=== PATIENT | male | born 1955 | race Caucasian/White ===

== ENCOUNTER 2021-08-28 15:16 | Outpatient (CLI) | payer MEDICAID, SELFPAY | END 2021-08-28 15:17 | disposition home or self-care (01) | LOC: WOUND 15:17 | PROVIDERS: Visit Provider Nurse Practitioner Family | DX: E11.622 Type 2 diabetes mellitus with other skin ulcer (principal); I87.311 Chronic venous hypertension (idiopathic) with ulcer of right lower extremity; L97.912 Non-pressure chronic ulcer of unspecified part of right lower leg with fat layer exposed; I89.0 Lymphedema, not elsewhere classified; Z79.84 Long term (current) use of oral hypoglycemic drugs | CPT/HCPCS: 11042 ==

== ENCOUNTER 2021-09-04 15:08 | Outpatient (CLI) | payer MEDICAID, SELFPAY | END 2021-09-04 15:09 | disposition home or self-care (01) | LOC: WOUND 15:08 | PROVIDERS: Visit Provider Nurse Practitioner Family | DX: E11.622 Type 2 diabetes mellitus with other skin ulcer (principal); I87.311 Chronic venous hypertension (idiopathic) with ulcer of right lower extremity; L97.912 Non-pressure chronic ulcer of unspecified part of right lower leg with fat layer exposed; I89.0 Lymphedema, not elsewhere classified; Z79.84 Long term (current) use of oral hypoglycemic drugs | CPT/HCPCS: 11042 ==

== ENCOUNTER 2021-09-11 15:14 | Outpatient (CLI) | payer MEDICAID, SELFPAY | END 2021-09-11 15:15 | disposition home or self-care (01) | LOC: WOUND 15:14 | PROVIDERS: Visit Provider Nurse Practitioner Family | DX: E11.622 Type 2 diabetes mellitus with other skin ulcer (principal); L97.815 Non-pressure chronic ulcer of other part of right lower leg with muscle involvement without evidence of necrosis; I89.0 Lymphedema, not elsewhere classified | CPT/HCPCS: 11042 ==

== ENCOUNTER 2021-09-22 08:00 | Outpatient (CLI) | payer MEDICAID, SELFPAY | END 2021-09-22 08:01 | disposition home or self-care (01) | PROVIDERS: Visit Provider Physician Assistant Surgical | DX: E11.622 Type 2 diabetes mellitus with other skin ulcer (principal); L97.812 Non-pressure chronic ulcer of other part of right lower leg with fat layer exposed; I87.312 Chronic venous hypertension (idiopathic) with ulcer of left lower extremity; L97.822 Non-pressure chronic ulcer of other part of left lower leg with fat layer exposed; Z79.84 Long term (current) use of oral hypoglycemic drugs | CPT/HCPCS: 11042 ==

== ENCOUNTER 2021-10-02 15:24 | Outpatient (CLI) | payer MEDICAID, SELFPAY ==
--- OUTSIDE RECORDS SUMMARY | 2021-10-02 15:32 | XMS_ITS | Continuity of Care Document ---
:1955 Author Organization [facility] Care Team Providers Name Role Phone [facility] Unavailable Unavailable Problems Combined list of problems from Department of Defense and [facility] Affairs facilities. It does not include entries that were removed or entered in error. Problem Status Onset Problem Type Date of Comments Source Date Resolution AF-Atrial [facility] ([facility] HC S [id number]) Anxiety [facility] Asthma (SCT Active [place] [id number]) HCS Benign essential Active Condition [facility] hypertension HCS (SNOMED CT 7152496) Cardiomyopathy Active Condition [facility] HCS Depressive Disorder Active Condition [facility] NOS HCS Diabetes mellitus Active Condition [facility] (SNOMED CT HCS 72336961) Diabetic neuropathy Active Condition [facility] (SNOMED CT HCS 763216246) Dyslipidemia Active Condition [facility] H/O: Stroke (SCT [place] [id number][place] HCS Heart failure [facility] Hernia of anterior Active Condition Sep 14, [facility] abdominal wall 2013 [facility] Entered By: ALDO LI Comment: Dx 04/03, Gen Surgical Eval 07/01 Hydrocele (SNOMED Active [place] 81440577) HCS Low back pain [facility] [place] [facility] (SNOMED CT HCS 134186843) Mental disorder Active Condition [facility] Mixed anxiety and Active Condition [facility] depressive disorder HCS (SNOMED CT 408470021) Morbid obesity [facility]SNOMED [facility] HCS 604962788) Other Specified Active Condition [facility] Counseling [facility] (ICD-9-CM V65.49) Pes Planus, [facility] Acquired HCS 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[facility] depressive HCS episodes, moderate (SNOMED CT 692064126) Sleep Apnea [facility] Diagnosis: active Diagnosis [facility] ICD-10-CM I63.9 HCS Cerebral infarction, unspecifiedwith Provider Comments: Cerebral infarction, unspecified Diagnosis: active Diagnosis [place] ICD-10-CM I63.9 HCS Cerebral infarction, unspecifiedwith Provider Comments: Cerebral Infarction, unspecified Diagnosis: active Diagnosis [place] ICD-10-CM Z71.3 HCS Dietary counseling and surveillancewith Provider Comments: Dietary counseling and surveillance Diagnosis: active Diagnosis [place] ICD-10-CM R26.9 HCS Unspecified abnormalities of gait and mobilitywith Provider Comments: Unspecified Abnormalities of Gait and Mobility Diagnosis: active Diagnosis [place] ICD-10-CM I10 HCS Essential (primary) hypertensionwith Provider Comments: Benign essential hypertension (SCT 3347558) Medications Combined list of outpatient medications from Department of Defense and Veterans Affairs facilities. Medications provided include 1) outpatient medications from the last 15 months, and 2) patient-reported medications. Medication Details Route Status Patient Prescription Prescription Last Ordering Order Source Instructions Expires Number Dispense Provider Date Date ACETAMINOPH TAKE TWO ORALLY ACTIVE BROWN,ABBY 12/09 / [place] 325MG TABLETS 2019 [facility] TAB BY M[facility]TH [facility] EVERY 6 HOURS NEEDED ALBUTEROL INHALE INHALA ACTIVE BROWN,ABBY 06/16/ [place] INHL,ORAL BY TION AN [facility] ON PRN AMLODIPINE TAKE ORALLY ACTIVE BROWN,ABBY 12/09/ [place] BESYLATE ONE-HALF AN 2019 [facility] 10MG TAB TABLET [facility] BY MOUTH EVERY DAY ASPIRIN TAKE ONE ORALLY ACTIVE BROWN,ABBY 12/09/ [place] 81MG TAB,EC TABLET 2019 [facility] BY [facility]TH [facility] EVERY DAY ATORVASTATI TAKE ONE ORALLY ACTIVE BROWN,ABBY 12/09 / [place] CA 80MG TABLET 2019 [facility] AT BEDTIME BACITRACIN APPLY TO TOPICA ACTIVE BROWN,ABBY 06/16/ [place] 500UNT/GM AFFECTED LLY AN 2020 [facility] OINT,TOP AREA [facility] TOPICALL Y PRN DOCUSATE NA TAKE ONE ORALLY ACTIVE BROWN,ABBY 06/16 / [place] 50MG/SENNOS TABLET AN 2020 [facility] IDES 8.6MG BY MOUTH [facility] S TAB TWICE A DAY NEEDED FLUTICASONE SPRAY 2 NASAL ACTIVE BROWN,ABBY 12/09/ [place] PROPIONATE SPRAYS AN 2019 [facility] 50MCG/SPRAY IN EACH [facility] SOLN,NASAL, NOSTRIL 16GM EVERY DAY FUROSEMIDE TAKE ONE ORALLY ACTIVE BROWN,ABBY 12/09/ [place] 20MG TAB TABLET AN 2019 [facility] BY [facility]TH [facility] EVERY DAY GABAPENTIN TAKE 1 ORALLY ACTIVE BROWN,ABBY 06/27/ [place] 100MG CAP CAPSULE AN 2021 [facility]TH [facility] TWICE A DAY METFORMIN TAKE ONE ORALLY ACTIVE BROWN,ABBY 06/16/ [place] HCL 1000MG TABLET AN 2020 [facility] TWO TIMES A DAY METOPROLOL TAKE ORALLY ACTIVE BROWN,ABBY 12/09/ [place] SUCCINATE ONE-HALF AN 2019 [facility] 200MG TABLET [facility] TAB,SA BY MOUTH EVERY DAY NYSTATIN USE TOPICA ACTIVE BROWN,ABBY 12/09/ [place] POWDER TOPICALL LLY AN 2019 [facility] Y TWICE [facility] A DAY SENNOSIDES TAKE ONE ORALLY ACTIVE BROWN,ABBY 12/09/ [place] 8.6MG TAB TABLET AN 2019 [facility] BY [facility]OUTH [facility] EVERY DAY VALSARTAN TAKE 1.5 ORALLY ACTIVE BROWN,ABBY 06/16/ [place] 80MG TAB TABLETS AN 2020 [facility] BY [facility]TH [facility] TWICE A DAY WARFARIN NA TAKE 10 ORALLY ACTIVE BROWN,ABBY 06/16/ [place] 1MG TAB TABLETS AN 2020 [facility] BY [facility]TH [facility] EVERY DAY Allergies, Adverse Reactions, Alerts Combined list of allergies from Department of Defense and Veterans Affairs facilities. It does not include entries that were removed or entered in error. Substance Category Reaction Severity Reaction Status Date Comments S ource type Reported LISINOPRIL Propensity Propensity active [place] to adverse to adverse 8 [place] [facility] reactions reactions to drug to drug (finding) (finding) LISINOPRIL Propensity Cough Propensity active [facility] to adverse to adverse 2 [facility] reactions reactions to drug to drug (finding) (finding) Immunizations Combined list of available immunizations from the Department of Defense and Veterans Affairs facilities. Immunization Series Date Administered Site Reaction Lot CVX Drug St atus Comments Source Given By Number Code Check Pilot INFLUENZA, complet [place] UNSPECIFIED 2020 ed [facility] COVID-19 2 complet [place] LGREE (MODERNA), 2020 ed NS MRNA, LNP-S, P HARMAC PF, 100 IES MCG/0.5 ML DOSE COVID-19 1 complet [place] LG[place] (MODERNA), 2020 ed NS MRNA, LNP-S, P HARMAC PF, 100 IES MCG/0.5 ML DOSE ZOSTER 2 complet [place] RECOMBINANT 2018 ed [facility] INFLUENZA, complet [place] SEASONAL, 2018 ed [facility] INJECTABLE, HC S PRESERVATIVE FREE ZOSTER 1 complet [place] RECOMBINANT 2018 ed [place] [facility] HCS INFLUENZA, complet [facility] SE[facility]ON[facility], [address] INJECTABLE, ME TRO PRESERVATIVE V A FREE CLINIC INFLUENZA, complet [facility] SEASONAL, [address] INJECTABLE, ME TRO PRESERVATIVE V A FREE CLINIC INFLUENZA, complet [place] [facility] [address] INJECTABLE, ME TRO PRESERVATIVE V A FREE CLINIC INFLUENZA, complet [facility] UNSPECIFIED [address] FORMULATION [facility]IN[facility] INFLUENZA, complet [facility] UNSPECIFIED [address] FORMULATION [facility] TDAP complet [id number] [facility] [place] 2012 ed 05/06/15 ST [employer] [facility] PR CLINIC INFLUENZA, complet [facility] UNSPECIFIED [address] FORMULATION [place] [facility] PR CLINIC INFLUENZA, complet [place] UNSPECIFIED 2009 ed [facility] PNEUMOCOCCAL, complet [employer] [place] UNSPECIFIED 2007 ed lot# [facility] [id number] HC S exp. [id number] INFLUENZA complet [place] (HISTORICAL) 2007 ed O [place] [facility] HCS INFLUENZA complet [place] (HISTORICAL) 2007 ed O [place] [facility] HCS TD(ADULT) complet [place] UNSPECIFIED 2007 ed [facility] Results Combined list of recent chemistry, hematology and other laboratory results from Department of Defense and Veterans Affairs, ranging from 15 months to all on record, depending upon the facility. Order Results Value Reference Date Interpretation Specimen Commen ts Source Name Range OCCULT HEMOGLOBIN. Negative 06/28 Specimen Ty pe: FECES [place] BLOOD GASTROINTES /2020 No comment e ntered. IS [facility] X1 TINAL.LOWER Ordering Pr ovider: MONI BROWN SCREEN [PRESENCE] Report Relea sed Date/Time: Jun 16, 2020 09:30 AM IN STOOL BY Reporting L ab: [facility] IMMUNOASSAY [address] [facility] [address] --1ST Performing Lab: [facility] SPECIMEN [address] [facility] [address] DRUG BARBITURATE Negative 05/04 Specimen Ty pe: URINE [place] SCREEN S Comment: PRESUM PTIVE POSITIVE BY SCREEN, RESULTS NOT CONFIRMED IS PR [employer] PANEL,U [PRESENCE] Ordering Pro vider: MONI BROWN IN URINE BY Report Rele ased Date/Time: Feb 27, 2018 10:18 AM SCREEN Reporting Lab: [facility] METHOD [address] [facility] [address] Performing Lab: [facility] [address] [facility] [address] DRUG AMPHETAMINE Negative 05/04 Specimen Ty pe: URINE [place] SCREEN S Comment: PRESUM PTIVE POSITIVE BY SCREEN, RESULTS NOT CONFIRMED IS PR [employer] PANEL,U [PRESENCE] Ordering Pro vider: MONI BROWN IN URINE Report Release d Date/Time: Feb 27, 2018 10:18 AM Reporting Lab: [facility] [address] [facility] [address] Performing Lab: [facility] [address] [facility] [address] DRUG COCAINE Negative 05/04 Specimen Type: URINE [place] SCREEN [PRESENCE] /2020 Comment: PRE SUMPTIVE POSITIVE BY SCREEN, RESULTS NOT CONFIRMED IS PR [employer] PANEL,U IN URINE Ordering Provi isidra: MONI BROWN Report Released Date/Time: Feb 27, 2018 10:18 AM Reporting Lab: [facility] [place] [address] Performing Lab: [facility] [address] [facility] [address] DRUG BENZODIAZEP Negative 05/04 Specimen Ty pe: URINE [place] SCREEN JOHANN /2020 Comment: PRESUM PTIVE POSITIVE BY SCREEN, RESULTS NOT CONFIRMED IS PR HCS PANEL,U [PRESENCE] Ordering Pro vider: MONI BROWN IN URINE BY Report Rele ased Date/Time: Feb 27, 2018 10:18 AM SCREEN Reporting Lab: [facility] METHOD [place] [address] Performing Lab: [facility] [address] [place] [address] DRUG CANNABINOID Negative 05/04 Specimen Ty pe: URINE [place] SCREEN Comment: PRESUM PTIVE POSITIVE BY SCREEN, RESULTS NOT CONFIRMED IS PR HCS PANEL,U [PRESENCE] Ordering Pro vider: MONI BROWN IN URINE BY Report Rele ased Date/Time: Feb 27, 2018 10:18 AM SCREEN Reporting Lab: [facility] METHOD [address] [facility] [address] Performing Lab: [facility] [address] [facility] [address] DRUG METHADONE Negative 05/04 Specimen Type : URINE [place] SCREEN [PRESENCE] /2020 Comment: PRE SUMPTIVE POSITIVE BY SCREEN, RESULTS NOT CONFIRMED IS PR HCS PANEL,U IN URINE Ordering Provi isidra: MONI BROWN Report Released Date/Time: Feb 27, 2018 10:18 AM Reporting Lab: [facility] [address] [facility] [address] Performing Lab: [facility] [address] [facility] [address] DRUG OPIATES POSITIVE 05/04 H Specimen Type: URINE [place] SCREEN [PRESENCE] /2020 Comment: PRE SUMPTIVE POSITIVE BY SCREEN, RESULTS NOT CONFIRMED IS PR HCS PANEL,U IN URINE BY Ordering Pr ovider: MONI BROWN SCREEN Report Released Date/Time: Feb 27, 2018 10:18 AM METHOD Reporting Lab: [facility] [address] [facility] [address] Performing Lab: [facility] [address] [facility] [address] DRUG PHENCYCLIDI Negative 05/04 Specimen Ty pe: URINE [place] SCREEN Comment: PRESUM PTIVE POSITIVE BY SCREEN, RESULTS NOT CONFIRMED IS PR HCS PANEL,U [PRESENCE] Ordering Pro vider: MONI BROWN IN URINE Report Release d Date/Time: Feb 27, 2018 10:18 AM Reporting Lab: [facility] [address] [place] [address] Performing Lab: [facility] [address] [facility] [address] DRUG ETHANOL Negative 05/04 Specimen Type: URINE [place] SCREEN [MASS/VOLUM /2020 Comment: MA ESUMPTIVE POSITIVE BY SCREEN, RESULTS NOT CONFIRMED IS PR HCS PANEL,U E] IN URINE Ordering Pr ovider: MONI BROWN Report Released Date/Time: Feb 27, 2018 10:18 AM Reporting Lab: [facility] [address] [facility] [address] Performing Lab: [facility] [address] [facility] [address] DRUG CREATININE >300.0 20 05/04 Specimen Type : URINE [place] SCREEN [MASS/VOLUM /2020 Comment: MA ESUMPTIVE POSITIVE BY SCREEN, RESULTS NOT CONFIRMED IS PR HCS PANEL,U E] IN URINE Ordering Pr ovider: MONI BROWN Report Released Date/Time: Feb 27, 2018 10:18 AM Reporting Lab: [facility] [address] [facility] [address] Performing Lab: [facility] [address] [facility] [address] DRUG OXYCODONE Negative 05/04 Specimen Type : URINE [place] SCREEN [PRESENCE] /2020 Comment: PRE SUMPTIVE POSITIVE BY SCREEN, RESULTS NOT CONFIRMED IS PR HCS PANEL,U IN URINE BY Ordering Pr ovider: MONI BROWN SCREEN Report Released Date/Time: Feb 27, 2018 10:18 AM METHOD Reporting Lab: [facility] [address] [facility] [address] Performing Lab: [facility] [address] [facility] [address] DRUG BUPRENORPHI Negative 05/04 Specimen Ty pe: URINE [place] SCREEN NE+NORBUPRE /2020 Comment: MA ESUMPTIVE POSITIVE BY SCREEN, RESULTS NOT CONFIRMED IS PR HCS PANEL,U [place] Ordering Provi isidra: MONI BROWN [PRESENCE] Report Relea sed Date/Time: Feb 27, 2018 10:18 AM IN URINE Reporting Lab: [facility] [place] [address] Performing Lab: [facility] [address] [facility] [address] DRUG TRAMADOL Negative 03/17 Specimen Type: URINE [place] SCREEN CUTOFF /2020 Comment: PRESUM PTIVE POSITIVE BY SCREEN, RESULTS NOT CONFIRMED IS [facility] PANEL,U [MASS/VOLUM Ordering Pr ovider: MONI BROWN] IN URINE Report Rele ased Date/Time: Feb 27, 2018 10:18 AM FOR SCREEN Reporting La b: [facility] METHOD [address] [facility] [address] Performing Lab: [facility] [address] [facility] [address] Vital Signs Combined list of inpatient and outpatient Vital Signs from Department of Defense and Veterans Affairs, ranging from 12 months to all on record, depending upon the facility. Vital Sign Value Date Comments Source SYSTOLIC BLOOD PRESSURE 153 06/14/2021 08:03:02 [facility] DIASTOLIC BLOOD PRESSURE 99 06/14/2021 08:03:02 [facility] PULSE OXIMETRY 99% 06/14/2021 08:03:02 [place] [facility] WEIGHT 334 06/14/2021 08:03:02 [place] [facility] BMI 48kg/m2 06/14/2021 08:03:02 [place] [facility] PAIN 0 06/14/2021 08:03:02 [place] [facility] TEMPERATURE 97.7 06/14/2021 08:03:02 [place] [facility] [facility] PULSE 68 06/14/2021 08:03:02 [place] [facility] RESPIRATION 18 06/14/2021 08:03:02 [place] [facility] Encounters Combined list of: 1) Encounters from Department of Veterans Affairs facilities going back up to the last 18 months, not all [place] inpatient encounters are included; 2) Encounters from the Department of Defense facilities going back up to 280 months. Location Location Encounter Encounter Reason Attending ADM DC Stat us Disposition Source Details Type Number For Provider Date Date Visit Outpatient [id number] 04/04 [facility] Encounter [id number] NS 990 [facility] Outpatient [id number] 05/04 [place] [facility] [id number] [facility] [id number] 06/16 [place] [facility] [id number] [facility] 23331-7. DOMINIK BROWN 06/16 [place] En[place] [id number] [facility] [id number] 06/16 [place] En[place] [id number] /2020 [facility] 93281-2.61 BRENDAN HEBERT 06/16 [place] Encounter [id number] EKATERINA J [facility] [id number] 06/16 [place] En[place] [id number] /2020 [facility] Outpatient [id number] DOMINIK BROWN 06/16 [place] En[place] [id number] N [facility] Outpatient [id number] 06/30 [place] Encounter [id number] /2020 [facility] Outpatient [id number] 10/06 [place] En[place] [id number] /2020 [facility] Outpatient [id number] SHIRA PAUL 10/13 [place] [id number] [facility] [id number] 11/18 [place] En[place] [id number] /2020 [facility] [id number] 04/11 [place] En[place] [id number] /2021 [facility] [id number] 05/03 [place] En[place] [id number] /2021 [facility] Outpatient [id number] 05/18 [place] Encounter [id number] /2021 [facility] OFFICE O/P 10769-4.61 Diagnos DOMINIK BROWN 06/14 [place] EST [place] [id number] is: N [facility] 40-54 [place] ICD-10- [facility] CM I10 Essenti al (primar y) hyperte nsion<b r/>with Provide r Comment s: Benign essenti al hyperte nsion (SCT 7493374 ) Outpatient [id number] 06/15 [place] Encounter [id number] /2021 [facility] [id number] 06/17 [place] En[place] [id number] /2021 [facility] [id number] Diagnos JEREMIAH SALEH 06/20 [place] Encounter [id number] is: [place] [facility] ICD-[facility]- [facility] CM R26.9 Unspeci fied abnorma lities of gait and mobilit y
w ith Provide r Comment s: Unspeci fied Abnorma lities of Gait and Mobilit y MEDICAL 84069-2.61 Diagnos VINCENT,TO 07/12 [place] NUTRITION [id number] is: NI [facility] IN[facility] ICD-10- HCS CM Z71.3 Dietary personal financial counselor ing and surveil winnie<b r/>with Provide r Comment s: Dietary personal financial counselor ing and surveil winnie THERAPEUTI 58062-8.61 Diagnos DELBERT GERARDO 07/12 [place] [id number] is: NNER W [facility] ACTIVITIES ICD-10- [facility] CM I63.9 Cerebra l infarct ion, unspeci fied
with Provide r Comment s: Cerebra l Infarct ion, unspeci fied NEUROMUSCU 70753-8.61 Diagnos BAM SUAREZ 08/11 [place] LAR [id number] is: /2021 [facility] REEDUCATIO ICD-10- [facility] N CM I63.9 Cerebra l infarct ion, unspeci fied
with Provide r Comment s: Cerebra l infarct ion, unspeci fied Outpatient [id number] 09/07 [place] Encounter [id number] /2021 [facility] Outpatient [id number] 09/19 [place] Encounter [id number] /2021 [facility] Outpatient [id number] 09/27 [place] Encounter [id number] /2021 [facility] Social History Combined list of available smoking, tobacco, and other social history from Department of Defense andVeterans Affairs facilities. Social History Type Response Date Comment Source Tobacco smoking VA-[facility] USER SOME 06/14/2021 [facility] NHIS DAYS History of tobacco VA-TOBACCO DOESNT USE 06/14/2021 [facility] use WI 30 MIN WAKEUP History of tobacco VA-TOBACCO NEVER USED 01/28/2018 [facility] use History of tobacco FORMER TOBACCO USER 10/25/2016 [facility] History of tobacco LIFETIME NON-TOBACCO 10/12/2015 [facility] History of tobacco LIFETIME NON-TOBACCO 09/22/2014 [facility] use [facility] History of tobacco FORMER TOBACCO USER 07/07/2013 [facility] History of tobacco LIFETIME NON-TOBACCO 07/05/2011 [facility] use USER History of tobacco LIFETIME NON-TOBACCO 07/03/2011 [facility] use USER History of tobacco LIFETIME NON-TOBACCO 11/20/2007 [facility] use USER Advance Directives List of completed, amended, or rescinded Advance Directives on record at Department of Veterans Affairs facilities. An actual copy of the Directive is not included. Date Advance Directive Provider Source 07/03/2011 CLINICAL WARNING RACHAEL KING [facility]
--- OUTSIDE RECORDS SUMMARY | 2021-10-02 15:32 | XMS_ITS | Encounter Summary ---
:1955 Author Organization [facility] Address [address] [place] [address] Support Name Relationship Address Phone JULIET MOODY Unavailable [address] [place] [facility] [place] [address] SHENA PETERSEN Unavailable [address] [place] [address] SHENA PETERSEN Unavailable [address] [place] [address] Insurance Providers: All historical and current Section Date Range: From patient's date of to the date document was created.This section includes the names of all active insurance providers for the patient. Insurance Type of Plan Start of End of Group Member Insurance Policy P mireya's Provider Coverage Name Policy Policy Number ID Provider's Erazo's Relationship Coverage Coverage Telephone Name to Policy Number Erazo MEDICARE MEDICARE PART June 18, PART A [id number] Smiley MOODY (WNR) (M A [id number] [phone] [facility] Selected Encounter This section includes the information on record at [facility] for the Encounter. Date/Time Encounter Type Encounter Reason Provider Source Description Oct 13, 2020 09:34 Outpatient TELEPHONE PRIMARY SHIRA PAUL AM Encounter CARE PATRIZIA Miko Encounter Template Text not used by NE Social History: Smoking Status (Most current) and Tobacco Use (All prior to encounter date) This section includes the most current, and the historical, smoking and tobacco-related health factors from the [place] facility where the Encounter took place.Current Smoking Status This section includes the most current smoking, or tobacco-related health factor, from the [place] facility where the Encounter took place. Date/Time Current Smoking Status [facility] Facility Jan 28, 2018 12:26 PM VA-TOBACCO NEVER USED HARRIETT ERNANDEZ [facility] Tobacco Use History This section includes a history of the smoking, or tobacco- related health factors, that were collected on or before the date of the Encounter. The data comes from the [place] facility where the Encounter took place. Date/Time Smoking Status/Tobacco Use Comment Jorge briscoe July 05, 2011 09:38 AM LIFETIME NON-TOBACCO USER [facility] July 03, 2011 06:04 PM LIFETIME NON-TOBACCO USER [facility] Nov 20, 2007 08:19 AM LIFETIME NON-TOBACCO USER [facility] Advance Directives: All historical and current Section Date Range: From patient's date of to the date document was created. This section includes ALL of a patient's completed or amended NE Advance and Rescinded Directives. The entries below indicate that a directive exists for the patient, but an actual copy is not included with this document. The data comes from all [place] facilities. Date Advance Directives Provider Source July 03, 2011 CLINICAL WARNING RACHAEL KING [facility] Encounter Notes: All associated encounter notes This section contains the clinical notes associated to the Encounter. Date/Time Encounter Note(s) Provider Source Oct 13, 2020 09:35 AM PACT NOTE: JONNIE PAUL IS [facility] LOCAL TITLE: COVID-19 PREVENTIVE HEALTH INVENTO RY PATRIZIA STANDARD TITLE: PACT NOTE DATE OF NOTE: OCT 13, 2020@09:35 ENTRY DATE: OCT 13, 2020@09:35:59 AUTHOR: JONNIE PAUL EXP COSIGNER: URGENCY: STATUS: COMPLETED COVID-19 Preventive Health Inventory Patient confirms location is safe and private fo r visit. The method of contact is telephone. Patient Contact Details: Best contact number for backup/emergency commun ication with patient: [phone] Patient Location/Surroundings During Visit: Patient location during visit: Home [address] [address] Others present for visit with patient's consent : Name: son answered phone which is the primary n umber listed. Next scheduled appointments: No data available The patient has had a prior vaccination for COVI D-19. Patient reported blood pressure: pt lives in [place] facility Colorectal Cancer Screening The is not currently due for colorectal cancer screening. Suicide Screening The patient declined suicide screening. Comment: spoke with son, unable to complete SS with , can be completed at another time Diabetes Management Hemoglobin A1C Patient completed outside hemoglobin A1C, advis ed to send records by fax or [facility] or bring to next PC appt. Diabetes Kidney Screening Patient completed outside microalbumin, advised to send records by fax or [facility] or bring to next PC appt. Diabetes Foot Check The patient reports no abnormalities of the fee t. Plan: Resume complete foot exam at next PCP visit. Di abetic foot education provided. Diabetes Eye Screening Diabetes eye screening has been completed outsi de of the [place]. Requested that the [place] fax records to the Primary Care Pro vider. /es/ JONNIE PAUL RN Signed: 10/13/2020 10:03
--- OUTSIDE RECORDS SUMMARY | 2021-10-02 15:33 | XMS_ITS | Encounter Summary ---
:1955 Author Organization Department of [facility] rs Address [address] [place] [address] Support Name Relationship Address Phone JULIET MOODY Unavailable [address] [place] [address] SHENA PETERSEN Unavailable [address] [place] [address] NICOLASHENA Reis Unavailable [address] [place] [address] Insurance Providers: All historical and current Section [...] MEDICARE MEDICARE PART June 18, PART A [id number] Smiley MOODY (WNR) (M) A 2009 16A [phone] [facility] Selected Encounter This section includes the information on record at [place] for the Encounter. Date/Time Encounter Type Encounter Reason Provider Source Description Jun 14, 2021 OFFICE O/P EST PRIMARY ICD-10-CM I10 MONI BROWN 08:15 AM HI 40-54 MIN CARE/MEDICINE Essential [facility] (primary) hypertension with Provider Comments: Benign essential hypertension (SCT [id number]) E Encounter Template Text not used by [place] Assessments - Encounter Diagnoses This section includes the primary and secondary diagnoses documented for the Encounter. Date/Time Primary/Secondary Diagnosis Name Provider Source Diagnosis Jun 16, 2021 PRIMARY Essential MONI BROWN [facility] 04:08 PM (primary) [facility] hypertension Jun 16, 2021 SECONDARY Anxiety disorder, BROWN,MONI Villalobos [place] 04:08 PM unspecified [facility] Jun 16, 2021 SECONDARY Cardiomyopathy, MONI BROWN [place] 04:[place] PM unspecified [facility] Jun 16, 2021 SECONDARY Heart failure, MONI BROWN [place] 04:08 PM unspecified [facility] Jun 16, 2021 SECONDARY Mental disorder, MONI BROWN [place] 04:[place] PM not otherwise [facility] specified Jun 16, 2021 SECONDARY Morbid (severe) MONI BROWN [place] 04:08 PM obesity due to [facility] excess calories Jun 16, 2021 SECONDARY Prsnl hx of TIA MONI BROWN [facility] 04:08 PM (TIA), and cereb [facility] infrc w/o resid deficits Jun 16, 2021 SECONDARY Type 2 diabetes MONI BROWN [facility] 04:08 PM mellitus with [facility] diabetic neuropathy, unsp Jun 16, 2021 SECONDARY Type 2 diabetes MONI BROWN [facility] 04:08 PM mellitus with [facility] unspecified complications Jun 16, 2021 SECONDARY Unspecified MONI BROWN [facility] 04:08 PM asthma, [facility] uncomplicated Jun 16, 2021 SECONDARY Unspecified atrial MONI BROWN [place] 04:08 PM fibrillation [facility] Plan of Treatment: Future Appointments (+ 6 months) and Future Tests (+/- 45 days) The Plan of Treatment section includes future care activities for the patient from [facility] [place] [facility]. This section includes future appointments and future orders which are active, pending orscheduled.Future Appointments This section includes appointments that were scheduled to occur 6 months from the date of the Encounter, up to a maximum of 20 appointments. The data comes from all [place] treatment facilities. Appointment Date/Time Appointment Type Appointment Facili ty Name July 04, 2021 05:00 PM AMBULATORY - REHAB MEDICINE [facility] July 12, 2021 09:15 AM AMBULATORY - NONE [facility] July 12, 2021 02:00 PM AMBULATORY - REHAB MEDICINE [facility] Aug 11, 2021 09:00 AM AMBULATORY - REHAB MEDICINE [facility] Vital Signs: All taken on the encounter date This section contains inpatient and outpatient Vital Signs collected on the date of the Encounter. Date/Time Temperature Pulse Blood Respiratory SP02 Pain Height Weight Korey dy Source Pressure Rate Mass Index Jun 14, 134/90 [facility] 2021 08:09 mm[Hg] [facility] Jun 14, 97.7 F 68 153/99 18 /min 99 % 0 334 lb 48 [facility] 2021 08:03 /min mm[Hg] [facility] Social History: Smoking Status (Most current) and Tobacco Use (All prior to encounter date) This section includes the most current, and the historical, smoking and tobacco-related health factors from the [place] facility where the Encounter took place.Current Smoking Status This section includes the most current smoking, or tobacco-related health factor, from the [place] facility where the Encounter took place. Date/Time Current Smoking Status Comment Facility Jun 14, 2021 08:15 AM VA-TOBACCO USER SOME DAYS [facility] Tobacco Use History This section includes a history of the smoking, or tobacco- related health factors, that were collected on or before the date of the Encounter. The data comes from the [place] facility where the Encounter took place. 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 [facility] Jun 14, 2021 08:15 AM VA-TOBACCO USE MED NO [facility] Jun 14, 2021 08:15 AM VA-TOBACCO USER SOME DAYS [facility] Jan 28, 2018 12:26 PM [facility]ACCO [facility] July 05, 2011 09:38 AM LIFETIME NON-TOBACCO USER [facility] July 03, 2011 06:04 PM LIFETIME NON-TOBACCO USER [facility] Nov 20, 2007 08:19 AM LIFETIME NON-TOBACCO USER [facility] Advance Directives: All historical and current Section Date Range: From patient's date of to the date document was created. This section includes ALL of a patient's completed or amended [place] Advance and Rescinded Directives. The entries below indicate that a directive exists for the patient, but an actual copy is not included with this document. The data comes from all [facility]. Date Advance Directives Provider Source July 03, 2011 CLINICAL WARNING RACHAEL KING [facility] Encounter Notes: All associated encounter notes This section contains the clinical notes associated to the Encounter. Date/Time Encounter Note(s) Provider Source Jun 14, 2021 08:48 AM INTERNAL MEDICINE NOTE: MONI BROWN [facility] [facility] LOCAL TITLE: MEDICINE CLINIC NOTE [facility] STANDARD TITLE: INTERNAL MEDICINE NOTE DATE OF NOTE: JUN 14, 2021@08:48 ENTRY DATE: JUN 14, 2021@08:48:53 AUTHOR: MONI BROWN EXP COSIGNER: URGENCY: STATUS: COMPLETED MEDICINE CLINIC NOTE Has ADDENDA Nurse's notes reviewed from today. JOSÉ ANTONIO MOODY is a 65 year old MALE who p resents to clinic for his annual exam HPI: Comanaged, P[facility] Able to be seen in home which is more enedelia t. Tanvir BRANCH every few weeks per patient report. Last seen 1 week ago. Will receive all oral medicatio ns through non-VA providers. Pt has residual R hemiparesis s/p massive CVA in 2019. He lives at [facility]. Would like to have more independent mobility to partic ipate in activities offered. Requesting electric mobility through [facility]. He also is currently using a scarf for support of RUE weakness, requesting new sling. Son presents with . States transportation to [facility] appts is problematic. Inquiring about any transportation benefits that may be accessible. Requesting eye appt, discussed with Son/[place] self referral process. Requesting new diabetic shoes. Also states accupuncture in past has been helpful for chronic TTH/TMJ. He would like [facility] consult placed again for this. Social Hx: Marital Status - . Living at [facility]. Nursing is coming in to set up medications and watch him take meds every day. Also do blood sug ar check. Able to bathe himself. He uses a manually wheelchair for mobil ity. Active problems - Computerized Problem List is t he source for the followin. Benign essential hypertension (SNOMED CT 120 1005) 2. Dyslipidemia 3. Diabetes mellitus (SNOMED CT 70620921) 4. Morbid obesity (SNOMED CT 620480674) 5. Depressive Disorder NOS 6. Diabetic neuropathy (SNOMED CT 983485548) 7. Sleep Apnea 8. Other Specified Counseling 9. Pes Planus, Acquired 10. Low back pain (SNOMED CT 094198449) 11. Recurrent major depressive episodes, moderat e (SNOMED CT 756969134) 12. Mixed anxiety and depressive disorder (SNOME D CT 441314789) 13. Hydrocele (SNOMED CT 89151808) 14. Hernia of anterior abdominal wall - Dx 04/03, Gen Surgical Eval 07/01 15. Anxiety 16. Mental disorder 17. Asthma ([facility] [id number]) 18. Cardiomyopathy 19. AF-Atrial Fibrillation ([facility] 00080833) 20. Heart failure 21. H/O: Stroke ([facility] [id number]) Allergies: LISINOPRIL (Nov 28, 2007) Medications: Active Outpatient Medications (incl uding Supplies): Active Outpatient Medications Status 1) AMMONIUM LACTATE 12% LOTION APPLY A THIN LAYE R TO ACTIVE FEET EVERY DAY NEEDED TO SOFTEN SKIN Active Non-VA Medications Status 1) Non-VA ACETAMINOPHEN 325MG TAB 650MG MOUTH EV JOHN 6 ACTIVE HOURS NEEDED 2) Non-VA ALBUTEROL INHL,ORAL INHALATION NEED ED ACTIVE 3) Non-VA AMLODIPINE BESYLATE 10MG TAB 5MG MOUTH EVERY ACTIVE DAY 4) Non-VA ASPIRIN 81MG EC TAB 81MG MOUTH EVERY D AY ACTIVE 5) Non-VA ATORVASTATIN CALCIUM 80MG TAB 80MG MARVIN TH AT ACTIVE BEDTIME 6) Non-VA BACITRACIN 500 UNT/GM TOP OINT TO AFFE CTED ACTIVE AREA TOPICALLY NEEDED 7) Non-VA DOCUSATE NA 50MG/SENNOSIDES 8.6MG TAB 1 TABLET ACTIVE MOUTH TWICE A DAY NEEDED 8) Non-VA FLUTICASONE PROP 50MCG 120D NASAL INHL 2 ACTIVE SPRAYS EACH NOSTRIL EVERY DAY 9) Non-VA FUROSEMIDE 20MG TAB 20MG MOUTH EVERY D AY ACTIVE 10) Non-VA METFORMIN HCL 1000MG TAB 1000MG MOUTH TWO ACTIVE TIMES A DAY 11) Non-VA METOPROLOL SUCCINATE 200MG SA TAB 100 MG MOUTH ACTIVE EVERY DAY 12) Non-VA NYSTATIN POWDER TOPICALLY TWICE A DAY ACTIVE 13) Non-VA SENNOSIDES 8.6MG TAB 8.6MG MOUTH EVER Y DAY ACTIVE 14) Non-VA VALSARTAN 80MG TAB 120MG MOUTH TWICE A DAY ACTIVE 15) Non-VA WARFARIN (COUMADIN) NA 1MG TAB 10MG M OUTH ACTIVE EVERY DAY 16 Total Medications MEDICATION RECONCILIATION Outpatient At this visit I have reviewed the medication li st, and discussed relevant medications with the patient/s urrogate. Son/[place] did not bring in non-VA list, will have this faxed. EXAM: VS: Temp: 97.7 F [36.5 C] (06/14/2021 08:03) BP: 134/90 (06/14/2021 08:09) Pulse:68 (06/14/2021 08:03) Resp: 18 (06/14/2021 08:03) Pain: 0 (06/14/2021 08:03) Weight: WEIGHTS IN LAST 6 MONTHS: 334 (JUN 14, 2021@08:03:02) Body Mass Index: 48.0 GENERAL: Well nourished, well developed MALE . N ot in acute distress. HEENT: Normocephalic/atraumatic. Eyes non-icteri c.Mucous membranes moist. CV: Heart regular rate and rhythm. Normal s1, s2 . No murmur. LUNGS: Non-labored breathing. Clear to auscultat ion bilaterally. NEURO: 0/5 strength in RUE. 1-2/5 strength in RL E. Son pushing him in manual wheelchair for today's visit. Assessment and Plan: # CVA Acute ischemic L MCA stroke in 01/2019. Residual RUE/LUE weakness and expressive aphasia. He needs new sling for persi stent weakness in RUE. Also requesting electric mobility - ASA 81mg qday - Atorvastatin 80mg qday - Prosthetics consult for RUE sling - Electric mobility consult # HFrEF/Cardiomyopathy Last EF of 36% on 10/09/19. Followed by non-VA Ca rdiology at [facility], records available for review in [facility]. - Furosemide 20mg qday - Metoprolol succ 100mg qday - Valsartan 120mg BID # Afib Followed by non-VA Cards at [facility]. - Metoprolol succ 100mg qday - Warfarin 10mg qday per non-VA AC clinic for CV A ppx # HTN - Valsartan 120mg BID - Metoprolol succ 100mg qday - Amlodipine 5mg qday # Hyperlipidemia - Atorvastatin 80mg qday # DM-II Previously on insulin, has been well controlled with metformin alone now. - Metformin 1000mg BID - Instructed to call call center to schedule [place] eye screen - Prosthetics consult for diabetic shoes - Ammonium lactate lotion ordered for foot cares # TMJ/Tension type headaches/Chronic pain Pt very interested in accupuncture which has bee n helpful in past - CC accupuncture # Sleep apnea - CPAP qhs # Hearing loss - Per audiology # Request for eye exam - Discussed self referral process with /S on # Health Care Maintenance - Pt's son will have updated med list faxed to ensure above med list is correct - RTC in 1 year, no labs, comanaged. (x) Patient/Caregiver indicates readiness to russ rn, verbalizes understanding, agreement and satisfaction with the treatment p ezio. Patient/Caregiver doesn't have any further questions today. More than 50% of this 60 min [place] appt was spent counseling/coordinating care for the medical problems outlined above I spent 30 minutes reviewing records, ex amining the patient and documenting my note. /zeb/ NICK VASQUEZ Physician Health Commissioner Signed: 06/16/2021 16:08 07/19/2021 ADDENDUM STATUS: COMPLETED Requested lancets and test strips [facility]. Pt no longer qualifies as is on metformin monotherapy. Please inform patient/ family /NICK Diaz Physician Health Commissioner Signed: 07/19/2021 16:07 Receipt Acknowledged By: 07/20/2021 08:47 /zeb/ CHASIDY GODINEZ RN RN, BSN 07/20/2021 ADDENDUM STATUS: COMPLETED Post Anesthesia Nurse called back # in chart, went to s on Tung. Post Anesthesia Nurse explained that because vet is on metformin and not insulin, he no longe r needs to check blood sugars routinely, and therefore also does not qualify f or these supplies. Son understanding. /zeb/ CHASIDY GODINEZ RN RN, BSN Signed: 07/20/2021 08:51 Jun 14, 2021 08:03 AM INTERNAL MEDICINE OUTPATIENT NOTE: EDSON GUTIERREZ [facility] LOCAL TITLE: MEDICINE CLINIC NURSING NOTE STANDARD TITLE: INTERNAL MEDICINE OUTPATIENT NOT E DATE OF NOTE: JUN 14, 2021@08:03 ENTRY DATE: JUN 14, 2021@08:03:50 AUTHOR: EDSON GUTIERREZ EXP COSIGNER: URGENCY: STATUS: COMPLETED MEDICINE CLINIC NURSING NOTE Has ADDENDA * TYPE OF VISIT: Appointment Check In Type of appointment: In-person appointment REASON FOR VISIT: Annual ALLERGIES: LISINOPRIL (Nov 28, 2007) VITAL SIGNS: Blood Pressure: 153/99 (06/14/2021 08:03) Pulse: 68 (06/14/2021 08:03) Respiration: 18 (06/14/2021 08:03) Temperature: 97.7 F [36.5 C] (06/14/2021 08:03) Weight: 334 lb [151.50 kg] (06/14/2021 08:03) Height: 70 in [177.8 cm] (02/27/2018 10:02) BMI: 48.0 O2 Sat: 99% (06/14/2021 08:03) Pain: 0 (06/14/2021 08:03) PAIN SCREEN: Patient is not having significant pain that the y wish to discuss with their provider today. MEDICATION Over the Counter/Herbal Medications: The patient denies taking any outside medicatio ns or herbals. Suicide Screen: C-SSRS Screening Edwards Suicide Severity Rating Scale (C-SSRS) screener 1. Over the past month, have you wished you wer e or wished you could go to sleep and not wake up? No 2. Over the past month, have you had any actual thoughts of killing yourself? No 3. Over the past month, have you been thinking about how you might do this? Response not required due to responses to other questions. 4. Over the past month, have you had these thou ghts and had some intention of acting on them? Response not required due to responses to other questions. 5. Over the past month, have you started to wor k out or worked out the details of how to kill yourself? Response not required due to responses to other questions. 6. If yes, at any time in the past month did yo u intend to carry out this plan? Response not required due to responses to other questions. 7. In your lifetime, have you ever done anythin g, started to do anything, or prepared to do anything to end you r life (for example, collected pills, obtained a gun, gave away valu jose, went to the roof but didn't jump)? No 8. If YES, was this within the past 3 months? Response not required due to responses to other questions. Depression Screening: Perform PHQ-2 A PHQ-2 screen was performed. The score was 0 w hich is a negative screen for depression. Over the past two weeks, how often have you bee n bothered by the following problems? 1. Little interest or pleasure in doing things Not at all 2. Feeling down, depressed, or hopeless Not at all Alcohol Use Screen (AUDIT-C): Alcohol Screen: SCREEN FOR ALCOHOL (AUDIT-C) An alcohol screening test (AUDIT-C) was negativ e (score=0). 1. How often did you have a drink containing al cohol in the past year? Never 2. How many drinks containing alcohol did you h ave on a typical day when you were drinking in the past year? Response not required due to responses to other questions. 3. How often did you have six or more drinks on one occasion in the past year? Response not required due to responses to other questions. Nursing Annual Screening: Fall History Screen During the past 12 months, have you had any fal ls? Patient reports one fall with injury requiring treatment in the past 12 months. MEDICATIONS: Patient is on one of the following medication c lasses: Antihypertensives, Antidepressants, Antipsychot ics, Diuretics, or Controlled substance medication used for pain. FALL RISK ADVICE: Fall Risk Advice provided. Handout entitled Fa ll Prevention At Home reviewed and given to patient and/or significan t other. Script Talk Screen Are you able to read your prescription bottles with your glasses, magnifiers or other aids? Yes or patient not taking any prescriptions. Skin Screen Patient reports any current pressure ulcers, a history of pressure ulcers, or a wound from a medical office coordinator or Patient is bed-confined or a wheelchair-user or Patient requires assistance to transfer/change position No, Skin Screen is Negative Home Abuse/Violence Screen Is your home free of abuse and violence? Yes Outpatient Nutrition Screen Body Mass Index (BMI)= 48.0 [place]: Collection DT Specimen Test Name Result Units R ef Range 09/23/2018 09:15 BLOOD HEMOGLOBIN A1C 10.4 H % 4.0 - 6.0 [place] Hgb A1C: No data available [place] Hgb A1C: No data available Point of Care Hgb A1C: POC HGB A1C____ No Is patient's BMI less than 18.5? No Does patient have swallowing, coughing, or chew ing problems affecting oral intake? No Has patient experienced unplanned weight loss o r gain greater than 10 pounds over the last 2 months? No Is patient's Hgb A1C (Glycosylated Hemoglobin) greater than 9.5? Yes Is patient receiving Total Parenteral Nutrition (TPN) or Tube Feedings? No Patient Health Education Screen BARRIERS/SPECIAL NEEDS: Cognitive limitations PREFERRED STYLE OF LEARNING: Watching something Client Assistive Service (BILLIE) Screen Does the patient require assistance with outpat ient visit? No Tobacco Use Screening: The patient uses tobacco but not every day. The patient does not use tobacco within 30 misty izaiah of waking up. The patient has been smoking or using tobacco f or more than fifteen years and less than thirty years. Patient was advised to quit smoking and/or usin g tobacco. Discussion with patient included: - Quitting smoking or tobacco use is one of the most important things you can do to protect and improve your h [facility] and [place] has the resources to support you. - Set a quit date when you are ready to quit. - Get support from your family and friends. - Review any past quit attempts- What helped? W hat didn't? - On the day you plan to quit, get rid of all c igarettes and tobacco products from your home, car or work. - Using a combination of behavioral counseling or other support strategies and FDA-approved cessation medicatio ns is the most effective way to ensure success in quitting. Patient was offered Behavioral Counseling and o ther support strategies to assist with quitting. Discussion with patient i ncluded: - Behavioral counseling or other support strate gies greatly increases your chances of successfully quitting smoking or tobacco use by helping you develop a quit plan and providing support and other strategies to make behavioral changes to help you quit. - [place] has a number of behavioral counseling opti ons to help you with quitting, including: * Provide information about the facility smokin g or tobacco use treatment options or clinics * [place]'s national quitline, 5-357-KQDV-VET, with counseling available Saturday-Saturday The patient was not interested in receiving add itional information about how to use the treatment options zen thomas Patient was offered FDA-approved cessation medi cations. Discussion with patient included: - Medications for Nicotine replacement therapy such as the patch, gum or lozenge, and other medications jarquin ch as varenicline or bupropion, can play an important role in the initial weeks and months after you quit smoking or tobacco us e. - Medications help with cravings and withdrawal symptoms and they greatly increase your chances of successfully q uitting. The patient was not interested in a prescriptio n for tobacco cessation medications. Influenza Immunization: The patient has received the seasonal influenza vaccine for the current season at another location. Date: November 18, 2020 Location: Assisted living facility Homelessness/Food Insecurity Screen: In the past 2 months, have you been living in s table housing that you own, rent, or stay in as part of a household? Y es - Living in stable housing. Are you worried or concerned that in the next 2 months you may NOT have stable housing that you own, rent, or stay in a s part of a household? No - Not worried about housing near future The reports the following: Within the past 12 months, you worried whether your food would run out before you got money to buy more. Never true Within the past 12 months, the food you bought just didn't last and you didn't have money to get more. Never true /zeb/ EDSON GUTIERREZ LPN, LPN Signed: 06/14/2021 08:07 06/14/2021 ADDENDUM STATUS: COMPLETED BP recheck: 134/90. Asymptomatic. PCP notified /inga GUTIERREZ LPN, LPN Signed: 06/14/2021 08:09 Jun 14, 2021 07:54 AM ADVANCE DIRECTIVE: OTONIEL PEREZ [facility] LOCAL TITLE: AD NOTIFICATION AND SCREENING STANDARD TITLE: ADVANCE DIRECTIVE DATE OF NOTE: JUN 14, 2021@07:54 ENTRY DATE: JUN 14, 2021@07:54:53 AUTHOR: OTONIEL PEREZ EXP COSIGNER: URGENCY: STATUS: COMPLETED ADVANCE DIRECTIVE NOTIFICATION: Patient was given written notification of the f ollowing rights: 1. Accept or refuse any medical treatment. 2. Complete a durable power of employment attorney for [facility] care. 3. Complete a living will. ADVANCE DIRECTIVE SCREENING: Does patient have an Advance Directive? The patient does not have an Advance Directive. The patient does not wish to create an Advance Directive for health care. /zeb/ OTONIEL PEERZ ADVANCED SHEET TAILER Signed: 06/14/2021 07:55
--- OUTSIDE RECORDS SUMMARY | 2021-10-02 15:33 | XMS_ITS | Encounter Summary ---
:[address] [facility] Address [address] [place] [address] Support Name Relationship Address Phone JULIET MOODY Unavailable [address] [place] [facility] [place]AIAH SMITH [address] SHENA PETERSEN Unavailable [address] [place] [address] SHENA PETERSEN Unavailable [address] [place] [address] Insurance Providers: All historical and current Section Date Range: From patient's date of to the date document was created.This section includes the names of all active insurance providers for the patient. Insurance Type of Plan Start of End of Group Member Insurance Policy P capotrinity's Provider Coverage Name Policy Policy Number ID Provider's Erazo's Relationship Coverage Coverage Telephone Name to Policy Number Erazo MEDICARE MEDICARE PART June 18, PART A [id number] 800 Smiley MOODY (WNR) (M A 2009 16A [phone] [facility] Selected Encounter This section includes the information on record at [place] for the Encounter. Date/Time Encounter Type Encounter Description Reason Provider Source Oct 06, 2020 09:06 Outpatient Encounter TELEPHONE PRIMARY CARE IHE Encounter Template Text not used by [place] Social History: Smoking Status (Most current) and Tobacco Use (All prior to encounter date) This section includes the most current, and the historical, smoking and tobacco-related health factors from the [place] facility where the Encounter took place.Current Smoking Status This section includes the most current smoking, or tobacco-related health factor, from the [place] facility where the Encounter took place. Date/Time Current Smoking Status [facility] Facility Jan 28, 2018 12:26 PM VA-TOBACCO NEVER USED HARRIETT ERNANDEZ [facility] Tobacco Use History This section includes a history of the smoking, or tobacco- related health factors, that were collected on or before the date of the Encounter. The data comes from the [place] facility where the Encounter took place. Date/Time Smoking Status/Tobacco Use Comment Jorge ity July 05, 2011 09:38 AM LIFETIME NON-TOBACCO USER [facility] July 03, 2011 06:04 PM LIFETIME NON-TOBACCO USER [facility] Nov 20, 2007 08:19 AM LIFETIME NON-TOBACCO USER [facility] Advance Directives: All historical and current Section Date Range: From patient's date of to the date document was created. This section includes ALL of a patient's completed or amended [place] Advance and Rescinded Directives. The entries below indicate that a directive exists for the patient, but an actual copy is not included with this document. The data comes from all [place] facilities. Date Advance Directives Provider Source July 03, 2011 CLINICAL WARNING RACHAEL KING [facility] Encounter Notes: All associated encounter notes This section contains the clinical notes associated to the Encounter. Date/Time Encounter Note(s) Provider Source Oct 06, 2020 09:06 AM REPORT OF CONTACT: JONNIE PAUL [facility] LOCAL TITLE: PATIENT CONTACT NOTE STANDARD TITLE: REPORT OF CONTACT DATE OF NOTE: OCT 06, 2020@09:06 ENTRY DATE: OCT 06, 2020@09:06:41 AUTHOR: JONNIE PAUL EXP COSIGNER: URGENCY: STATUS: COMPLETED Patient contact Name of [place]: JOSÉ ANTONIO MOODY Name/Relationship of Contact if other than Veter an: Date & Time of Contact: Sep@09:06 Type of Contact: Telephone Reason for Contact: RN with the [facility] Screening s Team. First attempt at reaching , no answer. Left HIPAA compliant message and will retry at a nother time /zeb/ JONNIE PAUL RN Signed: 10/06/2020 09:06
--- OUTSIDE RECORDS SUMMARY | 2021-10-02 15:33 | XMS_ITS | Encounter Summary ---
:1955 Author Organization Department [facility] Address [address] [place] [address] Support Name Relationship Address Phone JULIET MOODY Unavailable [address] [place] [facility] [place] [address] SHENA PETERSEN Unavailable [address] [place] [address] SHENA PETERSEN Unavailable [address] [place] [address] Insurance Providers: All historical and current Section Date Range: From patient's date of to the date document was created.This section includes the names of all active insurance providers for the patient. Insurance Type of Plan Start of End of Group Member Insurance Policy P capotrinity's Provider Coverage Name Policy Policy Number ID Provider's Earzo's Relationship Coverage Coverage Telephone Name to Policy Number Erazo MEDICARE MEDICARE PART June 18, PART A [id number] Smiley MOODY (WNR) (M A 2009 16A [phone] [facility] Selected Encounter This section includes the information on record at [place] for the Encounter. Date/Time Encounter Type Encounter Description Reason Provider Source Apr 11, 2021 09:03 Outpatient Encounter COMMUNITY CARE AM CONSULT IHE Encounter Template Text not used by [place] Plan of Treatment: Future Appointments (+ 6 months) and Future Tests (+/- 45 days) The Plan of Treatment section includes future care activities for the patient from all [place] treatmentfacilities. This section includes future appointments and future orders which are active, pending orscheduled.Future Appointments This section includes appointments that were scheduled to occur 6 months from the date of the Encounter, up to a maximum of 20 appointments. The data comes from all [place] treatment facilities. Appointment Date/Time Appointment Type Appointment Facili ty Name Jun 14, 2021 08:15 AM AMBULATORY - MEDICINE [facility] July 04, 2021 05:00 PM AMBULATORY - REHAB MEDICINE [facility] July 12, 2021 09:15 AM AMBULATORY - NONE [facility] July 12, 2021 02:00 PM AMBULATORY - REHAB MEDICINE [facility] Aug 11, 2021 09:00 AM AMBULATORY - REHAB MEDICINE [facility] Social History: Smoking Status (Most current) and Tobacco Use (All prior to encounter date) This section includes the most current, and the historical, smoking and tobacco-related health factors from the [place] facility where the Encounter took place.Current Smoking Status This section includes the most current smoking, or tobacco-related health factor, from the [place] facility where the Encounter took place. Date/Time Current Smoking Status Comment Facility Jan 28, 2018 12:26 PM VA-TOBACCO NEVER USED [facility] Tobacco Use History This section includes a history of the smoking, or tobacco- related health factors, that were collected on or before the date of the Encounter. The data comes from the [place] facility where the Encounter took place. Date/Time Smoking Status/Tobacco Use Comment [facility] July 05, 2011 09:38 AM LIFETIME NON-TOBACCO USER [facility] July 03, 2011 06:04 PM LIFETIME NON-TOBACCO USER [facility] Nov 20, 2007 08:19 AM LIFETIME NON-TOBACCO USER [facility] Advance Directives: All historical and current Section Date Range: From patient's date of to the date document was created. This section includes ALL of a patient's completed or amended [place] Advance and Rescinded Directives. The entries below indicate that a directive exists for the patient, but an actual copy is not included with this document. The data comes from all [facility]. Date Advance Directives Provider Source July 03, 2011 CLINICAL WARNING RACHAEL KING [facility] Encounter Notes: All associated encounter notes This section contains the clinical notes associated to the Encounter. Date/Time Encounter Note(s) Provider Source Apr 11, 2021 09:03 AM PHARMACY NOTE: TIFFANIE PEREZ IS [facility] LOCAL TITLE: PHARMACY NON VA CARE MEDICATIONS STANDARD TITLE: PHARMACY NOTE DATE OF NOTE: APR 11, 2021@09:03 ENTRY DATE: APR 11, 2021@09:03:35 AUTHOR: TIFFANIE PEREZ EXP COSIGNER: URGENCY: STATUS: COMPLETED [facility] R ECEIVED electronic prescription(s) (eRX(s))from NON- VA Provider: ABAD GOFF Date eRX received: Mar Outside (NON-VA) provider no t authorized to write for prescription(s) through VA pharmacy. Prescription request REDIRECTED via FAX to one o f the following for review: [X][facility] (Dual) Care [ ]Other: [ ] [facility] ([facility]) [ ] [facility] [ ] [facility] [ ] [facility] eRx Reference #: [id number] eRx Prescription Information: eRx Drug: Accu-chek fast click lancing device an d lancets eRx Qty: 1 eRx Refills: 3 eRx Days Supply: eRx Written Date: APR 08, 2021 eRx Issue Date: Prohibit Renewals: No eRx Sig: Use 1 device with each blood sugar check as katerina cated eRx Reference #: [id number] eRx Drug: Accu-chek guide me test strips eRx Qty: 1 eRx Refills: 3 eRx Days Supply: eRx Written Date: APR 08, 2021 eRx Issue Date: Prohibit Renewals: No eRx Sig: Use 1 test strip for blood sugar checks as indic terri /zeb/ TIFFANIE PEREZ PharmD Signed: 04/11/2021 09:04
--- OUTSIDE RECORDS SUMMARY | 2021-10-02 15:34 | XMS_ITS | Encounter Summary ---
:1955 Author Organization Department [facility] Address [address] [place] [address] Support Name Relationship Address Phone JULIET MOODY Unavailable [address] [place] [facility] [place] [address] SHENA PETERSEN Unavailable [address] [place] [address] SHENA PETERSEN Unavailable [address] [place] [address] Insurance Providers: All historical and current Section [...] MEDICARE MEDICARE PART June 18, PART A [id number] 800 Smiley MOODY (WNR) (M A 2009 16A [phone] [facility] Selected Encounter This section includes the information on record at [place] for the Encounter. Date/Time Encounter Type Encounter Description Reason Provider Source May 18, 2021 03:11 Outpatient Encounter COMMUNITY CARE PM CONSULT IHE Encounter Template Text not used by [place] Plan of Treatment: Future Appointments (+ 6 months) and Future Tests (+/- 45 days) The Plan of Treatment section includes future care activities for the patient from all [place] treatmentfacilities. This section includes future appointments and future orders which are active, pending orscheduled.Future Appointments This section includes appointments that were scheduled to occur 6 months from the date of the Encounter, up to a maximum of 20 appointments. The data comes from all [place] treatment facilities. Appointment Date/Time Appointment Type Appointment Facili ty Name Jun 14, 2021 08:15 AM AMBULATORY - MEDICINE [facility] July 04, 2021 05:00 PM AMBULATORY - REHAB MEDICINE [facility] July 12, 2021 09:15 AM AMBULATORY - NONE [facility] July 12, 2021 02:00 PM AMBULATORY - REHAB MEDICINE [facility] Aug 11, 2021 09:00 AM AMBULATORY - REHAB MEDICINE [facility] Social History: Smoking Status (Most current) and Tobacco Use (All prior to encounter date) This section includes the most current, and the historical, smoking and tobacco-related health factors from the [place] facility where the Encounter took place.Current Smoking Status This section includes the most current smoking, or tobacco-related health factor, from the [place] facility where the Encounter took place. Date/Time Current Smoking Status Comment Facility Jan 28, 2018 12:26 PM VA-TOBACCO [facility] Tobacco Use History This section includes a history of the smoking, or tobacco- related health factors, that were collected on or before the date of the Encounter. The data comes from the [place] facility where the Encounter took place. Date/Time Smoking Status/Tobacco Use Comment [facility] July 05, 2011 09:38 AM LIFETIME NON-TOBACCO USER [facility] July 03, 2011 06:04 PM LIFETIME NON-TOBACCO USER [facility] Nov 20, 2007 08:19 AM LIFETIME NON-TOBACCO USER [facility] Advance Directives: All historical and current Section Date Range: From patient's date of to the date document was created. This section includes ALL of a patient's completed or amended [place] Advance and Rescinded Directives. The entries below indicate that a directive exists for the patient, but an actual copy is not included with this document. The data comes from all [facility]. Date Advance Directives Provider Source July 03, 2011 CLINICAL WARNING RACHAEL KING [facility] Encounter Notes: All associated encounter notes This section contains the clinical notes associated to the Encounter. Date/Time Encounter Note(s) Provider Source May 18, 2021 03:11 PM PHARMACY NOTE: TIFFANIE PEREZ IS [facility] LOCAL TITLE: PHARMACY NON VA CARE MEDICATIONS STANDARD TITLE: PHARMACY NOTE DATE OF NOTE: MAY 18, 2021@15:11 ENTRY DATE: MAY 18, 2021@15:11:08 AUTHOR: TIFFANIE PEREZ EXP COSIGNER: URGENCY: STATUS: COMPLETED [facility] R ECEIVED electronic prescription(s) (eRX(s))from NON- VA Provider: ABAD GOFF Date eRX received: Apr Outside (NON-VA) provider no t authorized to write for prescription(s) through VA pharmacy. Prescription request REDIRECTED via FAX to one o f the following for review: [X][facility] (Dual) Care [ ]Other: [ ] [facility] ([facility]) [ ] [facility] [ ] [facility] [ ] [facility] e[facility] Reference #: [id number] eRx Prescription Information: eRx Drug: gabapentin 100 mg capsule eRx Qty: 120 eRx Refills: 2 eRx Days Supply: 30 eRx Written Date: MAY 18, 2021 eRx Issue Date: Prohibit Renewals: No eRx Sig: Take 1 capsule by mouth twice a day And 2 tabs Q HS /zeb/ TIFFANIE PEREZ PharmD Signed: 05/18/2021 15:11
--- OUTSIDE RECORDS SUMMARY | 2021-10-02 15:34 | XMS_ITS | Encounter Summary ---
:1955 Author Organization Department [facility] Address [address] [place] [address] Support Name Relationship Address Phone JULIET MOODY Unavailable [address] [place] [facility] [place] [address] SHENA PETERSEN Unavailable [address] [place] [address] SHENA PETERSEN Unavailable [address] [place] [address] Insurance Providers: All historical and current Section [...] MEDICARE MEDICARE PART June 18, PART A [id number] 800 Smiley MOODY (WNR) (M) A 2009 16A [phone] [facility] Selected Encounter This section includes the information on record at [place] for the Encounter. Date/Time Encounter Type Encounter Description Reason Provider Source Nov 18, 2020 12:00 Outpatient Encounter EVENT (HISTORICAL) AM IHE Encounter Template Text not used by [place] Immunizations: All administered on the encounter date This section contains immunizations associated to the Encounter. Immunization Series Date Issued Reaction Comments INFLUENZA, UNSPECIFIED FORMULATION Nov 18, 2020 Social History: Smoking Status (Most current) and [...] 12:26 PM VA-TOBACCO NEVER USED HARRIETT ERNANDEZ [facility] Tobacco Use History This section includes a history of the smoking, or tobacco- related health factors, that were collected on or before the date of the Encounter. The data comes from the [place] facility where the Encounter took place. Date/Time Smoking Status/Tobacco Use Comment Facil ity July 05, 2011 09:38 AM LIFETIME NON-TOBACCO USER [facility] July 03, 2011 06:04 PM LIFETIME NON-TOBACCO USER [facility] Nov 20, 2007 08:19 AM LIFETIME NON-TOBACCO USER [facility] Advance Directives: All historical and current Section Date Range: From patient's date of to the date document was created. This section includes ALL of a patient's completed or amended [place] Advance and Rescinded Directives. The entries below indicate that a directive exists for the patient, but an actual copy is not included with this document. The data comes from all [facility]. Date Advance Directives Provider Source July 03, 2011 CLINICAL WARNING RACHAEL KING [facility]
--- OUTSIDE RECORDS SUMMARY | 2021-10-02 15:34 | XMS_ITS | Encounter Summary ---
:1955 Author Organization Department [facility] Address [address] [place] [address] Support Name Relationship Address Phone JULIET MOODY Unavailable [address] [place] [facility] [place] [address] SHENA PETERSEN Unavailable [address] [place] [address] SHENA PETERSEN Unavailable [address] [place] [address] Insurance Providers: All historical and current Section [...] MEDICARE MEDICARE PART June 18, PART A [id number] 800 Smiley MOODY (WNR) (M) A 2009 16A [phone] [facility] Selected Encounter This section includes the information on record at [place] for the Encounter. Date/Time Encounter Type Encounter Description Reason Provider Source May 03, 2021 11:45 Outpatient Encounter PRIMARY CARE/MEDICINE AM IHE Encounter Template Text not used by [place] Plan of Treatment: Future Appointments (+ 6 months) and Future Tests (+/- 45 days) The Plan of Treatment section includes future care activities for the patient from all [place] treatmentfacilities. This section includes future appointments and future orders which are active, pending orscheduled.Future Appointments This section includes appointments that were scheduled to occur 6 months from the date of the Encounter, up to a maximum of 20 appointments. The data comes from all [place] treatment facilities. Appointment Date/Time Appointment Type Appointment Facili ty Name Jun 14, 2021 08:15 AM AMBULATORY - MEDICINE [facility] July 04, 2021 05:00 PM AMBULATORY - REHAB MEDICINE [facility] July 12, 2021 09:15 AM AMBULATORY - NONE [facility] July 12, 2021 02:00 PM AMBULATORY - REHAB MEDICINE [facility] Aug 11, 2021 09:00 AM AMBULATORY - REHAB MEDICINE [facility] Social History: Smoking Status (Most current) and Tobacco Use (All prior to encounter date) This section includes the most current, and the historical, smoking and tobacco-related health factors from the [place] facility where the Encounter took place.Current Smoking Status This section includes the most current smoking, or tobacco-related health factor, from the [place] facility where the Encounter took place. Date/Time Current Smoking Status Comment Facility Jan 28, 2018 12:26 PM VA-TOBACCO NEVER USED [facility] Tobacco Use History This section includes a history of the smoking, or tobacco- related health factors, that were collected on or before the date of the Encounter. The data comes from the [place] facility where the Encounter took place. Date/Time Smoking Status/Tobacco Use Comment [facility] July 05, 2011 09:38 AM LIFETIME NON-TOBACCO USER [facility] July 03, 2011 06:04 PM LIFETIME NON-TOBACCO USER [facility] Nov 20, 2007 08:19 AM LIFETIME NON-TOBACCO USER [facility] Advance Directives: All historical and current Section Date Range: From patient's date of to the date document was created. This section includes ALL of a patient's completed or amended [place] Advance and Rescinded Directives. The entries below indicate that a directive exists for the patient, but an actual copy is not included with this document. The data comes from all [facility]. Date Advance Directives Provider Source July 03, 2011 CLINICAL WARNING RACHAEL KING [facility] Encounter Notes: All associated encounter notes This section contains the clinical notes associated to the Encounter. Date/Time Encounter Note(s) Provider Source May 03, 2021 11:45 AM REPORT OF CONTACT: EARL CHOU [facility] LOCAL TITLE: APPOINTMENT SCHEDULING NOTE STANDARD TITLE: REPORT OF CONTACT DATE OF NOTE: MAY 03, 2021@11:45 ENTRY DATE: MAY 03, 2021@11:45:23 AUTHOR: EARL CHOU EXP COSIGNER: URGENCY: STATUS: COMPLETED Attempt to schedule return to clinic 1st Contact: Called at: [phone] Margie contreras Left message Phone number left for to call back: [phone] 2nd Contact: Sent letter by regular [place] mail to address on [address] [place] [address] If Vidalia calls back, schedule appointment for : 60 M[facility] RTC 05/2021 ANNUAL COMANAGED Is the RTC marked as no later than? No /zeb/ EARL CHOU [facility] Signed: 05/03/2021 11:46
--- OUTSIDE RECORDS SUMMARY | 2021-10-02 15:35 | XMS_ITS | Encounter Summary ---
:1955 Author Organization Department [facility] Address [address] [place] [address] Support Name Relationship Address Phone JULIET MOODY Unavailable [address] [place] [facility] [place] [address] SHENA PETERSEN Unavailable [address] [place] [address] SHENA PETERSEN Unavailable [address] [place] [address] Insurance Providers: All historical and current Section [...] MEDICARE MEDICARE PART June 18, PART A [id number] 800 Smiley MOODY (WNR) (M A 2009 16A [phone] [facility] Selected Encounter This section includes the information on record at [place] for the Encounter. Date/Time Encounter Type Encounter Description Reason Provider Source Jun 15, 2021 01:31 Outpatient Encounter TELEPHONE PRIMARY CARE IHE Encounter Template Text not used by [place] Plan of Treatment: Future Appointments (+ 6 months) and Future Tests (+/- 45 days) The Plan of Treatment section includes future care activities for the patient from all [place] treatmentfacilities. This section includes future appointments and future orders which are active, pending orscheduled.Future Appointments This section includes appointments that were scheduled to occur 6 months from the date of the Encounter, up to a maximum of 20 appointments. The data comes from all [place] treatment facilities. Appointment Date/Time Appointment Type Appointment Facili ty Name July 04, 2021 05:00 PM AMBULATORY - REHAB MEDICINE [facility] July 12, 2021 09:15 AM AMBULATORY - NONE [facility] July 12, 2021 02:00 PM AMBULATORY - REHAB MEDICINE [facility] Aug 11, 2021 09:00 AM AMBULATORY - REHAB MEDICINE [facility] Social History: Smoking Status (Most current) and Tobacco Use (All prior to encounter date) This section includes the most current, and the historical, smoking and tobacco-related health factors from the [place] facility where the Encounter took place.Current Smoking Status This section includes the most current smoking, or tobacco-related health factor, from the [place] facility where the Encounter took place. Date/Time Current Smoking Status Comment Facility Jun 14, 2021 08:15 AM VA-TOBACCO USER SOME DAYS [facility] Tobacco Use History This section includes a history of the smoking, or tobacco- related health factors, that were collected on or before the date of the Encounter. The data comes from the [place] facility where the Encounter took place. 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 [facility] Jun 14, 2021 08:15 AM VA-TOBACCO USE MED NO [place] [facility] Jun 14, 2021 08:15 AM VA-TOBACCO USER SOME DAYS [facility] Jan 28, 2018 12:26 PM VA-TOBACCO NEVER USED [place] [facility] July 05, 2011 09:38 AM LIFETIME NON-TOBACCO USER [facility] July 03, 2011 06:04 PM LIFETIME NON-TOBACCO USER [facility] Nov 20, 2007 08:19 AM LIFETIME NON-TOBACCO USER [facility] Advance Directives: All historical and current Section Date Range: From patient's date of to the date document was created. This section includes ALL of a patient's completed or amended [place] Advance and Rescinded Directives. The entries below indicate that a directive exists for the patient, but an actual copy is not included with this document. The data comes from all [facility]. Date Advance Directives Provider Source July 03, 2011 CLINICAL WARNING RACHAEL KING [facility] Encounter Notes: All associated encounter notes This section contains the clinical notes associated to the Encounter. Date/Time Encounter Note(s) Provider Source Jun 15, 2021 01:31 PM SOCIAL WORK CONSULT: FAIZA TIJERINA [place] [facility] LOCAL TITLE: SOCIAL WORK CONSULT C STANDARD TITLE: SOCIAL WORK CONSULT DATE OF NOTE: JUN 15, 2021@13:31 ENTRY DATE: JUN 15, 2021@13:31:42 AUTHOR: FAIZA TIJERINA EXP COSIGNER: URGENCY: STATUS: COMPLETED PCSW received the following consult: Transportation Please describe:Pt with history of CVA, needs he lp with transportation to and from [place] appts Called ([phone] ). [place]'s son answered. Discussed transportation resources. Per 's son, uses w/c. Discussed VTS. [place]'s son requests this information be mailed to them. Elizabeth led information regarding V[facility] and [facility] offices (for additional transportation resources if needed) to 's mailing address. /zeb/ VITA COOPER, METEOROLOGIST IN CHARGE PERIANESTHESIA MANAGER Signed: 06/15/2021 14:13
--- OUTSIDE RECORDS SUMMARY | 2021-10-02 15:35 | XMS_ITS | Encounter Summary ---
:1955 Author Organization Department [facility] Address [address] [place] [address] Support Name Relationship Address Phone JULIET MOODY Unavailable [address] [place] [facility] [place] [address] SHENA PETERSEN Unavailable [address] [place] [address] SHENA PETERSEN Unavailable [address] [place] [address] Insurance Providers: All historical and current Section [...] MEDICARE MEDICARE PART June 18, PART A [id number] 800 Smiley MOODY (WNR) (M A 2009 16A [phone] [facility] Selected Encounter This section includes the information on record at [place] for the Encounter. Date/Time Encounter Type Encounter Description Reason Provider Source Jun 17, 2021 01:21 Outpatient Encounter COMMUNITY CARE PM CONSULT IHE Encounter Template Text not used by [place] Plan of Treatment: Future Appointments (+ 6 months) and Future Tests (+/- 45 days) The Plan of Treatment section includes future care activities for the patient from all [place] treatmentfacilities. This section includes future appointments and future orders which are active, pending orscheduled.Future Appointments This section includes appointments that were scheduled to occur 6 months from the date of the Encounter, up to a maximum of 20 appointments. The data comes from all [place] treatment facilities. Appointment Date/Time Appointment Type Appointment Facili ty Name July 04, 2021 05:00 PM AMBULATORY - REHAB MEDICINE [facility] July 12, 2021 09:15 AM AMBULATORY - NONE [facility] July 12, 2021 02:00 PM AMBULATORY - REHAB MEDICINE [facility] Aug 11, 2021 09:00 AM AMBULATORY - REHAB MEDICINE [facility] Social History: Smoking Status (Most current) and Tobacco Use (All prior to encounter date) This section includes the most current, and the historical, smoking and tobacco-related health factors from the [place] facility where the Encounter took place.Current Smoking Status This section includes the most current smoking, or tobacco-related health factor, from the [place] facility where the Encounter took place. Date/Time Current Smoking Status Comment Facility Jun 14, 2021 08:15 AM VA-TOBACCO USER SOME DAYS [facility] Tobacco Use History This section includes a history of the smoking, or tobacco- related health factors, that were collected on or before the date of the Encounter. The data comes from the [place] facility where the Encounter took place. 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 [facility] Jun 14, 2021 08:15 AM VA-TOBACCO USE MED NO [place] [facility] Jun 14, 2021 08:15 AM VA-TOBACCO USER SOME DAYS [facility] Jan 28, 2018 12:26 PM VA-TOBACCO NEVER USED [place] [facility] July 05, 2011 09:38 AM LIFETIME NON-TOBACCO USER [facility] July 03, 2011 06:04 PM LIFETIME NON-TOBACCO USER [facility] Nov 20, 2007 08:19 AM LIFETIME NON-TOBACCO USER [facility] Advance Directives: All historical and current Section Date Range: From patient's date of to the date document was created. This section includes ALL of a patient's completed or amended [place] Advance and Rescinded Directives. The entries below indicate that a directive exists for the patient, but an actual copy is not included with this document. The data comes from all [facility]. Date Advance Directives Provider Source July 03, 2011 CLINICAL WARNING RACHAEL KING [facility] Encounter Notes: All associated encounter notes This section contains the clinical notes associated to the Encounter. Date/Time Encounter Note(s) Provider Source Jun 17, 2021 01:21 PM PHARMACY NOTE: EARL TODD [facility] LOCAL TITLE: PHARMACY NON VA CARE MEDICATIONS STANDARD TITLE: PHARMACY NOTE DATE OF NOTE: JUN 17, 2021@13:21 ENTRY DATE: JUN 17, 2021@13:21:18 AUTHOR: EARL TODD EXP COSIGNER: URGENCY: STATUS: COMPLETED [facility] RECEIVED electronic p rescription(s) (eRX(s)) from NON-VA Provider: ABAD GOFF Date eRX received: May Outside (NON-VA) provider not authorized to writ e for prescription(s) through [place] pharmacy. Prescription request REDIRECTED via FAX to one o f the following for review: [X][facility] (Dual) Care [ ]Other: [ ] [facility] (to) [ ] [facility] [ ] [facility] [ ] [facility] eRx Reference #: [id number] eRx Prescription Information: eRx Drug: gabapentin 100 mg capsule eRx Qty: 120 eRx Refills: 2 eRx Days Supply: 30 eRx Written Date: JUN 16, 2021 eRx Issue Date: Prohibit Renewals: No eRx Sig: Take 1 capsule by mouth twice a day And 2 tabs Q HS /es/ EARL TODD pharmacist Signed: 06/17/2021 13:22
--- OUTSIDE RECORDS SUMMARY | 2021-10-02 15:35 | XMS_ITS | Encounter Summary ---
:1955 Author Organization Department [facility] Address [address] [place] [address] Support Name Relationship Address Phone JULIET MOODY Unavailable [address] [facility] [place] [address] NICOLA SHENA Unavailable [address] [place] [address] NICOLASHENA Unavailable [address] [place] [address] Insurance Providers: All historical and current Section [...] MEDICARE MEDICARE PART June 18, PART A [id number] 800 Smiley MOODY (WNR) (M) A 2009 16A [phone] [facility] Selected Encounter This section includes the information on record at [place] for the Encounter. Date/Time Encounter Type Encounter Reason Provider Source Description June 20, 2021 Outpatient PM&RS PHYSICIAN ICD-10-CM R26.9 VICKY SALEH 07:39 AM Encounter Unspecified M abnormalities of gait and mobility with Provider Comments: Unspecified Abnormalities of Gait and Mobility IHE Encounter Template Text not used by [place] Assessments - Encounter Diagnoses This section includes the primary and secondary diagnoses documented for the Encounter. Date/Time Primary/Secondary Diagnosis Name Provider Source Diagnosis June 20, 2021 PRIMARY Unspecified VICKY SALEH [facility] 01:57 PM abnormalities of M HCS gait and mobility Plan of Treatment: Future Appointments (+ 6 months) and Future Tests (+/- 45 days) The Plan of Treatment section includes future care activities for the patient from all [place] treatmentfacilities. This section includes future appointments and future orders which are active, pending orscheduled.Future Appointments This section includes appointments that were scheduled to occur 6 months from the date of the Encounter, up to a maximum of 20 appointments. The data comes from all [place] treatment facilities. Appointment Date/Time Appointment Type Appointment Facili ty Name July 04, 2021 05:00 PM AMBULATORY - REHAB MEDICINE [facility] July 12, 2021 09:15 AM AMBULATORY - NONE [facility] July 12, 2021 02:00 PM AMBULATORY - REHAB MEDICINE [facility] Aug 11, 2021 09:00 AM AMBULATORY - REHAB MEDICINE [facility] Social History: Smoking Status (Most current) and Tobacco Use (All prior to encounter date) This section includes the most current, and the historical, smoking and tobacco-related health factors from the [place] facility where the Encounter took place.Current Smoking Status This section includes the most current smoking, or tobacco-related health factor, from the [place] facility where the Encounter took place. Date/Time Current Smoking Status Comment Facility Jun 14, 2021 08:15 AM VA-TOBACCO USER SOME DAYS [facility] Tobacco Use History This section includes a history of the smoking, or tobacco- related health factors, that were collected on or before the date of the Encounter. The data comes from the [place] facility where the Encounter took place. 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 This section includes ALL of a patient's completed or amended [place] Advance and Rescinded Directives. The entries below indicate that a directive exists for the patient, but an actual copy is not included with this document. The data comes from all [place] facilities. Date Advance Directives Provider Source July 03, 2011 CLINICAL WARNING RACHAEL KING [facility] Encounter Notes: All associated encounter notes This section contains the clinical notes associated to the Encounter. Date/Time Encounter Note(s) Provider Source June 20, 2021 07:39 AM ORTHOTICS PROSTHETICS CONSULT: WILEY SALEH [facility] LOCAL TITLE: ELECTRIC MOBILITY CONSULT STANDARD TITLE: ORTHOTICS PROSTHETICS CONSULT DATE OF NOTE: JUNE 20, 2021@07:39 ENTRY DATE: JUNE 20, 2021@07:39:20 AUTHOR: VICKY SALEH EXP COSIGNER: URGENCY: STATUS: COMPLETED Power Mobility E-Consult Patient is a 65 year old male who has requested power mobility. He has history of CVA with residual right hemiparesis, CHF, morbid obesity, and DM with polyneuropathy affecting BLE. Echo from 2019 silvestre wed EF of 35-40% and global cardiomyopathy. PFTs from 2019 showed ob struction with FEV1 of 2.82. Currently using a MWC. Given his condition and diagnosis he meets crite hugh for power mobility and request is approved juancho navarro for safety/driving skills, access to primary entrance of home and t ransportation device for vehicle. Total time spent completing e-consult: 11-20 minutes /zeb/ VICKY SALEH MD STAFF PHYSICIAN Signed: 06/20/2021 13:57
--- OUTSIDE RECORDS SUMMARY | 2021-10-02 15:36 | XMS_ITS | Encounter Summary ---
:1955 Author Organization [facility] Address [address] [place] [address] Support Name Relationship Address Phone JLUIET MOODY Unavailable [address] [place] [facility] [place] [address] SHENA PETERSEN Unavailable [address] [place] [address] SHENA PETERSEN Unavailable [address] [place] [address] Insurance Providers: All historical and current Section [...] MEDICARE MEDICARE PART June 18, PART A [id number] 800 Smiley MOODY (WNR) (M A 2009 16A [phone] [facility] Selected Encounter This section includes the information on record at [place] for the Encounter. Date/Time Encounter Type Encounter Description Reason Provider Source Sep 07, 2021 08:57 Outpatient Encounter COMMUNITY CARE PM CONSULT IHE Encounter Template Text not used by [place] Social History: Smoking Status (Most current) and Tobacco Use (All prior to encounter date) This section includes the most current, and the historical, smoking and tobacco-related health factors from the [place] facility where the Encounter took place.Current Smoking Status This section includes the most current smoking, or tobacco-related health factor, from the [place] facility where the Encounter took place. Date/Time Current Smoking Status Comment Facility Jun 14, 2021 08:15 AM VA-TOBACCO USER SOME DAYS [facility] Tobacco Use History This section includes a history of the smoking, or tobacco- related health factors, that were collected on or before the date of the Encounter. The data comes from the [place] facility where the Encounter took place. Date/Time Smoking Status/Tobacco Use Comment Facil ity Jun 14, 2021 08:15 AM VA-TOBACCO USE > [address] [facility] YEARS Jun 14, 2021 08:15 AM [facility] Jun 14, 2021 08:15 AM VA-TOBACCO USE PELTS SKINNER NO [facility] Jun 14, 2021 08:15 AM VA-TOBACCO USE [place] NO [place] [facility] Jun 14, 2021 08:15 AM VA-TOBACCO USER SOME DAYS [facility] Jan 28, 2018 12:26 PM VA-TOBACCO NEVER USED [place] [facility] July 05, 2011 09:38 AM LIFETIME NON-TOBACCO USER [facility] July 03, 2011 06:04 PM LIFETIME NON-TOBACCO USER [facility] Nov 20, 2007 08:19 AM LIFETIME NON-TOBACCO USER [facility] Advance Directives: All historical and current Section Date Range: From patient's date of to the date document was created. This section includes ALL of a patient's completed or amended [place] Advance and Rescinded Directives. The entries below indicate that a directive exists for the patient, but an actual copy is not included with this document. The data comes from all [place] facilities. Date Advance Directives Provider Source July 03, [address] K[address] [facility] Encounter Notes: All associated encounter notes This section contains the clinical notes associated to the Encounter. Date/Time Encounter Note(s) Provider Source Sep 07, 2021 08:57 PM PHARMACY NOTE: SHERRIE PERRY [facility] LOCAL TITLE: PHARMACY NON VA CARE MEDICATIONS STANDARD TITLE: PHARMACY NOTE DATE OF NOTE: SEP 07, 2021@20:57 ENTRY DATE: SEP 07, 2021@20:57:46 AUTHOR: SHERRIE PERRY EXP COSIGNER: URGENCY: STATUS: COMPLETED [facility] RECEIVED electronic p rescription(s) (eRX(s)) from NON-VA Provider: ABAD GOFF Date eRX received: Aug Outside (NON-VA) provider no t authorized to write for prescription(s) through [place] pharmacy. Prescription request REDIRECTED via FAX to one o f the following for review: [X][facility] (Dual) Care [ ]Other: [ ] [facility] ([facility]) [ ] [facility] [ ] [facility] [ ] [facility] e[facility] Reference #: [id number] eRx Prescription Information: eRx Drug: gabapentin 100 mg capsule eRx Qty: 180 eRx Refills: 2 eRx Days Supply: 30 eRx Written Date: SEP 07, 2021 eRx Issue Date: Prohibit Renewals: No eRx Sig: Take 2 capsule by mouth three times a day /zeb/ SHERRIE PERRY pharmacist Signed: 09/07/2021 20:59
--- OUTSIDE RECORDS SUMMARY | 2021-10-02 15:36 | XMS_ITS | Encounter Summary ---
:1955 Author Organization [facility] Address [address] [place] [address] Support Name Relationship Address Phone JULIET MOODY Unavailable [address] [place] [facility] [place] [address] SHENA PETERSEN Unavailable [address] [place] [address] SHENA PETERSEN Unavailable [address] [place] [address] Insurance Providers: All historical and current Section [...] MEDICARE MEDICARE PART June 18, PART A [id number] 800 Smiley MOODY (WNR) (M A 2009 16A [phone] [facility] Selected Encounter This section includes the information on record at [place] for the Encounter. Date/Time Encounter Type Encounter Reason Provider Source Description July 12, 2021 THERAPEUTIC OCCUPATIONAL ICD-10-CM I63.9 TOR GERARDO 02:00 PM ACTIVITIES THERAPY Cerebral R W infarction, unspecified with Provider Comments: Cerebral Infarction, unspecified IHE Encounter Template Text not used by [place] Assessments - Encounter Diagnoses This section includes the primary and secondary diagnoses documented for the Encounter. Date/Time Primary/Secondary Diagnosis Name Provider Source Diagnosis July 12, 2021 PRIMARY Cerebral SIDNEY GERARDO [place] [facility] A 02:55 PM infarction, W HCS unspecified Plan of Treatment: Future Appointments (+ 6 months) and Future Tests (+/- 45 days) The Plan of Treatment section includes future care activities for the patient from all [place] treatmentfacilities. This section includes future appointments and future orders which are active, pending orscheduled.Future Appointments This section includes appointments that were scheduled to occur 6 months from the date of the Encounter, up to a maximum of 20 appointments. The data comes from all [place] treatment facilities. Appointment Date/Time Appointment Type Appointment Facili ty Name Aug 11, 2021 09:00 AM AMBULATORY - REHAB MEDICINE [facility] Social History: Smoking Status (Most current) and Tobacco Use (All prior to encounter date) This section includes the most current, and the historical, smoking and tobacco-related health factors from the [place] facility where the Encounter took place.Current Smoking Status This section includes the most current smoking, or tobacco-related health factor, from the [place] facility where the Encounter took place. Date/Time Current Smoking Status Comment Facility Jun 14, 2021 08:15 AM VA-TOBACCO USER SOME DAYS [facility] Tobacco Use History This section includes a history of the smoking, or tobacco- related health factors, that were collected on or before the date of the Encounter. The data comes from the [place] facility where the Encounter took place. Date/Time Smoking Status/Tobacco Use Comment [facility] it Jun 14, 2021 08:15 AM VA-TOBACCO USE > 15 LESS THAN 30 [facility] YEARS Jun 14, 2021 08:15 AM VA-TOBACCO USE ADVICE [facility] Jun 14, 2021 08:15 AM VA-TOBACCO USE GAS TORCH BRAZIER NO [facility] Jun 14, 2021 08:15 AM VA-TOBACCO USE MED NO [facility] Jun 14, 2021 08:15 AM VA-TOBACCO USER SOME DAYS [facility] Jan 28, 2018 12:26 PM VA-TOBACCO NEVER USED [facility] July 05, 2011 09:38 AM LIFETIME NON-TOBACCO USER [facility] July 03, 2011 06:04 PM LIFETIME NON-TOBACCO USER [facility] Nov 20, 2007 08:19 AM LIFETIME NON-TOBACCO USER [facility] Advance Directives: All historical and current Section Date Range: From patient's date of to the date document was created. This section includes ALL of a patient's completed or amended [place] Advance and Rescinded Directives. The entries below indicate that a directive exists for the patient, but an actual copy is not included with this document. The data comes from all [facility]. Date Advance Directives Provider Source July 03, 2011 CLINICAL WARNING HAW,RACHAEL [facility] Encounter Notes: All associated encounter notes This section contains the clinical notes associated to the Encounter. Date/Time Encounter Note(s) Provider Source July 12, 2021 02:10 PM OCCUPATIONAL THERAPY CONSULT: SONNY GERARDO [facility] LOCAL TITLE: OCCUPATIONAL THERAPY CONSULT STANDARD TITLE: OCCUPATIONAL THERAPY CONSULT DATE OF NOTE: JULY 12, 2021@14:10 ENTRY DATE: JULY 12, 2021@14:11 AUTHOR: SIDNEY GERARDO EXP COSIGNER: URGENCY: STATUS: COMPLETED OCCUPATIONAL THERAPY CONSULT Referring provider: MONI BROWN Diagnosis: Cerebral Infarction, unspecified(ICD- 10-CM I63.9) Consult request: eval and treat Encounter: 20m low complexity eval; 12m therapeu tic activity SUBJECTIVE: It's sore all the time but my sling helps it a lot. Vet reports that he would like wheelchair adjustments, therapist informed vet and son that he has been approved for power mobility and that vet will be contacted to schedule evaluation. Jessa reports that he has received so tn therapy at [facility] directly after his CVA. OBJECTIVE: Living Environment -Lives in SNF, handicapped accessible -Son (Karri) assists vet as needed -Currently using manual wheelchair in unit ADLs -Vet currently (I) with eating, portions of dres sing, and grooming/hygiene, requires varying levels of assistance for other ADLs -Heavy wheelchair user, primary mode of mobility , non-ambulatory without assistance IADLs -Vet currently receiving assistance for all IADL s UE Assessment -Vet is currently flaccid wi th mild hand flexor spasticity in RUE, RLE, vet able to complete mild elevation with R shoulder but n o other functional movement -Possible subluxation of R shoulder -Vet has WFL strength and AROM of LUE, propels w heelchair with foot and LUE Education -Educated on benefits of stroke rehab with OT Nedra Suarez, alerted to note -Educated on process to follow up for Bam to a ssess hemiplegic shoulder and trial treatment modalities -Educated on wear schedule of resting hand ortho sis and arm sling, including removing both orthoses throughout day to prevent contracture or joint capsule freezing -Educated on power mobility evaluation process a nd power mobility approval -Educated on importance of protecting shoulder a nd preventing ROM that may sublux shoulder d/t instability s/t rotator cuff weakness/paralysis -Educated on possibility of establishing with PT to work on ambulation and BLE rehabilitation Equipment Ordered -Rolyan Envelope Arm Sling with Pad Medium - Per [facility] - Item #[id number] -Comfy Rest Hand Orthosis Adult - Performance He alth - Item #[id number] ASSESSMENT: -Jessa is a 65 yo male seeking OT services for UE strengthening/rehabilitation post CVA from 2019. Jessa currently lives in SNF t hat is fully accessible and requires varying levels of a ssistance for bathing, dressing, toileting, and all IADLs. Vet demonstrates RUE/RLE flaccidi ty/paralysis, hemiplegic shoulder, and expressive aphasia decreasin g safety and (I) and increasing pain/risk of falls. Vet would benefit from equip ment listed above, as well as follow up with stroke rehab therapist SHERLYN Suarez, alerted to note. Vet and son verbalize understanding of information discussed during session and are agreeable to plan of care, no further questions or concerns at thi s time. PLAN: -Follow up with OT Bam Suarez to address hemiple gic shoulder/stroke rehab GOALS: 1.Vet will complete evaluation for equipment to maximize quality of life, safety, and (I). MET, ongoing 2.Vet will establish care with stroke rehab ther apist SHERLYN Suarez. Patient Education of Treatment Plan: Patient, Family Member indicates readiness to l earn, verbalizes understanding, agreement and satisfa ction with the treatment plan. Denies further questions. OCCUPATIONAL THERAPY EVALUATION COMPLEXITY Identifying and reporting the complexity level o f an evaluation focuses on the first three of these factors--profile and hi story, assessment and determination of deficts, and clinical decision making. These three factors must be scored and defensible documentation wr itten to support the choice of a level. (Information taken from: https://www .aota.org) PROFILE AND HISTORY (including chart view) Brief history of medical and/or therapy records relating to the presenting problem (low complexity) ASSESSMENT & PERFORMANCE DEFICITS (select all th at apply): Physical: weakness, AROM, balance, mobility Cognition: STM, divided attention, expressive a phasia 5 or more performance deficits (High complexity) LEVEL OF CLINICAL DECISION MAKING Commorbidities affect occupational performance: Yes (moderate or high complexity) Modifications of tasks or assistance to enable completion of evaluation: Not necessary (Low complexity) Problem-focused assessment(s), consideration of a limited number of treatment options, presents with no comorbidities and prasanna fication of tasks or assistance is not necessary.(Low complexity) LOW COMPLEXITY Brief history of medical/or therapy records relating to the presenting problem. An assessement(s) that identifies 1-3 performanc e deficits that result in activity limitation and/or participating restric tions. Includes analysis of the occupational profile, a nalysis of date from problem- focused assessment(s), and consideration of a li mited number of treatment options. Patient presents with no c omorbidities that affect occupational performance. Modification of tasks or assistance with assessm ent(s) is not necessary to enable completion of evaluation component. /zeb/ LALO CADENA, SHERLYNR/L OCCUPATIONAL THERAPIST Signed: 07/12/2021 14:55 Receipt Acknowledged By: * AWAITING SIGNATURE * BAM SUAREZ
--- OUTSIDE RECORDS SUMMARY | 2021-10-02 15:36 | XMS_ITS | Encounter Summary ---
:1955 Author Organization Department [facility] Address [address] [place] [address] Support Name Relationship Address Phone JULIET MOODY Unavailable [address] [place] [facility] [place] [address] SHENA PETERSEN Unavailable [address] [place] [address] SHENA PETERSEN Unavailable [address] [place] [address] Insurance Providers: All historical and current Section [...] MEDICARE MEDICARE PART June 18, PART A [id number] 800 Smiley MOODY (WNR) (M A 2009 16A [phone] [facility] Selected Encounter This section includes the information on record at [place] for the Encounter. Date/Time Encounter Type Encounter Reason Provider Source Description July 12, 2021 MEDICAL TELEPHONE/ANCILLA ICD-10-CM Z71.3 KRISTI VINCENT I 09:15 AM NUTRITION INDIV RY Dietary counseling L IN and surveillance with Provider Comments: Dietary counseling and surveillance IHE Encounter Template Text not used by [place] Assessments - Encounter Diagnoses This section includes the primary and secondary diagnoses documented for the Encounter. Date/Time Primary/Secondary Diagnosis Name Provider Source Diagnosis July 12, 2021 PRIMARY Dietary counseling SHOAIB VINCENT [facility] 09:15 AM and surveillance L [facility] July 12, 2021 SECONDARY Body mass index SHOAIB VINCENT [place] 09:15 AM [BMI] 45.0-49.9, L [facility] adult July 12, 2021 SECONDARY Morbid (severe) SHOAIB VINCENT [facility] 09:15 AM obesity due to L [facility] excess calories July 12, 2021 SECONDARY Type 2 diabetes SHOAIB VINCENT [facility] 09:15 AM mellitus with L [facility] unspecified complications Plan of Treatment: Future Appointments (+ 6 months) and Future Tests (+/- 45 days) The Plan of Treatment section includes future care activities for the patient from all [place] [facility]. This section includes future appointments and future orders which are active, pending orscheduled.Future Appointments This section includes appointments that were scheduled to occur 6 months from the date of the Encounter, up to a maximum of 20 appointments. The data comes from all [place] treatment facilities. Appointment Date/Time Appointment Type Appointment Facili ty Name Aug 11, 2021 09:00 AM AMBULATORY - REHAB MEDICINE [facility] Social History: Smoking Status (Most current) and Tobacco Use (All prior to encounter date) This section includes the most current, and the historical, smoking and tobacco-related health factors from the [place] facility where the Encounter took place.Current Smoking Status This section includes the most current smoking, or tobacco-related health factor, from the [place] facility where the Encounter took place. Date/Time Current Smoking Status Comment Facility Jun 14, 2021 08:15 AM VA-TOBACCO USER SOME DAYS [facility] Tobacco Use History This section includes a history of the smoking, or tobacco- related health factors, that were collected on or before the date of the Encounter. The data comes from the [place] facility where the Encounter took place. 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 [facility] Jun 14, 2021 08:15 AM VA-TOBACCO USE MED NO [place] [facility] Jun 14, 2021 08:15 AM VA-TOBACCO USER SOME DAYS [facility] Jan 28, 2018 12:26 PM VA-TOBACCO NEVER USED [place] [facility] July 05, 2011 09:38 AM LIFETIME NON-TOBACCO USER [facility] July 03, 2011 06:04 PM LIFETIME NON-TOBACCO USER [facility] Nov 20, 2007 08:19 AM LIFETIME NON-TOBACCO USER [facility] Advance Directives: All historical and current Section Date Range: From patient's date of to the date document was created. This section includes ALL of a patient's completed or amended [place] Advance and Rescinded Directives. The entries below indicate that a directive exists for the patient, but an actual copy is not included with this document. The data comes from all [place] facilities. Date Advance Directives Provider Source July 03, 2011 CLINICAL WARNING RACHAEL KING [facility] Encounter Notes: All associated encounter notes This section contains the clinical notes associated to the Encounter. Date/Time Encounter Note(s) Provider Source July 12, 2021 09:15 AM NUTRITION EDUCATION NOTE: SHOAIB VINCENT [facility] LOCAL TITLE: EDUCATION NUTRITION STANDARD TITLE: NUTRITION EDUCATION NOTE DATE OF NOTE: JULY 12, 2021@09:15 ENTRY DATE: JULY 12, 2021@13:50:35 AUTHOR: SHOAIB VINCENT EXP COSIGNER: URGENCY: STATUS: COMPLETED SUBJECT: Initial EDUCATION NUTRITION Has ADDENDA NUTRITION EDUCATION OUTPATIENT Initial, Time spent: 45 minutes Reason for visit: Weight loss and DM ASSESSMENT: Height: 70 in [177.8 cm] (02/27/2018 10:02) Weight: Measurement DT WEIGHT LB(KG)[BMI] 06/14/2021 08:03 334(151.50)[48*] 09/23/2018 09:44 351.4(159.39)[51*] 05/01/2018 10:24 366(166.01)[53*] BMI: 48.0 Weight change: Down 17 lbs. in 2 years (since ) [place] Body Weight: 166 lbs. Pertinent Past Medical History: HTN, DM, ANIBAL, H /o stroke, Obesity, Nutrition Related Medications: Atorvastatin, Fu rosemide, Metformin, Warfarin EDUCATION SCREENING PARTICIPANTS: Patient-Red, [id number]. Son likes to be at appointments to help with communication. Appoin tments are best after 3PM any day but Mon BARRIERS/SPECIAL NEEDS: no barriers identified, speech limitations-from stroke, speaks slowly READINESS TO LEARN: no barriers Patient subjective statements: In an assisted l iving facility. I do have my own apartment. [facility] Some snacks in my room. I want to lose weight. I have a wound on my leg--s cabs and I go to the wound clinic weekly. They want me to cut down on salt because my legs are swelling and it impacts the healing. I do get weighed 3 times per week. Diet Recall Meal 1: Eggs, pagan or sausage, tomato juice, c offee, milk; sometimes waffles Meal 2: Ham sandwich; lasagna, milk or water Meal 3: Soups-chicken noodle, cream of broccoli , sandwich-ham or turkey, fruit; water, or sugar free lemonade Snacks: popcorn, cheese and crackers Fluid intake: water, black coffee, 1% milk, Red donny juice, sugar-free lemonade Meal preparation: assisted living facility, son brings in snacks Dining out: not much Alcohol: not discussed Food Allergies: None Activity level: vet is in a manual wheelchair s/ p CVA and r-sided weakness/paralysis; scoots around in chair using his left leg Malnutrition Assessment (Per AND/ASPEN Consensu s Statement, 2012) Suspect mild to moderate inflammation Energy intake: Adequate energy intake--based on patient diet r ecall Weight Loss: No significant weight loss noted-at present; do wn 17 lbs. in 2 years Body Fat Loss Not able to assess body fat loss Muscle Mass Loss Noted Not able to assess muscle mass Fluid Accumulation Not able to assess for fluid accumulation--betzy ent does note that legs swell and advised to decrease salt intake and on furosemide. Falsework Builder Strength Falsework Builder strength not assessed Malnutrition Assessment Based on the above findings, the does n ot meet the clinical characteristics to support a diagnosis of malnu trition. Not able to complete a physical assessment d/t appointment b y phone call. Patient identifies problems with the following: Digestive: Chewing: denies issues Swallowing: denies issues Feeding assistance: denies need--able to feed s elf Pertinent lab results: No new on file Carbohydrates per meal: 30-45 grams 15 grams per snack 100-150 grams per day Estimated nutrient needs based on adjusted body weight 208 lbs./ 94.5 kg 1723-7474 calories/day 20-22 kcal/kg 94-113 grams protein/day 1.0-1.2 g/kg 2820 ml fluids/day 30ml/kg NUTRITION DIAGNOSIS: Overweight/Obesity r/t food intake, limited mobility AEB patient diet recall, long-term overweight, s/p C VA with r-sided paralysis, wheelchair bound, weight 334 lbs. BMI 48, DM. Evaluation of Diagnosis Problem active INTERVENTION: Provided nutrition education/counseling: A. Healthy plate for planning meals 1. 1/2 for non-starchy veggies--at lunch and jarquin pper 2. 14 for protein: meat, cheese, eggs, nuts--p rotein at each meal and snack for healing wounds on legs 3. 14 for carbs: starch, starchy veggies and f ruit--choose one at meals, keep portions less than 1 cup; decrease bananas --was eating 3-4 per day 4. Water or other low calorie beverages: tea/co ffee/unsweetened beverages 5. Keeping portions moderate at meals 6. Limiting snacks during day, small snack at n ight with protein ok B. Sodium and foods in diet higher in sodium 1. Cured meats: pagan, sausage, ham--avoid at t his time 2. Salad dressings--use in small amount 3. Tomato juice--use low sodium C. Meal plan ideas reviewed with patient and son 1. Breakfast: 1-2 eggs, 1 toast, 1 fruit, Low s alt Tomato juice, coffee 2. Lunch: 1/2 plate veggies: salad and cooked v eggie; meat-3-4 oz; choose small portion of starch or f ruit--choose only one banana per day; other fruits: apple, orange, berries/melon, grapes-small handf ul 3. Evening meal: sandwich: 1-2 bread or none, m ore turkey, chicken, tuna or egg salad with veggies, josee d, raw or cooked veggies--small amount of dip; fruit D. Snacks 1. Have a source of protein: peanut butter--casi p to about 1 tablespoon; hardboiled egg, cheese stick or 1 slice of chees e 2. Can choose a starch or fruit: 4 crackers, 1 slice bread 3. Can choose a vegetable--encourage this more often than starch: raw veggies: celery, cucumbers, tomatoes, carrots an d others E. Activity-encouraged to move as much as able i n chair and as indicated by wound clinic Education provided using: Handouts: Healthy plate Discussion PARTICIPANT(S) RESPONSE (OUTCOME): Needs further reinforcement: decreasing carbs; smaller portions for weight loss MONITORING/EVALUATION: Patient's nutrition/acti vity related goals: Goal 1 - To choose a protein source at each tyrone l; avoid high sodium meats Goal 2 - TO decrease bananas to 1 or less per d ay--choose other fruits in place Goal 3 - To choose smaller portions of starchy foods: less than 1 cup: noodles, rice, potato Clinical outcome goal: 1. Slow weight loss 20 lbs. over 6 months 2. Decreased swelling in legs 3. Healed wounds on legs FOLLOW UP: Follow up appointment will be scheduled: September 19, 2021 at 3PM phone call Participant(s) was provided business card and e ncouraged to call the outpatient clinic if questions arise or if educ ation/intervention is desired in the future. Malnutrition Assessment (Per AND/ASPTONY Dorantesu s Statement, 2012) Dietitian does not suspect malnutrition at this time, therefore, physical assessment not conducted FOLLOW UP: /es/ SHOAIB VINCENT RD CD REGISTERED DIETITIAN Signed: 07/13/2021 10:49 07/13/2021 ADDENDUM STATUS: COMPLETED Dear Red Moody: I am writing to follow-up on the dietitian telep bin appointment you had recently. It was a pleasure to speak with you. I look forward to working with you to meet your goals. If you have any question s, please contact me at the clinic at [phone] or through secure [employer] ng (choose your primary care provider and put nutrition as the topic-it will be forwarded to me). During our phone appointment, we discussed the f oldevening: A. Healthy plate for planning meals 1. 1/2 for non-starchy veggies--at lunch and jarquin pper 2. 1/4 for protein: meat, cheese, eggs, nuts--p rotein at each meal and snack for healing wounds on legs 3. 1/4 for carbs: starch, starchy veggies and f ruit--choose one at meals, keep portions less than 1 cup; decrease bananas --was eating 3-4 per day 4. Water or other low calorie beverages: tea/co ffee/unsweetened beverages 5. Keeping portions moderate at meals 6. Limiting snacks during day, small snack at n ight with protein ok B. Sodium and foods in diet higher in sodium 1. Cured meats: pagan, sausage, ham--avoid at t his time 2. Salad dressings--use in small amount 3. Tomato juice--use low sodium C. Meal plan ideas reviewed with patient and son 1. Breakfast: 1-2 eggs, 1 toast, 1 fruit, Low s alt Tomato juice, coffee 2. Lunch: 1/2 plate veggies: salad and cooked v eggie; meat-3-4 oz; choose small portion of starch or f ruit--choose only one banana per day; other fruits: apple, orange, berries/melon, grapes-small handf ul 3. Evening meal: sandwich: 1-2 bread or none, m ore turkey, chicken, tuna or egg salad with veggies, josee d, raw or cooked veggies--small amount of dip; fruit D. Snacks 1. Have a source of protein: peanut butter--casi p to about 1 tablespoon; hardboiled egg, cheese stick or 1 slice of chees e 2. Can choose a starch or fruit: 4 crackers, 1 slice bread 3. Can choose a vegetable--encourage this more often than starch: raw veggies: celery, cucumbers, tomatoes, carrots an d others E. Activity-encouraged to move as much as able i n chair and as indicated by wound clinic GOALS: Goal 1 - To choose a protein source at each tyrone l; avoid high sodium meats Goal 2 - TO decrease bananas to 1 or less per d ay--choose other fruits in place Goal 3 - To choose smaller portions of starchy foods: less than 1 cup: noodles, rice, potato Follow up appointment will be scheduled: September 19, 2021 at 3PM phone call To cancel or schedule an appointment, please marshall duarte [phone]. Appointment options include: in person at the clinic, [facility] (meaghan rondon) appointments or phone calls. In good health, Angela Andino, RD, CD [facility] Dietitian or Secure Message Enclosed: Healthy Plate /es/ SHOAIB VINCENT RD CD REGISTERED DIETITIAN Signed: 07/13/2021 13:59
--- OUTSIDE RECORDS SUMMARY | 2021-10-02 15:36 | XMS_ITS | Encounter Summary ---
:1955 Author Organization [facility] Address [address] [place] [address] Support Name Relationship Address Phone JULIET MOODY Unavailable [address] [place] [facility] [place] [address] SHENA PETERSEN Unavailable [address] [place] [address] SHENA PETERSEN Unavailable [address] [place] [address] Insurance Providers: All historical and current Section [...] MEDICARE MEDICARE PART June 18, PART A [id number] Smiley MOODY (WNR) (M A 2009 16A [phone] [facility] Selected Encounter This section includes the information on record at ID for the Encounter. Date/Time Encounter Type Encounter Reason Provider Source Description Aug 11, 2021 NEUROMUSCULAR OCCUPATIONAL ICD-10-CM I63.9 DANIELABAM 09:00 AM REEDUCATION THERAPY Cerebral infarction, unspecified with Provider Comments: Cerebral infarction, unspecified IHE Encounter Template Text not used by ID Assessments - Encounter Diagnoses This section includes the primary and secondary diagnoses documented for the Encounter. Date/Time Primary/Secondary Diagnosis Name Provider Source Diagnosis Aug 11, 2021 PRIMARY Cerebral DANIELABAM [facility] 02:40 PM infarction, HCS unspecified Social History: Smoking Status (Most current) and Tobacco Use (All prior to encounter date) This section includes the most current, and the historical, smoking and tobacco-related health factors from the ID facility where the Encounter took place.Current Smoking Status This section includes the most current smoking, or tobacco-related health factor, from the ID facility where the Encounter took place. Date/Time Current Smoking Status Comment Facility Jun 14, 2021 08:15 AM VA-TOBACCO USER SOME DAYS [facility] Tobacco Use History This section includes a history of the smoking, or tobacco- related health factors, that were collected on or before the date of the Encounter. The data comes from the [facility] where the Encounter took place. 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 [facility] Jun 14, 2021 08:15 AM VA-TOBACCO USE MED [place] [facility] Jun 14, 2021 08:15 AM VA-TOBACCO USER SOME DAYS [facility] Jan 28, 2018 12:26 PM VA-TOBACCO NEVER USED [place] [facility] July 05, 2011 09:38 AM LIFETIME NON-TOBACCO USER [facility] July 03, 2011 06:04 PM LIFETIME NON-TOBACCO USER [facility] Nov 20, 2007 08:19 AM LIFETIME NON-TOBACCO USER [facility] Advance Directives: All historical and current Section Date Range: From patient's date of to the date document was created. This section includes ALL of a patient's completed or amended ID Advance and Rescinded Directives. The entries below indicate that a directive exists for the patient, but an actual copy is not included with this document. The data comes from all [facility]. Date Advance Directives Provider Source July 03, 2011 CLINICAL WARNING FERNANDORACHAEL [facility] Encounter Notes: All associated encounter notes This section contains the clinical notes associated to the Encounter. Date/Time Encounter Note(s) Provider Source Aug 11, 2021 10:55 AM OCCUPATIONAL THERAPY NOTE: BAM SUAREZ [facility] LOCAL TITLE: OT-PROGRESS NOTE STANDARD TITLE: OCCUPATIONAL THERAPY NOTE DATE OF NOTE: AUG 11, 2021@10:55 ENTRY DATE: AUG 11, 2021@10:55:23 AUTHOR: BAM SUAREZ EXP COSIGNER: URGENCY: STATUS: COMPLETED OCCUPATIONAL THERAPY CONSULT Referring provider: MONI BROWN Diagnosis: Cerebral Infarction, unspecified(ICD- 10-CM I63.9) Consult request: eval and treat Encounter: 45 min neuro ASSESSMENT: -Jessa is a 65 yo male seeking OT services for UE strengthening/rehabilitation post CVA from 2019. Marit currently lives in SNF t hat is fully accessible and requires varying levels of a ssistance for bathing, dressing, toileting, and all IADLs. Pt has right hemipare sis, flexor tone, shoulder pain 4/10, chronic edema of the U/E and no functional use of his right upper and lower extremity. Pt was measured for custom edema wear for his upper ext remity and DME equipment to improve independence with cooking tasks. Pt appears appropriate for further OT intervention to improve the shoulder jeet n, chronic hand edema, update HEP, and positioning needs. PLAN: -Pt will be seen 4-5 sessions addressing right s houlder pain, edema, positioning, ADL/IADL, HEP. GOALS: 1.Vet will complete evaluation for equipment to maximize quality of life, safety, and (I). MET, ongoing 2.Vet will establish care with stroke rehab ther apist OT Bam DelgadilloMEt 3. Pt will be fitted with re sting hand splint and don/doff with moderate assist 4. Pt will be instructed on AAROM home exercise proram 5. Pt will be fitted with a shoulder sling x1 and son/pt instructed on shoulder HEP. Patient Education of Treatment Plan: Patient, Family Member indicates readiness to l earn, verbalizes understanding, agreement and satisfa ction with the treatment plan. Denies further questions. SUBJECTIVE: S) I have shoulder pain all the time in sittin or standing 05/28. OBJECTIVE: Living Environment -Lives in SNF, handicapped accessible -Son (Karri) assists vet as needed -Currently using manual wheelchair in unit ADLs -Vet currently (I) with eating, portions of dres sing, and grooming/hygiene, requires varying levels of assistance for other ADLs -Heavy wheelchair user, primary mode of mobility , non-ambulatory without assistance IADLs -Vet currently receiving assistance for all IADL s but states he likes to open cans and prepare simple meal s as he has an apartment. Pt states difficulty with opening cans, cutting food, opening jars, etc. Therapist educated the pt on DME equipment UE Assessment PAIN: Shoulder pain 05/28 at rest and standing. T carpet mechanic points infraspinatus. Kineiotape patterm for subluxed shoulder applied . Measure for Omno Sling Pt instructed on table top and infraspinatus str etch within PROM Pt instructed on AAROM exercise on table top position and AAROM using a ball i supine position,. Edema: Right hand edema. Due to patient size he will need custom day and night edema glove with a zipper. Pt was measured today by [facility] DME- Pt was order one handed can glass mechanic, rocker knife, folding josé erazo, one touch can glass mechanic, dycem to open jars, failure analysis engineer, and sli ng. /RANJIT Roach/BLANK Parrish,MIKAYLA OCCUPATIONAL THERAPIST Signed: 08/11/2021 14:40
--- OUTSIDE RECORDS SUMMARY | 2021-10-02 15:37 | XMS_ITS | Encounter Summary ---
:1955 Author Organization [facility] Address [address] [place] [address] Support Name Relationship Address Phone JULIET MOODY Unavailable [address] [place] [facility] [place] [address] SHENA PETERSEN Unavailable [address] [place] [address] SHENA PETERSEN Unavailable [address] [place] [address] Insurance Providers: All historical and current Section [...] MEDICARE MEDICARE PART June 18, PART A [id number] 800 Smiley MOODY (WNR) (M A 2009 16A [phone] [facility] Selected Encounter This section includes the information on record at ME for the Encounter. Date/Time Encounter Type Encounter Description Reason Provider Source Sep 19, 2021 03:00 Outpatient Encounter TELEPHONE/ANCILLARY PM IHE Encounter Template Text not used by ME Social History: Smoking Status (Most current) and Tobacco Use (All prior to encounter date) This section includes the most current, and the historical, smoking and tobacco-related health factors from the ME facility where the Encounter took place.Current Smoking Status This section includes the most current smoking, or tobacco-related health factor, from the ME facility where the Encounter took place. Date/Time Current Smoking Status Comment Facility Jun 14, 2021 08:15 AM VA-TOBACCO DOESNT USE WI 30 MIN [facility] Tobacco Use History This section includes a history of the smoking, or tobacco- related health factors, that were collected on or before the date of the Encounter. The data comes from the [place] facility where the Encounter took place. 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 This section includes ALL of a patient's completed or amended [place] Advance and Rescinded Directives. The entries below indicate that a directive exists for the patient, but an actual copy is not included with this document. The data comes from all [place] facilities. Date Advance Directives Provider Source July 03, 2011 CLINICAL WARNING RACHAEL [facility] Encounter Notes: All associated encounter notes This section contains the clinical notes associated to the Encounter. Date/Time Encounter Note(s) Provider Source Sep 19, 2021 03:16 PM NO SHOW NOTE: AGA CRUZ [facility] LOCAL TITLE: NO SHOW/CANCELLATION CLINIC NOTE STANDARD TITLE: NO SHOW NOTE DATE OF NOTE: SEP 19, 2021@15:16 ENTRY DATE: SEP 19, 2021@15:16:41 AUTHOR: AGA CRUZ EXP COSIGNER: URGENCY: STATUS: COMPLETED not seen for scheduled appointment due t o: cancelled Called for 3pm nutri tion phone appointment. Reji Ruby answered on second attempt and requested to reschedule appointment d/t scheduling conflict. Appointment Rescheduled: No Appliances Sample Maker provided Tung with scheduling number ) to reschedule nutrition appt, Tung prefers to reschedule multi ple upcoming appointments for the same day. Advise if any further follow-up. Notify this sig nee as additional signer for notification. /zeb/ AGA CRUZ MBA, RDN REGISTERED DIETITIAN, 4E PACT Signed: 09/19/2021 15:19
--- OUTSIDE RECORDS SUMMARY | 2021-10-02 15:37 | XMS_ITS | Encounter Summary ---
:1955 Author Organization [facility] Address [address] [place] [address] Support Name Relationship Address Phone JULIET MOODY Unavailable [address] [place] [facility] [place] [address] SHENA PETERSEN Unavailable [address] [place] [address] SHENA PETERSEN Unavailable [address] [place] [address] Insurance Providers: All historical and current Section [...] MEDICARE MEDICARE PART June 18, PART A [id number] 800 Smiley MOODY (WNR) (M A 2009 16A [phone] [facility] Selected Encounter This section includes the information on record at [place] for the Encounter. Date/Time Encounter Type Encounter Description Reason Provider Source Sep 27, 2021 12:49 Outpatient Encounter TELEPHONE PRIMARY CARE IHE Encounter Template Text not used by MI Social History: Smoking Status (Most current) and Tobacco Use (All prior to encounter date) This section includes the most current, and the historical, smoking and tobacco-related health factors from the [place] facility where the Encounter took place.Current Smoking Status This section includes the most current smoking, or tobacco-related health factor, from the [place] facility where the Encounter took place. Date/Time Current Smoking Status [facility] Facility Jun 14, 2021 08:15 AM VA-TOBACCO USER SOME DAYS [facility] Tobacco Use History This section includes a history of the smoking, or tobacco- related health factors, that were collected on or before the date of the Encounter. The data comes from the [place] facility where the Encounter took place. Date/Time Smoking Status/Tobacco Use Comment Facil ity Jun 14, 2021 08:15 AM VA-TOBACCO USE > 15 LESS THAN 30 [facility] YEARS Jun 14, 2021 08:15 AM VA-TOBACCO USE ADVICE [place] [facility] Jun 14, 2021 08:15 AM VA-TOBACCO USE STRAP SEWER NO [facility] Jun 14, 2021 08:15 AM VA-TOBACCO USE MED NO [place] [facility] Jun 14, 2021 08:15 AM VA-TOBACCO USER SOME DAYS [facility] Jan 28, 2018 12:26 PM VA-TOBACCO NEVER USED [place] [facility] July 05, 2011 09:38 AM LIFETIME NON-TOBACCO USER [facility] July 03, 2011 06:04 PM LIFETIME NON-TOBACCO USER [facility] Nov 20, 2007 08:19 AM LIFETIME NON-TOBACCO USER [facility] Advance Directives: All historical and current Section Date Range: From patient's date of to the date document was created. This section includes ALL of a patient's completed or amended [place] Advance and Rescinded Directives. The entries below indicate that a directive exists for the patient, but an actual copy is not included with this document. The data comes from all [place] facilities. Date Advance Directives Provider Source July 03, 2011 CLINICAL WARNING RACHAEL KING [facility] Encounter Notes: All associated encounter notes This section contains the clinical notes associated to the Encounter. Date/Time Encounter Note(s) Provider Source Sep 27, 2021 12:49 PM PRIMARY CARE NONVA NOTE: [facility] LOCAL TITLE: CO-MANAGED CARE NOTE STANDARD TITLE: PRIMARY CARE NONVA NOTE DATE OF NOTE: SEP 27, 2021@12:49 ENTRY DATE: SEP 27, 2021@12:49:52 AUTHOR: BRYCE MCGUIRE EXP COSIGNER: URGENCY: STATUS: COMPLETED CO-MANAGED CARE NOTE Has ADDENDA Received a request for: 1. Gabapentin 100mg, take 2 capsules, 3 times da amie. Records scanned and available for review. Rx written by: Maureen Jaffe APRN, CNP [facility] phone #[phone] Local provider fax #[phone] Please alert me if med isn't approved or additio nal information is requested. If med is denied let me know what alternatives w ould be approved so I can communicate that information back to the local abi cardona. /zeb/ BRYCE MCGUIRE LPN Co-Cook Apprentice Signed: 09/27/2021 12:52 Receipt Acknowledged By: 09/28/2021 16:16 /zeb/ NICK VASQUEZ Physician Quality Internship 09/28/2021 ADDENDUM STATUS: COMPLETED Please call son/patient and inquire if they are truly asking to have this through [facility] pharmacy? He receives all meds throug h non-VA provider and may be safer to continue to do so in order to prevent c onfusion /zeb/ NICK VASQUEZ Physician Quality Internship Signed: 09/28/2021 16:19 Receipt Acknowledged By: 09/28/2021 16:35 /zeb/ CHASIDY GODINEZ RN RN, BSN 09/28/2021 ADDENDUM STATUS: COMPLETED Photograph Mounter called and spoke to son. He said there have been issues at [facility] getting the gabapentin ordered and [facility]. S o yes, requesting from us. /zeb/ CHASIDY GODINEZ RN RN, BSN Signed: 09/28/2021 16:38 Receipt Acknowledged By: * AWAITING SIGNATURE * MONI BROWN
== END 2021-10-02 15:25 | disposition home or self-care (01) ==
LOC: WOUND 15:24
PROVIDERS: Visit Provider Nurse Practitioner Family
DX: E11.622 Type 2 diabetes mellitus with other skin ulcer (principal); L97.815 Non-pressure chronic ulcer of other part of right lower leg with muscle involvement without evidence of necrosis; I87.313 Chronic venous hypertension (idiopathic) with ulcer of bilateral lower extremity; L97.822 Non-pressure chronic ulcer of other part of left lower leg with fat layer exposed; L97.812 Non-pressure chronic ulcer of other part of right lower leg with fat layer exposed; Z79.84 Long term (current) use of oral hypoglycemic drugs
CPT/HCPCS: 11043

== ENCOUNTER 2021-10-16 15:18 | Outpatient (CLI) | payer MEDICAID, SELFPAY ==
--- OUTSIDE RECORDS SUMMARY | 2021-10-16 15:20 | XMS_ITS | Continuity of Care Document ---
:[address] [facility] Care Team Providers Name Role Phone [facility] Unavailable Unavailable Problems Combined list of problems from Department of Defense and [facility] Affairs facilities. It does not include entries that were removed or entered in error. Problem Status Onset Problem Type Date of Comments Source Date Resolution AF-Atrial [facility] Fibrillation (SCT HC S [id number]) Anxiety [facility] [place] [facility] Asthma (SCT [place] [id number][place] HCS Benign essential Active Condition [facility] hypertension HCS (SNOMED CT 9880025) Cardiomyopathy Active Condition [facility] HCS Depressive Disorder Active Condition [facility] NOS HCS Diabetes mellitus Active Condition [facility] (SNOMED CT HCS 94146112) Diabetic neuropathy Active Condition [facility] (SNOMED CT HCS 950952092) Dyslipidemia Active Condition [facility] HCS H/O: Stroke (SCT Active [place] [id number]) HCS Heart failure [facility] [place] [facility] Hernia of anterior Active Condition Sep 14 [facility] abdominal wall 2013 [facility] Entered By: ALDO LI Comment: Dx 04/03, Gen Surgical Eval 07/01 Hydrocele (SNOMED [place] 83879823) HCS Low back pain [facility] [place] (SNOMED CT HCS 491470438) Mental disorder [facility] Mixed anxiety and Active Condition [facility] depressive disorder HCS (SNOMED CT 653847367) Morbid obesity [facility] (SNOMED CT HCS 850378710) Other Specified Active 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[facility] depressive HCS episodes, moderate (SNOMED CT 019715131) Sleep Apnea [facility] Diagnosis: active Diagnosis [facility] ICD-10-CM I63.9 HCS Cerebral infarction, unspecifiedwith Provider Comments: Cerebral infarction, unspecified Diagnosis: active Diagnosis [place] ICD-10-CM I63.9 HCS Cerebral infarction, unspecifiedwith Provider Comments: Cerebral Infarction, unspecified Diagnosis: active Diagnosis [place] ICD-10-CM Z71.3 HCS Dietary counseling and surveillancewith Provider Comments: Dietary counseling and surveillance Diagnosis: active Diagnosis [place] ICD-10-CM R26.9 HCS Unspecified abnormalities of gait and mobilitywith Provider Comments: Unspecified Abnormalities of Gait and Mobility Diagnosis: active Diagnosis [place] ICD-10-CM I10 HCS Essential (primary) hypertensionwith Provider Comments: Benign essential hypertension (SCT 9515412) Medications Combined list of outpatient medications from [...] NEEDED ALBUTEROL INHALE INHALA ACTIVE BROWN,ABBY 06/16/ [place] IN[place],ORAL BY TION AN 2020 [facility] INHALATI [place] [facility] ON PRN AMLODIPINE TAKE ORALLY ACTIVE BROWN,ABBY 12/09/ [place] BESYLATE ONE-HALF AN 2019 [place] 10MG TAB TABLET [facility] BY MOUTH EVERY DAY ASPIRIN TAKE ONE ORALLY ACTIVE BROWN,ABBY 12/09/ [place] 81MG TAB,EC TABLET 2019 [place] BY MOUTH [facility] EVERY DAY ATORVASTATI TAKE ONE ORALLY ACTIVE BROWN,ABBY 12/09 / [place] 80MG TABLET 2019 [place] TAB BY MOUTH [facility] AT BEDTIME BACITRACIN APPLY TO TOPICA ACTIVE BROWN,ABBY 06/16/ [place] 500UNT/GM AFFECTED LLY AN 2020 [place] OINT,TOP AREA [facility] TOPICALL Y PRN DOCUSATE NA TAKE ONE ORALLY ACTIVE BROWN,ABBY 06/16 / [place] 50MG/SENNOS TABLET AN 2020 [place] IDES 8.6MG BY MOUTH [facility] S TAB TWICE A DAY NEEDED FLUTICASONE SPRAY 2 NASAL ACTIVE BROWN,ABBY 12/09/ [place] PROPIONATE SPRAYS AN 2019 [place] 50MCG/SPRAY IN EACH [place] S SOLN,NASAL, NOSTRIL 16GM EVERY DAY FUROSEMIDE TAKE ONE ORALLY ACTIVE BROWN,ABBY 12/09/ [place] 20MG TAB TABLET AN 2019 [place] BY MOUTH [place] [facility] EVERY DAY GABAPENTIN TAKE TWO ORALLY ACTIVE 09/30/2022 [id number] ISAIAH YLE,ABBY 10/03/ [place] 100MG CAP CAPSULES 2 AN 2021 [place] BY MOUTH [place] [facility] THREE TIMES A DAY GABAPENTIN TAKE 1 ORALLY ACTIVE BROWN,ABBY 06/27/ [place] 100MG CAP CAPSULE AN 2021 [place] BY MOUTH [place] [facility] TWICE A DAY METFORMIN TAKE ONE ORALLY ACTIVE BROWN,ABBY 06/16/ [place] HCL 1000MG TABLET AN 2020 [place] TAB BY MOUTH [place] [facility] TWO TIMES A DAY METOPROLOL TAKE ORALLY ACTIVE BROWN,ABBY 12/09/ [place] SUCCINATE ONE-HALF AN 2019 [place] [facility] 200MG TABLET [facility] TAB,SA BY MOUTH EVERY DAY NYSTATIN USE TOPICA ACTIVE KEVIN,ABBY 12/09/ [place] POWDER TOPICALL LLY AN 2019 [place] [facility] Y TWICE [facility] A DAY SENNOSIDES TAKE ONE ORALLY ACTIVE BROWN,ABBY 12/09/ [place] 8.6MG TAB TABLET AN 2019 [place] BY MOUTH [place] [facility] EVERY DAY VALSARTAN TAKE 1.5 ORALLY ACTIVE BROWN,ABBY 06/16/ [place] 80MG TAB TABLETS AN 2020 [place] [facility] BY MOUTH [place] [facility] TWICE A DAY WARFARIN NA TAKE 10 ORALLY ACTIVE BROWN,ABBY 06/16/ [place] 1MG TAB TABLETS AN 2020 [place] [facility] BY MOUTH [place] [facility] EVERY DAY Allergies, Adverse Reactions, Alerts Combined list of allergies from Department of Defense and Veterans Affairs facilities. It does not include entries that were removed or entered in error. Substance Category Reaction Severity Reaction Status Date Comments S ource type Reported LISINOPRIL Propensity Propensity active [place] to adverse to adverse 8 IS [facility] reactions reactions to drug to drug (finding) (finding) LISINOPRIL Propensity Cough Propensity active [facility] to adverse to adverse 2 [facility] reactions reactions to drug to drug (finding) (finding) Immunizations Combined list of available immunizations from the Department of Defense and Veterans Affairs facilities. Immunization Series Date Administered Site Reaction Lot CVX Drug St atus Comments Source Given By Number Code Glass Technologist INFLUENZA, complet [place] UNSPECIFIED 2020 ed [place] [facility] COVID-19 2 complet [place] LGREE (MODERNA), 2020 ed NS MRNA, LNP-S, P HARMAC PF, 100 IES MCG/0.5 ML DOSE COVID-19 1 complet [place] LGREE (MODERNA), 2020 ed NS MRNA, LNP-S, P HARMAC PF, 100 IES MCG/0.5 ML DOSE ZOSTER 2 complet [place] RECOMBINANT 2018 ed OL IS [facility] INFLUENZA, complet [place] SEASONAL, 2018 ed [place] INJECTABLE, HC S PRESERVATIVE FREE ZOSTER 1 complet [place] RECOMBINANT 2018 ed OL IS [facility] INFLUENZA, complet [place] SEASONAL, [address] INJECTABLE, ME TRO PRESERVATIVE V A FREE CLINIC INFLUENZA, complet [place] SEASON[facility], [address] INJECTABLE, ME TRO PRESERVATIVE V A FREE [facility]INIC INFLUENZA, complet [place] [facility], [address] INJECTABLE, ME TRO PRESERVATIVE V A FREE CLINIC INFLUENZA, complet [place] UNSPECIFIED [address] [facility] [facility] INFLUENZA, complet [place] UNSPECIFIED [address] [facility] [place] [facility] TDAP complet [id number] [place] 2012 ed 05/06/15 [facility] [employer] [facility] INFLUENZA, complet [place] UNSPECIFIED [address] [facility] [place] [facility] INFLUENZA, complet [place] UNSPECIFIED 2009 ed [facility] PNEUMOCOCCAL, complet [employer] [place] UNSPECIFIED 2007 ed lot# [place] FORMULATION [id number] HC S exp. [id number] INFLUENZA complet [place] (HISTORICAL) 2007 ed [place] [facility] INFLUENZA complet [place] (HISTORICAL) 2007 ed [place] [facility] TD(ADULT) 11/18/ 139 complet [place] UNSPECIFIED 2007 ed OL IS [facility] HC S Results Combined list of recent chemistry, hematology and other laboratory results from Department of Defense and Veterans Affairs, ranging from 15 months to all on record, depending upon the facility. Order Results Value Reference Date Interpretation Specimen Commen ts Source Name Range OCCULT HEMOGLOBIN. Negative 06/28 Specimen Ty pe: FECES [place] BLOOD GASTROINTES /2020 No comment e ntered. IS [facility] FIT X1 TINAL.LOWER Ordering Pr ovider: MONI BROWN SCREEN [PRESENCE] Report Relea sed Date/Time: Jun 16, 2020 09:30 AM IN STOOL BY Reporting L ab: [facility] IMMUNOASSAY [address] [facility] [address] --1ST Performing Lab: [facility] SPECIMEN [address] [place]ON [facility] [address] DRUG BARBITURATE Negative 05/04 Specimen Ty pe: URINE [place] SCREEN S Comment: PRESUM PTIVE POSITIVE BY SCREEN, RESULTS NOT CONFIRMED IS [place] PANEL,U [PRESENCE] Ordering Pro vider: MONI BROWN IN URINE BY Report Rele ased Date/Time: Feb 27, 2018 10:18 AM SCREEN Reporting Lab: [facility] METHOD [address] [place] [facility] [address] Performing Lab: [facility] [address] [place] [facility] [address] DRUG AMPHETAMINE Negative 05/04 Specimen Ty pe: URINE [place] SCREEN S Comment: PRESUM PTIVE POSITIVE BY SCREEN, RESULTS NOT CONFIRMED IS [facility] PANEL,U [PRESENCE] Ordering Pro vider: MONI BROWN IN URINE Report Release d Date/Time: Feb 27, 2018 10:18 AM Reporting Lab: [facility] [address] [place] [facility] [address] Performing Lab: [facility] [address] [place] [facility] [address] DRUG COCAINE Negative 05/04 Specimen Type: URINE [place] SCREEN [PRESENCE] /2020 Comment: PRE SUMPTIVE POSITIVE BY SCREEN, RESULTS NOT CONFIRMED IS [facility] PANEL,U IN URINE Ordering Provi isidra: MONI BROWN Report Released Date/Time: Feb 27, 2018 10:18 AM Reporting Lab: [facility] [address] [place] [facility] [address] Performing Lab: [facility] HCS [address] [place] [facility] [address] DRUG BENZODIAZEP Negative 05/04 Specimen Ty pe: URINE [place] SCREEN JOHANN /2020 Comment: PRESUM PTIVE POSITIVE BY SCREEN, RESULTS NOT CONFIRMED [place] HCS PANEL,U [PRESENCE] Ordering Pro vider: MONI BROWN IN URINE BY Report Rele ased Date/Time: Feb 27, 2018 10:18 AM SCREEN Reporting Lab: [facility] METHOD [address] [place] [facility] [address] Performing Lab: [facility] [address] [place] [facility] [address] DRUG CANNABINOID Negative 05/04 Specimen Ty pe: URINE [place] SCREEN S Comment: PRESUM PTIVE POSITIVE BY SCREEN, RESULTS NOT CONFIRMED [place] HCS PANEL,U [PRESENCE] Ordering Pro vider: MONI BROWN IN URINE BY Report Rele ased Date/Time: Feb 27, 2018 10:18 AM SCREEN Reporting Lab: [facility] METHOD [address] [place] [facility] [address] Performing Lab: [facility] [address] [place] [facility] [address] DRUG METHADONE Negative 05/04 Specimen Type : URINE [place] SCREEN [PRESENCE] /2020 Comment: PRE SUMPTIVE POSITIVE BY SCREEN, RESULTS NOT CONFIRMED [place] HCS PANEL,U IN URINE Ordering Provi isidra: MONI BROWN Report Released Date/Time: Feb 27, 2018 10:18 AM Reporting Lab: [facility] [address] [place] [facility] [address] Performing Lab: [facility] [address] [place] [facility] [address] DRUG OPIATES POSITIVE 05/04 H Specimen Type: URINE [place] SCREEN [PRESENCE] /2020 Comment: PRE SUMPTIVE POSITIVE BY SCREEN, RESULTS NOT CONFIRMED [place] HCS PANEL,U IN URINE BY Ordering Pr ovider: MONI BROWN SCREEN Report Released Date/Time: Feb 27, 2018 10:18 AM METHOD Reporting Lab: [facility] [address] [place] [facility] [address] Performing Lab: [facility] [address] [place] [facility] [address] DRUG PHENCYCLIDI Negative 05/04 Specimen Ty pe: URINE [place] SCREEN NE Comment: PRESUM PTIVE POSITIVE BY SCREEN, RESULTS NOT CONFIRMED [place] HCS PANEL,U [PRESENCE] Ordering Pro vider: MONI BROWN IN URINE Report Release d Date/Time: Feb 27, 2018 10:18 AM Reporting Lab: [facility] [place] [address] Performing Lab: [facility] [place] [address] DRUG ETHANOL Negative 05/04 Specimen Type: URINE [place] SCREEN [MASS/VOLUM /2020 Comment: DC ESUMPTIVE POSITIVE BY SCREEN, RESULTS NOT CONFIRMED [place] HCS PANEL,U E] IN URINE Ordering Pr ovider: MONI BROWN Report Released Date/Time: Feb 27, 2018 10:18 AM Reporting Lab: [facility] [place] [address] Performing Lab: [facility] [place] [address] DRUG CREATININE >300.0 20 05/04 Specimen Type : URINE [place] SCREEN [MASS/VOLUM /2020 Comment: DC ESUMPTIVE POSITIVE BY SCREEN, RESULTS NOT CONFIRMED [place] HCS PANEL,U E] IN URINE Ordering Pr ovider: MONI BROWN Report Released Date/Time: Feb 27, 2018 10:18 AM Reporting Lab: [facility] [place] [address] Performing Lab: [facility] [place] [address] DRUG OXYCODONE Negative 05/04 Specimen Type : URINE [place] SCREEN [PRESENCE] /2020 Comment: PRE SUMPTIVE POSITIVE BY SCREEN, RESULTS NOT CONFIRMED [place] [facility] PANEL,U IN URINE BY Ordering Pr ovider: MONI BROWN SCREEN Report Released Date/Time: Feb 27, 2018 10:18 AM METHOD Reporting Lab: [facility] [address] [place] [facility] [address] Performing Lab: [facility] [address] [place] [facility] [address] DRUG BUPRENORPHI Negative 05/04 Specimen Ty pe: URINE [place] SCREEN NE+NORBUPRE /2020 Comment: DC ESUMPTIVE POSITIVE BY SCREEN, RESULTS NOT CONFIRMED [place] [facility] PANEL,U [place] Ordering Provi isidra: MONI BROWN [PRESENCE] Report Relea sed Date/Time: Feb 27, 2018 10:18 AM IN URINE Reporting Lab: [facility] [place] [address] Performing Lab: [facility] [place] [address] DRUG TRAMADOL Negative 05/04 Specimen Type: URINE [place] SCREEN CUTOFF Comment: PRESUM PTIVE POSITIVE BY SCREEN, RESULTS NOT CONFIRMED IS [facility] PANEL,U [MASS/VOLUM Ordering Pr ovider: MONI BROWN] IN URINE Report Rele ased Date/Time: Feb 27, 2018 10:18 AM FOR SCREEN Reporting La b: [facility] METHOD [place] [address] Performing Lab: [facility] [place] [address] Vital Signs Combined list of inpatient and outpatient Vital Signs from Department of Defense and Veterans Affairs, ranging from 12 months to all on record, depending upon the facility. Vital Sign Value Date Comments Source SYSTOLIC BLOOD PRESSURE 153 06/14/2021 08:03:02 [facility] DIASTOLIC BLOOD PRESSURE 99 06/14/2021 08:03:02 [facility] PULSE OXIMETRY 99% 06/14/2021 08:03:02 [place] [facility] WEIGHT 334 06/14/2021 08:03:02 [place] [facility] BMI 48kg/m2 06/14/2021 08:03:02 [place] [facility] PAIN 0 06/14/2021 08:03:02 [place] [facility] TEMPERATURE 97.7 06/14/2021 08:03:02 [place] [facility] PULSE 68 06/14/2021 08:03:02 [place] [facility] RESPIRATION 18 06/14/2021 08:03:02 [place] [facility] Encounters Combined list of: 1) Encounters from Department of Veterans Affairs facilities going back up to the last 18 months, not all [place] inpatient encounters are included; 2) Encounters from the Department of Defense facilities going back up to 280 months. Location Location Encounter Encounter Reason Attending ADM DC Stat us Disposition Source Details Type Number For Provider Date Date Visit Outpatient [id number] 05/04 [place] Encounter [id number] [facility] Outpatient 67678-006/16 [place] Encounter [id number] [facility] Outpatient 08435-961 DOMINIK BROWN 06/16 [place] [id number] [facility] [id number] 06/16 [place] [id number] [facility] [id number] BRENDAN HEBERT 06/16 [place] Encounter [id number] EKATERINA J /2020 [facility] [id number] 06/16 [place] En[place] [id number] /2020 [facility] Out[facility] 99443-9.61 DOMINIK BROWN 06/16 [place] En[facility] [id number] [facility] Outpatient [id number] 06/30 [place] En[place] [id number] /2020 [facility] [id number] 10/06 [place] Encounter [id number] /2020 [facility] Outpatient [id number] SHIRA PAUL 10/13 [place] Encounter [id number] MBLY /2020 [facility] [id number] 11/18 [place] En[place] [id number] /2020 [facility] [id number] 04/11 [place] Encounter [id number] /2021 [facility] Outpatient [id number] 05/03 [place] Encounter [id number] /2021 [facility] Outpatient [id number] 05/18 [place] Encounter [id number] /2021 [facility] OFFICE O/P 06201-6.61 Diagnos DOMINIK BROWN 06/14 [place] EST HI [id number] is: N [facility] 40-54 [place] ICD-10- [facility] CM I10 Essenti al (primar y) hyperte nsion<b r/>with Provide r Comment s: Benign essenti al hyperte nsion (SCT 0984481 ) Outpatient [id number] 06/15 [place] Encounter [id number] /2021 [facility] Out[facility] [id number] 06/17 [place] Encounter [id number] [facility] Outpatient 81459-3.61 Diagnos JEREMIAH SALEH 06/20 [place] Encounter [id number] is: [place] [facility] ICD-10- HCS CM R26.9 Unspeci fied abnorma lities of gait and mobilit y
w ith Provide r Comment s: Unspeci fied Abnorma lities of Gait and Mobilit y MEDICAL 78485-3.61 Diagnos VINCENT,TO 07/12 [place] NUTRITION [id number] is: NI L [facility] INDIV IN ICD-10- HCS CM Z71.3 Dietary crisis counselor ing and surveil winnie<b r/>with Provide r Comment s: Dietary crisis counselor ing and surveil winnie THERAPEUTI 37126-1.61 Diagnos DELBERT GERARDO 07/12 [place] C [id number] is: NNER W [facility] ACTIVITIES ICD-10- [facility] CM I63.9 Cerebra l infarct ion, unspeci fied
with Provide r Comment s: Cerebra l Infarct ion, unspeci fied NEUROMUSCU 47652-5.61 Diagnos BAM SUAREZ 08/11 [place] LAR [id number] is: /2021 [facility] REEDUCATIO ICD-10- [facility] N CM I63.9 Cerebra l infarct ion, unspeci fied
with Provide r Comment s: Cerebra l infarct ion, unspeci fied Outpatient [id number] 09/07 [place] Encounter [id number] /2021 [facility] Outpatient 14025-3.61 09/19 [place] Encounter [id number] /2021 [facility] Outpatient 47917-7.61 09/27 [place] Encounter [id number] /2021 [facility] Social History Combined list of available smoking, tobacco, and other social history from Department of Defense andVeterans Affairs facilities. Social History Type Response Date Comment Source Tobacco smoking VA-TO[facility]ACCO USER SOME 06/14/2021 [facility] status NHIS DAYS History of tobacco VA-TOBACCO DOESNT USE 06/14/2021 [facility] use WI 30 MIN WAKEUP History of tobacco VA-TOBACCO NEVER USED 01/28/2018 [facility] use History of tobacco FORMER TOBACCO USER 10/25/2016 [facility] History of tobacco LIFETIME NON-TOBACCO 10/12/2015 N [facility] use [facility] History of tobacco LIFETIME NON-TOBACCO 09/22/2014 N [facility] use [facility] History of tobacco FORMER TOBACCO USER 07/07/2013 [facility] History of tobacco LIFETIME NON-TOBACCO 07/05/2011 [facility] use USER History of tobacco LIFETIME NON-TOBACCO 07/03/2011 [facility] use USER History of tobacco LIFETIME NON-TOBACCO 11/20/2007 [facility] use USER Advance Directives List of completed, amended, or rescinded Advance Directives on record at Department of Veterans Affairs facilities. An actual copy of the Directive is not included. Date Advance Directive Provider Source 07/03/2011 CLINICAL WARNING RACHAEL KING [facility]
== END 2021-10-16 15:19 | disposition home or self-care (01) ==
LOC: WOUND 15:19
PROVIDERS: Visit Provider Nurse Practitioner Family
DX: E11.622 Type 2 diabetes mellitus with other skin ulcer (principal); L97.912 Non-pressure chronic ulcer of unspecified part of right lower leg with fat layer exposed; I87.312 Chronic venous hypertension (idiopathic) with ulcer of left lower extremity; L97.822 Non-pressure chronic ulcer of other part of left lower leg with fat layer exposed; Z79.84 Long term (current) use of oral hypoglycemic drugs
CPT/HCPCS: 11042

== ENCOUNTER 2021-10-30 15:24 | Outpatient (CLI) | payer MEDICAID, SELFPAY | END 2021-10-30 15:25 | disposition home or self-care (01) | LOC: WOUND 15:24 | PROVIDERS: Visit Provider Nurse Practitioner Family | DX: E11.622 Type 2 diabetes mellitus with other skin ulcer (principal); L97.815 Non-pressure chronic ulcer of other part of right lower leg with muscle involvement without evidence of necrosis; I87.312 Chronic venous hypertension (idiopathic) with ulcer of left lower extremity; L97.822 Non-pressure chronic ulcer of other part of left lower leg with fat layer exposed; Z79.84 Long term (current) use of oral hypoglycemic drugs | CPT/HCPCS: 11042 ==

== ENCOUNTER 2021-11-06 15:14 | Outpatient (CLI) | payer MEDICAID, SELFPAY ==
--- OUTSIDE RECORDS SUMMARY | 2021-11-06 15:28 | XMS_ITS | Encounter Summary ---
:1955 Author Organization [facility] Address [address] [place] [address] Support Name Relationship Address Phone JULIET MOODY Unavailable [address] [place] [facility] [place] [address] SHENA PETERSEN Unavailable [address] [place] [address] SHENA PETERSEN Unavailable [address] [place] [address] Insurance Providers: All historical and current Section [...] MEDICARE MEDICARE PART June 18, PART A [id number] Sm[address] MOODY (WNR) (M A 2009 [id number] [phone] [facility] Selected Encounter This section includes the information on record at [facility] for the Encounter. Date/Time Encounter Type Encounter Description Reason Provider Source Sep 22, 2021 01:00 Outpatient Encounter OCCUPATIONAL THERAPY IHE Encounter Template Text not used by [facility] Plan of Treatment: Future Appointments (+ 6 months) and Future Tests (+/- 45 days) The Plan of Treatment section includes future care activities for the patient from all [facility] treatmentfacilities. This section includes future appointments and future orders which are active, pending orscheduled.Future Appointments This section includes appointments that were scheduled to occur 6 months from the date of the Encounter, up to a maximum of 20 appointments. The data comes from all [facility] treatment facilities. Appointment Date/Time Appointment Type Appointment Facili ty Name Nov 02, 2021 05:30 PM [facility] Nov 07, 2021 08:30 AM [facility]ORY - MEDICINE [facility] Nov 07, 2021 03:00 PM AMBULATORY - [facility] MEDICINE [facility] Active, Pending, and Scheduled Orders This section includes a listing of several types of active, pending, and scheduled orders, including clinic medications orders, diagnostic test orders, procedure orders and consult orders; where the start date of the order is 45 days before the date of the Encounter or 45 days after the date of the Encounter. The data comes from all [facility] treatment facilities. Test Date/Time Test Type Test Details Facility Name Aug 11, 2021 10:52 AM Consult Order OT OCCUPATIONAL THERAPY OU TPT [facility] POWER MOBILITY EVALUATION Cons Ultrasound Technician's Choice Social History: Smoking Status (Most current) and [...] USER SOME DAYS [facility] Tobacco Use History This section includes a history of the smoking, or tobacco- related health factors, that were collected on or before the date of the Encounter. The data comes from the [facility] facility where the Encounter took place. 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 Date/Time Encounter Note(s) Provider Source Oct 19, 2021 01:39 PM REPORT OF CONTACT: TAYLOR MARIA PRERNA [facility] LOCAL TITLE: APPOINTMENT SCHEDULING NOTE STANDARD TITLE: REPORT OF CONTACT DATE OF NOTE: OCT 19, 2021@13:39 ENTRY DATE: OCT 19, 2021@13:39:33 AUTHOR: TAYLOR MARIA EXP COSIGNER: URGENCY: STATUS: COMPLETED Attempt to schedule return to clinic 1st Contact: Called at: [phone] Se p Left message Phone number left for to call back: [phone] 2nd Contact: Sent letter by regular [place] mail to address on [address] JOSÉ ANTONIO MOODY [address] [place] [address] Additional information/contact attempts: Appointment added to [facility] for schedellis ng reminder If calls back, schedule appointment for : Return to [facility] on or around ( Oct ) for a total of 1 appointment(s) 60 min Is the RTC marked as no later than? Concha /zeb/ TAYLOR MARIA USED [facility] Signed: 10/19/2021 13:40
== END 2021-11-06 15:15 | disposition home or self-care (01) ==
LOC: WOUND 15:14
PROVIDERS: Visit Provider Nurse Practitioner Family
DX: E11.622 Type 2 diabetes mellitus with other skin ulcer (principal); L97.912 Non-pressure chronic ulcer of unspecified part of right lower leg with fat layer exposed; I87.312 Chronic venous hypertension (idiopathic) with ulcer of left lower extremity; L97.825 Non-pressure chronic ulcer of other part of left lower leg with muscle involvement without evidence of necrosis; I89.0 Lymphedema, not elsewhere classified; Z79.84 Long term (current) use of oral hypoglycemic drugs
CPT/HCPCS: 11042

== ENCOUNTER 2021-11-13 15:24 | Outpatient (CLI) | payer MEDICAID, SELFPAY ==
--- OUTSIDE RECORDS SUMMARY | 2021-11-13 15:27 | XMS_ITS | Continuity of Care Document ---
:1955 Author Organization [facility] Care Team Providers Name Role Phone [facility] Unavailable Unavailable Problems Combined list of problems from Department of Defense and [facility] Affairs facilities. It does not include entries that were removed or entered in error. Problem Status Onset Problem Type Date of Comments Source Date Resolution AF-Atrial [facility] F[facility] ([facility] HC S 68101822) [facility]xiety [facility] Asthma (SCT [place] [id number][place] HCS Benign essential Active Condition [facility] hypertension HCS (SNOMED CT 0465001) Cardiomyopathy Active Condition [facility] Depressive Disorder Active Condition [facility] NOS HCS Diabetes mellitus Active Condition [facility] (SNOMED CT HCS 64493679) Diabetic neuropathy Active Condition [facility] (SNOMED CT HCS 528023113) Dyslipidemia Active Condition [facility] H/O: Stroke (SCT Active Condition [place] 612700894) HCS Heart failure [facility] [place] [facility] Hernia of anterior Active Condition Sep 14 [facility] abdominal wall 2013 [facility] Entered By: ALDO LI Comment: Dx 04/03, Gen Surgical Eval 07/01 Hydrocele (SNOMED [place] 74023091) HCS Low back pain Active [facility] [place] (SNOMED CT HCS 255211449) Mental disorder [facility] Mixed anxiety and Active Condition [facility] depressive disorder HCS (SNOMED CT 968120064) Morbid obesity [facility]SNOMED [facility] 046006943) Other Specified Active Condition [facility] Counseling HCS (ICD-9-CM V65.49) Pes Planus, 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 Diagnosis: Active Diagnosis [facility] ICD-10-CM I63.9 HCS Cerebral infarction, unspecifiedwith Provider Comments: Cerebral infarction, unspecified Diagnosis: Active Diagnosis [place] ICD-10-CM I63.9 HCS Cerebral infarction, unspecifiedwith Provider Comments: Cerebral Infarction, unspecified Diagnosis: Active Diagnosis [place] ICD-10-CM Z71.3 HCS Dietary counseling and surveillancewith Provider Comments: Dietary counseling and surveillance Diagnosis: Active Diagnosis [place] ICD-10-CM R26.9 HCS Unspecified abnormalities of gait and mobilitywith Provider Comments: Unspecified Abnormalities of Gait and Mobility Diagnosis: Active Diagnosis [place] ICD-10-CM I10 HCS Essential (primary) hypertensionwith Provider Comments: Benign essential hypertension (SCT 8326553) Medications Combined list of outpatient medications from [...] NEEDED ALBUTEROL INHALE INHALA ACTIVE BROWN,[place]BY 06/16/ [place] INHL,ORAL BY TION AN 2020 [facility] INHALATI [place] [facility] ON PRN AMLODIPINE TAKE ORALLY ACTIVE BROWN,[place] 12/09/ [place] BESYLATE ONE-HALF AN 2019 [place] 10MG TAB TABLET [facility] BY MOUTH EVERY DAY ASPIRIN TAKE ONE ORALLY ACTIVE BROWN,[place]BY 12/09/ [place] 81MG TAB,EC TABLET 2019 [place] [facility] BY MOUTH [facility] EVERY DAY ATORVASTATI TAKE ONE ORALLY ACTIVE BROWN,ABBY 12/09 / [place] 80MG TABLET 2019 [place] [facility] TAB BY MOUTH [facility] AT BEDTIME BACITRACIN APPLY TO TOPICA ACTIVE BROWN,ABBY 06/16/ [place] 500UNT/GM AFFECTED LLY AN 2020 [place] OINT,TOP AREA [facility] TOPICALL Y PRN DOCUSATE NA TAKE ONE ORALLY ACTIVE BROWN,ABBY 06/16 / [place] 50MG/SENNOS TABLET AN 2020 [place] IDES 8.6MG BY MOUTH [facility] S TAB TWICE A DAY NEEDED FLUTICASONE SPRAY 2 NASAL ACTIVE BROWN,ABBY 12/09/ [place] PROPIONATE SPRAYS AN 2019 [place] 50MCG/SPRAY IN EACH [place] S SOLN,NASAL, NOSTRIL 16GM EVERY DAY FUROSEMIDE TAKE ONE ORALLY ACTIVE BROWN,ABBY 12/09/ [place] 20MG TAB TABLET AN 2019 [place] BY MOUTH [facility] EVERY DAY GABAPENTIN TAKE TWO ORALLY ACTIVE 09/30/2022 [id number] ISAIAH YLE,ABBY 10/03/ [place] 100MG CAP CAPSULES 2 AN 2021 [place] BY MOUTH [place] [facility] THREE TIMES A DAY GABAPENTIN TAKE 1 ORALLY ACTIVE BROWN,ABBY 06/27/ [place] 100MG CAP CAPSULE AN 2021 [place] BY MOUTH [facility] TWICE A DAY METFORMIN TAKE ONE ORALLY ACTIVE BROWN,ABBY 06/16/ [place] HCL 1000MG TABLET AN 2020 [place] [facility] TAB BY MOUTH [facility] TWO TIMES A DAY METOPROLOL TAKE ORALLY ACTIVE BROWN,ABBY 12/09/ [place] SUCCINATE ONE-HALF AN 2019 [place] [facility] 200MG TABLET [facility] TAB,SA BY MOUTH EVERY DAY NYSTATIN USE TOPICA ACTIVE KEVIN,ABBY 12/09/ [place] POWDER TOPICALL LLY AN 2019 [place] [facility] Y TWICE [facility] A DAY SENNOSIDES TAKE ONE ORALLY ACTIVE BROWN,ABBY 12/09/ [place] 8.6MG TAB TABLET AN 2019 [place] [facility] BY MOUTH [facility] EVERY DAY VALSARTAN TAKE 1.5 ORALLY ACTIVE BROWN,ABBY 06/16/ [place] 80MG TAB TABLETS AN 2020 [place] BY MOUTH [facility] TWICE A DAY WARFARIN NA TAKE 10 ORALLY ACTIVE BROWN,ABBY 06/16/ [place] 1MG TAB TABLETS AN 2020 [place] [facility] BY MOUTH [facility] EVERY DAY Allergies, Adverse Reactions, Alerts Combined list of allergies from Department of Defense and Veterans Affairs facilities. It does not include entries that were removed or entered in error. Substance Category Reaction Severity Reaction Status Date Comments S ource type Reported LISINOPRIL Propensity Propensity active [place] to adverse to adverse 8 IS [facility] reactions reactions to drug to drug (finding) (finding) LISINOPRIL Propensity Cough Propensity active [facility] to adverse to adverse 2 [facility] reactions reactions to drug to drug (finding) (finding) Immunizations Combined list of available immunizations from the Department of Defense and Veterans Affairs facilities. 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, complet [place] UNSPECIFIED 2020 ed [place] [facility] COVID-19 2 complet [place] LGREE (MODERNA), 2020 ed NS MRNA, LNP-S, P HARMAC PF, 100 IES MCG/0.5 ML DOSE COVID-19 1 complet [place] LGREE (MODERNA), 2020 ed NS MRNA, LNP-S, P HARMAC PF, 100 IES MCG/0.5 ML DOSE ZOSTER 2 complet [place] RECOMBINANT 2018 ed OL IS [facility] INFLUENZA, complet [place] SEASONAL, 2018 ed [place] [facility] INJECTABLE, HC S PRESERVATIVE FREE ZOSTER 1 complet [place] RECOMBINANT 2018 ed OL [place] [facility] INFLUENZA, complet [place] SEASONAL, [address] INJECTABLE, ME TRO PRESERVATIVE V A FREE CLINIC INFLUENZA, complet [place] SEASONAL, [address] INJECTABLE, ME TRO PRESERVATIVE V A FREE CLINIC INFLUENZA, complet [place] SEASON[facility], [address] INJECTABLE, ME TRO PRESERVATIVE V A FREE CLINIC INFLUENZA, complet [place] UNSPECIFIED [address] FORMULATION [facility] INFLUENZA, complet [place] UNSPECIFIED [address] [facility] TDAP complet 3T549 [place] 2012 ed 05/06/15 [facility] [employer] [facility] INFLUENZA, complet [place] UNSPECIFIED [address] FORMULATION [facility] INFLUENZA, complet [place] UNSPECIFIED 2009 ed [facility] PNEUMOCOCCAL, complet [employer] [place] UNSPECIFIED 2007 ed lot# OL [place] FORMULATION [id number] HC S exp. [id number] INFLUENZA complet [place] (HISTORICAL) 2007 ed [place] [facility] INFLUENZA complet [place] (HISTORICAL) 2007 ed [place] [facility] TD(ADULT) 11/18/ 139 complet [place] UNSPECIFIED 2007 ed OL IS [facility] HC S Results Combined list of recent chemistry, hematology and other laboratory results from Department of Defense and Veterans Affairs, ranging from 15 months to all on record, depending upon the facility. Order Results Value Reference Date Interpretation Specimen Commen ts Source Name Range OCCULT HEMOGLOBIN. Negative 06/28 Specimen Ty pe: FECES [place] BLOOD GASTROINTES /2020 No comment e ntered. IS [facility] FIT X1 TINAL.LOWER Ordering Pr ovider: MONI BROWN SCREEN [PRESENCE] Report Relea sed Date/Time: Jun 16, 2020 09:30 AM IN STOOL BY Reporting L ab: [facility] IMMUNOASSAY [address] [facility] [address] --1ST Performing Lab: [facility] SPECIMEN [address] [place] [facility] [address] DRUG BARBITURATE Negative 05/04 Specimen Ty pe: URINE [place] SCREEN S Comment: PRESUM PTIVE POSITIVE BY SCREEN, RESULTS NOT CONFIRMED IS [place] Quettra PANEL,U [PRESENCE] Ordering Pro vider: MONI BROWN IN URINE BY Report Rele ased Date/Time: Feb 27, 2018 10:18 AM SCREEN Reporting Lab: [facility] METHOD [address] [place] [facility] [address] Performing Lab: [facility] [address] [place] [facility] [address] DRUG AMPHETAMINE Negative 05/04 Specimen Ty pe: URINE [place] SCREEN S Comment: PRESUM PTIVE POSITIVE BY SCREEN, RESULTS NOT CONFIRMED IS [facility] PANEL,U [PRESENCE] Ordering Pro vider: MONI BROWN IN URINE Report Release d Date/Time: Feb 27, 2018 10:18 AM Reporting Lab: [facility] [address] [place] [facility] [address] Performing Lab: [facility] [address] [place] [facility] [address] DRUG COCAINE Negative 05/04 Specimen Type: URINE [place] SCREEN [PRESENCE] /2020 Comment: PRE SUMPTIVE POSITIVE BY SCREEN, RESULTS NOT CONFIRMED IS [facility] PANEL,U IN URINE Ordering Provi isidra: MONI BROWN Report Released Date/Time: Feb 27, 2018 10:18 AM Reporting Lab: [facility] [address] [place] [facility] [address] Performing Lab: [facility] HCS [address] [place] [facility] [address] DRUG BENZODIAZEP Negative 05/04 Specimen Ty pe: URINE [place] SCREEN JOHANN /2020 Comment: PRESUM PTIVE POSITIVE BY SCREEN, RESULTS NOT CONFIRMED IS [place] HCS PANEL,U [PRESENCE] Ordering Pro vider: MONI BROWN IN URINE BY Report Rele ased Date/Time: Feb 27, 2018 10:18 AM SCREEN Reporting Lab: [facility] METHOD [address] [place] [facility] [address] Performing Lab: [facility] [address] [place] [facility] [address] DRUG CANNABINOID Negative 05/04 Specimen Ty pe: URINE [place] SCREEN S Comment: PRESUM PTIVE POSITIVE BY SCREEN, RESULTS NOT CONFIRMED IS [place] HCS PANEL,U [PRESENCE] Ordering Pro vider: MONI BROWN IN URINE BY Report Rele ased Date/Time: Feb 27, 2018 10:18 AM SCREEN Reporting Lab: [facility] METHOD [address] [place] [facility] [address] Performing Lab: [facility] [address] [place] [facility] [address] DRUG METHADONE Negative 05/04 Specimen Type : URINE [place] SCREEN [PRESENCE] /2020 Comment: PRE SUMPTIVE POSITIVE BY SCREEN, RESULTS NOT CONFIRMED IS [place] [facility] PANEL,U IN URINE Ordering Provi isidra: MONI BROWN Report Released Date/Time: Feb 27, 2018 10:18 AM Reporting Lab: [facility] [address] [place] [facility] [address] Performing Lab: [facility] [address] [place] [facility] [address] DRUG OPIATES POSITIVE 05/04 H Specimen Type: URINE [place] SCREEN [PRESENCE] /2020 Comment: PRE SUMPTIVE POSITIVE BY SCREEN, RESULTS NOT CONFIRMED IS [facility] PANEL,U IN URINE BY Ordering Pr ovider: MONI BROWN SCREEN Report Released Date/Time: Feb 27, 2018 10:18 AM METHOD Reporting Lab: [facility] HCS [address] [place] [facility] [address] Performing Lab: [facility] [address] [place] [facility] [address] DRUG PHENCYCLIDI Negative 05/04 Specimen Ty pe: URINE [place] SCREEN NE Comment: PRESUM PTIVE POSITIVE BY SCREEN, RESULTS NOT CONFIRMED IS [place] HCS PANEL,U [PRESENCE] Ordering Pro vider: MONI BROWN IN URINE Report Release d Date/Time: Feb 27, 2018 10:18 AM Reporting Lab: [facility] [place] [address] Performing Lab: [facility] [place] [address] DRUG ETHANOL Negative 05/04 Specimen Type: URINE [place] SCREEN [MASS/VOLUM /2020 Comment: [place] ESUMPTIVE POSITIVE BY SCREEN, RESULTS NOT CONFIRMED IS [place] H[facility] PANEL,U E] IN URINE Ordering Pr ovider: MONI BROWN Report Released Date/Time: Feb 27, 2018 10:18 AM Reporting Lab: [facility] [place] [address] Performing Lab: [facility] [place] [address] DRUG CREATININE >300.0 20 05/04 Specimen Type : URINE [place] SCREEN [MASS/VOLUM /2020 Comment: [place] ESUMPTIVE POSITIVE BY SCREEN, RESULTS NOT CONFIRMED [place] H[facility] PANEL,U E] IN URINE Ordering Pr ovider: MONI BROWN Report Released Date/Time: Feb 27, 2018 10:18 AM Reporting Lab: [facility] [place] [address] Performing Lab: [facility] [place] [address] DRUG OXYCODONE Negative 05/04 Specimen Type : URINE [place] SCREEN [PRESENCE] /2020 Comment: PRE SUMPTIVE POSITIVE BY SCREEN, RESULTS NOT CONFIRMED [facility] PANEL,U IN URINE BY Ordering Pr ovider: MONI BROWN SCREEN Report Released Date/Time: Feb 27, 2018 10:18 AM METHOD Reporting Lab: [facility] [address] [place] [facility] [address] Performing Lab: [facility] [address] [place] [facility] [address] DRUG BUPRENORPHI Negative 05/04 Specimen Ty pe: URINE [place] SCREEN NE+NORBUPRE /2020 Comment: [place] ESUMPTIVE POSITIVE BY SCREEN, RESULTS NOT CONFIRMED [facility] PANEL,U [place] Ordering Provi isidra: MONI BROWN [PRESENCE] Report Relea sed Date/Time: Feb 27, 2018 10:18 AM IN URINE Reporting Lab: [facility] [place] [address] Performing Lab: [facility] [place] [address] DRUG TRAMADOL Negative 05/04 Specimen Type: URINE [place] SCREEN Comment: PRESUM PTIVE POSITIVE BY SCREEN, RESULTS NOT CONFIRMED IS [facility] PANEL,U [MASS/VOLUM Ordering Pr ovider: MONI BROWN] IN URINE Report Rele ased Date/Time: Feb 27, 2018 10:18 AM FOR SCREEN Reporting La b: [facility] METHOD [place] [address] Performing Lab: [facility] [place] [address] Vital Signs Combined list of inpatient and outpatient Vital Signs from Department of Defense and Veterans Affairs, ranging from 12 months to all on record, depending upon the facility. Vital Sign Value Date Comments Source SYSTOLIC BLOOD PRESSURE 153 06/14/2021 08:03:02 [facility] DIASTOLIC BLOOD PRESSURE 99 06/14/2021 08:03:02 [facility] PULSE OXIMETRY 99% 06/14/2021 08:03:02 [place] [facility] WEIGHT 334 06/14/2021 08:03:02 [place] [facility] BMI 48kg/m2 06/14/2021 08:03:02 [place] [facility] PAIN 0 06/14/2021 08:03:02 [place] [facility] TEMPERATURE 97.7 06/14/2021 08:03:02 [place] [facility] PULSE 68 06/14/2021 08:03:02 [place] [facility] RESPIRATION 18 06/14/2021 08:03:02 [place] [facility] Encounters Combined list of: 1) Encounters from Department of Veterans Affairs facilities going back up to the last 18 months. 2) Encounters from the Department of Defense facilities going back up to 280 months. Location Location Encounter Encounter Reason Attending ADM DC Stat us Disposition Source Details Type Number For Provider Date Date Visit Outpatient [id number] 06/16 [place] Encounter [id number] [facility] Outpatient 94495-1 DOMINIK BROWN 06/16 [place] Encounter [id number] [facility] [id number] 06/16 [place] Encounter [id number] /2020 [place] [facility] Outpatient 04606-4.61 TONECRISTINABRENDAN 06/16 [place] Encounter [id number] EKATERINA J [facility] [facility] Outpatient [id number] 06/16 [place] Encounter [id number] /2020 [place] [facility] Outpatient 24602-7. DOMINIK BROWN 06/16 [place] [facility] [id number] [facility] [id number] 06/30 [place] Encounter [id number] /2020 [place] [facility] Outpatient [id number] 06/30 [place] Encounter [id number] /2020 [place] [facility] Outpatient 81215-5.61 10/06 [place] En[id number] /[facility] 73483-0.61 SHIRA PAUL 10/13 [place] Encounter [id number] [facility] 42695-2.61 11/18 [place] En[place] [id number] /2020 [facility] 57241-1.61 04/11 [place] En[place] [id number] /2021 [facility] Out[facility] 75080-2.61 05/03 [place] En[place] [id number] /2021 [facility] Outpatient [id number] 05/18 [place] Encounter [id number] /2021 [facility] OFFICE O/P 03884-1.61 Diagnos DOMINIK BROWN 06/14 [place] EST [place] [id number] is: N [place] [facility] 40-54 [place] ICD-10- [facility] CM I10 Essenti al (primar y) hyperte nsion<b r/>with Provide r Comment s: Benign essenti al hyperte nsion (SCT 7753564 ) Outpatient [id number] 06/15 [place] Encounter [id number] /2021 [place] [facility] Outpatient 83285-0.61 06/17 [place] Encounter [id number] /2021 [facility] Outpatient 82388-4.61 Diagnos JEREMIAH SALEH 06/20 [place] Encounter [id number] is: [place] [facility] ICD-10- HCS CM R26.9 Unspeci fied abnorma lities of gait and mobilit y
w ith Provide r Comment s: Unspeci fied Abnorma lities of Gait and Mobilit y Outpatient [id number] 07/04 [place] Encounter [id number] /2021 [facility] MEDICAL 25656-8.61 Diagnos VINCENT,TO 07/12 [place] NUTRITION [id number] is: NI L [facility] INDIV IN ICD-10- HCS CM Z71.3 Dietary elder counselor ing and surveil winnie<b r/>with Provide r Comment s: Dietary elder counselor ing and surveil winnie THERAPEUTI [id number] Diagnos DELBERT GERARDO 07/12 [place] [id number] is: NNER W [facility] ACTIVITIES ICD-10- HCS CM I63.9 Cerebra l infarct ion, unspeci fied
with Provide r Comment s: Cerebra l Infarct ion, unspeci fied NEUROMUSCU 38139-2.61 Diagnos BAM SUAREZ 08/11 [place] [id number] is: /2021 [facility] REEDUCATIO ICD-10- [facility] N CM I63.9 Cerebra l infarct ion, unspeci fied
with Provide r Comment s: Cerebra l infarct ion, unspeci fied Outpatient [id number] 09/07 [place] Encounter [id number] /2021 [facility] Outpatient 00648-2.61 09/19 [place] Encounter [id number] /2021 [facility] Outpatient 84830-3.61 09/22 [place] Encounter [id number] /2021 [facility] Outpatient 36630-5.61 09/27 [place] Encounter [id number] /2021 [facility] Outpatient 94435-8.61 11/02 [place] Encounter [id number] [facility] NEUROMUSCU 81772-0.61 Diagnos BAM SUAREZ 11/07 [place] [id number] is: [facility] REEDUCATIO ICD-10- HCS N CM I63.9 Cerebra l infarct ion, unspeci fied
with Provide r Comment s: Cerebra l infarct ion, unspeci fied Social History Combined list of available smoking, tobacco, and other social history from Department of Defense andVeterans Affairs facilities. Social History Type Response Date Comment Source Tobacco smoking [facility]2021 [facility] use [place] 30 MIN WAKEUP History of tobacco [place]-TOBACCO NEVER USED 01/28/2018 [facility] use History of tobacco FORMER [facility]BAC[facility] History of tobacco LIFETIME NON-TOBACCO 10/12/2015 N [facility] History of tobacco LIFETIME NON-TOBACCO 09/22/2014 N [facility] use USER CLINIC History of tobacco FORMER TOBACCO [facility]ER 07/07/2013 [facility] History of tobacco LIFETIME NON-TOBACCO 07/05/2011 [facility] use USER History of tobacco LIFETIME NON-TOBACCO 07/03/2011 [facility] use USER History of tobacco LIFETIME NON-TOBACCO 11/20/2007 [facility] use USER Plan of Care List of future care activities from [facility] facilities. Additional future care activities may be listed in the Assessment and Plan section. Date/Time Care Activity Care Activity Detail Facility 11/24/2021 AMBULATORY - REHAB MEDICINE AMBULATORY - REHAB [facility] MEDICINE Advance Directives List of completed, amended, or rescinded Advance Directives on record at [facility] facilities. An actual copy of the Directive is not included. Date Advance Directive Provider Source 07/03/2011 CLINICAL [address] [facility] [facility]
--- OUTSIDE RECORDS SUMMARY | 2021-11-13 15:27 | XMS_ITS | Encounter Summary ---
:1955 Author Organization Department of [facility] rs Address [address] [place] [address] Support Name Relationship Address Phone JULIET MOODY Unavailable [address] [place] [address] SHENA PETERSEN Unavailable [address] [place] [address] NICOLASHENA Reis Unavailable [address] [place] [address] Insurance Providers: All historical and current Section [...] MEDICARE MEDICARE PART June 18, PART A [id number] Celia MOODY (WNR) (M) A 2009 16A [phone] [facility] Selected Encounter This section includes the information on record at CT for the Encounter. Date/Time Encounter Type Encounter Reason Provider Source Description Jun 14, 2021 OFFICE O/P EST PRIMARY ICD-10-CM I10 MONI BROWN 08:15 AM HI 40-54 MIN CARE/MEDICINE Essential [facility] (primary) hypertension with Provider Comments: Benign essential hypertension (SCT 8600588) E Encounter Template Text not used by CT Assessments - Encounter Diagnoses This section includes the primary and secondary diagnoses documented for the Encounter. Date/Time Primary/Secondary Diagnosis Name Provider Source Diagnosis Jun 16, 2021 PRIMARY Essential MONI BROWN [facility] 04:08 PM (primary) [facility] hypertension Jun 16, 2021 SECONDARY Anxiety disorder, BROWN,MONI Villalobos CT 04:08 PM unspecified [facility] Jun 16, 2021 SECONDARY Cardiomyopathy, MONI BROWN [place] 04:08 PM unspecified [facility] Jun 16, 2021 SECONDARY Heart failure, MONI BROWN V A 04:08 PM unspecified [facility] Jun 16, 2021 SECONDARY Mental disorder, MONI BROWN [place] 04:08 PM not otherwise [facility] specified Jun 16, 2021 SECONDARY Morbid (severe) MONI BROWN CT 04:08 PM obesity due to [facility] excess calories Jun 16, 2021 SECONDARY Prsnl hx of TIA MONI BROWN [facility] 04:08 PM (TIA), and cereb [facility] infrc w/o resid deficits Jun 16, 2021 SECONDARY Type 2 diabetes MONI BROWN [facility] 04:08 PM mellitus with [facility] diabetic neuropathy, unsp Jun 16, 2021 SECONDARY Type 2 diabetes MONI BROWN [facility] 04:08 PM mellitus with [facility] unspecified complications Jun 16, 2021 SECONDARY Unspecified MONI BROWN CT 04:08 PM asthma, [facility] uncomplicated Jun 16, 2021 SECONDARY Unspecified atrial MONI BROWN CT 04:08 PM fibrillation [facility] Plan of Treatment: Future Appointments (+ 6 months) and Future Tests (+/- 45 days) The Plan of Treatment section includes future care activities for the patient from all [facility] treatment[facility]. This section includes future appointments and future orders which are active, pending orscheduled.Future Appointments This section includes appointments that were scheduled to occur 6 months from the date of the Encounter, up to a maximum of 20 appointments. The data comes from all CT treatment facilities. Appointment Date/Time Appointment Type Appointment Facili ty Name July 04, 2021 05:00 PM AMBULATORY - [facility]HAB [facility]ICINE [facility] July 12, 2021 09:15 AM AMBULATORY - [facility] July 12, 2021 02:00 PM AMBULATORY - REHAB MEDICINE [facility] Aug 11, 2021 09:00 AM AMBULATORY - REHAB MEDICINE [facility] Nov 02, 2021 05:30 PM AMBULATORY - REHAB MEDICINE [facility] Nov 07, 2021 03:00 PM AMBULATORY - REHAB MEDICINE [facility] Nov 24, 2021 08:00 AM AMBULATORY - REHAB MEDICINE [facility] Nov 24, 2021 09:00 AM AMBULATORY - MEDICINE [facility] Vital Signs: All taken on the encounter date This section contains inpatient and outpatient Vital Signs collected on the date of the Encounter. Date/Time Temperature Pulse Blood Respiratory SP02 Pain Height Weight Korey dy Source Pressure Rate Mass Index Jun 14, 134/90 [facility] 2021 08:09 mm[Hg] [facility] Jun 14, 97.7 F 68 153/99 18 /min 99 % 0 334 lb 48 [facility] 2021 08:03 /min mm[Hg] [facility] Social History: Smoking Status (Most current) and Tobacco Use (All prior to encounter date) This section includes the most current, and the historical, smoking and tobacco-related health factors from the CT facility where the Encounter took place.Current Smoking Status This section includes the most current smoking, or tobacco-related health factor, from the CT facility where the Encounter took place. Date/Time Current Smoking Status Comment Facility Jun 14, 2021 08:15 AM VA-TOBACCO USER SOME DAYS [facility] Tobacco Use History This section includes a history of the smoking, or tobacco- related health factors, that were collected on or before the date of the Encounter. The data comes from the CT facility where the Encounter took place. Date/Time Smoking Status/Tobacco Use Comment [facility] Jun 14, 2021 08:15 AM VA-TOBACCO USE > 15 LESS TH[address] 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 Jun 14, 2021 08:15 AM VA-TOBACCO USE MED [place] [facility] Jun 14, 2021 08:15 AM VA-TOBACCO USER SOME DAYS [facility] Jan 28, 2018 12:26 PM VA-TOBACCO NEVER USED [place] [facility] July 05, 2011 09:38 AM LIFETIME NON-TOBACCO USER [facility] July 03, 2011 06:04 PM LIFETIME NON-TOBACCO USER [facility] Nov 20, 2007 08:19 AM LIFETIME NON-TOBACCO USER [facility] Advance Directives: All historical and current Section Date Range: From patient's date of to the date document was created. This section includes ALL of a patient's completed or amended VA Advance and Rescinded Directives. The entries below indicate that a directive exists for the patient, but an actual copy is not included with this document. The data comes from all CT facilities. Date Advance Directives Provider Source July 03, 2011 CLINICAL WARNING RACHAEL KING [facility] Encounter Notes: All associated encounter notes This section contains the clinical notes associated to the Encounter. Date/Time Encounter Note(s) Provider Source Jun 14, 2021 08:48 AM INTERNAL MEDICINE NOTE: MONI BROWN [place] [facility] LOCAL TITLE: MEDICINE CLINIC NOTE [facility] [...] exam HPI: Comanaged, PCP is Dr. Scott aguirre nohelia with [facility]. Able to be seen in home which is more enedelia Ramey MD every few weeks per patient report. Last seen 1 week ago. Will receive all oral medicatio ns through non-VA providers. Pt has residual R hemiparesis s/p massive CVA in 2019. He lives at [facility]. Would like to have more independent mobility to partic ipate in activities offered. Requesting electric mobility through [facility]. He also is currently using a scarf for support of RUE weakness, requesting new sling. Son presents with [place]. States transportation to [facility] appts is problematic. Inquiring about any transportation benefits that may be accessible. Requesting eye appt, discussed with Son/[place] self referral process. Requesting new diabetic shoes. Also states accupuncture in past has been helpful for chronic TTH/TMJ. He would like [facility] consult placed again for this. Social Hx: Marital Status - . Living at [facility]. Nursing is coming in to set up medications and watch him take meds every day. Also do blood sug ar check. Able to bathe himself. He uses a manually wheelchair for mobil ity. Active problems - Computerized Problem List is t he source for the followin. Benign essential hypertension (SNOMED CT 120 1005) 2. Dyslipidemia 3. Diabetes mellitus (SNOMED CT 69278040) 4. Morbid obesity (SNOMED CT 355500797) 5. Depressive Disorder NOS 6. Diabetic neuropathy (SNOMED CT 197390019) 7. Sleep Apnea 8. Other Specified Counseling 9. Pes Planus, Acquired 10. Low back pain (SNOMED CT 103682600) 11. Recurrent major depressive episodes, moderat e (SNOMED CT 243957108) 12. Mixed anxiety and depressive disorder (SNOME D CT 635502211) 13. Hydrocele (SNOMED CT 35165063) 14. Hernia of anterior abdominal wall - Dx 04/03, Gen Surgical Eval 07/01 15. Anxiety 16. Mental disorder 17. Asthma ([facility] 484123325) 18. Cardiomyopathy 19. AF-Atrial Fibrillation ([facility] 67528166) 20. Heart failure 21. H/O: Stroke ([facility] [id number]) Allergies: LISINOPRIL (Nov 28, 2007) Medications: Active [...] discussed relevant medications with the patient/s urrogate. Son/[place] did not bring in non-VA list, will [...] by non-VA Ca rdiology at [facility], records available for review in [facility]. - Furosemide 20mg qday - Metoprolol succ 100mg qday - Valsartan 120mg BID # Afib Followed by non-VA Cards at [facility]. - Metoprolol succ 100mg qday - Warfarin [...] to call call center to schedule carmita betic eye screen - Prosthetics consult for diabetic [...] More than 50% of this 60 min [place] appt was spent counseling/coordinating care for the medical problems outlined above I spent 30 minutes reviewing records, ex amining the patient and documenting my note. /zeb/ NICK VASQUEZ Physician Photographer Finish Signed: 06/16/2021 16:08 07/19/2021 ADDENDUM STATUS: COMPLETED Requested lancets and test strips throug [facility] the [facility]. Pt no longer qualifies as is on metformin monotherapy. Please inform patient/ family /zeb/ NICK VASQUEZ Physician Photographer Finish Signed: 07/19/2021 16:07 Receipt Acknowledged By: 07/20/2021 08:47 /zeb/ CHASIDY GODINEZ RN RN, BSN 07/20/2021 ADDENDUM STATUS: COMPLETED Funeral Director called back # in chart, went to s on Tung. Funeral Director explained that because vet is on metformin and not insulin, he no longe r needs to check blood sugars routinely, and therefore also does not qualify f or these supplies. Son understanding. /zeb/ CHASIDY GODINEZ RN RN, BSN Signed: 07/20/2021 08:51 Jun 14, 2021 08:03 AM INTERNAL MEDICINE OUTPATIENT NOTE: EDSON GUTIERREZ [facility] LOCAL TITLE: MEDICINE CLINIC NURSING NOTE STANDARD [...] ns or herbals. Suicide Screen: C-SSRS Screening [place] Suicide Severity Rating Scale (C-SSRS) screener 1. [...] Home reviewed and given to patient and/or joycean celia other. Script Talk Screen Are you able to read your prescription bottles with your glasses, magnifiers or other aids? Yes or patient not taking any prescriptions. Skin Screen Patient reports any current pressure ulcers, a history of pressure ulcers, or a wound from a medical typist or Patient is bed-confined or a wheelchair-user or Patient requires assistance to transfer/change position No, Skin Screen is Negative Home Abuse/Violence Screen Is your home free of abuse and violence? Yes Outpatient Nutrition Screen Body Mass Index (BMI)= 48.0 [place]: Collection DT Specimen Test Name Result Units R ef Range 09/23/2018 09:15 BLOOD HEMOGLOBIN A1C 10.4 H % 4.0 - 6.0 [place] Hgb A1C: No data available [place] Hgb A1C: No data available Point of [...] do to protect and improve your h [facility] and CT has the resources to support you. - [...] ncluded: - Behavioral counseling or other support patricio lal greatly increases your chances of successfully quitting smoking or tobacco use by helping you develop a quit plan and providing support and other strategies to make behavioral changes to help you quit. - CT has a number of behavioral counseling opti ons to help you with quitting, including: * Provide information about the facility smokin g or tobacco use treatment options or clinics * CT's national quitline, 6-791-HEXR-VET, with counseling available Saturday-Saturday The patient was not interested in receiving add itional information about how to use the treatment options zen steinberg. Patient was offered FDA-approved cessation medi cations. [...] have money to get more. Never true /es/ EDSON GUTIERREZ LPN, LPN Signed: 06/14/2021 08:07 06/14/2021 ADDENDUM STATUS: COMPLETED BP recheck: 134/90. Asymptomatic. PCP notified /zeb/ EDSON GUTIERREZ LPN, LPN Signed: 06/14/2021 08:09 Jun 14, 2021 07:54 AM ADVANCE DIRECTIVE: OTONIEL PEREZ [facility] LOCAL TITLE: AD NOTIFICATION AND SCREENING STANDARD TITLE: ADVANCE DIRECTIVE DATE OF NOTE: JUN 14, 2021@07:54 ENTRY DATE: JUN 14, 2021@07:54:53 AUTHOR: OTONIEL PEREZ EXP COSIGNER: URGENCY: STATUS: COMPLETED ADVANCE DIRECTIVE NOTIFICATION: Patient was given written notification of the f [facility] rights: 1. Accept or refuse any medical treatment. 2. Complete a durable power of personal injury attorney for [facility] care. 3. Complete a living will. ADVANCE DIRECTIVE SCREENING: Does patient have an Advance Directive? The patient does not have an Advance Directive. The patient does not wish to create an Advance Directive for health care. /zeb/ OTONIEL PEREZ ADVANCED GENERATING PLANT SUPERINTENDENT Signed: 06/14/2021 07:55
--- OUTSIDE RECORDS SUMMARY | 2021-11-13 15:28 | XMS_ITS | Encounter Summary ---
:1955 Author Organization [facility] Address [address] [place] [address] Support Name Relationship Address Phone JULIET MOODY Unavailable [address] [facility] [place] [place] [address] SHENA PETERSEN Unavailable [address] [place] [address] SHENA PETERSEN Unavailable [address] [place] [address] Insurance Providers: All historical and current Section [...] MEDICARE MEDICARE PART June 18, PART A [id number] Smiley MOODY (WNR) (M A 2009 16A [phone] [facility] Selected Encounter This section includes the information on record at [place] for the Encounter. Date/Time Encounter Type Encounter Reason Provider Source Description July 12, 2021 THERAPEUTIC OCCUPATIONAL ICD-10-CM I63.9 TOR GERARDO 02:00 PM ACTIVITIES THERAPY Cerebral R W infarction, unspecified with Provider Comments: Cerebral Infarction, unspecified IHE Encounter Template Text not used by [place] Assessments - Encounter Diagnoses This section includes the primary and secondary diagnoses documented for the Encounter. Date/Time Primary/Secondary Diagnosis Name Provider Source Diagnosis July 12, 2021 PRIMARY Cerebral SIDNEY GERARDO [place] V A 02:55 PM infarction, W HCS [...] 20 appointments. The data comes from all [facility]. Appointment Date/Time Appointment Type Appointment Facili ty Name Aug 11, 2021 09:00 AM AMBULATORY - REHAB MEDICINE [facility] Nov 02, 2021 05:30 PM AMBULATORY - REHAB [facility] Nov 07, 2021 03:00 PM AMBULATORY - REHAB [facility] Nov 24, 2021 08:00 [facility] Nov 24, 2021 09:00 AM AMBULATORY - MEDICINE [facility] CS Active, Pending, and Scheduled Orders This section includes a listing of several types of active, pending, and scheduled orders, including clinic medications orders, diagnostic test orders, procedure orders and consult orders; where the start date of the order is 45 days before the date of the Encounter or 45 days after the date of the Encounter. The data comes from all [facility]. Test Date/Time Test Type Test Details Facility Name Aug 11, 2021 10:52 AM Consult Order OT OCCUPATIONAL THERAPY OU TPT [facility] POWER MOBILITY EVALUATION Cons Director Of Software Development's Choice Social History: Smoking Status (Most current) [...] 2021 08:15 AM VA-TOBACCO USER SOME DAYS [facility] Tobacco Use History This section includes a history of the smoking, or tobacco- related health factors, that were collected on or before the date of the Encounter. The data comes from the [place] facility where the Encounter took place. 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 [facility] Jun 14, 2021 08:15 AM VA-TOBACCO USE MED NO HARRIETT ERNANDEZ [facility] Jun 14, 2021 08:15 AM VA-TOBACCO USER SOME DAYS [facility] Jan 28, 2018 12:26 PM VA-TOBACCO NEVER USED [place] [facility] July 05, 2011 09:38 AM LIFETIME NON-TOBACCO USER [facility] July 03, 2011 06:04 PM LIFETIME NON-TOBACCO USER [facility] Nov 20, 2007 08:19 AM LIFETIME NON-TOBACCO USER [facility] Advance Directives: All historical and current Section [...] July 03, 2011 CLINICAL WARNING RACHAEL KING [facility] Encounter Notes: All associated encounter notes This section contains the clinical notes associated to the Encounter. Date/Time Encounter Note(s) Provider Source July 12, 2021 02:10 PM OCCUPATIONAL THERAPY CONSULT: SONNY GERARDO [facility] LOCAL TITLE: OCCUPATIONAL THERAPY CONSULT STANDARD TITLE: [...] vet will be contacted to schedule evaluation. Vet reports that he has received so me therapy at [facility] after his CVA. OBJECTIVE: Living Environment [...] assistance for all IADL s UE Assessment -Jessa is currently flaccid wi th mild hand flexor spasticity in RUE, RLE, vet able to complete mild elevation with R shoulder but n o other functional movement -Possible subluxation of R shoulder -Jessa has WFL strength and AROM of LUE, [...] Medium - Per formance Health - Item #[id number] -Comfy Rest Hand Orthosis Adult - Performance He alth - Item #[id number] ASSESSMENT: -Jessa is a 65 yo male seeking OT services for UE strengthening/rehabilitation post CVA from 2019. Jessa currently lives in SNF t hat is fully accessible and requires varying levels of a ssistance for bathing, dressing, toileting, and all IADLs. Vet demonstrates RUE/RLE flaccidi ty/paralysis, hemiplegic shoulder, and expressive aphasia decreasin g safety and (I) and increasing pain/risk of falls. Marit would benefit from equip ment listed above, as well as follow up with stroke rehab therapist SHERLYN Suarez, alerted to note. Vet and son verbalize understanding of information discussed during session and are agreeable to plan of care, no further questions or concerns at thi s time. PLAN: -Follow up with SHERLYN Suarez to address hemiple gic shoulder/stroke rehab [...] completion of evaluation component. /zeb/ LALO CADENA, RANJIT/Francois OCCUPATIONAL THERAPIST Signed: 07/12/2021 14:55 Receipt Acknowledged By: * AWAITING SIGNATURE * BAM SUAREZ
--- OUTSIDE RECORDS SUMMARY | 2021-11-13 15:28 | XMS_ITS | Encounter Summary ---
:1955 Author Organization Department [facility] Address [address] [place] [address] Support Name Relationship Address Phone JULIET MOODY Unavailable [address] [place] [facility] [place] [address] SHENA PETERSEN Unavailable [address] [place] [address] SHENA PETERSEN Unavailable [address] [place] [address] Insurance Providers: All historical and current Section [...] MEDICARE MEDICARE PART June 18, PART A [id number] Smiley MOODY (WNR) (M A 2009 16A [phone] [facility] Selected Encounter This section includes the information on record at [place] for the Encounter. Date/Time Encounter Type Encounter Reason Provider Source Description July 12, 2021 MEDICAL TELEPHONE/ANCILLA ICD-10-CM Z71.3 KRISTI VINCENT I 09:15 AM NUTRITION INDIV [place] Dietary counseling L IN and surveillance with Provider Comments: Dietary counseling and surveillance IHE Encounter Template Text not used by [place] Assessments - Encounter Diagnoses This section includes the primary and secondary diagnoses documented for the Encounter. Date/Time Primary/Secondary Diagnosis Name Provider Source Diagnosis July 12, 2021 PRIMARY Dietary counseling SHOAIB VINCENT IS [facility] 09:15 AM and surveillance L [facility] July 12, 2021 SECONDARY Body mass index SHOAIB VINCENT [place] 09:15 AM [BMI] 45.0-49.9, L [facility] adult July 12, 2021 SECONDARY Morbid (severe) SHOAIB VINCENT [facility] 09:15 AM obesity due to L [facility] excess calories July 12, 2021 SECONDARY Type 2 diabetes SHOAIB VINCENT [facility] 09:15 AM mellitus with L [facility] unspecified complications Plan of Treatment: Future Appointments (+ 6 months) and Future Tests (+/- 45 days) The Plan of Treatment section includes future care activities for the patient from all [place] [facility] This section includes future appointments and future orders which are active, pending orscheduled.Future Appointments This section includes appointments that were scheduled to occur 6 months from the date of the Encounter, up to a maximum of 20 appointments. The data comes from all [facility]. Appointment Date/Time Appointment Type Appointment Facili ty Name Aug 11, 2021 09:00 AM AMBULATORY - REHAB [facility]IC[facility] Nov 02, 2021 05:30 PM AMBULATORY RE[facility]AB [facility] Nov 07, 2021 03[facility] Nov 24, 2021 08[facility] Nov 24, 2021 09:00 AM AMBULATORY - MEDICINE [facility] CS Active, Pending, and Scheduled Orders This section includes a listing of several types of active, pending, and scheduled orders, including clinic medications orders, diagnostic test orders, procedure orders and consult orders; where the start date of the order is 45 days before the date of the Encounter or 45 days after the date of the Encounter. The data comes from all [facility]. Test Date/Time Test Type Test Details Facility Name Aug 11, 2021 10:52 AM Consult Order OT OCCUPATIONAL THERAPY OU TPT [facility] POWER MOBILITY EVALUATION Cons Plastic Maker's Choice Social History: Smoking Status (Most current) and Tobacco Use (All prior to encounter date) This section includes the most current, and the historical, smoking and tobacco-related health factors from the [place] facility where the Encounter took place.Current Smoking Status This section includes the most current smoking, or tobacco-related health factor, from the [place] facility where the Encounter took place. Date/Time Current Smoking Status Comment Facility Jun 14, 2021 08:15 AM VA-TOBACCO DOESNT USE WI 30 MIN [facility] WAKEUP Tobacco Use History This section includes a history of the smoking, or tobacco- related health factors, that were collected on or before the date of the Encounter. The data comes from the [place] facility where the Encounter took place. 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 [facility] Jun 14, 2021 08:15 AM VA-TOBACCO USE MED NO [place] [facility] Jun 14, 2021 08:15 AM VA-TOBACCO USER SOME DAYS [facility] Jan 28, 2018 12:26 PM VA-TOBACCO NEVER USED [place] [facility] July 05, 2011 09:38 AM LIFETIME NON-TOBACCO USER [facility] July 03, 2011 06:04 PM LIFETIME NON-TOBACCO USER [facility] Nov 20, 2007 08:19 AM LIFETIME NON-TOBACCO USER [facility] Advance Directives: All historical and current Section Date Range: From patient's date of to the date document was created. This section includes ALL of a patient's completed or amended [place] Advance and Rescinded Directives. The entries below indicate that a directive exists for the patient, but an actual copy is not included with this document. The data comes from all [place] facilities. Date Advance Directives Provider Source July 03, 2011 CLINICAL WARNING RACHAEL KING [facility] Encounter Notes: All associated encounter notes This section contains the clinical notes associated to the Encounter. Date/Time Encounter Note(s) Provider Source July 12, 2021 09:15 AM NUTRITION EDUCATION NOTE: SHOAIB VINCENT [facility] LOCAL TITLE: EDUCATION NUTRITION STANDARD TITLE: NUTRITION [...] 17 lbs. in 2 years (since ) [place] Body Weight: 166 lbs. Pertinent Past Medical History: HTN, DM, ANIBAL, H /o stroke, Obesity, Nutrition Related Medications: Atorvastatin, Fu rosemide, Metformin, Warfarin EDUCATION SCREENING PARTICIPANTS: Patient-Red, Jgfiwz-yym-Dnyn. Son likes to be at appointments to help with communication. Appoin tments are best after 3PM any day but Mondays BARRIERS/SPECIAL NEEDS: no barriers identified, speech limitations-from stroke, speaks slowly READINESS TO LEARN: no barriers Patient subjective statements: In an assisted l iving facility. I do have my own apartment. I get my meals here at the [facility]. Some snacks in my room. I want [...] to decrease salt intake and on furosemide. 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 Malnutrition Assessment (Per AND/ASPEN Consensu s Statement, 2012) Dietitian does not suspect malnutrition at this time, therefore, physical assessment not conducted FOLLOW UP: /zeb/ SHOAIB VINCENT RD CD REGISTERED DIETITIAN Signed: 07/13/2021 10:49 07/13/2021 ADDENDUM STATUS: COMPLETED Dear Red Moody: I am writing to follow-up on the dietitian telep bin appointment you had recently. It was a pleasure to speak with you. I look forward to working with you to meet your goals. If you have any question s, please contact me at the clinic at [phone] or through secure [employer] ng (choose your primary care provider and put nutrition as the topic-it will be forwarded to me). During our phone appointment, we discussed the f ollowing: A. Healthy plate for planning meals 1. [...] or schedule an appointment, please marshall duarte [phone]. Appointment options include: in person at the clinic, C (meaghan rondon) appointments or phone calls. In good health, Angela Andino, NISHA, CD [facility] Dietitian or Secure Message Enclosed: Healthy Plate /es/ SHOAIB VINCENT RD CD REGISTERED DIETITIAN Signed: 07/13/2021 13:59
--- OUTSIDE RECORDS SUMMARY | 2021-11-13 15:28 | XMS_ITS | Encounter Summary ---
:1955 Author Organization [facility] Address [address] [place] [address] Support Name Relationship Address Phone JULIET MOODY Unavailable [address] [place] [facility] [place] [address] SHENA PETERSEN Unavailable [address] [place] [address] SHENA PETERSEN Unavailable [address] [place] [address] Insurance Providers: All historical and current Section [...] MEDICARE MEDICARE PART June 18, PART A [id number] Smiley MOODY (WNR) (M A 2009 16A [phone] [facility] Selected Encounter This section includes the information on record at [place] for the Encounter. Date/Time Encounter Type Encounter Reason Provider Source Description Aug 11, 2021 NEUROMUSCULAR OCCUPATIONAL ICD-10-CM I63.9 DANIELABAM 09:00 AM REEDUCATION THERAPY Cerebral infarction, unspecified with Provider Comments: Cerebral infarction, unspecified IHE Encounter Template Text not used by [place] Assessments - Encounter Diagnoses This section includes the primary and secondary diagnoses documented for the Encounter. Date/Time Primary/Secondary Diagnosis Name Provider Source Diagnosis Aug 11, 2021 PRIMARY Cerebral BAM SUAREZ [facility] 02:40 PM infarction, HCS unspecified Plan of Treatment: Future Appointments (+ 6 months) and Future Tests (+/- 45 days) The Plan of Treatment section includes future care activities for the patient from all [place] treatmentfacilities. This section includes future appointments and future orders which are active, pending orscheduled.Future Appointments This section includes appointments that were scheduled to occur 6 months from the date of the Encounter, up to a maximum of 20 appointments. The data comes from all [facility]. Appointment Date/Time Appointment Type Appointment Facili ty Name Nov 02, 2021 05:30 PM AMBULATORY - REHAB MEDICINE [facility] Nov 07, 2021 03:00 PM AMBULATORY - REHAB [facility] Nov 24, 2021 08:00 AM AMBULATORY - REHAB MEDICINE [facility] Nov 24, 2021 09:00 AM AMBULATORY - MEDICINE [facility] CS Active, Pending, and Scheduled Orders This section includes a listing of several types of active, pending, and scheduled orders, including clinic medications orders, diagnostic test orders, procedure orders and consult orders; where the start date of the order is 45 days before the date of the Encounter or 45 days after the date of the Encounter. The data comes from all [facility]. Test Date/Time Test Type Test Details Facility Name Aug 11, 2021 10:52 AM Consult Order OT OCCUPATIONAL THERAPY OU TPT [facility] POWER MOBILITY EVALUATION Cons Rug Receiving Clerk's Choice Social History: Smoking Status (Most current) and Tobacco Use (All prior to encounter date) This section includes the most current, and the historical, smoking and tobacco-related health factors from the [place] facility where the Encounter took place.Current Smoking Status This section includes the most current smoking, or tobacco-related health factor, from the [place] facility where the Encounter took place. Date/Time Current Smoking Status Comment Facility Jun 14, 2021 08:15 AM VA-TOBACCO DOESNT USE WI 30 MIN [facility] WAKEUP Tobacco Use History This section includes a history of the smoking, or tobacco- related health factors, that were collected on or before the date of the Encounter. The data comes from the [place] facility where the Encounter took place. 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 This section includes ALL of a patient's completed or amended [place] Advance and Rescinded Directives. The entries below indicate that a directive exists for the patient, but an actual copy is not included with this document. The data comes from all [place] facilities. Date Advance Directives Provider Source July 03, 2011 CLINICAL WARNING FERNANDORACHAEL [facility] Encounter Notes: All associated encounter notes This section contains the clinical notes associated to the Encounter. Date/Time Encounter Note(s) Provider Source Aug 11, 2021 10:55 AM OCCUPATIONAL THERAPY NOTE: BAM SUAREZ [facility] LOCAL TITLE: OT-PROGRESS NOTE STANDARD TITLE: OCCUPATIONAL [...] with stroke rehab ther apist OT Bam Suarez.MEt 3. Pt will be fitted with re [...] DME equipment UE Assessment PAIN: Shoulder pain 4/10 at rest and standing. T transition program manager points infraspinatus. Kineiotape patterm for subluxed shoulder [...] a zipper. Pt was measured today by [facility]- Pt was order one handed can bobtailer, rocker knife, folding josé erazo, one touch can bobtailer, dycem to open jars, bottle capping machine operator, and sli ng. /zeb/ RANJIT LOCKE/Francois,BLANK,MIKAYLA OCCUPATIONAL THERAPIST Signed: 08/11/2021 14:40
--- OUTSIDE RECORDS SUMMARY | 2021-11-13 15:29 | XMS_ITS | Encounter Summary ---
:1955 Author Organization Department [facility] Address [address] [place] [address] Support Name Relationship Address Phone JULIET MOODY Unavailable [address] [place] [facility] [place] [address] SHENA PETERSEN Unavailable [address] [place] [address] SHENA PETERSEN Unavailable [address] [place] [address] Insurance Providers: All historical and current Section [...] MEDICARE MEDICARE PART June 18, PART A [id number] Smiley MOODY (WNR) (M) A 2009 16A [phone] [facility] Selected Encounter This section includes the information on record at [place] for the Encounter. Date/Time Encounter Type Encounter Description Reason Provider Source Nov 02, 2021 05:30 Outpatient Encounter ADMIN PAT ACTIVTIES PM (MASNONCT) IHE Encounter Template Text not used by [place] Plan of Treatment: Future Appointments (+ 6 months) and Future Tests (+/- 45 days) The Plan of Treatment section includes future care activities for the patient from all [place] treatmentfacilities. This section includes future appointments and future orders which are active, pending orscheduled.Future Appointments This section includes appointments that were scheduled to occur 6 months from the date of the Encounter, up to a maximum of 20 appointments. The data comes from all [place] treatment facilities. Appointment Date/Time Appointment Type Appointment Facili ty Name Nov 07, 2021 03:00 PM AMBULATORY - REHAB [facility] Nov 24, 2021 08:00 AM AMBULATORY - REHAB [facility] Nov 24, 2021 09:00 AM AMBULATORY - MEDICINE [facility] CS Active, Pending, and Scheduled Orders This section includes a listing of several types of active, pending, and scheduled orders, including clinic medications orders, diagnostic test orders, procedure orders and consult orders; where the start date of the order is 45 days before the date of the Encounter or 45 days after the date of the Encounter. The data comes from all [place] treatment facilities. Test Date/Time Test Type Test Details Facility Name Nov 08, 2021 09:33 AM Consult Order [facility] Commercial Sales Representative's Choice Nov 08, 2021 12:29 PM Consult Order STROKE REHAB OUTPT Cons [place] [facility] Commercial Sales Representative's Choice Social History: Smoking Status (Most current) and Tobacco Use (All prior to encounter date) This section includes the most current, and the historical, smoking and tobacco-related health factors from the [place] facility where the Encounter took place.Current Smoking Status This section includes the most current smoking, or tobacco-related health factor, from the [place] facility where the Encounter took place. Date/Time Current Smoking Status Comment Facility Jun 14, 2021 08:15 AM VA-TOBACCO USER SOME DAYS [facility] Tobacco Use History This section includes a history of the smoking, or tobacco- related health factors, that were collected on or before the date of the Encounter. The data comes from the [place] facility where the Encounter took place. Date/Time Smoking Status/Tobacco Use Comment Jorge briscoe Jun 14, 2021 08:15 AM VA-TOBACCO USE > [address] 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 Jun 14, 2021 08:15 AM VA-TOBACCO USE MED [facility] Jun 14, 2021 08:15 AM VA-TOBACCO USER SOME DAYS [facility] Jan 28, 2018 12:26 PM VA-TOBACCO NEVER USED [facility] July 05, 2011 09:38 AM LIFETIME NON-TOBACCO USER [facility] July 03, 2011 06:04 PM LIFETIME NON-TOBACCO USER [facility] Nov 20, 2007 08:19 AM LIFETIME NON-TOBACCO USER [facility] Advance Directives: All historical and current Section Date Range: From patient's date of to the date document was created. This section includes ALL of a patient's completed or amended [place] Advance and Rescinded Directives. The entries below indicate that a directive exists for the patient, but an actual copy is not included with this document. The data comes from all [place] facilities. Date Advance Directives Provider Source July 03, [address] [facility]
--- OUTSIDE RECORDS SUMMARY | 2021-11-13 15:29 | XMS_ITS | Encounter Summary ---
:1955 Author Organization [facility] Address [address] [place] [address] Support Name Relationship Address Phone JULIET MOODY Unavailable [address] [place] [facility] [place] [address] SHENA PETERSEN Unavailable [address] [place] [address] SHENA PETERSEN Unavailable [address] [place] [address] Insurance Providers: All historical and current Section [...] MEDICARE MEDICARE PART June 18, PART A [id number] Smiley MOODY (WNR) (M A 2009 16A [phone] [facility] Selected Encounter This section includes the information on record at [place] for the Encounter. Date/Time Encounter Type Encounter Reason Provider Source Description Nov 07, 2021 NEUROMUSCULAR OCCUPATIONAL ICD-10-CM I63.9 [facility] 03:00 PM REEDUCATION THERAPY Cerebral infarction, unspecified with Provider Comments: Cerebral infarction, unspecified IHE Encounter Template Text not used by [place] Assessments - Encounter Diagnoses This section includes the primary and secondary diagnoses documented for the Encounter. Date/Time Primary/Secondary Diagnosis Name Provider Source Diagnosis Nov 07, 2021 PRIMARY Cerebral BAM SUAREZ [facility] 04:38 PM infarction, HCS unspecified Plan of Treatment: Future Appointments (+ 6 months) and Future Tests (+/- 45 days) The Plan of Treatment section includes future care activities for the patient from all [place] treatmentfacilities. This section includes future appointments and future orders which are active, pending orscheduled.Future Appointments This section includes appointments that were scheduled to occur 6 months from the date of the Encounter, up to a maximum of 20 appointments. The data comes from all [facility]. Appointment Date/Time Appointment Type Appointment Facili ty Name Nov 24, 2021 08:00 AM AMBULATORY - REHAB MEDICINE KYLE Villalobos [facility] Nov 24, 2021 09:00 AM AMBULATORY - MEDICINE [facility] Active, Pending, and Scheduled Orders This section includes a listing of several types of active, pending, and scheduled orders, including clinic medications orders, diagnostic test orders, procedure orders and consult orders; where the start date of the order is 45 days before the date of the Encounter or 45 days after the date of the Encounter. The data comes from all [facility]. Test Date/Time Test Type Test Details Facility Name Nov 08, 2021 09:33 AM Consult Order PROSTHETICS REQUEST Cons [place] [facility] Labor Economics Teacher's Choice Nov 08, 2021 12:29 PM Consult Order STROKE REHAB OUTPT [place] [facility] Labor Economics Teacher's Choice Social History: Smoking Status (Most current) and Tobacco Use (All prior to encounter date) This section includes the most current, and the historical, smoking and tobacco-related health factors from the [place] facility where the Encounter took place.Current Smoking Status This section includes the most current smoking, or tobacco-related health factor, from the [place] facility where the Encounter took place. Date/Time Current Smoking Status Comment Facility Jun 14, 2021 08:15 AM VA-TOBACCO USER SOME DAYS [facility] Tobacco Use History This section includes a history of the smoking, or tobacco- related health factors, that were collected on or before the date of the Encounter. The data comes from the [place] facility where the Encounter took place. 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 This section includes ALL of a patient's completed or amended [place] Advance and Rescinded Directives. The entries below indicate that a directive exists for the patient, but an actual copy is not included with this document. The data comes from all [place] facilities. Date Advance Directives Provider Source July 03, 2011 CLINICAL WARNING RACHAEL KING [facility] Encounter Notes: All associated encounter notes This section contains the clinical notes associated to the Encounter. Date/Time Encounter Note(s) Provider Source Nov 07, 2021 04:37 PM OCCUPATIONAL THERAPY DISCHARGE NOTE: BAM SUAREZ [facility] LOCAL TITLE: OT-DISCHARGE NOTE STANDARD TITLE: OCCUPATIONAL THERAPY DISCHARGE N OTE DATE OF NOTE: NOV 07, 2021@16:37 ENTRY DATE: NOV 07, 2021@16:37:45 AUTHOR: BAM SUAREZ EXP COSIGNER: URGENCY: STATUS: COMPLETED OT-DISCHARGE NOTE Has ADDENDA Occupational Therapy: D/C note 11-08-2021 Occupational Therapy: D/C note OCCUPATIONAL THERAPY CONSULT Referring provider: MONI BROWN Diagnosis: Cerebral Infarction, unspecified(ICD- 10-CM I63.9) Consult request: eval and treat Encounter: 60 min neuro ASSESSMENT: Pawan is a 65 yo male seeking OT services for UE strengthening/rehabilitation post CVA from 2019. Vet currently lives in SNF t hat is fully accessible and requires varying levels of a ssistance for bathing, dressing, toileting, and all IADLs. Pt was measured for c ustom edema wear for his upper extremity which will be mail out. Per his evaluat ion today his shoulder pain in reduced , instructed on AAROM/PROM exercise program and instructed on DME equipment to improve independence with eating and dressing task. Pt appears independent with his HEP and has a resting hand splint to assist with tone reduction but could bennefit from further tone management. PLAN: - Pt D/C and issued HEP. 5 STG met 1.Vet will complete evaluation for equipment to maximize quality of life, safety, and (I). MET 2.Vet will establish care with stroke rehab ther apist OT Bam Suarez.MEt 3. Pt will be fitted with re sting hand splint and don/doff with moderate assist Met 4. Pt will be instructed on AAROM home exercise proram MET 5. Pt will be fitted with a shoulder sling x1 and son/pt instructed on shoulder HEP. MET Patient Education of Treatment Plan: Patient, Family Member indicates readiness to l earn, verbalizes understanding, agreement and satisfa ction with the treatment plan. Denies further questions. SUBJECTIVE: S) I dont have shoulder pain and I dont want t he sling as I don't have pain in my shoulder when I stand. OBJECTIVE: Living Environment -Lives in SNF, handicapped accessible -Son (Karri) assists vet as needed -Currently using manual wheelchair in unit ADLs -Vet currently (I) with eating, portions of dres sing, and grooming/hygiene, requires varying levels of assistance for other ADLs -Heavy wheelchair user, primary mode of mobility , non-ambulatory without assistance. - States he will be [facility] and would like a arm rest as he does not have a arm rest on his curre nt non- [facility] issued manual w/c Transfers pivot and reports not walking or using a rollator IADLs -Vet currently receiving assistance for all IADL s but states he likes to open cans and prepare simple meal s as he has an apartment. Pt states difficulty with opening cans, cutting food, opening jars, etc. Therapist educated the pt on DME equipment UE Assessment PAIN: Shoulder pain 0/10 today ( last OT session 4/10 at rest) Shoulder pain with standing today 0/10. Therapist fitt ed the pt with the sling but the sling per patient report did not improve support. Pt d id not want the sling. Splints:- Pt has a resting hand splint that pt marilyn gary is fitting him. HEP: Pt instructed on table top and infraspinatus str etch within PROM Pt instructed on AAROM exercise on table top position and AAROM using a ball i supine position. Pt instructed and issued handouts for AAROM and weight bearing activities Edema: Right hand edema. Due to patient size pt was fitted with a custom day and night edema glove with a zipper. Pt was measured and [facility] [place] the product. DME- Pt was instructed and demo the following: Pt was order one handed can ship officer, rocker knife, folding josé erazo, one touch can ship officer, dycem to open jars, art manager. Issued today: Please mail out and order thru [facility]: Bath Mitt [id number] Long bath brush 6330# Bottom Jose R [id number] Frederick Downey easi art manager compact [id number]# and Clip for feather art manager [id number] Leg lift Inspection Mirror Holding Mitt large 5125# /es/ RANJIT LOCKE/Francois,BLANK,MIKAYLA OCCUPATIONAL THERAPIST Signed: 11/08/2021 09:28 11/08/2021 ADDENDUM STATUS: COMPLETED Pt may be appropriate for botox and evaluation b y ECR REC provider. Alerting PCP that he may be appropria te for ECR- out pt stroke consult for evaluation of tone/botox attention Dr. Alcazar out pt stroke REC provider /zeb/ RANJIT LOCKE/Francois,BLANK,MIKAYLA OCCUPATIONAL THERAPIST Signed: 11/08/2021 09:31 Receipt Acknowledged By: * AWAITING SIGNATURE * MONI BROWN
--- OUTSIDE RECORDS SUMMARY | 2021-11-13 15:29 | XMS_ITS | Encounter Summary ---
:1955 Author Organization [facility] Address [address] [place] [address] Support Name Relationship Address Phone JULIET MOODY Unavailable [address] [place] [facility] [place] [address] SHENA PETERSEN Unavailable [address] [place] [address] SHENA PETERSEN Unavailable [address] [place] [address] Insurance Providers: All historical and current Section [...] MEDICARE MEDICARE PART June 18, PART A [id number] 800 Smiley MOODY (WNR) (M) A 2009 16A [phone] [facility] Selected Encounter This section includes the information on record at [place] for the Encounter. Date/Time Encounter Type Encounter Description Reason Provider Source July 04, 2021 05:00 Outpatient Encounter ADMIN PAT ACTIVTIES PM (MASNONCT) IHE Encounter Template Text not used by [place] Plan of Treatment: Future Appointments (+ 6 months) and Future Tests (+/- 45 days) The Plan of Treatment section includes future care activities for the patient from all [place] treatmentfacilities. This section includes future appointments and future orders which are active, pending orscheduled.Future Appointments This section includes appointments that were scheduled to occur 6 months from the date of the Encounter, up to a maximum of 20 appointments. The data comes from all [place] treatment facilities. Appointment Date/Time Appointment Type Appointment Facili ty Name July 12, 2021 09:15 AM AMBULATORY - NONE [facility] July 12, 2021 02:00 PM AMBULATORY - REHAB MEDICINE [facility] Aug 11, 2021 09:00 AM AMBULATORY - REHAB MEDICINE [facility] Nov 02, 2021 05:30 PM AMBULATORY - REHAB MEDICINE [facility] Nov 07, 2021 03:00 PM AMBULATORY - REHAB MEDICINE [facility] Nov 24, 2021 08:00 AM AMBULATORY - REHAB MEDICINE [facility] Nov 24, 2021 09:00 AM AMBULATORY - MEDICINE [facility] CS Active, Pending, and Scheduled [...] the Encounter. The data comes from all [place] treatment facilities. Test Date/Time Test Type Test Details Facility Name Aug 11, 2021 10:52 AM Consult Order OT OCCUPATIONAL THERAPY OU TPT [facility] POWER MOBILITY EVALUATION Cons Production Mechanic's Choice Social History: Smoking Status (Most current) and Tobacco Use (All prior to encounter date) This section includes the most current, and the historical, smoking and tobacco-related health factors from the [place] facility where the Encounter took place.Current Smoking Status This section includes the most current smoking, or tobacco-related health factor, from the [place] facility where the Encounter took place. Date/Time Current Smoking Status Comment Facility Jun 14, 2021 08:15 AM VA-TOBACCO USER SOME DAYS [facility] Tobacco Use History This section includes a history of the smoking, or tobacco- related health factors, that were collected on or before the date of the Encounter. The data comes from the [place] facility where the Encounter took place. Date/Time Smoking Status/Tobacco Use Comment Facil ity Jun 14, 2021 08:15 AM VA-TOBACCO USE > 15 LESS THAN 30 [facility] YEARS Jun 14, 2021 08:15 AM [facility]ACCO USE [facility] Jun 14, 2021 08:15 AM VA-TOBACCO USE CO DIRECTOR NO [facility] Jun 14, 2021 08:15 AM VA-TOBACCO USE MED NO HARRIETT ERNANDEZ [facility] Jun 14, 2021 08:15 AM VA-TOBACCO USER SOME DAYS [facility] Jan 28, 2018 12:26 PM VA-TOBACCO NEVER USED HARRIETT ERNANDEZ [facility] July 05, 2011 09:38 AM LIFETIME NON-TOBACCO USER [facility] July 03, 2011 06:04 PM LIFETIME NON-TOBACCO USER [facility] Nov 20, 2007 08:19 AM LIFETIME NON-TOBACCO USER [facility] Advance Directives: All historical and current Section Date Range: From patient's date of to the date document was created. This section includes ALL of a patient's completed or amended [place] Advance and Rescinded Directives. The entries below indicate that a directive exists for the patient, but an actual copy is not included with this document. The data comes from all [place] facilities. Date Advance Directives Provider Source July 03, 2011 CLINICAL WARNING RACHAEL KNIG [facility]
== END 2021-11-13 15:25 | disposition home or self-care (01) ==
LOC: WOUND 15:24
PROVIDERS: Visit Provider Nurse Practitioner Family
DX: E11.622 Type 2 diabetes mellitus with other skin ulcer (principal); L97.912 Non-pressure chronic ulcer of unspecified part of right lower leg with fat layer exposed; L97.825 Non-pressure chronic ulcer of other part of left lower leg with muscle involvement without evidence of necrosis; I87.312 Chronic venous hypertension (idiopathic) with ulcer of left lower extremity; S31.109A Unspecified open wound of abdominal wall, unspecified quadrant without penetration into peritoneal cavity, initial encounter; Z79.84 Long term (current) use of oral hypoglycemic drugs
CPT/HCPCS: 11042; 11045

== ENCOUNTER 2021-11-20 15:20 | Outpatient (CLI) | payer MEDICAID, SELFPAY ==
--- OUTSIDE RECORDS SUMMARY | 2021-11-20 15:22 | XMS_ITS | Continuity of Care Document ---
:1955 Author Organization [facility] Care Team Providers Name Role Phone [facility] Unavailable Unavailable Problems Combined list of problems from Department of Defense and [facility] Affairs facilities. It does not include entries that were removed or entered in error. Problem Status Onset Problem Type Date of Comments Source Date Resolution AF-Atrial [facility] Fibrillation (SCT HC S [id number]) Anxiety [facility] Asthma (SCT [place] [id number][place] HCS Benign essential Active Condition [facility] hypertension HCS (SNOMED CT 0227073) Cardiomyopathy Active Condition [facility] HCS Depressive Disorder Active Condition [facility] NOS HCS Diabetes mellitus Active Condition [facility] (SNOMED CT HCS 07576563) Diabetic neuropathy Active Condition [facility] (SNOMED CT HCS 860972024) Dyslipidemia Active Condition [facility] H[facility] H/O: Stroke (SCT [place] [id number][place] HCS Heart failure [facility] Hernia of anterior Active Condition Sep 14 [facility] abdominal wall 2013 [facility] Entered By: ALDO LI Comment: Dx 04/03, Gen Surgical Eval 07/01 Hydrocele (SNOMED Active [place] 07666846) HCS Low back pain [facility] (SNOMED CT HCS 587577693) Mental disorder [facility] Mixed anxiety and Active Condition [facility] depressive disorder HCS (SNOMED CT 166346621) Morbid obesity [facility]SNOMED [facility]CS 383981063) Other Specified Active [facility] Counsel[facility] H[facility] (ICD-9-CM V65.49) Pes Planus, [facility] Acquired HCS 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[facility] depressive HCS episodes, moderate (SNOMED CT 675366411) Sleep Apnea [facility] Diagnosis: Active Diagnosis [facility] ICD-10-CM I63.9 HCS Cerebral infarction, unspecifiedwith Provider Comments: Cerebral infarction, unspecified Diagnosis: Active Diagnosis [facility] ICD-10-CM I63.9 HCS Cerebral infarction, unspecifiedwith Provider Comments: Cerebral Infarction, unspecified Diagnosis: Active Diagnosis [facility] [place] ICD-10-CM Z71.3 HCS Dietary counseling and surveillancewith Provider Comments: Dietary counseling and surveillance Diagnosis: Active Diagnosis [facility] [place] ICD-10-CM R26.9 HCS Unspecified abnormalities of gait and mobilitywith Provider Comments: Unspecified Abnormalities of Gait and Mobility Diagnosis: Active Diagnosis [place] ICD-10-CM I10 HCS Essential (primary) hypertensionwith Provider Comments: Benign essential hypertension (SCT 6047835) Medications Combined list of outpatient medications from [...] NEEDED ALBUTEROL INHALE INHALA ACTIVE BROWN,ABBY 06/16/ [place] INHL,ORAL BY TION AN 2020 [facility] INHALATI [place] ON PRN AMLODIPINE TAKE ORALLY ACTIVE BROWN,ABBY 12/09/ [place] BESYLATE ONE-HALF AN 2019 [place] 10MG TAB TABLET [facility] BY MOUTH EVERY DAY ASPIRIN TAKE ONE ORALLY ACTIVE BROWN,ABBY 12/09/ [place] 81MG TAB,EC TABLET 2019 [place] BY MOUTH [facility] EVERY DAY ATORVASTATI TAKE ONE ORALLY ACTIVE BROWN,ABBY 12/09 / [place] 80MG TABLET 2019 [place] TAB BY MOUTH [facility] AT BEDTIME BACITRACIN APPLY TO TOPICA ACTIVE BROWN,ABBY 06/16/ [place] 500UNT/GM AFFECTED LLY AN 2020 [place] OINT,TOP AREA [facility] TOPICALL Y PRN DOCUSATE NA TAKE ONE ORALLY ACTIVE BROWN,ABBY 06/16 / [place] 50MG/SENNOS TABLET AN 2020 [place] IDES 8.6MG BY MOUTH [place] HC S TAB TWICE A DAY NEEDED FLUTICASONE SPRAY 2 NASAL ACTIVE BROWN,ABBY 12/09/ [place] PROPIONATE SPRAYS AN 2019 [place] 50MCG/SPRAY IN EACH [place] S SOLN,NASAL, NOSTRIL 16GM EVERY DAY FUROSEMIDE TAKE ONE ORALLY ACTIVE BROWN,ABBY 12/09/ [place] 20MG TAB TABLET AN 2019 [place] BY MOUTH [place] [facility] EVERY DAY GABAPENTIN TAKE TWO ORALLY ACTIVE 09/30/2022 [id number] ISAIAH YLE,ABBY 10/03/ [place] 100MG CAP CAPSULES 2 AN 2021 [place] BY MOUTH [place] [facility] THREE TIMES A DAY GABAPENTIN TAKE 1 ORALLY ACTIVE BROWN,ABBY 06/27/ [place] 100MG CAP CAPSULE AN 2021 [place] BY MOUTH [place] [facility] TWICE A DAY METFORMIN TAKE ONE ORALLY ACTIVE BROWN,ABBY 06/16/ [place] HCL 1000MG TABLET AN 2020 [place] TAB BY MOUTH [place] [facility] TWO TIMES A DAY METOPROLOL TAKE ORALLY ACTIVE BROWN,ABBY 12/09/ [place] SUCCINATE ONE-HALF AN 2019 [place] [facility] 200MG TABLET [facility] TAB,SA BY MOUTH EVERY DAY NYSTATIN USE TOPICA ACTIVE KEVIN,ABBY 12/09/ [place] POWDER TOPICALL LLY AN 2019 [place] [facility] Y TWICE [place] A DAY SENNOSIDES TAKE ONE ORALLY ACTIVE BROWN,ABBY 12/09/ [place] 8.6MG TAB TABLET AN 2019 [place] BY MOUTH [place] [facility] EVERY DAY VALSARTAN TAKE 1.5 ORALLY ACTIVE BROWN,ABBY 06/16/ [place] 80MG TAB TABLETS AN 2020 [place] BY MOUTH [place] [facility] TWICE A DAY WARFARIN NA TAKE 10 ORALLY ACTIVE BROWN,ABBY 06/16/ [place] 1MG TAB TABLETS AN 2020 [place] BY MOUTH [place] [facility] EVERY DAY Allergies, Adverse Reactions, Alerts Combined list of allergies from Department of Defense and Veterans Affairs facilities. It does not include entries that were removed or entered in error. Substance Category Reaction Severity Reaction Status Date Comments S ource type Reported LISINOPRIL Propensity Propensity active [place] to adverse to adverse 8 IS [facility] reactions reactions to drug to drug (finding) (finding) LISINOPRIL Propensity Cough Propensity active [facility] to adverse to adverse 2 [facility] reactions reactions to drug to drug (finding) (finding) Immunizations Combined list of available immunizations from the Department of Defense and Veterans Affairs facilities. Immunization Series Date Administered Site Reaction Lot CVX Drug St atus Comments Source Given By Number Code Faculty Criminal Justice INFLUENZA, complet [place] UNSPECIFIED 2020 ed [facility] COVID-19 2 complet [place] LGREE (MODERNA), 2020 ed NS MRNA, LNP-S, P HARMAC PF, 100 IES MCG/0.5 ML DOSE COVID-19 1 complet [place] LGREE (MODERNA), 2020 ed NS MRNA, LNP-S, P HARMAC PF, 100 IES MCG/0.5 ML DOSE ZOSTER 2 complet [place] RECOMBINANT 2018 ed OL IS [facility] INFLUENZA, complet [place] SEASONAL, 2018 ed [place] [facility] INJECTABLE, HC S PRESERVATIVE FREE ZOSTER 1 complet [place] RECOMBINANT 2018 ed OL IS [facility] INFLUENZA, complet [place] SE[facility]ON[facility], [address] INJECTABLE, ME TRO PRESERVATIVE V A FREE CLINIC INFLUENZA, complet [place] SE[facility]ON[facility], [address] INJECTABLE, ME TRO PRESERVATIVE V A FREE CLINIC INFLUENZA, complet [place] SE[facility]ON[facility], [address] INJECTABLE, ME TRO PRESERVATIVE V A FREE CLINIC INFLUENZA, complet [place] UNSPECIFIED [address] FORMULATION [facility] CLINIC INFLUENZA, complet [place] UNSPECIFIED [address] FORMULATION [facility] CLIN[facility] TDAP complet 3T549 [place] 2012 ed 05/06/15 [address] [employer]R O [employer] [facility] INFLUENZA, complet [place] UNSPECIFIED [address] FORMULATION ME TRO CO CLINIC INFLUENZA, complet [place] UNSPECIFIED 2009 ed [facility] PNEUMOCOCCAL, complet [employer] [place] UNSPECIFIED 2007 ed lot# OL IS CO FORMULATION [id number] HC S exp. [id number] INFLUENZA complet [place] (HISTORICAL) 2007 ed O [facility] HCS INFLUENZA complet [place] (HISTORICAL) 2007 ed O [facility] TD(ADULT) 11/18/ 139 complet [place] UNSPECIFIED 2007 ed OL IS [facility] HC S Results Combined list of recent chemistry, hematology and other laboratory results from Department of Defense and Veterans Affairs, ranging from 15 months to all on record, depending upon the facility. Order Results Value Reference Date Interpretation Specimen Commen ts Source Name Range OCCULT HEMOGLOBIN. Negative 06/28 Specimen Ty pe: FECES [place] BLOOD GASTROINTES /2020 No comment e ntered. IS [facility] FIT X1 TINAL.LOWER Ordering Pr ovider: MONI BROWN SCREEN [PRESENCE] Report Relea sed Date/Time: Jun 16, 2020 09:30 AM IN STOOL BY Reporting L ab: [facility] IMM[address]OAS[address]Y [address] [facility] [address] --1ST Performing Lab: [facility] SPECIMEN [address] [facility] [address] DRUG BARBITURATE Negative 05/04 Specimen Ty pe: URINE [place] SCREEN S Comment: PRESUM PTIVE POSITIVE BY SCREEN, RESULTS NOT CONFIRMED IS CO [employer] PANEL,U [PRESENCE] Ordering Pro vider: MONI BROWN IN URINE BY Report Rele ased Date/Time: Feb 27, 2018 10:18 AM SCREEN Reporting Lab: [facility] METHOD [address] [place] [facility] [address] Performing Lab: [facility] [address] [place] [facility] [address] DRUG AMPHETAMINE Negative 05/04 Specimen Ty pe: URINE [place] SCREEN S Comment: PRESUM PTIVE POSITIVE BY SCREEN, RESULTS NOT CONFIRMED IS [facility] PANEL,U [PRESENCE] Ordering Pro vider: MONI BROWN IN URINE Report Release d Date/Time: Feb 27, 2018 10:18 AM Reporting Lab: [facility] [address] [place] [facility] [address] Performing Lab: [facility] [address] [place] [facility] [address] DRUG COCAINE Negative 05/04 Specimen Type: URINE [place] SCREEN [PRESENCE] /2020 Comment: PRE SUMPTIVE POSITIVE BY SCREEN, RESULTS NOT CONFIRMED IS [facility] PANEL,U IN URINE Ordering Provi isidra: MONI BROWN Report Released Date/Time: Feb 27, 2018 10:18 AM Reporting Lab: [facility] [address] [place] [facility] [address] Performing Lab: [facility] HCS [address] [place] [facility] [address] DRUG BENZODIAZEP Negative 05/04 Specimen Ty pe: URINE [place] SCREEN JOHANN /2020 Comment: PRESUM PTIVE POSITIVE BY SCREEN, RESULTS NOT CONFIRMED IS CO HCS PANEL,U [PRESENCE] Ordering Pro vider: MONI BROWN IN URINE BY Report Rele ased Date/Time: Feb 27, 2018 10:18 AM SCREEN Reporting Lab: [facility] METHOD [address] [place] [facility] [address] Performing Lab: [facility] [address] [place] [address] DRUG CANNABINOID Negative 05/04 Specimen Ty pe: URINE [place] SCREEN S Comment: PRESUM PTIVE POSITIVE BY SCREEN, RESULTS NOT CONFIRMED IS CO HCS PANEL,U [PRESENCE] Ordering Pro vider: MONI BROWN IN URINE BY Report Rele ased Date/Time: Feb 27, 2018 10:18 AM SCREEN Reporting Lab: [facility] METHOD [address] [place] [facility] [address] Performing Lab: [facility] [address] [place] [facility] [address] DRUG METHADONE Negative 05/04 Specimen Type : URINE [place] SCREEN [PRESENCE] /2020 Comment: PRE SUMPTIVE POSITIVE BY SCREEN, RESULTS NOT CONFIRMED IS CO HCS PANEL,U IN URINE Ordering Provi isidra: MONI BROWN Report Released Date/Time: Feb 27, 2018 10:18 AM Reporting Lab: [facility] [address] [place] [facility] [address] Performing Lab: [facility] [address] [place] [address] DRUG OPIATES POSITIVE 05/04 H Specimen Type: URINE [place] SCREEN [PRESENCE] /2020 Comment: PRE SUMPTIVE POSITIVE BY SCREEN, RESULTS NOT CONFIRMED IS CO HCS PANEL,U IN URINE BY Ordering Pr ovider: MONI BROWN SCREEN Report Released Date/Time: Feb 27, 2018 10:18 AM METHOD Reporting Lab: [facility] HCS [address] [place] [address] Performing Lab: [facility] [address] [place] [facility] [address] DRUG PHENCYCLIDI Negative 05/04 Specimen Ty pe: URINE [place] SCREEN NE Comment: PRESUM PTIVE POSITIVE BY SCREEN, RESULTS NOT CONFIRMED IS CO HCS PANEL,U [PRESENCE] Ordering Pro vider: MONI BROWN IN URINE Report Release d Date/Time: Feb 27, 2018 10:18 AM Reporting Lab: [facility] [place] [address] Performing Lab: [facility] [place] [address] DRUG ETHANOL Negative 05/04 Specimen Type: URINE [place] SCREEN [MASS/VOLUM /2020 Comment: DC ESUMPTIVE POSITIVE BY SCREEN, RESULTS NOT CONFIRMED IS CO HCS PANEL,U E] IN URINE Ordering Pr ovider: MONI BROWN Report Released Date/Time: Feb 27, 2018 10:18 AM Reporting Lab: [facility] [place] [address] Performing Lab: [facility] [place] [address] DRUG CREATININE >300.0 20 05/04 Specimen Type : URINE [place] SCREEN [MASS/VOLUM /2020 Comment: DC ESUMPTIVE POSITIVE BY SCREEN, RESULTS NOT CONFIRMED IS CO HCS PANEL,U E] IN URINE Ordering Pr ovider: MONI BROWN Report Released Date/Time: Feb 27, 2018 10:18 AM Reporting Lab: [facility] [place] [address] Performing Lab: [facility] [place] [address] DRUG OXYCODONE Negative 05/04 Specimen Type : URINE [place] SCREEN [PRESENCE] /2020 Comment: PRE SUMPTIVE POSITIVE BY SCREEN, RESULTS NOT CONFIRMED IS [facility] PANEL,U IN URINE BY Ordering Pr ovider: MONI BROWN SCREEN Report Released Date/Time: Feb 27, 2018 10:18 AM METHOD Reporting Lab: [facility] [address] [facility] [address] Performing Lab: [facility] [address] [facility] [address] DRUG BUPRENORPHI Negative 05/04 Specimen Ty pe: URINE [place] SCREEN NE+NORBUPRE /2020 Comment: DC ESUMPTIVE POSITIVE BY SCREEN, RESULTS NOT CONFIRMED IS [facility] PANEL,U [place] Ordering Provi isidra: MONI BROWN [PRESENCE] Report Relea sed Date/Time: Feb 27, 2018 10:18 AM IN URINE Reporting Lab: [facility] [place] [address] Performing Lab: [facility] [place] [address] DRUG TRAMADOL Negative 05/04 Specimen Type: URINE [place] SCREEN Comment: PRESUM PTIVE POSITIVE BY SCREEN, RESULTS NOT CONFIRMED IS [facility] PANEL,U [MASS/VOLUM Ordering Pr ovider: MONI BROWN] IN URINE Report Rele ased Date/Time: Feb 27, 2018 10:18 AM FOR SCREEN Reporting La b: [facility] METHOD [place] [address] Performing Lab: [facility] [place] [address] Vital Signs Combined list of inpatient and outpatient Vital Signs from Department of Defense and Veterans Affairs, ranging from 12 months to all on record, depending upon the facility. Vital Sign Value Date Comments Source SYSTOLIC BLOOD PRESSURE 153 06/14/2021 08:03:02 [facility] DIASTOLIC BLOOD PRESSURE 99 06/14/2021 08:03:02 [facility] PULSE OXIMETRY 99% 06/14/2021 08:03:02 [place] [facility] WEIGHT 334 06/14/2021 08:03:02 [place] [facility] BMI 48kg/m2 06/14/2021 08:03:02 [place] [facility] PAIN 0 06/14/2021 08:03:02 [place] [facility] TEMPERATURE 97.7 06/14/2021 08:03:02 [place] [facility] PULSE 68 06/14/2021 08:03:02 [place] [facility] RESPIRATION 18 06/14/2021 08:03:02 [place] [facility] Encounters Combined list of: 1) Encounters from Department of Veterans Affairs facilities going back up to the last 18 months. 2) Encounters from the Department of Defense facilities going back up to 280 months. Location Location Encounter Encounter Reason Attending ADM DC Stat us Disposition Source Details Type Number For Provider Date Date Visit Outpatient [id number] 06/16 [place] Encounter [id number] [facility] Outpatient 10108-7 DOMINIK BROWN 06/16 [place] Encounter [id number] [facility] [id number] 06/16 [place] En[place] [id number] /2020 [place] [facility] Outpatient 40517-8.61 TONECRISTINABRENDAN 06/16 [place] Encounter [id number] EKATERINA J [facility] Outpatient [id number] 06/16 [place] Encounter [id number] /2020 [place] [facility] Outpatient 64809-8. DOMINIK BROWN 06/16 [place] Encounter [id number] [facility] 19640-9.61 06/30 [place] Encounter [id number] /2020 [place] [facility] Outpatient [id number] 06/30 [place] Encounter [id number] /2020 [place] [facility] Outpatient 38244-9.61 10/06 [place] Encounter [id number] /[facility] 63714-9.61 SHIRA PAUL 10/13 [place] Encounter [id number] [facility] [id number] 11/18 [place] En[place] [id number] /[facility] 27560-4.61 04/11 [place] Encounter [id number] /20[facility] 56891-2.61 05/03 [place] En[place] [id number] /[facility] 06536-2.61 05/18 [place] Encounter [id number] /[facility]P 24619-9.61 Diagnos DOMINIK BROWN 06/14 [place] EST HI [id number] is: N [facility] 40-54 MIN ICD-10- [facility] CM I10 Essenti al (primar y) hyperte nsion<b r/>with Provide r Comment s: Benign essenti al hyperte nsion (SCT 2589363 ) Outpatient [id number] 06/15 [place] Encounter [id number] /2021 [facility] Outpatient 89839-1.61 06/17 [place] Encounter [id number] /2021 [facility] Outpatient 72267-5.61 Diagnos JEREMIAH SALEH 06/20 [place] Encounter [id number] is: [place] M [facility] ICD-10- HCS CM R26.9 Unspeci fied abnorma lities of gait and mobilit y
w ith Provide r Comment s: Unspeci fied Abnorma lities of Gait and Mobilit y Outpatient [id number] 07/04 [place] Encounter [id number] /2021 [facility] MEDICAL 11131-7.61 Diagnos VINCENT,TO 07/12 [place] NUTRITION [id number] is: NI L [facility] INDIV IN ICD-10- HCS CM Z71.3 Dietary addiction treatment counselor ing and surveil winnie<b r/>with Provide r Comment s: Dietary addiction treatment counselor ing and surveil winnie THERAPEUTI 95241-261 Diagnos DELBERT GERARDO 07/12 [place] [id number] is: NNER W [facility] ACTIVITIES ICD-10- HCS CM I63.9 Cerebra l infarct ion, unspeci fied
with Provide r Comment s: Cerebra l Infarct ion, unspeci fied NEUROMUSCU 41141-7.61 Diagnos BMA SUAREZ 08/11 [place] [id number] is: /2021 [facility] REEDUCATIO ICD-10- [facility] N CM I63.9 Cerebra l infarct ion, unspeci fied
with Provide r Comment s: Cerebra l infarct ion, unspeci fied Outpatient [id number] 09/07 [place] Encounter [id number] /2021 [facility] Outpatient 52855-4.61 09/19 [place] Encounter [id number] /2021 [facility] Outpatient 29254-3.61 09/22 [place] Encounter [id number] /2021 [facility] Outpatient 20201-0.61 09/27 [place] Encounter [id number] /2021 [facility] Outpatient 01665-4.61 11/02 [place] Encounter [id number] [facility] NEUROMUSCU 44612-1.61 Diagnos BAM SUAREZ 11/07 [place] [id number] is: /2021 [facility] REEDUCATIO ICD-10- HCS N CM I63.9 Cerebra l infarct ion, unspeci fied
with Provide r Comment s: Cerebra l infarct ion, unspeci fied Outpatient 20373-8.61 11/16 [place] Encounter [id number] [facility] Social History Combined list of available smoking, tobacco, and other social [facility]. Social History Type Response Date Comment Source Tobacco smoking CO-TOBACCO USER SOME 06/14/2021 [facility] status NHIS DAYS History of tobacco CO-TOBACCO DOESNT USE 06/14/2021 [facility] use WI 30 MIN WAKEUP History of tobacco CO-TOBACCO NEVER USED 01/28/2018 [facility] use History of tobacco FORMER TOBACCO [facility] History of tobacco LIFETIME NON-TOBACCO 10/12/2015 N [facility] use USER CLINIC History of tobacco LIFETIME NON-TOBACCO 09/22/2014 N [facility] use USER CLINIC History of tobacco FORMER TOBACCO USER 07/07/2013 [facility] History of tobacco LIFETIME NON-TOBACCO 07/05/2011 [facility] use USER History of tobacco LIFETIME NON-TOBACCO 07/03/2011 [facility] use USER History of tobacco LIFETIME NON-TOBACCO 11/20/2007 [facility] use USER Plan of Care List of future care activities from [facility] facilities. Additional future care activities may be listed in the Assessment and Plan section. Date/Time Care Activity Care Activity Detail Facility 11/24/2021 AMBULATORY - REHAB MEDICINE AMBULATORY - REHAB [facility] MEDICINE Advance Directives List of completed, amended, or rescinded Advance Directives on record at [facility] facilities. An actual copy of the Directive is not included. Date Advance Directive Provider Source 07/03/2011 CLINICAL WARNING RACHAEL KING [facility]
--- OUTSIDE RECORDS SUMMARY | 2021-11-20 15:24 | XMS_ITS | Encounter Summary ---
:[address] [facility] Address [address] [place] [address] Support Name Relationship Address Phone JULIET MOODY Unavailable [address] [place] [facility] [place] [address] SHENA PETERSEN Unavailable [address] [place] [address] SHENA PETERSEN Unavailable [address] [place] [address] Insurance Providers: All historical and current Section [...] MEDICARE MEDICARE PART June 18, PART A [id number] Smiley MOODY (WNR) (M A 2009 [id number] [phone] [facility] Selected Encounter This section includes the information on record at [place] for the Encounter. Date/Time Encounter Type Encounter Description Reason Provider Source Nov 16, 2021 11:19 Outpatient Encounter COMMUNITY CARE AM CONSULT [facility] Encounter Template Text not used by [place] Plan of Treatment: Future Appointments (+ 6 months) and Future Tests (+/- 45 days) The Plan of Treatment section includes future care activities for the patient from all [place] treatmentfacilities. This section includes future appointments and future orders which are active, pending orscheduled.Future Appointments This section includes appointments that were scheduled to occur 6 months from the date of the Encounter, up to a maximum of 20 appointments. The data comes from all [place] treatment facilities. Appointment Date/Time Appointment Type Appointment Facili ty Name Nov 24, 2021 08:00 AM AMBULATORY - REHAB MEDICINE [facility] Nov 24, 2021 09:00 AM AMBULATORY - MEDICINE [facility] CS Active, Pending, and Scheduled Orders This section includes a listing of several types of active, pending, and scheduled orders, including clinic medications orders, diagnostic test orders, procedure orders and consult orders; where the start date of the order is 45 days before the date of the Encounter or 45 days after the date of the Encounter. The data comes from all [place] treatment facilities. Test Date/Time Test Type Test Details Facility Name Nov 08, 2021 12:29 PM Consult Order [facility] Cons [place] [facility] Naphthalene Operator Helper's Choice Social History: Smoking Status (Most current) and Tobacco Use (All prior to encounter date) This section includes the most current, and the historical, smoking and tobacco-related health factors from the [place] facility where the Encounter took place.Current Smoking Status This section includes the most current smoking, or tobacco-related health factor, from the [place] facility where the Encounter took place. Date/Time Current Smoking Status Comment Facility Jun 14, 2021 08:15 AM VA-TOBACCO USER SOME DAYS [facility] Tobacco Use History This section includes a history of the smoking, or tobacco- related health factors, that were collected on or before the date of the Encounter. The data comes from the [place] facility where the Encounter took place. Date/Time Smoking Status/Tobacco Use Comment Jorge [email or web address] Jun 14, 2021 08:15 AM VA-TOBACCO USE > 15 LESS THAN 30 [facility] YEARS Jun 14, 2021 08:15 AM [facility] Jun 14, 2021 08:15 AM VA-TOBACCO USE SUPERINTENDENT MAINTENANCE NO [facility] Jun 14, 2021 08:15 AM VA-TOBACCO USE MED NO [place] [facility] Jun 14, 2021 08:15 AM VA-TOBACCO USER SOME DAYS [facility] Jan 28, 2018 12:26 PM [facility] July 05, 2011 09:38 AM LIFETIME NON-TOBACCO USER [facility] July 03, 2011 06:04 PM LIFETIME NON-TOBACCO USER [facility] Nov 20, 2007 08:19 AM LIFETIME NON-TOBACCO USER [facility] Advance Directives: All historical and current Section Date Range: From patient's date of to the date document was created. This section includes ALL of a patient's completed or amended [place] Advance and Rescinded Directives. The entries below indicate that a directive exists for the patient, but an actual copy is not included with this document. The data comes from all [place] facilities. Date Advance Directives Provider Source July 03, 2011 CLINICAL WARNING RACHAEL KING [facility] Encounter Notes: All associated encounter notes This section contains the clinical notes associated to the Encounter. Date/Time Encounter Note(s) Provider Source Nov 16, 2021 11:19 AM NONVA NOTE: TUTU SANHCEZ [facility] LOCAL TITLE: COMMUNITY CARE-CARE COORDINATION P CASEY NOTE STANDARD TITLE: NONVA NOTE DATE OF NOTE: NOV 16, 2021@11:19 ENTRY DATE: NOV 16, 2021@11:19:31 AUTHOR: TUTU SANCHEZ EXP COSIGNER: URGENCY: STATUS: COMPLETED COMMUNITY CARE-CARE COORDINATION PLAN NOTE Has ADDENDA Received DME from [facility] requesting ordering of venous compression device. Please refer to DME form upl oaded to [facility] dated 11/01/2021 for details. No community care referral associat ed with this request. /zeb/ TUTU SANCHEZ RN Registered Nurse, Care in Community Signed: 11/16/2021 11:24 Receipt Acknowledged By: 11/16/2021 11:27 /zeb/ MOY LEW MD FIREARMS INSPECTOR, [facility] for MONI BROWN 11/16/2021 12:37 /zeb/ CHASIDY GODINEZ RN RN, BSN 11/16/2021 ADDENDUM STATUS: COMPLETED [facility]ist[facility] Imaging Scanned Document - Addendum. /zeb/ SARA WESTON RN concrete engineer Window Dresser Signed: 11/16/2021 11:26 11/16/2021 ADDENDUM STATUS: COMPLETED If PACT RN can provide me with the DME forms for review today then I will address it other PCP can address this issue. /zeb/ MOY LEW MD FIREARMS INSPECTOR, [facility] Signed: 11/16/2021 11:30 Receipt Acknowledged By: 11/17/2021 10:57 /zeb/ CHASIDY GODINEZ RN RN, BSN 11/17/2021 ADDENDUM STATUS: COMPLETED Lounge Car Attendant unable to find form. Can you please print and fax to [phone]? /es/ CHASIDY GODINEZ RN RN, BSN Signed: 11/17/2021 10:57 11/17/2021 ADDENDUM STATUS: COMPLETED Irrelevant, technical writer and editor able to find and print. /es/ CHASIDY GODINEZ RN RN, BSN Signed: 11/17/2021 10:59
== END 2021-11-20 15:21 | disposition home or self-care (01) ==
LOC: WOUND 15:20
PROVIDERS: Visit Provider Nurse Practitioner Family
DX: E11.622 Type 2 diabetes mellitus with other skin ulcer (principal); L97.912 Non-pressure chronic ulcer of unspecified part of right lower leg with fat layer exposed; I87.312 Chronic venous hypertension (idiopathic) with ulcer of left lower extremity; L97.825 Non-pressure chronic ulcer of other part of left lower leg with muscle involvement without evidence of necrosis; S31.109A Unspecified open wound of abdominal wall, unspecified quadrant without penetration into peritoneal cavity, initial encounter; Z79.84 Long term (current) use of oral hypoglycemic drugs
CPT/HCPCS: 11042; 11045

== ENCOUNTER 2021-11-27 15:11 | Outpatient (CLI) | payer MEDICAID, SELFPAY ==
--- OUTSIDE RECORDS SUMMARY | 2021-11-27 15:13 | XMS_ITS | Continuity of Care Document ---
:1955 Author Organization [facility] Care Team Providers Name Role Phone [facility] Unavailable Unavailable Problems Combined list of problems from Department of Defense and [facility] Affairs facilities. It does not include entries that were removed or entered in error. Problem Status Onset Problem Type Date of Comments Source Date Resolution AF-Atrial [facility] F[facility] ([facility] HC S 15755496) Anxiety [facility] Asthma (SCT Active [place] [id number][place] HCS Benign essential [facility] HCS (SNOMED CT 1327482) Cardiomyopathy Active Condition [facility] Depressive Disorder Active Condition [facility] NOS HCS Diabetes mellitus Active Condition [facility] (SNOMED CT HCS 46526687) Diabetic neuropathy Active Condition [facility] (SNOMED CT HCS 370865731) Dyslipidemia Active Condition [facility] H/O: Stroke (SCT [place] [id number][place] [facility] Heart failure [facility] [place] Hernia of anterior Active Condition Sep 14 [facility] abdominal wall 2013 [facility] Entered By: ALDO LI Comment: Dx 04/03, Gen Surgical Eval 07/01 Hydrocele (SNOMED Active Condition [place] [id number]) HCS Low back pain [facility] [place] (SNOMED CT HCS 457012555) Mental disorder [facility] Mixed anxiety and Active Condition [facility] depressive disorder HCS (SNOMED CT 059997246) Morbid obesity [facility] 077908184) Other Spec[facility] (ICD-9-CM V65.49) Pes Planus, 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 Diagnosis: Active Diagnosis [facility] ICD-10-CM R26.9 HCS Unspecified abnormalities of gait and mobilitywith Provider Comments: Unspecified abnormalities of gait and mobility Diagnosis: Active Diagnosis [place] ICD-10-CM I63.9 HCS Cerebral infarction, unspecifiedwith Provider Comments: Cerebral infarction, unspecified Diagnosis: Active Diagnosis [place] ICD-10-CM I63.9 HCS Cerebral infarction, unspecifiedwith Provider Comments: Cerebral Infarction, unspecified Diagnosis: Active Diagnosis [place] ICD-10-CM Z71.3 HCS Dietary counseling and surveillancewith Provider Comments: Dietary counseling and surveillance Diagnosis: Active Diagnosis [place] ICD-10-CM R26.9 HCS Unspecified abnormalities of gait and mobilitywith Provider Comments: Unspecified Abnormalities of Gait and Mobility Diagnosis: Active Diagnosis [place] ICD-10-CM I10 HCS Essential (primary) hypertensionwith Provider Comments: Benign essential hypertension (SCT 0407817) Medications Combined list of outpatient medications from Department of Defense and Veterans Affairs facilities. Medications provided include 1) outpatient medications from the last 15 months, and 2) patient-reported medications. Medication Details Route Status Patient Prescription Prescription Last Ordering Order Source Instructions Expires Number Dispense Provider Date Date ACETAMINOPH TAKE TWO ORALLY ACTIVE BROWN,ABBY 12/09 / [place] 325MG TABLETS AN 2019 [facility] [facility] TAB BY MOUTH [facility] EVERY 6 HOURS NEEDED ALBUTEROL INHALE INHALA ACTIVE BROWN,ABBY 06/16/ [place] INHL,ORAL BY TION AN 2020 [facility] INHALATI [place] ON PRN AMLODIPINE TAKE ORALLY ACTIVE BROWN,ABBY 12/09/ [place] BESYLATE ONE-HALF AN 2019 [place] [facility] 10MG TAB TABLET [facility] BY MOUTH EVERY DAY ASPIRIN TAKE ONE ORALLY ACTIVE BROWN,ABBY 12/09/ [place] 81MG TAB,EC TABLET AN 2019 [place] BY MOUTH [facility] EVERY DAY ATORVASTATI TAKE ONE ORALLY ACTIVE BROWN,ABBY 12/09 / [place] CA 80MG TABLET AN 2019 [facility] TAB BY [facility]TH [facility] AT BEDTIME BACITRACIN APPLY TO TOPICA ACTIVE BROWN,ABBY 06/16/ [place] 500UNT/GM AFFECTED LLY AN 2020 [facility] OINT,TOP AREA [facility] TOPICALL Y PRN DOCUSATE NA TAKE ONE ORALLY ACTIVE BROWN,ABBY 06/16 / [place] 50MG/SENNOS TABLET AN 2020 [facility] IDES 8.6MG BY MOUTH [facility] S TAB TWICE A DAY NEEDED FLUTICASONE SPRAY 2 NASAL ACTIVE BROWN,ABBY 12/09/ [place] PROPIONATE SPRAYS AN 2019 [facility] 50MCG/SPRAY IN EACH [facility] SOLN,NASAL, NOSTRIL 16GM EVERY DAY FUROSEMIDE TAKE ONE ORALLY ACTIVE BROWN,ABBY 12/09/ [place] 20MG TAB TABLET AN 2019 [place] BY MOUTH [facility] EVERY DAY GABAPENTIN TAKE TWO ORALLY ACTIVE 09/30/2022 [id number] ISAIAH YLE,ABBY 10/03/ [place] 100MG CAP CAPSULES 2 AN 2021 [facility] BY [facility]OUTH [facility] THREE TIMES A DAY GABAPENTIN TAKE 1 ORALLY ACTIVE BROWN,ABBY 06/27/ [place] 100MG CAP CAPSULE AN 2021 [facility] BY [facility]TH [facility] TWICE A DAY METFORMIN TAKE ONE ORALLY ACTIVE KEVIN,ABBY 06/16/ [place] HCL 1000MG TABLET AN 2020 [facility] TAB BY MOUTH [facility] TWO TIMES A DAY METOPROLOL TAKE ORALLY ACTIVE BROWN,ABBY 12/09/ [place] SUCCINATE ONE-HALF AN 2019 [place] [facility] 200[facility],SA [facility]TH EVERY DAY NYSTATIN USE TOPICA ACTIVE KEVIN,ABBY 12/09/ [place] POWDER TOPICALL LLY AN 2019 [facility] Y TWICE [facility] A DAY SENNOSIDES TAKE ONE ORALLY ACTIVE KEVIN,ABBY 12/09/ [place] 8.6MG TAB TABLET AN 2019 [facility] BY MOUTH [facility] EVERY DAY VALSARTAN TAKE 1.5 ORALLY ACTIVE BROWN,ABBY 06/16/ [place] 80MG TAB TABLETS AN 2020 [facility] BY [facility]OUTH [facility] TWICE A DAY WARFARIN NA TAKE 10 ORALLY ACTIVE BROWN,ABBY 06/16/ [place] 1MG TAB TABLETS AN 2020 [place] [facility] BY MOUTH [facility] EVERY DAY Allergies, Adverse Reactions, Alerts Combined list of allergies from Department of Defense and Veterans Affairs facilities. It does not include entries that were removed or entered in error. Substance Category Reaction Severity Reaction Status Date Comments S ource type Reported LISINOPRIL Propensity Propensity active [place] to adverse to adverse 8 [place] HCS reactions reactions to drug to drug (finding) [...] atus Comments Source Given By Number Code Data Migration Lead INFLUENZA, complet [place] INJECTABLE, 2021 ed [place] [facility] QUADRIVALENT, HCS PRESERVATIVE FREE INFLUENZA, complet [place] UNSPECIFIED 2020 ed [facility] [place] [facility] FORMULATION HC S COVID-19 2 complet [place] LGREE (MODERNA), 2020 ed NS MRNA, LNP-S, P HARMAC PF, 100 IES MCG/0.5 ML DOSE COVID-19 1 complet [place] LGREE (MODERNA), 2020 ed NS MRNA, LNP-S, P HARMAC PF, 100 IES MCG/0.5 ML DOSE ZOSTER 2 complet [place] RECOMBINANT 2018 ed [place] H[facility] INFLUENZA, complet [place] SEASONAL, 2018 ed [facility] INJECTABLE, HC S PRESERVATIVE FREE ZOSTER 1 complet [place] RECOMBINANT 2018 ed [place] [facility] INFLUENZA, complet [facility] SE[facility]ON[facility], [address] INJECTABLE, ME TRO PRESERVATIVE V A FREE CLINIC INFLUENZA, complet [facility] SE[facility]ON[facility], [address] INJECTABLE, ME TRO PRESERVATIVE V A FREE CLINIC INFLUENZA, complet [facility] SEASONAL, [address] INJECTABLE, ME TRO PRESERVATIVE V A FREE CLINIC INFLUENZA, complet [facility] UNSPECIFIED [address] FORMULATION [facility] INFLUENZA, complet [facility] UNSPECIFIED [address] [facility] TDAP complet 3T549 [facility] 2012 ed 05/06/15 [facility] [employer] [facility] INFLUENZA, complet [facility] UNSPECIFIED [address] FORMULATION [facility] INFLUENZA, complet [place] UNSPECIFIED 2009 ed [facility] FORMULATION [facility] PNEUMOCOCCAL, complet [employer] [place] UNSPECIFIED 2007 ed lot# [place] FORMULATION [id number] HC S exp. [id number] INFLUENZA complet [place] (HISTORICAL) 2007 ed [place] HCS INFLUENZA complet [place] (HISTORICAL) 2007 ed O [place] HCS TD(ADULT) complet [place] UNSPECIFIED 2007 ed [place] [facility] FORMULATION HC S Results Combined list of recent chemistry, hematology and other laboratory results from Department of Defense and Veterans Affairs, ranging from 15 months to all on record, depending upon the facility. Order Results Value Reference Date Interpretation Specimen Commen ts Source Name Range OCCULT HEMOGLOBIN. Negative 06/28 Specimen Ty pe: FECES [place] BLOOD GASTROINT /2020 No comment e ntered. IS [facility] FIT X1 TINAL.LOWER Ordering Pr ovider: MONI BROWN SCREEN [PRESENCE] Report Relea sed Date/Time: Jun 16, 2020 09:30 AM IN STOOL BY Reporting L ab: [facility] IMMUNOASSAY ONE [employer] [facility] [address] --1ST Performing Lab: [facility] SPECIMEN [address] [facility] [address] DRUG BARBITURATE Negative 05/04 Specimen Ty pe: URINE [place] SCREEN S Comment: PRESUM PTIVE POSITIVE BY SCREEN, RESULTS NOT CONFIRMED IS [place] Within3 PANEL,U [PRESENCE] Ordering Pro vider: MONI BROWN IN URINE BY Report Rele ased Date/Time: Feb 27, 2018 10:18 AM SCREEN Reporting Lab: [facility] METHOD [address] [place] [facility] [address] Performing Lab: [facility] [address] [facility] [address] DRUG AMPHETAMINE Negative 05/04 Specimen Ty pe: URINE [place] SCREEN S Comment: PRESUM PTIVE POSITIVE BY SCREEN, RESULTS NOT CONFIRMED IS [facility] PANEL,U [PRESENCE] Ordering Pro vider: MONI BROWN IN URINE Report Release d Date/Time: Feb 27, 2018 10:18 AM Reporting Lab: [facility] [address] [place] [facility] [address] Performing Lab: [facility] [address] [place] [facility] [address] DRUG COCAINE Negative 05/04 Specimen Type: URINE [place] SCREEN [PRESENCE] /2020 Comment: PRE SUMPTIVE POSITIVE BY SCREEN, RESULTS NOT CONFIRMED IS DE HCS PANEL,U IN URINE Ordering Provi isidra: MONI BROWN Report Released Date/Time: Feb 27, 2018 10:18 AM Reporting Lab: [facility] HCS [place] [address] Performing Lab: [facility]CS [place] [address] DRUG BENZODIAZEP Negative 05/04 Specimen Ty pe: URINE [place] SCREEN JOHANN /2020 Comment: PRESUM PTIVE POSITIVE BY SCREEN, RESULTS NOT CONFIRMED IS DE HCS PANEL,U [PRESENCE] Ordering Pro vider: MONI BROWN IN URINE BY Report Rele ased Date/Time: Feb 27, 2018 10:18 AM SCREEN Reporting Lab: [facility] METHOD [place] [address] Performing Lab: [facility] [place] [address] DRUG CANNABINOID Negative 05/04 Specimen Ty pe: URINE [place] SCREEN S /2020 Comment: PRESUM PTIVE POSITIVE BY SCREEN, RESULTS NOT CONFIRMED IS DE HCS PANEL,U [PRESENCE] Ordering Pro vider: MONI BROWN IN URINE BY Report Rele ased Date/Time: Feb 27, 2018 10:18 AM SCREEN Reporting Lab: [facility] METHOD [place] [address] Performing Lab: [facility] [place] [address] DRUG METHADONE Negative 05/04 Specimen Type : URINE [place] SCREEN [PRESENCE] /2020 Comment: PRE SUMPTIVE POSITIVE BY SCREEN, RESULTS NOT CONFIRMED IS DE HCS PANEL,U IN URINE Ordering Provi isidra: MONI BROWN Report Released Date/Time: Feb 27, 2018 10:18 AM Reporting Lab: [facility] HCS [address] [place] [facility] [address] Performing Lab: [facility] HCS [address] [place] [facility] [address] DRUG OPIATES POSITIVE 05/04 H Specimen Type: URINE [place] SCREEN [PRESENCE] /2020 Comment: PRE SUMPTIVE POSITIVE BY SCREEN, RESULTS NOT CONFIRMED IS DE HCS PANEL,U IN URINE BY Ordering Pr ovider: MONI BROWN SCREEN Report Released Date/Time: Feb 27, 2018 10:18 AM METHOD Reporting Lab: [facility] [place] [address] Performing Lab: [facility] [address] [place] [facility] [address] DRUG PHENCYCLIDI Negative 05/04 Specimen Ty pe: URINE [place] SCREEN NE /2020 Comment: PRESUM PTIVE POSITIVE BY SCREEN, RESULTS NOT CONFIRMED IS DE HCS PANEL,U [PRESENCE] Ordering Pro vider: MONI BROWN IN URINE Report Release d Date/Time: Feb 27, 2018 10:18 AM Reporting Lab: [facility] [address] [place] [facility] [address] Performing Lab: [facility] [address] [place] [facility] [address] DRUG ETHANOL Negative 05/04 Specimen Type: URINE [place] SCREEN [MASS/VOLUM /2020 Comment: TN ESUMPTIVE POSITIVE BY SCREEN, RESULTS NOT CONFIRMED IS DE HCS PANEL,U E] IN URINE Ordering Pr ovider: MONI BROWN Report Released Date/Time: Feb 27, 2018 10:18 AM Reporting Lab: [facility] [address] [place] [facility] [address] Performing Lab: [facility] [address] [place] [facility] [address] DRUG CREATININE >300.0 20 05/04 Specimen Type : URINE [place] SCREEN [MASS/VOLUM /2020 Comment: [place] ESUMPTIVE POSITIVE BY SCREEN, RESULTS NOT CONFIRMED IS DE HCS PANEL,U E] IN URINE Ordering Pr ovider: MONI BROWN Report Released Date/Time: Feb 27, 2018 10:18 AM Reporting Lab: [facility] [address] [place] [facility] [address] Performing Lab: [facility] [address] [place] [facility] [address] DRUG OXYCODONE Negative 05/04 Specimen Type : URINE [place] SCREEN [PRESENCE] /2020 Comment: PRE SUMPTIVE POSITIVE BY SCREEN, RESULTS NOT CONFIRMED IS DE HCS PANEL,U IN URINE BY Ordering Pr ovider: MONI BROWN SCREEN Report Released Date/Time: Feb 27, 2018 10:18 AM METHOD Reporting Lab: [facility] [address] [place] [facility] [address] Performing Lab: [facility] [address] [place] [facility] [address] DRUG BUPRENORPHI Negative 05/04 Specimen Ty pe: URINE [place] SCREEN NE+NORBUPRE /2020 Comment: [place] ESUMPTIVE POSITIVE BY SCREEN, RESULTS NOT CONFIRMED IS DE HCS PANEL,U [place] Ordering Provi isidra: MONI BROWN [PRESENCE] Report Relea sed Date/Time: Feb 27, 2018 10:18 AM IN URINE Reporting Lab: [facility] [place] [address] Performing Lab: [facility] [place] [address] DRUG TRAMADOL Negative 05/04 Specimen Type: URINE [place] SCREEN CUTOFF /2020 Comment: PRESUM PTIVE POSITIVE BY SCREEN, RESULTS NOT CONFIRMED IS DE HCS PANEL,U [MASS/VOLUM Ordering Pr ovider: MONI BROWN E] IN URINE Report Rele ased Date/Time: Feb 27, 2018 10:18 AM FOR SCREEN Reporting La b: [facility] [place] [address] Performing Lab: [facility] [place] [address] Vital Signs Combined list of inpatient and outpatient Vital Signs from Department of Defense and Veterans Affairs, ranging from 12 months to all on record, depending upon the facility. Vital Sign Value Date Comments Source SYSTOLIC BLOOD PRESSURE 135 11/24/2021 08:06:12 [facility] DIASTOLIC BLOOD PRESSURE 87 11/24/2021 08:06:12 [facility] PULSE OXIMETRY 97% 11/24/2021 08:06:12 [place] [facility] WEIGHT 333 11/24/2021 08:06:12 [place] [facility] BMI 48kg/m2 11/24/2021 08:06:12 [place] [facility] PAIN 0 11/24/2021 08:06:12 [place] [facility] TEMPERATURE 97 11/24/2021 08:06:12 [place] [facility] PULSE 69 11/24/2021 08:06:12 [place] [facility] RESPIRATION 15 11/24/2021 08:06:12 [place] [facility] SYSTOLIC BLOOD PRESSURE 153 06/14/2021 08:03:02 [facility] DIASTOLIC BLOOD PRESSURE 99 06/14/2021 08:03:02 [facility] PULSE OXIMETRY 99% 06/14/2021 08:03:02 [place] [facility] WEIGHT 334 06/14/2021 08:03:02 [place] [facility] BMI 48kg/m2 06/14/2021 08:03:02 [place] [facility] PAIN 0 06/14/2021 08:03:02 [place] [facility] TEMPERATURE 97.7 06/14/2021 08:03:02 [place] [facility] PULSE 68 06/14/2021 08:03:02 [place] [facility] RESPIRATION 18 06/14/2021 08:03:02 [place] [facility] Encounters Combined list of: 1) Encounters from Department of Veterans Affairs facilities going back up to the last 18 months. 2) Encounters from the Department of Defense facilities going back up to 280 months. Location Location Encounter Encounter Reason Attending ADM PR Stat us Disposition Source Details Type Number For Provider Date Date Visit Outpatient [id number] 06/16 [place] En[place] [id number] [facility] Outpatient 68759-761 DOMINIK BROWN 06/16 [place] Encounter [id number] [facility] Outpatient [id number] 06/16 [place] [facility] [id number] [facility] Outpatient [id number] BRENDAN HEBETR 06/16 [place] Encounter [id number] E[place]INA J [facility] Outpatient [id number] 06/16 [place] En[place] [id number] [facility] Outpatient [id number] DOMINIK BROWN 06/16 [place] En[place] [id number] [facility] Outpatient [id number] 06/30 [place] [id number] [facility] Outpatient [id number] 06/30 [place] En[place] [id number] [facility] Outpatient [id number] 10/06 [place] En[place] [id number] [facility] Outpatient [id number] SHIRA PAUL 10/13 [place] En[place] [id number] [facility] Outpatient [id number] 11/18 [place] Encounter [id number] /2020 [facility] Outpatient 16972-161 04/11 [place] Encounter [id number] /2021 [facility] Outpatient [id number] 05/03 [place] En[place] [id number] /2021 [facility] Outpatient [id number] 05/18 [place] Encounter [id number] /2021 [facility] OFFICE O/P [id number] Diagnos KEVINDOMINIK 06/14 [place] EST [place] [id number] is: N /2021 [facility] 40-54 MIN ICD-10- [facility] CM I10 Essenti al (primar y) hyperte nsion<b r/>with Provide r Comment s: Benign essenti al hyperte nsion (SCT 7466419 ) Outpatient [id number] 06/15 [place] Encounter [id number] /2021 [facility] Outpatient 89688-261 06/17 [place] Encounter [id number] /2021 [facility] Outpatient [id number] Diagnos THERESE,JEREMIAH 06/20 [place] Encounter [id number] is: [place] M /2021 [facility] ICD-10- HCS CM R26.9 Unspeci fied abnorma lities of gait and mobilit y
w ith Provide r Comment s: Unspeci fied Abnorma lities of Gait and Mobilit y Outpatient [id number] 07/04 [place] Encounter [id number] /2021 [facility] MEDICAL 27843-5 Diagnos VINCENT,TO 07/12 [place] NUTRITION [id number] is: NI L /2021 [facility] INDIV IN ICD-10- HCS CM Z71.3 Dietary personal counselor ing and surveil winnie<b r/>with Provide r Comment s: Dietary personal counselor ing and surveil winnie THERAPEUTI 02403-2 Diagnos DELBERT GERARDO 07/12 [place] C [id number] is: NNER W /2021 [facility] ACTIVITIES ICD-10- HCS CM I63.9 Cerebra l infarct ion, unspeci fied
with Provide r Comment s: Cerebra l Infarct ion, unspeci fied NEUROMUSCU 64643-9.61 Diagnos DANIELA,08/11 [place] [id number] is: /2021 [facility] ICD-10- HCS N CM I63.9 Cerebra l infarct ion, unspeci fied
with Provide r Comment s: Cerebra l infarct ion, unspeci fied Outpatient [id number] 09/07 [place] Encounter [id number] /2021 [facility] Outpatient [id number] 09/19 [place] Encounter [id number] /2021 [facility] Outpatient [id number] 09/22 [place] Encounter [id number] /2021 [facility] Outpatient [id number] 09/27 [place] Encounter [id number] /2021 [facility] Outpatient [id number] 11/02 [place] Encounter [id number] /2021 [facility] NEUROMUSCU 72725-8.61 Diagnos DANIELA,11/07 [place] [id number] is: [facility] ICD-10- HCS N CM I63.9 Cerebra l infarct ion, unspeci fied
with Provide r Comment s: Cerebra l infarct ion, unspeci fied Outpatient [id number] 11/16 [place] Encounter [id number] /2021 [facility] IMMUNIZATI 81564-1.61 Rosa MEADE 11/24 [place] ADMIN [id number] ZAY M [facility] WHEELCHAIR 08914-3.61 Diagnos PENELOPE CHANEY 11/24 [place] MNGMENT [id number] is: CRISTINA RAMOS /2021 [facility] ICD-10- HCS CM R26.9 Unspeci fied abnorma lities of gait and mobilit y
w ith Provide r Comment s: Unspeci fied abnorma lities of gait and mobilit y Social History Combined list of available smoking, tobacco, and other social history from Department of Defense andVeterans Affairs facilities. Social History Type Response Date Comment Source Tobacco smoking VA-TOBACCO DOESNT USE 06/14/2021 [place] [facility] status [place] 30 MIN WAKEUP History of tobacco VA-TOBACCO USER SOME 06/14/2021 [facility] use DAYS History of tobacco VA-TOBACCO NEVER USED 01/28/2018 [facility] use History of tobacco FORMER TOBACCO USER 10/25/2016 [facility] History of tobacco LIFETIME NON-TOBACCO 10/12/2015 [facility] History of tobacco LIFETIME NON-TOBACCO 09/22/2014 [facility] History of tobacco FORMER TOBACCO USER 07/07/2013 [facility] History of tobacco LIFETIME NON-TOBACCO 07/05/2011 [facility] use USER History of tobacco LIFETIME NON-TOBACCO 07/03/2011 [facility] use USER History of tobacco LIFETIME NON-TOBACCO 11/20/2007 [facility] use USER Plan of Care List of future care activities from [facility] facilities. Additional future care activities may be listed in the Assessment and Plan section. Date/Time Care Activity Care Activity Detail Facility 03/16/2022 AMBULATORY - REHAB MEDICINE AMBULATORY - REHAB [facility] MEDICINE Advance Directives List of completed, amended, or rescinded Advance Directives on record at [facility] facilities. An actual copy of the Directive is not included. Date Advance Directive Provider Source 07/03/2011 CLINICAL WARNING RACHAEL KING [facility]
--- OUTSIDE RECORDS SUMMARY | 2021-11-27 15:15 | XMS_ITS | Encounter Summary ---
:1955 Author Organization [facility] Address [address] [place] [address] Support Name Relationship Address Phone JULIET MOODY Unavailable [address] [place] [facility] ISAIAH SMITH [address] N[place] Unavailable [address] [place] [address] SHENA PETERSEN Unavailable [address] [place] [address] Insurance Providers: All historical and current Section Date Range: From patient's date of to the date document was created.This section includes the names of all active insurance providers for the patient. Insurance Type of Plan Start of End of Group Member Insurance Policy Edilma gomes's Provider Coverage Name Policy Policy Number ID Provider's Erazo's Relationship Coverage Coverage Telephone Name to Policy Number Erazo MEDICARE MEDICARE PART June 18, PART A [id number] Smiley MOODY (WNR) (M A 2009 [id number] [phone] [facility] Selected Encounter This section includes the information on record at [place] for the Encounter. Date/Time Encounter Type Encounter Reason Provider Source Description Nov 24, 2021 WHEELCHAIR WHEELCHAIR & ICD-10-CM R26.9 HORTENSIA CHANEY 09:00 AM MNGMENT TRAINING ADVAN MOBILITY Unspecified RACHEL abnormalities of gait and mobility with Provider Comments: Unspecified abnormalities of gait and mobility IHE Encounter Template Text not used by [facility] Assessments - Encounter Diagnoses This section includes the primary and secondary diagnoses documented for the Encounter. Date/Time Primary/Secondary Diagnosis Name Provider Source Diagnosis Nov 24, 2021 PRIMARY Unspecified HORTENSIA CHANEY [facility] 12:32 PM abnormalities of RACHEL [facility] gait and mobility Plan of Treatment: Future Appointments (+ 6 months) and Future Tests (+/- 45 days) The Plan of Treatment section includes future care activities for the [facility] [place] [facility] This section includes future appointments and future orders which are active, pending orscheduled.Future Appointments This section includes appointments that were scheduled to occur 6 months from the date of the Encounter, up to a maximum of 20 appointments. The data comes from all [facility]. Appointment Date/Time Appointment Type Appointment Facili ty Name Mar 16, 2022 08:00 AM AMBULATORY - REHAB MEDICINE [facility] Active, Pending, and Scheduled Orders This section includes a listing of several types of active, pending, and scheduled orders, including clinic medications orders, diagnostic test orders, procedure orders and consult orders; where the start date of the order is 45 days before the date of the Encounter or 45 days after the date of the Encounter. The data comes from all [facility]. Test Date/Time Test Type Test Details Facility Name Nov 08, 2021 12:29 PM Consult Order [facility] Hotel Or Motel Manager's Choice Vital Signs: All taken on the encounter date This section contains inpatient and outpatient Vital Signs collected on the date of the Encounter. Date/Time Temperature Pulse Blood Respiratory SP02 Pain Height Weight Korey dy Source Pressure Rate Mass Index Nov 24 F 69 135/87 15 /min 97 % 0 333 lb 48 [place] 2021 08:06 /min mm[Hg] [facility] Social History: Smoking Status (Most current) and Tobacco Use (All prior to encounter date) This section includes the most current, and the historical, smoking and tobacco-related health factors from the [place] facility where the Encounter took place.Current Smoking Status This section includes the most current smoking, or tobacco-related health factor, from the [place] facility where the Encounter took place. Date/Time Current Smoking Status Comment Facility Jun 14, 2021 08:15 AM VA-TOBACCO USER SOME DAYS [facility] Tobacco Use History This section includes a history of the smoking, or tobacco- related health factors, that were collected on or before the date of the Encounter. The data comes from the [place] facility where the Encounter took place. 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 [facility] Jun 14, 2021 08:15 AM VA-TOBACCO USE MED NO MINHoney ERNANDEZ [facility] Jun 14, 2021 08:15 AM VA-TOBACCO USER SOME DAYS [facility] Jan 28, 2018 12:26 PM VA-TOBACCO NEVER USED [place] [facility] July 05, 2011 09:38 AM LIFETIME NON-TOBACCO USER [facility] July 03, 2011 06:04 PM LIFETIME NON-TOBACCO USER [facility] Nov 20, 2007 08:19 AM LIFETIME NON-TOBACCO USER [facility] Advance Directives: All historical and current Section Date Range: From patient's date of to the date document was created. This section includes ALL of a patient's completed or amended [place] Advance and Rescinded Directives. The entries below indicate that a directive exists for the patient, but an actual copy is not included with this document. The data comes from all [place] facilities. Date Advance Directives Provider Source July 03, 2011 CLINICAL WARNING RACHAEL KING [facility]
--- OUTSIDE RECORDS SUMMARY | 2021-11-27 15:15 | XMS_ITS | Encounter Summary ---
:1955 Author Organization [facility] Address [address] [place] [address] Support Name Relationship Address Phone JULIET MOODY Unavailable [address] [place] [facility] [place] [address] SHENA PETERSEN Unavailable [address] [place] [address] SHENA PETERSEN Unavailable [address] [place] [address] Insurance Providers: All historical and current Section [...] MEDICARE MEDICARE PART June 18, PART A [id number] Smiley MOODY (WNR) (M) A 2009 16A [phone] [facility] Selected Encounter This section includes the information on record at [place] for the Encounter. Date/Time Encounter Type Encounter Reason Provider Source Description Nov 24, 2021 IMMUNIZATION PM&RS PHYSICIAN ICD-10-CM Z23. ROLAND MEADE 08:00 AM ADMIN Encounter for S M immunization with Provider Comments: Encounter for immunization IHE Encounter Template Text not used by VA Assessments - Encounter Diagnoses This section includes the primary and secondary diagnoses documented for the Encounter. Date/Time Primary/Secondary Diagnosis Name Provider Source Diagnosis Nov 24, 2021 SECONDARY Encounter for SADI PERES V Sal 08:00 AM immunization BROOKE Anguiano [facility] Plan of Treatment: Future Appointments (+ 6 [...] 20 appointments. The data comes from all [place] treatment facilities. Appointment Date/Time Appointment Type Appointment Facili ty Name Mar 16, 2022 08:00 AM AMBULATORY - REHAB MEDICINE [facility] Active, Pending, and Scheduled Orders This section includes a listing of several types of active, pending, and scheduled orders, including clinic medications orders, diagnostic test orders, procedure orders and consult orders; where the start date of the order is 45 days before the date of the Encounter or 45 days after the date of the Encounter. The data comes from all [facility]. Test Date/Time Test Type Test Details Facility Name Nov 08, 2021 12:29 PM Consult Order [facility]PT [place] [facility] Battery Container Tester's Choice Vital Signs: All taken on the encounter date This section contains inpatient and outpatient Vital Signs collected on the date of the Encounter. Date/Time Temperature Pulse Blood Respiratory SP02 Pain Height Weight Korey dy Source Pressure Rate Mass Index Nov 24 F 69 135/87 15 /min 97 % 0 333 lb 48 [place] 2021 08:06 /min mm[Hg] [facility] Immunizations: All administered on the encounter date This section contains immunizations associated to the Encounter. Immunization Series Date Issued Reaction Comments INFLUENZA, INJECTABLE, QUADRIVALENT, Nov 24, 2021 PRESERVATIVE FREE Social History: Smoking Status (Most current) and [...] Comment Facility Jun 14, 2021 08:15 AM [place]-TOBACCO DOESNT USE WI 30 MIN [facility] Tobacco Use History This section includes a history of the smoking, or tobacco- related health factors, that were collected on or before the date of the Encounter. The data comes from the [place] facility where the Encounter took place. Date/Time Smoking Status/Tobacco Use Comment Facil ity Jun 14, 2021 08:15 AM [place]-TOBACCO USE > 15 LESS THAN 30 [facility] YEARS Jun 14, 2021 08:15 AM VA-TOBACCO USE ADVICE [facility] Jun 14, 2021 08:15 AM VA-TOBACCO USE MEDICAL OFFICE ADMINISTRATOR NO [facility] Jun 14, 2021 08:15 AM [facility] Jun 14, 2021 08:15 AM VA-TOBACCO USER SOME DAYS [facility] Jan 28, 2018 12:26 PM VA-TOBACCO NEVER [facility]ED [facility] July 05, 2011 09:38 AM LIFETIME NON-TOBACCO USER [facility] July 03, 2011 06:04 PM LIFETIME NON-TOBACCO USER [facility] Nov 20, 2007 08:19 AM LIFETIME NON-TOBACCO USER [facility] Advance Directives: All historical and current [...] July 03, 2011 CLINICAL WARNING RACHAEL KING [facility] Encounter Notes: All associated encounter notes This section contains the clinical notes associated to the Encounter. Date/Time Encounter Note(s) Provider Source Nov 24, 2021 11:12 AM IMMUNIZATION NOTE: BROOKE PERES [facility] LOCAL TITLE: INFLUENZA VACCINATION D STANDARD TITLE: IMMUNIZATION NOTE DATE OF NOTE: NOV 24, 2021@11:12 ENTRY DATE: NOV 24, 2021@11:12:18 AUTHOR: SRIKANTH PERES EXP COSIGNER: URGENCY: STATUS: COMPLETED Influenza Immunization: The patient was given the influenza VIS which l ists the benefits and side effects of the vaccine and which reviews the ri sks of not receiving the flu vaccine. The VIS was reviewed with the patient and they were given an opportunity to ask questions. The patient was p rovided education on how to decrease the risk of influenza infection inc luding social distancing and use of good hand hygiene. The patient denied an y prior severe reaction to the flu vaccine or its components. The patient gave verbal consent to receive the vaccine. The seasonal influenza vaccine VIS given to the patient: VIS version date Sep. The patient received seasonal influenza vaccine today - Influenza, Quadrivalent preservative free (Afluria) 0.5 ml IM today in Left Deltoid. Warp Starter: Seqirus Lot # and Expiration Date: Lot: [id number], Exp: 0 08-17-2022 Administered by protocol/policy Complications: None /es/ BROOKE PERES LPN LICENSED PRACTICAL NURSE Signed: 11/24/2021 11:20 Nov 24, 2021 08:59 AM PHYSICAL MEDICINE REHAB NURSING NOTE: BROOKE PERES [facility] LOCAL TITLE: REHAB MEDICINE CLINIC NURSING NOTE D STANDARD TITLE: PHYSICAL MEDICINE REHAB NURSING NOTE DATE OF NOTE: NOV 24, 2021@08:59 ENTRY DATE: NOV 24, 2021@08:59:11 AUTHOR: SRIKANTH PERES EXP COSIGNER: URGENCY: STATUS: COMPLETED Type of visit: PM&R Appointment Check In: DR. MEADE Reason for Visit: CONSULT: [facility] Vital Signs: Blood Pressure: 135/87 (11/24/2021 08:06) Pulse: 69 (11/24/2021 08:06) Respiration: 15 (11/24/2021 08:06) Temperature: 97 F [36.1 C] (11/24/2021 08:06) Weight: 333 lb [151.05 kg] (11/24/2021 08:06) Height: 70 in [177.8 cm] (02/27/2018 10:02) BMI: 47.9 Pain: 0 (11/24/2021 08:06) Allergies: LISINOPRIL (Nov 28, 2007) Medications: Non-VA/Over the Counter/Herbal Medications: Patient unable to communicate/describe medicatio ns. Active Outpatient Medications and Supplies: Active Outpatient Medications (including Supplie s): Active Outpatient Medications Status 1) GABAPENTIN 100MG CAP TAKE TWO CAPSULES BY MARVIN TH THREE ACTIVE TIMES A DAY Active Non-VA Medications Status 1) Non-VA ACETAMINOPHEN [...] MOUTH EVERY D AY ACTIVE 10) Non-VA GABAPENTIN 100MG CAP 100MG MOUTH TWIC E A DAY ACTIVE 11) Non-VA METFORMIN HCL 1000MG TAB 1000MG MOUTH TWO ACTIVE TIMES A DAY 12) Non-VA METOPROLOL SUCCINATE 200MG SA TAB 100 MG MOUTH ACTIVE EVERY DAY 13) Non-VA NYSTATIN POWDER TOPICALLY TWICE A DAY ACTIVE 14) Non-VA SENNOSIDES 8.6MG TAB 8.6MG MOUTH EVER Y DAY ACTIVE 15) Non-VA VALSARTAN 80MG TAB 120MG MOUTH TWICE A DAY ACTIVE 16) Non-VA WARFARIN (COUMADIN) NA 1MG TAB 10MG M OUTH ACTIVE EVERY DAY 17 Total Medications Patient reports the following changes regarding the current pharmacy list of medications: [place] reports no changes to the above medic ation list. The above medication list confirmed with patient . A copy of the above medication list given to the MD for review and u pdate. Provider will give printed copy of medication list to patient with any changes documented on printed medication list. /zeb/ BROOKE PERES LPN LICENSED PRACTICAL NURSE Signed: 11/24/2021 09:00
== END 2021-11-27 15:12 | disposition home or self-care (01) ==
LOC: WOUND 15:11
PROVIDERS: Visit Provider Nurse Practitioner Family
DX: E11.622 Type 2 diabetes mellitus with other skin ulcer (principal); I87.313 Chronic venous hypertension (idiopathic) with ulcer of bilateral lower extremity; L97.912 Non-pressure chronic ulcer of unspecified part of right lower leg with fat layer exposed; L97.825 Non-pressure chronic ulcer of other part of left lower leg with muscle involvement without evidence of necrosis; I89.0 Lymphedema, not elsewhere classified; G62.9 Polyneuropathy, unspecified; Z79.84 Long term (current) use of oral hypoglycemic drugs
CPT/HCPCS: 11042; 11045

== ENCOUNTER 2021-12-04 15:15 | Outpatient (CLI) | payer MEDICAID, SELFPAY | END 2021-12-04 15:16 | disposition home or self-care (01) | LOC: WOUND 15:15 | PROVIDERS: Visit Provider Nurse Practitioner Family | DX: E11.622 Type 2 diabetes mellitus with other skin ulcer (principal); L97.912 Non-pressure chronic ulcer of unspecified part of right lower leg with fat layer exposed; I87.311 Chronic venous hypertension (idiopathic) with ulcer of right lower extremity; L97.825 Non-pressure chronic ulcer of other part of left lower leg with muscle involvement without evidence of necrosis; Z79.84 Long term (current) use of oral hypoglycemic drugs | CPT/HCPCS: 11042 ==

== ENCOUNTER 2021-12-18 15:12 | Outpatient (CLI) | payer MEDICAID, SELFPAY ==
--- OUTSIDE RECORDS SUMMARY | 2021-12-18 15:15 | XMS_ITS | Continuity of Care Document ---
:1955 Author Organization [facility] Care Team Providers Name Role Phone [facility] Unavailable Unavailable Problems Combined list of problems from Department of Defense and [facility] facilities. It does not include entries that were removed or entered in error. Problem Status Onset Problem Type Date of Comments Source Date Resolution AF-Atrial [facility] F[facility] ([facility] HC S [id number]) Anxiety [facility] [place] [facility] Asthma (SCT [place] [id number][place] HCS Benign essential [facility] H[facility] ([place]OMED [place] 4808051) Cardiomyopathy Active Condition [facility] HCS Depressive Disorder Active Condition [facility] NOS HCS Diabetes mellitus Active Condition [facility] (SNOMED CT HCS 93411427) Diabetic neuropathy Active Condition [facility] (SNOMED CT HCS 553648502) Dyslipidemia Active Condition [facility] H[facility] H/O: Stroke (SCT [place] 904593578[place] HCS Heart failure [facility] [place] [facility] Hernia of anterior Active Condition Sep 14 [facility] abdominal wall 2013 [facility] Entered By: ALDO LI Comment: Dx 04/03, Gen Surgical Eval 07/01 Hydrocele (SNOMED [place] 60341015) HCS Low back pain [facility] [place] (SNOMED CT HCS 158978071) Mental disorder [facility] Mixed anxiety and Active Condition [facility] depressive disorder HCS (SNOMED CT 666051381) Morbid obesity [facility] (SNOMED [facility] 838874829) Other Specified [facility] [place] Counseling [facility] (ICD-9-CM V65.49) Pes Planus, [facility] Acquired HCS 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[facility] depressive HCS episodes, moderate (SNOMED CT 712534815) Sleep Apnea [facility] HCS Diagnosis: Active Diagnosis [facility] ICD-10-CM R26.9 HCS Unspecified abnormalities of gait and mobilitywith Provider Comments: Unspecified abnormalities of gait and mobility Diagnosis: Active Diagnosis [place] ICD-10-CM E11.40 HCS Type 2 diabetes mellitus with diabetic neuropathy, unspwith Provider Comments: Diabetic neuropathy ([facility] [id number]) Diagnosis: Active Diagnosis [place] ICD-10-CM I63.9 HCS Cerebral infarction, unspecifiedwith Provider Comments: Cerebral infarction, unspecified Diagnosis: Active Diagnosis [place] ICD-10-CM I63.9 HCS Cerebral infarction, unspecifiedwith Provider Comments: Cerebral Infarction, unspecified Diagnosis: Active Diagnosis [place] ICD-10-CM Z71.3 HCS Dietary counseling and surveillancewith Provider Comments: Dietary counseling and surveillance Diagnosis: Active Diagnosis [place] ICD-10-CM R26.9 HCS Unspecified abnormalities of gait and mobilitywith Provider Comments: Unspecified Abnormalities of Gait and Mobility Diagnosis: Active Diagnosis [place] ICD-10-CM I10 HCS Essential (primary) hypertensionwith Provider Comments: Benign essential hypertension ([facility] 2141295) Medications Combined list of outpatient medications from [...] 2019 [place] TAB BY MOUTH [facility] EVERY 6 HOURS NEEDED ALBUTEROL INHALE INHALA ACTIVE BROWN,ABBY 06/16/ [place] INHL,ORAL BY TION AN 2020 [place] INHALATI [facility] ON PRN AMLODIPINE TAKE ORALLY ACTIVE BROWN,ABBY 12/09/ [place] BESYLATE ONE-HALF AN 2019 [place] 10MG TAB TABLET [facility] BY MOUTH EVERY DAY ASPIRIN TAKE ONE ORALLY ACTIVE BROWN,ABBY 12/09/ [place] 81MG TAB,EC TABLET AN 2019 [place] BY [facility]OUTH [facility] EVERY DAY ATORVASTATI TAKE ONE ORALLY ACTIVE BROWN,ABBY 12/09 / [place] 80MG TABLET AN 2019 [place] TAB BY MOUTH [facility] AT BEDTIME BACITRACIN APPLY TO TOPICA ACTIVE BROWN,ABBY 06/16/ [place] 500UNT/GM AFFECTED LLY AN 2020 [place] OINT,TOP AREA [facility] TOPICALL Y PRN BACLOFEN TAKE ORALLY ACTIVE 11/25/2022 [id number] [place], 11/29/ [place] 10MG TAB ONE-HALF 2 ARIA M 2021 [place] A TABLET HCS BY MOUTH TWICE A DAY AND TAKE ONE TABLET AT BEDTIME FOR R SIDED SPASTICI TY DOCUSATE NA TAKE ONE ORALLY ACTIVE BROWN,ABBY [...] MOUTH [facility] EVERY DAY GABAPENTIN TAKE TWO ORALLY ACTIVE 09/30/2022 [id number] ISAIAH YLE,ABBY 10/03/ [place] 100MG CAP CAPSULES 2 AN 2021 [place] BY [facility]OUTH [facility] THREE TIMES A DAY GABAPENTIN TAKE 1 ORALLY ACTIVE BROWN,ABBY 06/27/ [place] 100MG CAP CAPSULE AN 2021 [place] BY [facility]OUTH [facility] TWICE A DAY LIDOCAINE APPLY 1 TOPICA ACTIVE 11/25/2022 [id number] [place] TT, 11/29/ [place] 5% PATCH PATCH LLY 2 ARIA M 2021 [place] [facility] Y 7 PM-7AM FOR PAIN. WEAR FOR ONLY 12 HOURS THEN REMOVE FOR 12 HOURS. METFORMIN TAKE ONE ORALLY ACTIVE BROWN,ABBY 06/16/ [place] HCL 1000MG TABLET AN 2020 [place] [facility] TAB BY MOUTH [facility] TWO TIMES A DAY METOPROLOL TAKE ORALLY ACTIVE BROWN,ABBY 12/09/ [place] SUCCINATE ONE-HALF AN 2019 [place] [facility] 200MG TABLET [facility] TAB,SA BY MOUTH EVERY DAY NYSTATIN USE TOPICA ACTIVE BROWN,ABBY 12/09/ [place] POWDER TOPICALL LLY AN 2019 [place] [facility] Y TWICE [facility] A DAY SENNOSIDES TAKE ONE ORALLY [...] [place] to adverse to adverse 8 IS [facility] reactions reactions to drug to drug (finding) (finding) LISINOPRIL Propensity Cough Propensity active [facility] to adverse to adverse 2 [facility] reactions reactions to drug to drug (finding) (finding) Immunizations Combined list of available immunizations from the Department of Defense and Veterans Affairs facilities. 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 INFLUENZA, complet [place] INJECTABLE, 2021 ed [place] QUADRIVALENT, HCS PRESERVATIVE FREE INFLUENZA, complet [place] UNSPECIFIED 2020 ed [place] [facility] FORMULATION HC S COVID-19 2 complet [place] LGREE (MODERNA), 2020 ed NS MRNA, LNP-S, P HARMAC PF, 100 IES MCG/0.5 ML DOSE COVID-19 1 complet [place] LGREE (MODERNA), 2020 ed NS MRNA, LNP-S, P HARMAC PF, 100 IES MCG/0.5 ML DOSE ZOSTER 2 complet [place] RECOMBINANT 2019 ed [place] HCS INFLUENZA, complet [place] SEASONAL, 2019 ed [place] INJECTABLE, HC S PRESERVATIVE FREE ZOSTER 1 complet [place] RECOMBINANT 2019 ed OL [place] [facility] INFLUENZA, complet [place] SE[place]ON[place], [address] INJECTABLE, ME TRO PRESERVATIVE V A FREE CLINIC INFLUENZA, complet [place] SE[facility]ON[facility], [address] INJECTABLE, ME TRO PRESERVATIVE V A FREE CLINIC INFLUENZA, complet [place] SE[facility]ON[facility], [address] INJECTABLE, ME TRO PRESERVATIVE V A FREE CLINIC INFLUENZA, complet [place] UNSPECIFIED [address] FORMULATION [place] CLINIC INFLUENZA, complet [place] UNSPECIFIED [address] FORMULATION [place] [facility] CLINIC TDAP complet [id number] [place] 2012 ed 05/06/15 [facility] [employer] [facility] [place] [facility] INFLUENZA, complet [place] UNSPECIFIED [address] FORMULATION [place] [facility] INFLUENZA, complet [place] UNSPECIFIED 2009 ed [facility] [place] [facility] FORMULATION HC S PNEUMOCOCCAL, complet [employer] [place] UNSPECIFIED 2007 ed lot# [place] [facility] FORMULATION [id number] HC S exp. [id number] INFLUENZA complet [place] (HISTORICAL) 2007 ed [place] [facility] INFLUENZA complet [place] (HISTORICAL) 2007 ed [place] H[place] TD(ADULT) complet [place] UNSPECIFIED 2007 [...] GASTROINT /2020 No comment e ntered. IS [place] HCS FIT X1 TINAL.LOWER Ordering Pr ovider: MONI BROWN SCREEN [PRESENCE] Report Relea sed Date/Time: Jun 16, 2020 09:30 AM IN STOOL BY Reporting L ab: [facility] IMMUNOASSAY ONE S [facility] [id number] --1ST Performing Lab: [facility] SPECIMEN ONE [facility] D [facility] [address] DRUG BARBITURATE Negative 05/04 Specimen Ty pe: URINE [place] SCREEN S Comment: PRESUM PTIVE POSITIVE BY SCREEN, RESULTS NOT CONFIRMED IS [facility] PANEL,U [PRESENCE] Ordering Pro vider: MONI BROWN RINE IN URINE BY Report Rele ased Date/Time: Feb 27, 2018 10:18 AM SCREEN Reporting Lab: [facility] METHOD [address] [facility] [address] Performing Lab: [facility] [address] [facility] [place] [address] DRUG AMPHETAMINE Negative 05/04 Specimen Ty pe: URINE [place] SCREEN S Comment: PRESUM PTIVE POSITIVE BY SCREEN, RESULTS NOT CONFIRMED IS [place] HCS PANEL,U [PRESENCE] Ordering Pro vider: MONI BROWN IN URINE Report Release d Date/Time: Feb 27, 2018 10:18 AM Reporting Lab: [facility] [address] [facility] [place] [address] Performing Lab: [facility] [address] [facility] [place] [address] DRUG COCAINE Negative 05/04 Specimen Type: URINE [place] SCREEN [PRESENCE] /2020 Comment: PRE SUMPTIVE POSITIVE BY SCREEN, RESULTS NOT CONFIRMED IS [place] HCS PANEL,U IN URINE Ordering Provi isidra: MONI BROWN Report Released Date/Time: Feb 27, 2018 10:18 AM Reporting Lab: [facility] [address] [facility] [place] [address] Performing Lab: [facility] [address] [facility] [place] [address] DRUG BENZODIAZEP Negative 05/04 Specimen Ty pe: URINE [place] SCREEN JOHANN Comment: PRESUM PTIVE POSITIVE BY SCREEN, RESULTS NOT CONFIRMED IS [place] HCS PANEL,U [PRESENCE] Ordering Pro vider: MONI BROWN IN URINE BY Report Rele ased Date/Time: Feb 27, 2018 10:18 AM SCREEN Reporting Lab: [facility] METHOD [address] [facility] [place] [address] Performing Lab: [facility] [address] [facility] [place] [address] DRUG CANNABINOID Negative 05/04 Specimen Ty pe: URINE [place] SCREEN S Comment: PRESUM PTIVE POSITIVE BY SCREEN, RESULTS NOT CONFIRMED IS [place] HCS PANEL,U [PRESENCE] Ordering Pro vider: MONI BROWN IN URINE BY Report Rele ased Date/Time: Feb 27, 2018 10:18 AM SCREEN Reporting Lab: [facility] METHOD [place] [id number] Performing Lab: [facility] [address] [facility] [place] [address] DRUG METHADONE Negative 05/04 Specimen Type : URINE [place] SCREEN [PRESENCE] /2020 Comment: PRE SUMPTIVE POSITIVE BY SCREEN, RESULTS NOT CONFIRMED IS [place] HCS PANEL,U IN URINE Ordering Provi isidra: MONI BROWN Report Released Date/Time: Feb 27, 2018 10:18 AM Reporting Lab: [facility] [place] [phone] Performing Lab: [facility] [place] [address] DRUG OPIATES POSITIVE 05/04 H Specimen Type: URINE [place] SCREEN [PRESENCE] /2020 Comment: PRE SUMPTIVE POSITIVE BY SCREEN, RESULTS NOT CONFIRMED IS [place] HCS PANEL,U IN URINE BY Ordering Pr ovider: MONI BROWN SCREEN Report Released Date/Time: Feb 27, 2018 10:18 AM METHOD Reporting Lab: [facility] [place] [id number] Performing Lab: [facility] [place] [phone] DRUG PHENCYCLIDI Negative 05/04 Specimen Ty pe: URINE [place] SCREEN NE /2020 Comment: PRESUM PTIVE POSITIVE BY SCREEN, RESULTS NOT CONFIRMED IS [place] HCS PANEL,U [PRESENCE] Ordering Pro vider: MONI BROWN IN URINE Report Release d Date/Time: Feb 27, 2018 10:18 AM Reporting Lab: [facility] [place] [phone] Performing Lab: [facility] [place] [address] DRUG ETHANOL Negative 05/04 Specimen Type: URINE [place] SCREEN [MASS/VOLUM /2020 Comment: [place] ESUMPTIVE POSITIVE BY SCREEN, RESULTS NOT CONFIRMED IS [facility] PANEL,U E] IN URINE Ordering Pr ovider: MONI BROWN Report Released Date/Time: Feb 27, 2018 10:18 AM Reporting Lab: [facility] [place] [id number] Performing Lab: [facility] [address] [facility] [place] [address] DRUG CREATININE >300.0 20 05/04 Specimen Type : URINE [place] SCREEN [MASS/VOLUM /2020 Comment: [place] ESUMPTIVE POSITIVE BY SCREEN, RESULTS NOT CONFIRMED IS [place] HCS PANEL,U E] IN URINE Ordering Pr ovider: MONI BROWN Report Released Date/Time: Feb 27, 2018 10:18 AM Reporting Lab: [facility] [address] [place] [address] Performing Lab: [facility] [address] [place] [address] DRUG OXYCODONE Negative 05/04 Specimen Type : URINE [place] SCREEN [PRESENCE] /2020 Comment: PRE SUMPTIVE POSITIVE BY SCREEN, RESULTS NOT CONFIRMED IS [facility] PANEL,U IN URINE BY Ordering Pr ovider: MONI BROWN SCREEN Report Released Date/Time: Feb 27, 2018 10:18 AM METHOD Reporting Lab: [facility] [address] [place] [address] Performing Lab: [facility] [address] [place] [address] DRUG BUPRENORPHI Negative 05/04 Specimen Ty pe: URINE [place] SCREEN NE+NORBUPRE /2020 Comment: [place] ESUMPTIVE POSITIVE BY SCREEN, RESULTS NOT CONFIRMED IS [facility] PANEL,U NORPHINE Ordering Provi isidra: MONI BROWN [PRESENCE] Report Relea sed Date/Time: Feb 27, 2018 10:18 AM IN URINE Reporting Lab: [facility] [address] [place] [address] Performing Lab: [facility] [place] [phone] DRUG TRAMADOL Negative 05/04 Specimen Type: URINE [place] SCREEN CUTOFF /2020 Comment: PRESUM PTIVE POSITIVE BY SCREEN, RESULTS NOT CONFIRMED IS [facility] PANEL,U [MASS/VOLUM Ordering Pr ovider: MONI BROWN E] IN URINE Report Rele ased Date/Time: Feb 27, 2018 10:18 AM FOR SCREEN Reporting La b: [facility] METHOD [place] [phone] Performing Lab: [facility] [place] [phone] Vital Signs Combined list of inpatient and outpatient Vital Signs from Department of Defense and Veterans Affairs, ranging from 12 months to all on record, depending upon the facility. Vital Sign Value Date Comments Source SYSTOLIC BLOOD PRESSURE 135 11/24/2021 08:06:12 [facility] DIASTOLIC BLOOD PRESSURE 87 11/24/2021 08:06:12 [facility] PULSE OXIMETRY 97% 11/24/2021 08:06:12 [facility] DE SANTIAG[facility] WEIGHT 333 11/24/2021 08:06:12 [place] [facility] BMI 48kg/m2 11/24/2021 08:06:12 [place] [facility] PAIN 0 11/24/2021 08:06:12 [place] [facility] TEMPERATURE 97 11/24/2021 08:06:12 [place] [facility] PULSE 69 11/24/2021 08:06:12 [place] [facility] RESPIRATION 15 11/24/2021 08:06:12 [place] [facility] SYSTOLIC BLOOD PRESSURE 153 06/14/2021 08:03:02 [place] [facility] DIASTOLIC BLOOD PRESSURE 99 06/14/2021 08:03:02 [place] [facility] PULSE OXIMETRY 99% 06/14/2021 08:03:02 [place] [facility] WEIGHT 334 06/14/2021 08:03:02 [place] [facility] [...] Location Location Encounter Encounter Reason Attending ADM MO Stat us Disposition Source Details Type Number For Provider Date Date Visit Outpatient 53669-706/30 [place] [facility] [id number] [facility] 96623-306/30 [place] En[place] [id number] [facility] 43804-361 10/06 [place] En[place] [id number] [facility] 89468-2 SHIRA PAUL 10/13 [place] Encounter [id number] [facility] 88086-3.61 11/18 [place] En[place] [id number] [facility] 74343-961 04/11 [place] En[place] [id number] /2021 [facility] Out[facility] 30202-2.61 05/03 [place] En[place] [id number] /2021 [facility] Outpatient 02614-961 05/18 [place] Encounter [id number] /2021 [facility] OFFICE O/P 75176-3 Diagnos BROWNDOMINIK 06/14 [place] EST [place] [id number] is: N /2021 [place] 40-54 [place] ICD-10- [facility] CM I10 Essenti al (primar y) hyperte nsion<b r/>with Provide r Comment s: Benign essenti al hyperte nsion (SCT 2460048 ) Outpatient 42632-661 06/15 [place] Encounter [id number] /2021 [facility] Outpatient 70775-061 06/17 [place] Encounter [id number] /2021 [facility] Outpatient Diagnos TATUM SALEHI 06/20 [place] Encounter [id number] is: [place] M /2021 [facility] ICD-10- [facility] CM R26.9 Unspeci fied abnorma lities of gait and mobilit y
w ith Provide r Comment s: Unspeci fied Abnorma lities of Gait and Mobilit y Outpatient [id number] 07/04 [place] Encounter [id number] /2021 [facility] MEDICAL 12913-1 Diagnos MELISA,JENY 07/12 [place] NUTRITION [id number] is: NI L [facility] INDIV IN ICD-10- [facility] CM Z71.3 Dietary funeral pre arrangement counselor ing and surveil winnie<b r/>with Provide r Comment s: Dietary funeral pre arrangement counselor ing and surveil winnie THERAPEUTI 47495-2 Diagnos DELBERT GERARDO 07/12 [place] C [id number] is: NNER W [facility] ACTIVITIES ICD-10- [facility] CM I63.9 Cerebra l infarct ion, unspeci fied
with Provide r Comment s: Cerebra l Infarct ion, unspeci fied NEUROMUSCU 29616-8.61 Diagnos BAM SUAREZ 08/11 [place] [id number] is: /2021 [place] REEDUCAO ICD-10- HCS N CM I63.9 Cerebra l infarct ion, unspeci fied
with Provide r Comment s: Cerebra l infarct ion, unspeci fied Outpatient [id number] 09/07 [place] Encounter [id number] /2021 [place] [facility] Outpatient 80936-8.61 09/19 [place] Encounter [id number] /2021 [place] [facility] Outpatient 57472-2.61 09/22 [place] Encounter [id number] /2021 [place] [facility] Outpatient 10847-7.61 09/27 [place] Encounter [id number] /2021 [place] [facility] Outpatient 66168-7.61 11/02 [place] Encounter [id number] /2021 [facility] HCS NEUROMUSCU 11714-8.61 Diagnos TRAN SUAREZIE 11/07 [place] [id number] is: /2021 [place] ICD-10- HCS N CM I63.9 Cerebra l infarct ion, unspeci fied
with Provide r Comment s: Cerebra l infarct ion, unspeci fied Outpatient [id number] 11/16 [place] Encounter [id number] /2021 [facility] OFFICE 85515-8.61 Diagnos Rosa MEADE 11/24 [place] CONSULTATI [id number] is: ZAY M /2021 [place] ICD-10- HCS CM E11.40 Type 2 diabete s mellitu s with diabeti c neuropa thy, unsp
with Provide r Comment s: Diabeti c neuropa thy ([facility] [id number]) WHEELCHAIR 71607-2.61 Diagnos PENELOPE CHANEY 11/24 [place] MNGMENT [id number] is: CRISTINA RAMOS /2021 [place] [facility] ICD-10- HCS CM R26.9 Unspeci fied abnorma lities of gait and mobilit y
w ith Provide r Comment s: Unspeci fied abnorma lities of gait and mobilit y Outpatient 71941-7.61 11/29 [place] Encounter [id number] [facility] Social History Combined list of available smoking, tobacco, and other social history [facility]. Social History Type Response Date Comment Source Tobacco smoking VA-TOBACCO USER SOME 06/14/2021 [facility] status NHIS DAYS History of tobacco VA-TOBACCO DOESNT USE 06/14/2021 [facility] use WI 30 MIN WAKEUP History of tobacco VA-TOBACCO NEVER USED 01/28/2018 [facility] use History of tobacco FORMER TOBACCO USER 10/25/2016 [facility] History of tobacco LIFETIME NON-TOBACCO 10/12/2015 N [facility] use [facility] History of tobacco LIFETIME NON-TOBACCO 09/22/2014 N [facility] use [facility]ER [facility] History of tobacco FORMER TOBACCO USER 07/07/2013 [facility] use 7Y OR [facility] History of tobacco LIFETIME NON-TOBACCO 07/05/2011 [facility] use USER History of tobacco LIFETIME NON-TOBACCO 07/03/2011 [facility] use USER History of tobacco LIFETIME NON-TOBACCO 11/20/2007 [facility] use USER Plan of Care List of future care activities from [facility] facilities. Additional future care activities may be listed in the Assessment and Plan section. Date/Time Care Activity Care Activity Detail Facility 03/16/2022 AMBULATORY - REHAB MEDICINE AMBULATORY - REHAB [facility] MEDICINE Advance Directives List of completed, amended, or rescinded Advance Directives on record at [facility] facilities. An actual copy of the Directive is not included. Date Advance Directive Provider Source 07/03/2011 CLINICAL WARNING RACHAEL KING [facility]
--- OUTSIDE RECORDS SUMMARY | 2021-12-18 15:16 | XMS_ITS | Encounter Summary ---
:1955 Author Organization [facility] Address [address] [place] [address] Support Name Relationship Address Phone JULIET MOODY Unavailable [address] [place] [address] SHENA PETERSEN Unavailable [address] [place] [address] SHENA PETERSEN Unavailable [address] [place] [address] Insurance Providers: All historical and current Section [...] MEDICARE MEDICARE PART June 18, PART A [id number] Smiley MOODY (WNR) (M) A 2009 [id number] [phone] [facility] Selected Encounter This section includes the information on record at [place] for the Encounter. 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 Date/Time Primary/Secondary Diagnosis Name Provider Source Diagnosis Nov 27, 2021 PRIMARY Type 2 diabetes VIRAJ MEADE [facility] 09:46 PM mellitus with [facility] diabetic neuropathy, unsp Nov 27, 2021 SECONDARY Aphasia following VIRAJ MEADE [facility] 09:46 PM cerebral [facility] infarction Nov 27, 2021 SECONDARY Encounter for SADI PERES [facility] 09:46 PM immunization [facility] Nov 27, 2021 SECONDARY Lymphedema, not [facility]IRAJ MEADE [facility] 09:46 PM elsewhere [facility] classified Nov 27, 2021 SECONDARY Morbid (severe) VIRAJ MEADE [facility] 09:46 PM obesity due to [facility] excess calories Nov 27, 2021 SECONDARY Spastic hemiplegia VIRAJ MEADE [facility] 09:46 PM affecting right [facility] dominant side Nov 27, 2021 SECONDARY Type 2 diabetes VIRAJ MEADE [facility] 09:46 PM mellitus with [facility] unspecified complications Plan of Treatment: Future Appointments (+ 6 months) and Future Tests (+/- 45 days) The Plan of Treatment section includes future care activities for the patient from all [facility]. This section includes future appointments and future orders which are active, pending orscheduled.Future Appointments This section includes appointments that were scheduled to occur 6 months from the date of the Encounter, up to a maximum of 20 appointments. The data comes from all [place] treatment facilities. Appointment Date/Time Appointment Type Appointment Facili ty Name Mar 16, 2022 08:00 AM AMBULATORY - REHAB MEDICINE [facility] Vital Signs: All taken on the encounter date This section contains inpatient and outpatient Vital Signs collected on the date of the Encounter. Date/Time Temperature Pulse Blood Respiratory SP02 Pain Height Weight Korey dy Source Pressure Rate Mass Index Nov 24 F 69 135/87 15 /min 97 % 0 333 lb 48 [facility] 2021 08:06 /min mm[Hg] [facility] Immunizations: All administered on the encounter date This section contains immunizations associated to the Encounter. Immunization Series Date Issued Reaction Comments INFLUENZA, INJECTABLE, QUADRIVALENT, Nov 24, 2021 PRESERVATIVE FREE Social History: Smoking Status (Most current) and Tobacco Use (All prior to encounter date) This section includes the most current, and the historical, smoking and tobacco-related health factors from the [place] facility where the Encounter took place.Current Smoking Status This section includes the most current smoking, or tobacco-related health factor, from the [place] facility where the Encounter took place. Date/Time Current Smoking Status Comment Facility Jun 14, 2021 08:15 AM VA-TOBACCO USER SOME DAYS [facility] Tobacco Use History This section includes a history of the smoking, or tobacco- related health factors, that were collected on or before the date of the Encounter. The data comes from the [place] facility where the Encounter took place. 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 [facility] Jun 14, 2021 08:15 AM VA-TOBACCO USE MED NO [facility] Jun 14, 2021 08:15 AM VA-TOBACCO USER SOME DAYS [facility] Jan 28, 2018 12:26 PM [facility] July 05, 2011 09:38 AM LIFETIME NON-TOBACCO USER [facility] July 03, 2011 06:04 PM LIFETIME NON-TOBACCO USER [facility] Nov 20, 2007 08:19 AM LIFETIME NON-TOBACCO USER [facility] Advance Directives: All historical and current Section Date Range: From patient's date of to the date document was created. This section includes ALL of a patient's completed or amended [place] Advance and Rescinded Directives. The entries below indicate that a directive exists for the patient, but an actual copy is not included with this document. The data comes from all [place] facilities. Date Advance Directives Provider Source July 03, 2011 CLINICAL WARNING RACHAEL KING [facility] Encounter Notes: All associated encounter notes This section contains the clinical notes associated to the Encounter. Date/Time Encounter Note(s) Provider Source Nov 24, 2021 09:46 MEDICATION MGT NOTE: ARIA MEADE [facility] PM LOCAL TITLE: MEDICATION RECONCILIATION NOTE STANDARD TITLE: MEDICATION MGT NOTE DATE OF NOTE: NOV 24, 2021@21:46 ENTRY DATE: NOV 27, 2021@21:47:06 AUTHOR: ARIA MEADE EXP COSIGNER: URGENCY: STATUS: COMPLETED MEDICATION RECONCILIATION Active Outpatient Medications (excluding Supplie s): Outpatient Medications Status 1) BACLOFEN 10MG TAB TAKE ONE-HALF TABLET BY MARVIN TH TWICE PENDING A DAY AND TAKE ONE TABLET AT BEDTIME 2) GABAPENTIN 100MG CAP TAKE TWO CAPSULES BY MARVIN TH THREE ACTIVE TIMES A DAY 3) LIDOCAINE 5% PATCH APPLY 1 PATCH TOPICALLY 7 PM-7AM PENDING FOR PAIN. WEAR FOR ONLY 12 HOURS THEN REMOVE FO R 12 HOURS. Non-VA Medications Status 1) Non-VA ACETAMINOPHEN 325MG [...] TAB 10MG M OUTH ACTIVE EVERY DAY 19 Total Medications Intentional changes at this time: Baclofen 5 mg bid and 10 mg qhs for spasticity Lidocaine patch 5% to R neck 7pm-7am for neuropa thic pain /es/ ARIA MEADE M.D. STAFF PHYSICIAN Signed: 11/27/2021 21:53 Nov 24, 2021 05:18 PHYSICAL MEDICINE REHAB CONSULT: [facility]OL[facility] MEADE [facility] PM LOCAL TITLE: REHAB MEDICINE CONSULT STANDARD TITLE: PHYSICAL MEDICINE REHAB CONSULT DATE OF NOTE: NOV 24, 2021@17:18 ENTRY DATE: NOV 27, 2021@17:18:49 AUTHOR: ARIA MEADE EXP COSIGNER: URGENCY: STATUS: COMPLETED REHAB MEDICINE CONSULT Has ADDENDA Rehab Medicine Consult: Name: José Antonio Moody Last 4: 715 Date of CVA: ( list others if multiple): 019 Functional Deficits from CVA: R hemiparesis, Imp aired ADLs, mobility, cervicalgia, aphasia CVA Etiology work up: Admitted to [facility] and transferred to where found to have had a L MCA distribution infarct, A fib w/ RVR, hyperglycemia, and R pneumonia. [facility] 4J was consulted but admissi on deferred due to medical acuity at the time and a subacute course of rehab was pursued at [facility]. He was referred [facility] OT for postacute RUE paresis interventio ns. See OT note. Currently at SNF for [facility]. Attended to appt by dtr who corroborates history. Pends follow on appt in [facility]. Has marked B LE lymphedema despite Unna boot wra ps and sequential pressure wrapping. Not on any current anti-spasticity medications. Referred via PCP from Outpatient OT re RUE spastic tone and medication /injection options. Current Function: ADLs ( toileting, dressing, batheing, eating, g rooming) Mod A IADLs ( meds, finances, driving, laundry, phone use, cooking) Dependent Balance/Falls Denies falls Mobility/transfers/Gait aides - using Rolling w alker Sensory deficit/neglect no Language - moderate exprssive aphasic Swallow - intact to regular diet/liquids Cognition - memory/attention/concentration/exec utive function - Mild impairment/chronic Level of supervision needed / Current Sx: Pain mild-moderate in B legs and R arm Vision corrected w/ glasses Sleep adequate Spasticity RUE > RLE Bowel/Bladder Dependent Mood stable/euthymic Weight: Stable 333 - down from max of 400 Breathing/SOB/GRAF/CP Seizures? No Post Inpt complications: Aspiration pneumonia - initial Falls +/- injury denies Other injury UTI's No Rehospitalization Not recently Current/recent therapies: Outpatient OT + pends Mobility eval PMH: 1. Benign essential hypertension (SNOMED CT 120 1005) 2. Dyslipidemia 3. Diabetes mellitus (SNOMED CT 18636991) 4. Morbid obesity (SNOMED CT 774064807) 5. Depressive Disorder NOS 6. Diabetic neuropathy (SNOMED CT 015255811) 7. Sleep Apnea 8. Other Specified Counseling 9. Pes Planus, Acquired 10. Low back pain (SNOMED CT 060284388) 11. Recurrent major depressive episodes, moderat e (SNOMED CT 754922414) 12. Mixed anxiety and depressive disorder (SNOME D CT 555175350) 13. Hydrocele (SNOMED CT 40715917) 14. Hernia of anterior abdominal wall - Dx 04/03, Gen Surgical Eval 07/01 15. Anxiety 16. Mental disorder 17. Asthma (RUST [id number]) 18. Cardiomyopathy 19. AF-Atrial Fibrillation (RUST [id number]) 20. Heart failure 21. H/O: Stroke (RUST [id number]) SocHx: but residing at [facility] Accessible but wishes to engage in more communit y activities No tobacco, ETOH, or illicits Medically disabled Support services: RN, ANGEL Active Medications: Medications: Active Outpatient Medications (incl uding Supplies): Active Outpatient Medications Status 1) GABAPENTIN 100MG CAP TAKE TWO CAPSULES BY MARVIN TH THREE ACTIVE TIMES A DAY Pending Outpatient Medications Status 1) BACLOFEN 10MG TAB TAKE ONE-HALF TABLET BY MARVIN TH TWICE PENDING A DAY AND TAKE ONE TABLET AT BEDTIME 2) LIDOCAINE 5% PATCH APPLY 1 PATCH TOPICALLY 7 PM-7AM PENDING FOR PAIN. WEAR FOR ONLY 12 HOURS THEN REMOVE FO R 12 HOURS. Active Non-VA Medications Status 1) Non-VA ACETAMINOPHEN [...] TAB 10MG M OUTH ACTIVE EVERY DAY 19 Total Medications Allergies: Lisinopril Physical exam: VS: Blood Pressure: 135/87 (11/24/2021 08:06) Pulse: 69 (11/24/2021 08:06) Respiration: 15 (11/24/2021 08:06) Temperature: 97 F [36.1 C] (11/24/2021 08:06) Weight: 333 lb [151.05 kg] (11/24/2021 08:06) Height: 70 in [177.8 cm] (02/27/2018 10:02) BMI: 47.9 Pain: 0 (11/24/2021 08:06) Gen'l: WDWN obese male in manual w/c HEENT: NCAT, bearded, tender R periauricular to R mandible and R neck from mastoid process. No lymphanopathy or masses appreciated Ext: No clubbing, cyanosis, 2-3+ edema B feet to knees 2+ edema R hand Skin: B legs with scabs around the knees and ban dages w/ strike through serous drainage Neuro: CN II-XII grossly intact Cognition ( LOC,Orientation intact, Speech mild ly aphasic and dysarthric, comprehension intact, Fund of Knowle dges and Insight limited MMT: 5/5 in LUE and LLE, 4/5 RLE, 1/5 RUE dista lly, 1-2+ proximal w/ mass synergy of RUE attempts at resin mixer 3+ mod Mahin at R FF, Thumb flexor, WF 2+ at R BC,TC, and deltoids Mood: Euthymic w/ full range affect DTR's: 3+ R BC, TC, 2+ R KJ, Absent R AJ No scot nus Tone/spasticity: + Barrios's R Sens: decreased to LT RUE and BLE Stance - wide based. Slow but steady w/ A/P: 65 yo R-> LHD male s/p L MCA CVA on 019 with residual functional deficits, including RUE > RLE spastic hemiparesis, expressive aphasic, impaired ADLs and mobility. R V2 and V3 dysesthesia - ? secondary to CVA. Ear w/io visible lesion, cerumen cleared. No inflammation. TMJ not clearly involv ed by exam/history. CVA etiology and w/u - labs, imaging, meds revie wed as above. Consider Therapy evals or ongoing Rehab: OT and OT Mobility Appropriate Support services: Consider spasticity management: - Will trial baclofen at 5 mg bid and 10 mg qhs - hold for sedation - F/u eval in 2 months to re -eval tone - possibly target R BC, FDS, FDP, and FPL +/- FCR and FCU muscles for Botox injections. -Continue splinting and tone interventions w/ OT . Ongoing lymphedema management Optimize glyemic control. RTC in 3 months - dtr to accompany if possible. Everett and daughter concur w/ above plan of car e. /zeb/ ARIA MEADE M.D. STAFF PHYSICIAN Signed: 11/27/2021 21:46 11/27/2021 ADDENDUM STATUS: COMPLETED Trial of lidocaine patch 5% to R side of neck pr n neuropathic pain. /zeb/ ARIA MEADE M.D. STAFF PHYSICIAN Signed: 11/27/2021 21:54 Nov 24, 2021 11:12 IMMUNIZATION NOTE: ROHAN PERES [facility] TITLE: INFLUENZA VACCINATION [facility] STANDARD TITLE: IMMUNIZATION NOTE DATE OF NOTE: [...] 0.5 ml IM today in Left Deltoid. 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
--- OUTSIDE RECORDS SUMMARY | 2021-12-18 15:17 | XMS_ITS | Encounter Summary ---
:1955 Author Organization [facility] Address [address] [place] [address] Support Name Relationship Address Phone JULIET MOODY Unavailable [address] [place] [facility] [place] [address] NICOLASHENA Unavailable [address] [place] [address] SHENA PETERSEN Unavailable [address] [place] [address] Insurance Providers: All historical and current Section [...] MEDICARE MEDICARE PART June 18, PART A [id number] Smiley MOODY (WNR) (M A 2009 16A [phone] [facility] Selected Encounter This section includes the [...] Nov 24, 2021 PRIMARY Unspecified HORTENSIA CHANEY [facility] 12:32 PM abnormalities of [facility] gait and mobility Plan of Treatment: Future Appointments (+ 6 months) and Future Tests (+/- 45 days) The Plan of Treatment section includes [facility] care [facility] the [facility] [place] [facility] This section includes future appointments and [...] 2022 08:00 AM AMBULATORY - REHAB MEDICINE [facility] Vital Signs: All taken on the encounter date This section contains inpatient and outpatient Vital Signs collected on the date of the Encounter. Date/Time Temperature Pulse Blood Respiratory SP02 Pain Height Weight Korey dy Source Pressure Rate Mass Index Nov 24 F 69 135/87 15 /min 97 % 0 333 lb 48 [place] 2021 08:06 /min mm[Hg] [facility] Social History: Smoking Status (Most [...] 08:15 AM VA-TOBACCO USE ADVICE [place] [facility] Jun 14, 2021 08:15 AM VA-TOBACCO USE DIRECTOR [facility] Jun 14, 2021 08:15 AM VA-TOBACCO USE MED NO [place] [facility] Jun 14, 2021 08:15 AM VA-TOBACCO USER SOME DAYS [facility] Jan 28, 2018 12:26 PM VA-TOBACCO NEVER USED [place] [facility] July 05, 2011 09:38 AM LIFETIME [...] Encounter Note(s) Provider Source Nov 24, 2021 09:35 OCCUPATIONAL THERAPY CONSULT: HORTENSIA CHANEY [facility] LOCAL TITLE: OCCUPATIONAL THERAPY CONSULT STANDARD TITLE: OCCUPATIONAL THERAPY CONSULT DATE OF NOTE: NOV 24, 2021@09:35 ENTRY DATE: NOV 24, 2021@09:35:13 AUTHOR: HORTENSIA CHANEY EXP COSIGNER: URGENCY: STATUS: COMPLETED Occupational Therapy Power Mobility Evaluation Treatment Diagnosis: Unspecified Abnormalities of Gait and Mobility(ICD-10-CM R26.9) Referring Provider: VICKY SALEH Date of Initial: Oct 19, 2021 Precautions: falls Pt seen as an outpatient on 11/24/2021 for: - OT evaluation 40 minutes (1 Unit) - wheelchair mgmt training 39 mins (3 Units) Vet assessed for fit, training, and recommendati on of power mobility device. PMH significant for: DM2 HTN HLD drug use (methamphetamine) CHF/ cardiomyopathy, EF 35-40% on ECHO 05/26/18 ANIBAL Asthma Depression Morbid obesity Back pain Neuropathy Subjective: Pt is a 65 year old male approved by [employer] for power mobility due to CVA with residual right hemiparesis, CHF, morbid obesity, and DM with polyneuropathy affecting BLE. Echo from 2019 silvestre wed EF of 35-40% and global cardiomyopathy. PFTs from 2019 showed ob struction with FEV1 of 2.82. Currently using a MWC. Pt presents to session in a courtesy mwc accompa nied by his DIL. Pt will use power mobility i n his home (SNF) and to access community and medical appts. Chief Complaint: He would like to be independent with mobility. He indicates that he has trialed power mobility when he had r ehab at [facility] Social History: ENVIRONMENTAL ASSESSMENT: Patient lives in LATA wing of a facility that has SNF, memory care etc. it has an accessible entry. All 's needs are met on the main level. Floors - Evert is carpet/linoleum Doors: 36 wide Bathroom: roll in shower Current Equipment: Custom mwc (in disrep air and is using a borrowed one), lift chair, shower chair, hospital bed with railings, grab bars by toilet and in shower, sock aid, emergency communications officer, dressing stick, LH sh oe horn ADLs/IADLs: Self-feeding - Set up/modified independent Grooming/oral hygiene - Independent from w/c bas e Dressing - Independent Toileting - Modified Independent (grab bars) Bathing - Modified Independent (grab bars, showe r chair) Cooking - Facility Cleaning - Facility Laundry - Facility Driving - No longer drives Vision: Wears glasses, not formally asse ssed but was able to drive PMD without demonstrating and issues with sight or depth per ception. No deficits from CVA Completed scanning tasks - Trails A & B Hearing: Vet reports complet e inability to hear out of left ear. But is able to hear out of right ear. Cognition: Not formally asse ssed but answers questions appropriately, intact to conversation Falls(in the past 6 months): No Skin Integrity: Intact on buttocks Sensation: Unclear Transfers: modified independent needs grab bars Ambulation: No longer ambulates Mobility: Independent to dante f-propel using left UE & LE, can use mwc outside of building but if he goes outside with it he get f atigued Posture: posterior trunk lean, midline, sacral s itting Hours/day in w/c/sittin-14 OBJECTIVE: Winn Making Test A (Crandall Older [place]ian Normati ve Study, age 56-97). Measures sustained attention, working memory, vi sual processing, visuospatial skills, and psychomotor coordination. Client completed in 77 seconds with 5 er rors which indicates: Average+ but not deficient Average = 29 seconds Deficient = >78 seconds Rule of Thumb = Most in 90 seconds Winn Making Test B (MOANS norms, age 56-97). Me asures divided attention, working memory, visual processing, visuospatial skills, and psychomotor coordination. Pt scored 141 seconds with 2 Errors which indicates Average+ but not deficient Average = 75 seconds Deficient = >273 seconds Rule of Thumb = Most in 3 minutes MAZE TASK - Visuoconstructional Ability Task adonay t is timed and errors are determine by the number of times the par ticipant enters a -end or fails to stay in the lines. Suggested [place] Scores: 1) Maze Task completed in 61 seconds or longer with or without errors, then the participant is not cognitively fit to drive safe ly 2) Maze Task completed in up to 60 seconds but w ith two or more errors, then participant is not cognitively fit to drive safe ly. 3) Maze Task completed in up to 60 seconds with zero or one error, then the participant is likely to have adequate capacity in the cognitive domains of attention, visuoconstrcution al skills, and executive functions of planning, and foresight, to drive safely. Pt Scored: TIME: 29 seconds ERRORS: 6 errors ROM: UE's: WFL left UE LE's: WFL Right UE Strength: UE's: WFL left LE LE's: WFL right LE Pain: No Hand Dominance: Naturally Right handed, but sinc e CVA uses left hand Measurements: Height: 70 Weight: 333 lbs. Hip to Knee (sacrum to popliteal fossa): 21 Hip Width: 21 Knee to Foot: 18.25 Thigh Height: 7.25 Seat to Elbow: 11.25 Seat to Axilla: 16 Seat to Top of Shoulders: 25 Seat to occiput: 34 The vet had a custom mwc, it is in disrepair. He is using a borrowed mwc from his facility. A community w/ c vendor is working to get him a replacement custom lightweight mwc. Driving: Pt drove pwc in clinic, hallways, eleva tor - demonstrating safe operation of devices. initially he did need cues not to look at his hand/the joystick and look down the smith where he wanted to drive. This did improve by the end of the driving trial. The vet did c/o fa tigue in his hand 2/2 holding onto the carrot style joystick handle. Trialed t he mushroom style and he reported increased comfort. Pt receptive to art reed on features of device including - charging, controls, positioning, and care of device. Ramp: N/A building is accessible Vehicle: N/A Lift: N/A Goals: - Patient verbalized understanding of responsibi lities for transporting power mobility device, and PSAS repair policy. - MET - Patient will demonstrate appropriate use of ne w power mobility device on a variety surfaces. - MET - Patient will verbalize understanding o f safety concepts about power mobility use and incorporate into driving skills. Patient Education of Treatment Plan: Patient and DIL indicate asia diness to learn, verbalize understanding, agreement and satisfaction with the treatment plan. Reinier alvarez urther questions. ASSESSMENT: Results of functional evaluation ind icate patient currently has adequate functional ability to use a power mobil ity device. He is able to independently transfer onto and off of the device. He demonstrates safe driving, keeping to the right in the hallways, selecting appropriate speeds for different environments and checking for cross traffic at c orners and intersections. He verbalizes understanding of driving on ramps and curb cuts. He demonstrates good driving skills in reverse to exit elevator. He h as some experience driving a power w/c when he was at [facility] for Rehab. He verbalizes understanding that the device is a mobility device and will work best on smooth terrain such as sidewalks, walking trails and packed gravel. He is educated that it does not perform well in soft dirt, sand, gravel or on gr ass and uneven terrain. Patient is an appropriate ca ndidate for power mobility due to unable to ambulate long distances or self-propel a mwc 2/2 CVA with residual right hemiparesis, CHF, morbid obesity, and DM with polyneuropathy affecting BLE. EF of 35-40% (2019), global cardiomyopathy. Order(s) placed for: Lo[employer] Q6 HD 21 wide x 20 deep Power tilt Green machine Transit ties downs Flat free drive wheels Base mounted foot platform Medium seat to floor height 2 Group 24 Gel Batteries Q-Logic 3E joystick Joystick mount on right with swing away mount Mushroom handle Rehab seat 2 post Flip up full length armrests Right arm trough Right thigh guide [employer] M2 cushion 21 wide x 20 deep Plan: Pt to RTC for one 60 min ses canelo when device arrives for training and issuing of device. OCCUPATIONAL THERAPY EVALUATION COMPLEXITY Identifying and reporting the complexity level o f an evaluation focuses on the first three of these factors--profile and hi story, assessment and determination of deficits, and clinical decision making. These three factors must be scored and defensible documentation wr itten to support the choice of a level. (Information taken from: https://www .aota.org) PROFILE AND HISTORY (including chart view) Expanded review of medical and/or therapy recor ds and additional review of physical, cognitive, or psychosocial history re lated to current functional performance (moderate complexity) ASSESSMENT & PERFORMANCE DEFICITS (select all th at apply): Physical: Abnormal Gait, CVA, right hemiparesis , Obesity, DM 3-5 performance deficits (Moderate complexity) LEVEL OF CLINICAL DECISION MAKING Comorbidities affect occupational performance: Yes (moderate or high complexity) Modifications of tasks or assistance to enable completion of evaluation: Minimal to moderate modifications (Moderate com plexity) Detailed assessment(s), consideration of several treatment options, may present with comorbidities and minimal to modera te modifications of tasks or assistance.(Moderate complexity) MODERATE COMPLEXITY Expanded review of medical/o r therapy records and additional review of physical, cognitive, or psychosocial history related to cu rrent functional performance. An assessments(s) that identifies 3-5 performanc e deficits that result in activity limitation and/or participating restric tions. Analysis of the occupational profile, analysis of date from detailed assessment (s), and consideration of several treatment opti ons. Patient may present with comorbidities that affect occup ational performance. Minimal to moderate modifications of tas ks or assistance with assessment(s) is necessary to enable completion of evaluation com ponent. /zeb/ RANJIT FREEDMAN/Francois,ATP,LINO OCCUPATIONAL THERAPIST Signed: 11/28/2021 14:15
--- OUTSIDE RECORDS SUMMARY | 2021-12-18 15:17 | XMS_ITS | Encounter Summary ---
:1955 Author Organization Department [facility] Address [address] [place] [address] Support Name Relationship Address Phone JULIET MOODY Unavailable [address] [place] [facility] [place] [address] SHENA PETERSEN Unavailable [address] [place] [address] SHENA PETERSEN Unavailable [address] [place] [address] Insurance Providers: All historical and current Section [...] MEDICARE MEDICARE PART June 18, PART A [id number] 800 Smiley MOODY (WNR) (M A 2009 16A [phone] [facility] Selected Encounter This section includes the information on record at OR for the Encounter. Date/Time Encounter Type Encounter Description Reason Provider Source Nov 29, 2021 03:17 Outpatient Encounter COMMUNITY CARE PM CONSULT IHE Encounter Template Text not used by OR Plan of Treatment: Future Appointments (+ 6 months) and Future Tests (+/- 45 days) The Plan of Treatment section includes future care activities for the patient from all OR treatmentfacilities. This section includes future appointments and future orders which are active, pending orscheduled.Future Appointments This section includes appointments that were scheduled to occur 6 months from the date of the Encounter, up to a maximum of 20 appointments. The data comes from all OR treatment facilities. Appointment Date/Time Appointment Type Appointment Facili ty Name Mar 16, 2022 08:00 AM AMBULATORY - REHAB MEDICINE [facility] Social History: Smoking Status (Most current) and Tobacco Use (All prior to encounter date) This section includes the most current, and the historical, smoking and tobacco-related health factors from the OR facility where the Encounter took place.Current Smoking Status This section includes the most current smoking, or tobacco-related health factor, from the OR facility where the Encounter took place. Date/Time Current Smoking Status Comment Facility Jun 14, 2021 08:15 AM VA-TOBACCO USER SOME DAYS [facility] Tobacco Use History This section includes a history of the smoking, or tobacco- related health factors, that were collected on or before the date of the Encounter. The data comes from the OR facility where the Encounter took place. Date/Time Smoking Status/Tobacco Use Comment Facil ity Jun 14, 2021 08:15 AM VA-TOBACCO USE > 15 LESS THAN 30 [facility] YEARS Jun 14, 2021 08:15 AM VA-TOBACCO USE ADVICE [place] [facility] Jun 14, 2021 08:15 AM VA-TOBACCO USE KITCHEN SUPERVISOR NO [facility] Jun 14, 2021 08:15 AM VA-TOBACCO USE MED NO [place] [facility] Jun 14, 2021 08:15 AM VA-TOBACCO USER SOME DAYS [facility] Jan 28, 2018 12:26 PM VA-TOBACCO NEVER USED [place] [facility] July 05, 2011 09:38 AM LIFETIME NON-TOBACCO USER [facility] July 03, 2011 06:04 PM LIFETIME NON-TOBACCO USER [facility] Nov 20, 2007 08:19 AM LIFETIME NON-TOBACCO USER [facility] Advance Directives: All historical and current Section Date Range: From patient's date of to the date document was created. This section includes ALL of a patient's completed or amended OR Advance and Rescinded Directives. The entries below indicate that a directive exists for the patient, but an actual copy is not included with this document. The data comes from all [facility]. Date Advance Directives Provider Source July 03, 2011 CLINICAL WARNING RACHAEL KING [facility] Encounter Notes: All associated encounter notes This section contains the clinical notes associated to the Encounter. Date/Time Encounter Note(s) Provider Source Nov 29, 2021 03:17 PM NONVA NOTE: MERCEDEZ MORTENSEN [facility] LOCAL TITLE: COMMUNITY CARE-CARE COORDINATION P CASEY NOTE B STANDARD TITLE: NONVA NOTE DATE OF NOTE: NOV 29, 2021@15:17 ENTRY DATE: NOV 29, 2021@15:17:59 AUTHOR: JOSE MORTENSEN EXP COSIGNER: URGENCY: STATUS: COMPLETED COMMUNITY CARE-CARE COORDINATION PLAN NOTE Has ADDENDA Regina with [employer] (ph: ) called the [facility] call line and is asking about a wound pump request from [facility]. There is no consult to link this request with. Will defer to his PACT RN. Thank priscilla braxton for your patience. /zeb/ MERCEDEZ MORTENSEN ADVANCED CORE JAVA ENGINEER Signed: 11/29/2021 15:22 Receipt Acknowledged By: 11/30/2021 10:00 /zeb/ CHASIDY GODINEZ RN RN, BSN 11/30/2021 ADDENDUM STATUS: COMPLETED Generally vet would need to see our WOC and they would order wound vac if needed. Will alert PCP. /inga GODINEZ RN RN, BSN Signed: 11/30/2021 10:00 Receipt Acknowledged By: 11/30/2021 11:52 /NICK Diaz Physician [employer] Rep 11/30/2021 ADDENDUM STATUS: COMPLETED Reviewed records in [employer]. Pt followed [facility] clinics for lymphedema and had recommended pt obtain lymphed cale pump to assist with manageement from home. Pt would need to be see i n our specialized lymphedema clinic. Please inform son/patient. If in agreeme nt, alert me so I can submit consult. /NICK Diaz Physician [employer] Signed: 12/01/2021 16:15 Receipt Acknowledged By: 12/04/2021 10:29 /inga GODINEZ RN RN, BSN 12/04/2021 ADDENDUM STATUS: COMPLETED VM left with this info, requested call back dire ctly. /inga GODINEZ RN RN, BSN Signed: 12/04/2021 10:29 12/05/2021 ADDENDUM STATUS: COMPLETED Lymphedema pump requested is [employer] pneumatic co mpression pump and 2 garments for lower extremities, again as stated above, wo uld need to be seen in our lymphedema cliinc. /zeb/ NICK VASQUEZ Physician [employer] Signed: 12/05/2021 12:52
== END 2021-12-18 15:13 | disposition home or self-care (01) ==
LOC: WOUND 15:12
PROVIDERS: Visit Provider Nurse Practitioner Family
DX: E11.622 Type 2 diabetes mellitus with other skin ulcer (principal); L97.912 Non-pressure chronic ulcer of unspecified part of right lower leg with fat layer exposed; I87.311 Chronic venous hypertension (idiopathic) with ulcer of right lower extremity; L97.825 Non-pressure chronic ulcer of other part of left lower leg with muscle involvement without evidence of necrosis; L97.212 Non-pressure chronic ulcer of right calf with fat layer exposed; I89.0 Lymphedema, not elsewhere classified; I87.2 Venous insufficiency (chronic) (peripheral); Z79.84 Long term (current) use of oral hypoglycemic drugs
CPT/HCPCS: 11042; 11045

== ENCOUNTER 2022-01-01 15:14 | Outpatient (CLI) | payer MEDICAID, SELFPAY ==
--- OUTSIDE RECORDS SUMMARY | 2022-01-01 15:34 | XMS_ITS | Continuity of Care Document ---
:1955 Author Organization [facility] Care Team Providers Name Role Phone [facility] Unavailable Unavailable Problems Combined list of problems from Department of Defense and [facility] Affairs facilities. It does not include entries that were removed or entered in error. Problem Status Onset Problem Type Date of Comments Source Date Resolution AF-Atrial [facility] Fibrillation (S[facility] HC S 47335194) Anxiety [facility] Asthma (SCT [place] [id number][place] HCS Benign essential Active Condition [facility] hypertension HCS (SNOMED CT 2111172) Cardiomyopathy Active Condition [facility] HCS Depressive Disorder Active Condition [facility] NOS HCS Diabetes mellitus Active Condition [facility] (SNOMED CT HCS 89562511) Diabetic neuropathy Active Condition [facility] (SNOMED CT HCS 059267915) Dyslipidemia Active Condition [facility] HCS H/O: Stroke (SCT [place] [id number] HCS Heart failure [facility] [place] [facility] Hernia of anterior Active Condition Sep 14 [facility] abdominal wall 2013 [facility] Entered By: ALDO LI Comment: Dx 04/03, Gen Surgical Eval 07/01 Hydrocele (SNOM[place] 92444707) HCS Low back pain [facility] [place] (SNOMED CT HCS 538062064) Mental disorder Active [facility] Mixed anxiety and Active Condition [facility] depressive disorder HCS (SNOMED CT 021957315) Morbid obesity [facility]SNOM[facility] 008567247) Other Specified Active [facility] Counsel[facility] (ICD-9-CM V65.49) Pes Planus, [facility] Acquired HCS 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[facility] depressive HCS episodes, moderate (SNOMED CT 459132058) Sleep Apnea [facility] Diagnosis: Active Diagnosis [place] ICD-10-CM R26.9 HCS Unspecified abnormalities of gait and mobilitywith Provider Comments: Unspecified abnormalities of gait and mobility Diagnosis: Active Diagnosis [place] ICD-10-CM E11.40 HCS Type 2 diabetes mellitus with diabetic neuropathy, unspwith Provider Comments: Diabetic neuropathy ([facility] [id number]) Diagnosis: Active Diagnosis [place] ICD-10-CM I63.9 HCS Cerebral infarction, unspecifiedwith Provider Comments: Cerebral infarction, unspecified Diagnosis: Active Diagnosis [place] ICD-10-CM I63.9 HCS Cerebral infarction, unspecifiedwith Provider Comments: Cerebral Infarction, unspecified Diagnosis: Active Diagnosis [place] ICD-10-CM Z71.3 HCS Dietary counseling and surveillancewith Provider Comments: Dietary counseling and surveillance Diagnosis: Active Diagnosis [place] ICD-10-CM R26.9 HCS Unspecified abnormalities of gait and mobilitywith Provider Comments: Unspecified Abnormalities of Gait and Mobility Diagnosis: Active Diagnosis [place] ICD-10-CM I10 HCS Essential (primary) hypertensionwith Provider Comments: Benign essential hypertension ([facility] 5233638) Medications Combined list of outpatient medications from [...] 2019 [place] TAB BY MOUTH [facility] EVERY 6 HOURS NEEDED ALBUTEROL INHALE INHALA ACTIVE BROWN,ABBY 06/16/ [place] INHL,ORAL BY TION AN 2020 [place] INHALATI [facility] ON PRN AMLODIPINE TAKE ORALLY ACTIVE BROWN,ABBY 12/09/ [place] BESYLATE ONE-HALF AN 2019 [place] 10MG TAB TABLET [facility] BY MOUTH EVERY DAY ASPIRIN TAKE ONE ORALLY ACTIVE BROWN,ABBY 12/09/ [place] 81MG TAB,EC TABLET AN 2019 [place] BY [place]OUTH [facility] EVERY DAY ATORVASTATI TAKE ONE ORALLY ACTIVE BROWN,ABBY 12/09 / [place] 80MG TABLET AN 2019 [place] TAB BY MOUTH [facility] AT BEDTIME BACITRACIN APPLY TO TOPICA ACTIVE BROWN,ABBY 06/16/ [place] 500UNT/GM AFFECTED LLY AN 2020 [place] OINT,TOP AREA [facility] TOPICALL Y PRN BACLOFEN TAKE ORALLY ACTIVE 11/25/2022 [id number] DESHA[place], 11/29/ [place] 10MG TAB ONE-HALF 2 [...] DAY GABAPENTIN TAKE TWO ORALLY ACTIVE 09/30/2022 [id number] ISAIAH YLE,ABBY 10/03/ [place] 100MG CAP CAPSULES 2 AN 2021 [place] BY [place]OUTH [facility] THREE TIMES A DAY GABAPENTIN TAKE 1 ORALLY ACTIVE BROWN,ABBY 06/27/ [place] 100MG CAP CAPSULE AN 2021 [place] BY [facility]OUTH [facility] TWICE A DAY LIDOCAINE APPLY 1 TOPICA ACTIVE 11/25/2022 [id number] [place] TT, 11/29/ [place] 5% PATCH PATCH LLY 2 ARIA M 2021 [place] [facility]IC[facility] Y 7 PM-7AM FOR PAIN. WEAR FOR ONLY 12 HOURS THEN REMOVE FOR 12 HOURS. METFORMIN TAKE ONE ORALLY ACTIVE BROWN,ABBY 06/16/ [place] HCL 1000MG TABLET AN 2020 [place] TAB BY MOUTH [facility] TWO TIMES A DAY METOPROLOL TAKE ORALLY ACTIVE BROWN,ABBY 12/09/ [place] SUCCINATE ONE-HALF AN 2019 [place] [...] [place] to adverse to adverse 8 IS [facility] reactions reactions to drug to drug (finding) (finding) LISINOPRIL Propensity Cough Propensity active [facility] to adverse to adverse 2 [facility] reactions reactions to drug to drug (finding) (finding) Immunizations Combined list of available immunizations from the Department of Defense and Veterans Affairs facilities. Immunization Series Date Administered Site Reaction Lot CVX Drug St atus Comments Source Given By Number Code Ladies Suit Operator INFLUENZA, complet [place] INJECTABLE, 2021 ed [place] QUADRIVALENT, HCS PRESERVATIVE FREE INFLUENZA, complet [place] UNSPECIFIED 2020 ed [place] FORMULATION HC S COVID-19 2 complet [place] LGREE (MODERNA), 2020 ed NS MRNA, LNP-S, P HARMAC PF, 100 IES MCG/0.5 ML DOSE COVID-19 1 complet [place] LGREE (MODERNA), 2020 ed NS MRNA, LNP-S, P HARMAC PF, 100 IES MCG/0.5 ML DOSE ZOSTER 2 complet [place] RECOMBINANT 2019 ed [place] HCS INFLUENZA, complet [place] SEASONAL, 2019 ed [place] INJECTABLE, HC S PRESERVATIVE FREE ZOSTER 1 complet [place] RECOMBINANT 2019 ed OL IS [facility] INFLUENZA, complet [facility], [address] INJECTABLE, ME TRO PRESERVATIVE V A FREE CLINIC INFLUENZA, complet [facility] SE[facility]ON[facility], [address] INJECTABLE, ME TRO PRESERVATIVE V A FREE CLINIC INFLUENZA, complet [facility] SE[facility]ON[facility], [address] INJECTABLE, ME TRO PRESERVATIVE V A FREE CLINIC INFLUENZA, complet [facility] UNSPECIFIED [address] FORMULATION [facility] INFLUENZA, complet [facility] UNSPECIFIED [address] FORMULATION [facility] TDAP complet 3T549 [facility] 2012 ed 05/06/15 [facility] [employer] METR O [facility]line [facility] INFLUENZA, complet [facility] UNSPECIFIED [address] FORMULATION [facility] INFLUENZA, complet [place] UNSPECIFIED 2009 ed [place] [facility] FORMULATION HC S PNEUMOCOCCAL, complet [employer] [place] UNSPECIFIED 2007 ed lot# [place] [facility] FORMULATION [id number] HC S exp. [id number] INFLUENZA complet [place] (HISTORICAL) 2007 ed [place] HCS INFLUENZA complet [place] (HISTORICAL) 2007 ed [place] HCS TD(ADULT) complet [place] UNSPECIFIED 2007 [...] GASTROINT /2020 No comment e ntered. IS [place] HCS FIT X1 TINAL.LOWER Ordering Pr ovider: MONI BROWN SCREEN [PRESENCE] Report Relea sed Date/Time: Jun 16, 2020 09:30 AM IN STOOL BY Reporting L ab: [facility] IMMUNOASSAY [address] [facility] [address] --1ST Performing Lab: [facility] SPECIMEN [facility] [address] DRUG BARBITURATE Negative 05/04 Specimen Ty pe: URINE [place] SCREEN S Comment: PRESUM PTIVE POSITIVE BY SCREEN, RESULTS NOT CONFIRMED IS [facility] PANEL,U [PRESENCE] Ordering Pro vider: MONI BROWN RINE IN URINE BY Report Rele ased Date/Time: Feb 27, 2018 10:18 AM SCREEN Reporting Lab: [facility] METHOD [address] [place] [facility] [address] Performing Lab: [facility] [address] [place] [facility] [address] DRUG AMPHETAMINE Negative 05/04 Specimen Ty pe: URINE [place] SCREEN S Comment: PRESUM PTIVE POSITIVE BY SCREEN, RESULTS NOT CONFIRMED IS [facility] HCS PANEL,U [PRESENCE] Ordering Pro vider: MONI BROWN IN URINE Report Release d Date/Time: Feb 27, 2018 10:18 AM Reporting Lab: [facility] HCS [address] [place] [address] Performing Lab: [facility] [address] [place] [facility] [address] DRUG COCAINE Negative 05/04 Specimen Type: URINE [place] SCREEN [PRESENCE] /2020 Comment: PRE SUMPTIVE POSITIVE BY SCREEN, RESULTS NOT CONFIRMED IS [facility] HCS PANEL,U IN URINE Ordering Provi isidra: MONI BROWN Report Released Date/Time: Feb 27, 2018 10:18 AM Reporting Lab: [facility] [address] [place] [facility] [address] Performing Lab: [facility] [address] [place] [facility] [address] DRUG BENZODIAZEP Negative 05/04 Specimen Ty pe: URINE [place] SCREEN JOHANN Comment: PRESUM PTIVE POSITIVE BY SCREEN, RESULTS NOT CONFIRMED IS [place] HCS PANEL,U [PRESENCE] Ordering Pro vider: MONI BROWN IN URINE BY Report Rele ased Date/Time: Feb 27, 2018 10:18 AM SCREEN Reporting Lab: [facility] METHOD [address] [place] [facility] [address] Performing Lab: [facility] [address] [place] [facility] [address] DRUG CANNABINOID Negative 05/04 Specimen Ty pe: URINE [place] SCREEN S Comment: PRESUM PTIVE POSITIVE BY SCREEN, RESULTS NOT CONFIRMED IS [facility] HCS PANEL,U [PRESENCE] Ordering Pro vider: MONI BROWN IN URINE BY Report Rele ased Date/Time: Feb 27, 2018 10:18 AM SCREEN Reporting Lab: [facility] METHOD [place] [address] Performing Lab: [facility] [address] [place] [facility] [address] DRUG METHADONE Negative 05/04 Specimen Type : URINE [place] SCREEN [PRESENCE] /2020 Comment: PRE SUMPTIVE POSITIVE BY SCREEN, RESULTS NOT CONFIRMED IS [place] HCS PANEL,U IN URINE Ordering Provi isidra: MONI BROWN Report Released Date/Time: Feb 27, 2018 10:18 AM Reporting Lab: [facility] [place] [address] Performing Lab: [facility] [place] [address] DRUG OPIATES POSITIVE 05/04 H Specimen Type: URINE [place] SCREEN [PRESENCE] /2020 Comment: PRE SUMPTIVE POSITIVE BY SCREEN, RESULTS NOT CONFIRMED IS [facility] HCS PANEL,U IN URINE BY Ordering Pr ovider: MONI BROWN SCREEN Report Released Date/Time: Feb 27, 2018 10:18 AM METHOD Reporting Lab: [facility] [place] [address] Performing Lab: [facility] [place] [address] DRUG PHENCYCLIDI Negative 05/04 Specimen Ty pe: URINE [place] SCREEN NE /2020 Comment: PRESUM PTIVE POSITIVE BY SCREEN, RESULTS NOT CONFIRMED IS [place] HCS PANEL,U [PRESENCE] Ordering Pro vider: MONI BROWN IN URINE Report Release d Date/Time: Feb 27, 2018 10:18 AM Reporting Lab: [facility] [place] [address] Performing Lab: [facility] [place] [address] DRUG ETHANOL Negative 05/04 Specimen Type: URINE [place] SCREEN [MASS/VOLUM /2020 Comment: NE ESUMPTIVE POSITIVE BY SCREEN, RESULTS NOT CONFIRMED IS [facility] PANEL,U E] IN URINE Ordering Pr ovider: MONI BROWN Report Released Date/Time: Feb 27, 2018 10:18 AM Reporting Lab: [facility] [place] [address] Performing Lab: [facility] [address] [place] [facility] [address] DRUG CREATININE >300.0 20 05/04 Specimen Type : URINE [place] SCREEN [MASS/VOLUM /2020 Comment: NE ESUMPTIVE POSITIVE BY SCREEN, RESULTS NOT CONFIRMED IS [place] HCS PANEL,U E] IN URINE Ordering Pr ovider: MONI BROWN Report Released Date/Time: Feb 27, 2018 10:18 AM Reporting Lab: [facility] [address] [place] [address] Performing Lab: [facility] [address] [place] [address] DRUG OXYCODONE Negative 05/04 Specimen Type : URINE [place] SCREEN [PRESENCE] /2020 Comment: PRE SUMPTIVE POSITIVE BY SCREEN, RESULTS NOT CONFIRMED IS [facility] PANEL,U IN URINE BY Ordering Pr ovider: MONI BROWN SCREEN Report Released Date/Time: Feb 27, 2018 10:18 AM METHOD Reporting Lab: [facility] [address] [place] [address] Performing Lab: [facility] [address] [place] [address] DRUG BUPRENORPHI Negative 05/04 Specimen Ty pe: URINE [place] SCREEN NE+NORBUPRE /2020 Comment: NE ESUMPTIVE POSITIVE BY SCREEN, RESULTS NOT CONFIRMED IS [facility] PANEL,U NORPHINE Ordering Provi isidra: MONI BROWN [PRESENCE] Report Relea sed Date/Time: Feb 27, 2018 10:18 AM IN URINE Reporting Lab: [facility] [address] [place] [address] Performing Lab: [facility] [place] [address] DRUG TRAMADOL Negative 05/04 Specimen Type: URINE [place] SCREEN CUTOFF /2020 Comment: PRESUM PTIVE POSITIVE BY SCREEN, RESULTS NOT CONFIRMED IS [facility] PANEL,U [MASS/VOLUM Ordering Pr ovider: MONI BROWN E] IN URINE Report Rele ased Date/Time: Feb 27, 2018 10:18 AM FOR SCREEN Reporting La b: [facility] METHOD [place] [address] Performing Lab: [facility] [place] [address] Vital Signs Combined list of inpatient and outpatient Vital Signs from Department of Defense and Veterans Affairs, ranging from 12 months to all on record, depending upon the facility. Vital Sign Value Date Comments Source SYSTOLIC BLOOD PRESSURE 135 11/24/2021 08:06:12 [facility] DIASTOLIC BLOOD PRESSURE 87 11/24/2021 08:06:12 [facility] PULSE OXIMETRY 97% 11/24/2021 08:06:12 RODERICK DE SANTIAGO [facility] WEIGHT 333 11/24/2021 08:06:12 [place] [...] Location Location Encounter Encounter Reason Attending ADM NV Stat us Disposition Source Details Type Number For Provider Date Date Visit Outpatient 13451-406/30 [place] [facility] [id number] [facility] 51267-106/30 [place] En[place] [id number] [facility] 26994-661 10/06 [place] En[place] [id number] [facility] 05658-9 SHIRA PAUL 10/13 [place] Encounter [id number] [facility] 21004-3.61 11/18 [place] En[place] [id number] [facility] 86946-861 04/11 [place] [id number] [facility] 61945-1.61 05/03 [place] En[place] [id number] /[facility] 08732-061 05/18 [place] Encounter [id number] /[facility] 81005-1 Diagnos BROWNDOMINIK 06/14 [place] EST [place] [id number] is: N /2021 [place] 40-54 [place] ICD-10- [facility] CM I10 Essenti al (primar y) hyperte nsion<b r/>with Provide r Comment s: Benign essenti al hyperte nsion (SCT 8264115 ) Outpatient [id number] 06/15 [place] En[place] [id number] /[facility] 72391-461 06/17 [place] En[place] [id number] /[facility] Diagnos TATUM SALEHI 06/20 [place] Encounter [id number] is: [place] M /2021 [facility] ICD-10- [facility] CM R26.9 Unspeci fied abnorma lities of gait and mobilit y
w ith Provide r Comment s: Unspeci fied Abnorma lities of Gait and Mobilit y Outpatient [id number] 07/04 [place] Encounter [id number] /20[facility] MEDICAL 90457-2 Diagnos MELISA,JENY 07/12 [place] NUTRITION [id number] is: NI L [facility] INDIV IN ICD-10- [facility] CM Z71.3 Dietary application counselor ing and surveil winnie<b r/>with Provide r Comment s: Dietary application counselor ing and surveil winnie THERAPEUTI 11111-4 Diagnos DELBERT GERARDO 07/12 [place] C [id number] is: NNER W [facility] ACTIVITIES ICD-10- [facility] CM I63.9 Cerebra l infarct ion, unspeci fied
with Provide r Comment s: Cerebra l Infarct ion, unspeci fied NEUROMUSCU 09642-6.61 Diagnos BAM SUAREZ 08/11 [place] [id number] is: /2021 [place] REEDUCA[place] ICD-10- HCS N CM I63.9 Cerebra l infarct ion, unspeci fied
with Provide r Comment s: Cerebra l infarct ion, unspeci fied Outpatient [id number] 09/07 [place] Encounter [id number] /2021 [place] [facility] Outpatient 97992-2.61 09/19 [place] Encounter [id number] /2021 [place] [facility] Outpatient 48265-0.61 09/22 [place] Encounter [id number] /2021 [place] [facility] Outpatient 31439-7.61 09/27 [place] Encounter [id number] /2021 [place] [facility] Outpatient 33544-6.61 11/02 [place] Encounter [id number] /2021 [facility] HCS NEUROMUSCU 76935-1.61 Diagnos TRAN SUAREZIE 11/07 [place] [id number] is: /2021 [place] ICD-10- HCS N CM I63.9 Cerebra l infarct ion, unspeci fied
with Provide r Comment s: Cerebra l infarct ion, unspeci fied Outpatient [id number] 11/16 [place] Encounter [id number] /[facility] 38020-3.61 Diagnos Rosa MEADE 11/24 [place] CONSULTATI [id number] is: ZAY M /2021 [place] ICD-10- HCS CM E11.40 Type 2 diabete s mellitu s with diabeti c neuropa thy, unsp
with Provide r Comment s: Diabeti c neuropa thy ([facility] [id number]) WHEELCHAIR 07693-0.61 Diagnos PENELOPE CHANEY 11/24 [place] MNGMENT [id number] is: CRISTINA RAMOS /2021 [place] TRAIN[place] ICD-10- HCS CM R26.9 Unspeci fied abnorma lities of gait and mobilit y
w ith Provide r Comment s: Unspeci fied abnorma lities of gait and mobilit y Outpatient [id number] 11/29 [place] Encounter [id number] [facility] Social History Combined list of available smoking, tobacco, and other social [facility]. Social History Type Response Date Comment Source Tobacco smoking VA-TOBACCO USER SOME 06/14/2021 [facility] status [facility] History of tobacco VA-TOBACCO DOESNT USE 06/14/2021 [facility] use [place] 30 MIN WAKEUP History of tobacco VA-TOBACCO NEVER USED 01/28/2018 [facility] use History of tobacco FORMER TOBACCO USER 10/25/2016 [facility] History of tobacco LIFETIME NON-TOBACCO 10/12/2015 [facility] History of tobacco LIFETIME NON-TOBACCO 09/22/2014 N [facility] use [facility] History of tobacco FORMER TOBACCO USER 07/07/[address] [facility] use 7[facility] History of tobacco LIFETIME NON-TOBACCO 07/05/2011 [facility] use USER History of tobacco LIFETIME NON-TOBACCO 07/03/2011 [facility] use USER History of tobacco LIFETIME NON-TOBACCO 11/20/2007 [facility] use USER Plan of Care List of future care activities from [facility] facilities. Additional future care activities may be listed in the Assessment and Plan section. Date/Time Care Activity Care Activity Detail Facility 03/16/2022 AMBULATORY - REHAB MEDICINE AMBULATORY - REHAB [facility] MEDICINE Advance Directives List of completed, amended, or rescinded Advance Directives on record at [facility] facilities. An actual copy of the Directive is not included. Date Advance Directive Provider Source 07/03/2011 CLINICAL WARN[address] [facility]
== END 2022-01-01 15:15 | disposition home or self-care (01) ==
LOC: WOUND 15:15
PROVIDERS: Visit Provider Nurse Practitioner Family
DX: E11.622 Type 2 diabetes mellitus with other skin ulcer (principal); L97.912 Non-pressure chronic ulcer of unspecified part of right lower leg with fat layer exposed; I87.312 Chronic venous hypertension (idiopathic) with ulcer of left lower extremity; L97.825 Non-pressure chronic ulcer of other part of left lower leg with muscle involvement without evidence of necrosis; Z79.84 Long term (current) use of oral hypoglycemic drugs
CPT/HCPCS: 11042

== ENCOUNTER 2022-01-23 15:12 | Outpatient (CLI) | payer MEDICAID, SELFPAY ==
--- OUTSIDE RECORDS SUMMARY | 2022-01-23 15:15 | XMS_ITS | Encounter Summary ---
:1955 Author Organization Department [facility] Address [address] [place] [address] Support Name Relationship Address Phone JULIET MOODY Unavailable [address] [facility] [place] [address] SHENA PETERSEN Unavailable [address] [place] [address] SHENA PETERSEN Unavailable [address] [place] [address] Insurance Providers: All historical and current Section [...] MEDICARE MEDICARE PART June 18, PART A [id number] Smiley MOODY (WNR) (M A 2009 [id number] [phone] [facility] Selected Encounter This section includes the information on record at [place] for the Encounter. Date/Time Encounter Type Encounter Description Reason Provider Source Apr 11, 2021 09:03 Outpatient Encounter [facility] AM CONSULT [facility] Encounter Template Text not used by [place] Plan of Treatment: Future Appointments (+ 6 months) and Future Tests (+/- 45 days) The Plan of Treatment section includes future care activities for the patient from all [place] treatmentfacilities. This section includes future appointments and future orders which are active, pending orscheduled.Future Appointments This section includes appointments that were scheduled to occur 6 months from the date of the Encounter, up to a maximum of 20 appointments. The data comes from all [place] treatment facilities. Appointment Date/Time Appointment Type Appointment Facili ty Name Jun 14, 2021 08:15 AM AMBULATORY - MEDICINE [facility] July 04, 2021 05:00 PM AMBULATORY - REHAB MEDICINE [facility] July 12, 2021 09:15 AM AMBULATORY - NONE [facility] July 12, 2021 02:00 PM AMBULATORY - REHAB MEDICINE [facility] Aug 11, 2021 09:00 AM AMBULATORY - REHAB MEDICINE [facility] Social History: Smoking Status (Most current) and Tobacco Use (All prior to encounter date) This section includes the most current, and the historical, smoking and tobacco-related health factors from the [place] facility where the Encounter took place.Current Smoking Status This section includes the most current smoking, or tobacco-related health factor, from the [place] facility where the Encounter took place. Date/Time Current Smoking Status Comment Facility Jan 28, 2018 12:26 PM VA-TOBACCO NEVER USED [facility] Tobacco Use History This section includes a history of the smoking, or tobacco- related health factors, that were collected on or before the date of the Encounter. The data comes from the [place] facility where the Encounter took place. Date/Time Smoking Status/Tobacco Use Comment [facility] July 05, 2011 09:38 AM LIFETIME NON-TOBACCO USER [facility] July 03, 2011 06:04 PM LIFETIME NON-TOBACCO USER [facility] Nov 20, 2007 08:19 AM LIFETIME NON-TOBACCO USER [facility] Advance Directives: All historical and current Section Date Range: From patient's date of to the date document was created. This section includes ALL of a patient's completed or amended [place] Advance and Rescinded Directives. The entries below indicate that a directive exists for the patient, but an actual copy is not included with this document. The data comes from all [facility]. Date Advance Directives Provider Source July 03, 2011 CLINICAL WARNING RACHAEL KING [facility] Encounter Notes: All associated encounter notes This section contains the clinical notes associated to the Encounter. Date/Time Encounter Note(s) Provider Source Apr 11, 2021 09:03 AM PHARMACY NOTE: TIFFANIE PEREZ [facility] TITLE: PHARMACY NON [facility] C[facility] MEDICATIONS STANDARD TITLE: PHARMACY NOTE DATE OF NOTE: APR 11, 2021@09:03 ENTRY DATE: APR 11, 2021@09:03:35 AUTHOR: TIFFANIE PEREZ EXP COSIGNER: URGENCY: STATUS: COMPLETED [facility] R ECEIVED electronic prescription(s) (eRX(s))from NON- [facility] Provider: ABAD GOFF Date eRX received: Mar Outside (NON-[facility]) provider no t authorized to write for prescription(s) through [facility]. Prescription request REDIRECTED via FAX to one o f the following for review: [X][facility]Dual) [facility] [ ]Other: [ ] [facility] ([facility]) [ ] [facility] [ ] [facility] [ ] [facility] e[facility] Reference #: [id number] eRx Prescription Information: eRx Drug: Accu-chek fast click lancing device an d lancets eRx Qty: 1 eRx Refills: 3 eRx Days Supply: eRx Written Date: APR 08, 2021 eRx Issue Date: Prohibit Renewals: No eRx Sig: Use 1 device with each blood sugar check as katerina cated eRx Reference #: [id number] eRx Drug: Accu-chek guide me test strips eRx Qty: 1 eRx Refills: 3 eRx Days Supply: eRx Written Date: APR 08, 2021 eRx Issue Date: Prohibit Renewals: No eRx Sig: Use 1 test strip for blood sugar checks as indic terri /zeb/ TIFFANIE PEREZ PharmD Signed: 04/11/2021 09:04
--- OUTSIDE RECORDS SUMMARY | 2022-01-23 15:15 | XMS_ITS | Continuity of Care Document ---
:1955 Author Organization [facility] Care Team Providers Name Role Phone [facility] Unavailable Unavailable Problems Combined list of problems from Department of Defense and [facility] Affairs facilities. It does not include entries that were removed or entered in error. Problem Status Onset Problem Type Date of Comments Source Date Resolution AF-Atrial [facility] Fibrillation (SCT HC S [id number]) Anxiety [facility] Asthma (SCT Active Condition [place] [id number][place] [facility] Benign essential Active Condition [facility] hypertension HCS (SNOMED CT 4570679) Cardiomyopathy Active Condition [facility] HCS Depressive Disorder Active Condition [facility] NOS HCS Diabetes mellitus Active Condition [facility] (SNOMED CT HCS 57645124) Diabetic neuropathy Active Condition [facility] (SNOMED CT HCS 088133179) Dyslipidemia Active Condition [facility] H/O: Stroke (SCT Active [place] [id number][place] [facility] Heart failure [facility] Hernia of anterior Active Condition Sep 14 [facility] abdominal wall 2013 [facility] Entered By: ALDO LI Comment: Dx 04/03, Gen Surgical Eval 07/01 Hydrocele (SNOMED Active Condition [place] 19201962) HCS Low back pain [facility] (SNOMED CT HCS 818676075) Mental disorder [facility] Mixed anxiety and Active Condition [facility] depressive disorder HCS (SNOMED CT 214478674) Morbid obesity Active 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, moderate (SNOMED CT 137695562) Sleep Apnea [facility] Diagnosis: Active Diagnosis [facility] [place] ICD-10-CM R26.9 HCS Unspecified abnormalities of gait and mobilitywith Provider Comments: Unspecified abnormalities of gait and mobility Diagnosis: Active Diagnosis [place] ICD-10-CM E11.40 HCS Type 2 diabetes mellitus with diabetic neuropathy, unspwith Provider Comments: Diabetic neuropathy ([facility] [id number]) Diagnosis: Active Diagnosis [place] ICD-10-CM I63.9 HCS Cerebral infarction, unspecifiedwith Provider Comments: Cerebral infarction, unspecified Diagnosis: Active Diagnosis [place] ICD-10-CM I63.9 HCS Cerebral infarction, unspecifiedwith Provider Comments: Cerebral Infarction, unspecified Diagnosis: Active Diagnosis [place] ICD-10-CM Z71.3 HCS Dietary counseling and surveillancewith Provider Comments: Dietary counseling and surveillance Diagnosis: Active Diagnosis [place] ICD-10-CM R26.9 HCS Unspecified abnormalities of gait and mobilitywith Provider Comments: Unspecified Abnormalities of Gait and Mobility Diagnosis: Active Diagnosis [place] ICD-10-CM I10 HCS Essential (primary) hypertensionwith Provider Comments: Benign essential hypertension ([facility] [id number]) Medications Combined list of outpatient medications from [...] 2019 [place] TAB BY MOUTH [facility] EVERY 6 HOURS NEEDED ALBUTEROL INHALE INHALA ACTIVE BROWN,ABBY 06/16/ [place] INHL,ORAL BY TION AN 2020 [place] INHALATI [facility] ON PRN AMLODIPINE TAKE ORALLY ACTIVE BROWN,ABBY 12/09/ [place] BESYLATE ONE-HALF AN 2019 [place] [facility] 10MG TAB TABLET [facility] BY MOUTH EVERY DAY ASPIRIN TAKE ONE ORALLY ACTIVE BROWN,ABBY 12/09/ [place] 81MG TAB,EC TABLET AN 2019 [place] [facility] BY MOUTH [facility] EVERY DAY ATORVASTATI TAKE ONE ORALLY ACTIVE BROWN,ABBY 12/09 / [place] CA 80MG TABLET AN 2019 [place] [facility] TAB BY MOUTH [facility] AT BEDTIME BACITRACIN APPLY TO TOPICA ACTIVE BROWN,ABBY 06/16/ [place] 500UNT/GM AFFECTED LLY AN 2020 [place] [facility] OINT,TOP AREA [facility] Y PRN BACLOFEN TAKE ORALLY ACTIVE 11/25/2022 [id number] DESHA[place], 11/29/ [place] 10MG TAB ONE-HALF 2 [...] DAY GABAPENTIN TAKE TWO ORALLY ACTIVE 09/30/2022 [id number] ISAIAH YLE,ABBY 10/03/ [place] 100MG CAP CAPSULES 2 AN 2021 [place] BY MOUTH [facility] THREE TIMES A DAY GABAPENTIN TAKE 1 ORALLY ACTIVE BROWN,ABBY 06/27/ [place] 100MG CAP CAPSULE AN 2021 [place] [facility] BY [facility]OUTH [facility] TWICE A DAY LIDOCAINE APPLY 1 TOPICA ACTIVE 01/04/2023 [id number] PLUNKE TT, 01/04/ [place] 5% PATCH PATCH LLY 2 ARIA M 2021 [facility] Y 7 PM-7AM NEEDED FOR NECK PAIN. WEAR FOR ONLY 12 HOURS THEN REMOVE FOR 12 HOURS. LIDOCAINE APPLY 1 [place] DISCONT 11/25/2022 [id number] PLU NKETT, 11/29/ [place] 5% PATCH PATCH LLY INUED 2 ARIA M 2021 [place] (EDIT) [facility] Y 7 PM-7AM FOR PAIN. WEAR FOR ONLY 12 HOURS THEN REMOVE FOR 12 HOURS. METFORMIN TAKE ONE ORALLY ACTIVE BROWN,ABBY 06/16/ [place] HCL 1000MG TABLET AN 2020 [place] [facility] TAB BY MOUTH [facility] TWO TIMES A DAY METOPROLOL TAKE ORALLY ACTIVE BROWN,ABBY 12/09/ [place] SUCCINATE ONE-HALF AN 2019 [place] [facility] [...] [place] to adverse to adverse 8 [place] [facility] reactions reactions to drug to drug (finding) (finding) LISINOPRIL Propensity Cough Propensity active [facility] to adverse to adverse 2 [facility] reactions reactions to drug to drug (finding) (finding) Immunizations Combined list of available immunizations from the Department of Defense and Veterans Affairs facilities. Immunization Series Date Administered Site Reaction Lot CVX Drug St atus Comments Source Given By Number Code Miter Operator INFLUENZA, complet [place] INJECTABLE, 2021 ed [...] [place] RECOMBINANT 2019 ed [place] [facility] INFLUENZA, complet [place] SEASONAL, 2019 ed [facility] [facility] INJECTABLE, HC S PRESERVATIVE FREE ZOSTER 1 complet [place] RECOMBINANT 2019 ed [place] [facility] INFLUENZA, complet [facility] [facility]ON[facility], [address] INJECTABLE, ME TRO PRESERVATIVE V A FREE CLINIC INFLUENZA, complet [place] SEASON[facility], [address] INJECTABLE, ME TRO PRESERVATIVE V A FREE CLINIC INFLUENZA, complet [facility] SEASONAL, [address] INJECTABLE, ME TRO PRESERVATIVE V A FREE CLINIC INFLUENZA, complet [facility] UNSPECIFIED [address] FORMULATION [facility] PA CLINIC INFLUENZA, complet [facility] UNSPECIFIED [address] FORMULATION [facility] PA CLINIC TDAP complet [id number] [place] [place] 2012 ed 05/06/15 [facility] [employer] [facility]R O hKline PA CLINIC INFLUENZA, complet [place] UNSPECIFIED [address] FORMULATION ME TR[facility] PA CLINIC INFLUENZA, complet [place] UNSPECIFIED 2009 ed OL [facility] FORMULATION HC S PNEUMOCOCCAL, complet [employer] [place] UNSPECIFIED 2007 ed lot# [place] [facility] FORMULATION [id number] HC S exp. [id number] INFLUENZA complet [place] (HISTORICAL) 2007 ed O [place] [facility] INFLUENZA complet [place] (HISTORICAL) 2007 ed O L[place] [facility] TD(ADULT) complet [place] UNSPECIFIED 2007 ed [...] GASTROINT /2020 No comment e ntered. IS [facility] FIT X1 TINAL.LOWER Ordering Pr ovider: MONI BROWN SCREEN [PRESENCE] Report Relea sed Date/Time: Jun 16, 2020 09:30 AM IN STOOL BY Reporting L ab: [facility] IMMUNOASSAY [address] [facility] [address] --1ST Performing Lab: [facility] SPECIMEN ONE [facility] [address] [facility] [address] DRUG BARBITURATE Negative 05/04 Specimen Ty pe: URINE [place] SCREEN S Comment: PRESUM PTIVE POSITIVE BY SCREEN, RESULTS NOT CONFIRMED IS PA HCS PANEL,U [PRESENCE] Ordering Pro vider: MONI BROWN IN URINE BY Report Rele ased Date/Time: Feb 27, 2018 10:18 AM SCREEN Reporting Lab: [facility] METHOD [address] [place] [facility] [address] Performing Lab: [facility] [address] [place] [facility] [address] DRUG AMPHETAMINE Negative 05/04 Specimen Ty pe: URINE [place] SCREEN S Comment: PRESUM PTIVE POSITIVE BY SCREEN, RESULTS NOT CONFIRMED IS PA HCS PANEL,U [PRESENCE] Ordering Pro vider: MONI BROWN IN URINE Report Release d Date/Time: Feb 27, 2018 10:18 AM Reporting Lab: [facility] [address] [place] [facility] [address] Performing Lab: [facility] [address] [place] [facility] [address] DRUG COCAINE Negative 05/04 Specimen Type: URINE [place] SCREEN [PRESENCE] /2020 Comment: PRE SUMPTIVE POSITIVE BY SCREEN, RESULTS NOT CONFIRMED IS PA HCS PANEL,U IN URINE Ordering Provi isidra: MONI BROWN Report Released Date/Time: Feb 27, 2018 10:18 AM Reporting Lab: [facility] HCS [address] [place] [address] Performing Lab: [facility] [address] [place] [facility] [address] DRUG BENZODIAZEP Negative 05/04 Specimen Ty pe: URINE [place] SCREEN JOHANN Comment: PRESUM PTIVE POSITIVE BY SCREEN, RESULTS NOT CONFIRMED IS PA HCS PANEL,U [PRESENCE] Ordering Pro vider: MONI BROWN IN URINE BY Report Rele ased Date/Time: Feb 27, 2018 10:18 AM SCREEN Reporting Lab: [facility] METHOD [address] [place] [address] Performing Lab: [facility] [address] [place] [address] DRUG CANNABINOID Negative 05/04 Specimen Ty pe: URINE [place] SCREEN S Comment: PRESUM PTIVE POSITIVE BY SCREEN, RESULTS NOT CONFIRMED IS PA HCS PANEL,U [PRESENCE] Ordering Pro vider: MONI BROWN IN URINE BY Report Rele ased Date/Time: Feb 27, 2018 10:18 AM SCREEN Reporting Lab: [facility] METHOD [place] [address] Performing Lab: [facility] HCS [place] [address] DRUG METHADONE Negative 05/04 Specimen Type : URINE [place] SCREEN [PRESENCE] /2020 Comment: PRE SUMPTIVE POSITIVE BY SCREEN, RESULTS NOT CONFIRMED IS [facility] HCS PANEL,U IN URINE Ordering Provi isidra: MONI BROWN Report Released Date/Time: Feb 27, 2018 10:18 AM Reporting Lab: [facility] HCS [place] [address] Performing Lab: [facility]CS [place] [address] DRUG OPIATES POSITIVE 05/04 H Specimen Type: URINE [place] SCREEN [PRESENCE] /2020 Comment: PRE SUMPTIVE POSITIVE BY SCREEN, RESULTS NOT CONFIRMED IS [facility] HCS PANEL,U IN URINE BY Ordering Pr ovider: MONI BROWN SCREEN Report Released Date/Time: Feb 27, 2018 10:18 AM METHOD Reporting Lab: [facility] HCS [address] [place] [address] Performing Lab: [facility] HCS [address] [place] [facility] [address] DRUG PHENCYCLIDI Negative 05/04 Specimen Ty pe: URINE [place] SCREEN Comment: PRESUM PTIVE POSITIVE BY SCREEN, RESULTS NOT CONFIRMED IS [facility] HCS PANEL,U [PRESENCE] Ordering Pro vider: MONI BROWN IN URINE Report Release d Date/Time: Feb 27, 2018 10:18 AM Reporting Lab: [facility] HCS [address] [place] [address] Performing Lab: [facility] HCS [address] [place] [address] DRUG ETHANOL Negative 05/04 Specimen Type: URINE [place] SCREEN [MASS/VOLUM /2020 Comment: [place] ESUMPTIVE POSITIVE BY SCREEN, RESULTS NOT CONFIRMED IS [facility] HCS PANEL,U E] IN URINE Ordering Pr ovider: MONI BROWN Report Released Date/Time: Feb 27, 2018 10:18 AM Reporting Lab: [facility] HCS [place] [address] Performing Lab: [facility] HCS [address] [place] [address] DRUG CREATININE >300.0 20 05/04 Specimen Type : URINE [place] SCREEN [MASS/VOLUM /2020 Comment: [place] ESUMPTIVE POSITIVE BY SCREEN, RESULTS NOT CONFIRMED IS [facility] HCS PANEL,U E] IN URINE Ordering Pr ovider: MONI BROWN Report Released Date/Time: Feb 27, 2018 10:18 AM Reporting Lab: [facility] [address] [place] [address] Performing Lab: [facility] [address] [place] [address] DRUG OXYCODONE Negative 05/04 Specimen Type : URINE [place] SCREEN [PRESENCE] /2020 Comment: PRE SUMPTIVE POSITIVE BY SCREEN, RESULTS NOT CONFIRMED IS PA HCS PANEL,U IN URINE BY Ordering Pr ovider: MONI BROWN SCREEN Report Released Date/Time: Feb 27, 2018 10:18 AM METHOD Reporting Lab: [facility] [address] [place] [address] Performing Lab: [facility] [place] [address] DRUG BUPRENORPHI Negative 05/04 Specimen Ty pe: URINE [place] SCREEN NE+NORBUPRE /2020 Comment: [place] ESUMPTIVE POSITIVE BY SCREEN, RESULTS NOT CONFIRMED IS PA HCS PANEL,U NORPHINE Ordering Provi isidra: MONI BROWN [PRESENCE] Report Relea sed Date/Time: Feb 27, 2018 10:18 AM IN URINE Reporting Lab: [facility] [address] [place] [address] Performing Lab: [facility] [place] [address] DRUG TRAMADOL Negative 05/04 Specimen Type: URINE [place] SCREEN CUTOFF /2020 Comment: PRESUM PTIVE POSITIVE BY SCREEN, RESULTS NOT CONFIRMED IS PA HCS PANEL,U [MASS/VOLUM Ordering Pr ovider: MONI BROWN E] IN URINE Report Rele ased Date/Time: Feb 27, 2018 10:18 AM FOR SCREEN Reporting La b: [facility] METHOD [place] [address] Performing Lab: [facility] [place] [address] Vital Signs Combined list of inpatient and outpatient Vital Signs from Department of Defense and Veterans Affairs, ranging from 12 months to all on record, depending upon the facility. Vital Sign Value Date Comments Source SYSTOLIC BLOOD PRESSURE 135 11/24/2021 08:06:12 [place] [facility] DIASTOLIC BLOOD PRESSURE 87 11/24/2021 08:06:12 [place] [facility] PULSE OXIMETRY 97% 11/24/2021 08:06:12 [place] [facility] WEIGHT 333 11/24/2021 08:06:12 [place] [facility] BMI 48kg/m2 11/24/2021 08:06:12 [place] [facility] PAIN 0 11/24/2021 08:06:12 [place] [facility] TEMPERATURE 97 11/24/2021 08:06:12 [place] [facility] PULSE 69 11/24/2021 08:06:12 [place] [facility] RESPIRATION 15 11/24/2021 08:06:12 [place] [facility] SYSTOLIC BLOOD PRESSURE 153 06/14/2021 08:03:02 [place] [facility] DIASTOLIC BLOOD PRESSURE 99 06/14/2021 08:03:02 [place] [facility] PULSE OXIMETRY 99% 06/14/2021 08:03:02 [place] [...] Number For Provider Date Date Visit Outpatient 34142-710/06 [place] En[place] [id number] [facility] Outpatient 40266-7 SHIRA PAUL 10/13 [place] Encounter [id number] [facility] 10226-511/18 [place] Encounter [id number] /2020 [facility] Outpatient 86769-5.61 04/11 [place] Encounter [id number] /2021 [facility] [facility] Outpatient 22257-5.61 05/03 [place] Encounter [id number] /2021 [facility] [id number] 05/18 [place] Encounter [id number] /2021 [facility] OFF[facility]P 36788-7 Diagnos KEVINDOMINIK 06/14 [place] EST [place] [id number] is: N /2021 [place] 40-54 MIN ICD-10- [facility] CM I10 Essenti al (primar y) hyperte nsion<b r/>with Provide r Comment s: Benign essenti al hyperte nsion (SCT [id number] ) Outpatient [id number] 06/15 [place] Encounter [id number] /2021 [facility] [id number] 06/17 [place] Encounter [id number] /2021 [facility] Outpatient [id number] Diagnos THERESE,JEREMIAH 06/20 [place] Encounter [id number] is: [place] [facility] ICD-10- HCS CM R26.9 Unspeci fied abnorma lities of gait and mobilit y
w ith Provide r Comment s: Unspeci fied Abnorma lities of Gait and Mobilit y Outpatient [id number] 07/04 [place] Encounter [id number] /2021 [facility] MEDICAL 50268-3 Diagnos VINCENT,TO 07/12 [place] NUTRITION [id number] is: NI L /2021 [place] INDIV IN ICD-10- HCS CM Z71.3 Dietary youth counselor ing and surveil winnie<b r/>with Provide r Comment s: Dietary youth counselor ing and surveil winnie THERAPEUTI 94512-6 Diagnos DELBERT GERARDO 07/12 [place] C [id number] is: NNER W [place] ACTIVITIES ICD-10- HCS CM I63.9 Cerebra l infarct ion, unspeci fied
with Provide r Comment s: Cerebra l Infarct ion, unspeci fied NEUROMUSCU 80402-7.61 Diagnos DANIELABAM LINARES 08/11 [place] LAR [id number] is: /2021 [facility] HCS N CM I63.9 Cerebra l infarct ion, unspeci fied
with Provide r Comment s: Cerebra l infarct ion, unspeci fied Outpatient [id number] 09/07 [place] Encounter [id number] /2021 [facility] Out[facility] 45089-0.61 09/19 [place] Encounter [id number] /2021 [facility] Outpatient 80250-3.61 09/22 [place] Encounter [id number] /2021 [facility] Outpatient 71680-9.61 09/27 [place] Encounter [id number] /2021 [facility] Outpatient 84059-5.61 11/02 [place] Encounter [id number] /2021 [facility] NEUROMUSCU 62938-7.61 Diagnos BAM SUAREZ 11/07 [place] LAR [id number] is: [facility] ICD-10- HCS N CM I63.9 Cerebra l infarct ion, unspeci fied
with Provide r Comment s: Cerebra l infarct ion, unspeci fied Outpatient 50121-3.61 11/16 [place] Encounter [id number] /2021 [facility] OFFICE 48366-8.61 Diagnos Rosa MEADE 11/24 [place] CONSULTATI [id number] is: ZAY M /2021 [facility] [place] ICD-10- HCS CM E11.40 Type 2 diabete s mellitu s with diabeti c neuropa thy, unsp
with Provide r Comment s: Diabeti c neuropa thy ([facility] [id number] ) WHEELCHAIR 65766-9.61 Diagnos PENELOPE CHANEY 11/24 [place] MNGMENT [id number] is: CRISTINA RAMOS /2021 [place] TRAINING ICD-10- HCS CM R26.9 Unspeci fied abnorma lities of gait and mobilit y
w ith Provide r Comment s: Unspeci fied abnorma lities of gait and mobilit y Outpatient [id number] 11/29 [place] Encounter [id number] [facility] Social History Combined list of available smoking, tobacco, and other social history from [facility] facilities. Social History Type Response Date Comment Source Tobacco smoking VA-TOBACCO DOESNT USE 06/14/2021 [place] [facility] status [place] 30 MIN WAKEUP History of tobacco VA-TOBACCO USE > 15 06/14/2021 [facility] use LESS THAN 30 YEARS History of tobacco PA-TOBACCO NEVER USED 01/28/2018 [facility] use History of tobacco FORMER TOBACCO USER [facility]/25[facility]2016 [facility] History of tobacco LIFETIME NON-TOBACCO 10/12/2015 N [facility] use [facility] History of tobacco LIFETIME NON-TOBACCO 09/22/2014 N [facility] use [facility]IC History of tobacco FORMER TOBACCO USER 07/07/2013 [facility] 7[facility] History of tobacco LIFETIME NON-TOBACCO 07/05/2011 [facility] use USER History of tobacco LIFETIME NON-TOBACCO 07/03/2011 [facility] use USER History of tobacco LIFETIME NON-TOBACCO 11/20/2007 [facility] use USER Plan of Care List of future care activities from [facility] facilities. Additional future care activities may be listed in the Assessment and Plan section. Date/Time Care Activity Care Activity Detail Facility 03/16/2022 AMBULATORY - REHAB MEDICINE AMBULATORY - REHAB [facility] MEDICINE Advance Directives List of completed, amended, or rescinded Advance Directives on record at [facility] facilities. An actual copy of the Directive is not included. Date Advance Directive Provider Source 07/03/2011 CLINICAL WARNING RACHAEL KING [facility]
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
--- OUTSIDE RECORDS SUMMARY | 2022-01-23 15:16 | XMS_ITS | Encounter Summary ---
:1955 Author Organization Department [facility] Address [address] [place] [address] Support Name Relationship Address Phone JULIET MOODY Unavailable [address] [place] [facility] [place]AIAH [place]ITH [address] SHENA PETERSEN Unavailable [address] [place] [address] SHENA PETERSEN Unavailable [address] [place] [address] Insurance Providers: All historical and current Section [...] MEDICARE MEDICARE PART June 18, PART A [id number] Smiley MOODY (WNR) (M A 2009 16A [phone] [facility] Selected Encounter This section includes the information on record at [place] for the Encounter. Date/Time Encounter Type Encounter Description Reason Provider Source May 18, 2021 03:11 Outpatient Encounter COMMUNITY CARE PM CONSULT IHE Encounter Template Text not used by [place] Plan of Treatment: Future Appointments (+ 6 months) and Future Tests (+/- 45 days) The Plan of Treatment section includes future care activities for the patient from all [place] treatmentfacilities. This section includes future appointments and future orders which are active, pending orscheduled.Future Appointments This section includes appointments that were scheduled to occur 6 months from the date of the Encounter, up to a maximum of 20 appointments. The data comes from all [place] treatment facilities. Appointment Date/Time Appointment Type Appointment Facili ty Name Jun 14, 2021 08:15 AM AMBULATORY - MEDICINE [facility] July 04, 2021 05:00 PM AMBULATORY - REHAB MEDICINE [facility] July 12, 2021 09:15 AM AMBULATORY - NONE [facility] July 12, 2021 02:00 PM AMBULATORY - REHAB MEDICINE [facility] Aug 11, 2021 09:00 AM AMBULATORY - REHAB MEDICINE [facility] Nov 02, 2021 05:30 PM AMBULATORY - REHAB MEDICINE [facility] Nov 07, 2021 03:00 PM AMBULATORY - REHAB MEDICINE [facility] Social History: Smoking Status (Most current) and Tobacco Use (All prior to encounter date) This section includes the most current, and the historical, smoking and tobacco-related health factors from the [place] facility where the Encounter took place.Current Smoking Status This section includes the most current smoking, or tobacco-related health factor, from the [place] facility where the Encounter took place. Date/Time Current Smoking Status Comment Facility Jan 28, 2018 12:26 PM VA-TOBACCO NEVER USED [facility] Tobacco Use History This section includes a history of the smoking, or tobacco- related health factors, that were collected on or before the date of the Encounter. The data comes from the [place] facility where the Encounter took place. Date/Time Smoking Status/Tobacco Use Comment [facility] July 05, 2011 09:38 AM LIFETIME NON-TOBACCO USER [facility] July 03, 2011 06:04 PM LIFETIME NON-TOBACCO USER [facility] Nov 20, 2007 08:19 AM LIFETIME NON-TOBACCO USER [facility] Advance Directives: All historical and current Section Date Range: From patient's date of to the date document was created. This section includes ALL of a patient's completed or amended [place] Advance and Rescinded Directives. The entries below indicate that a directive exists for the patient, but an actual copy is not included with this document. The data comes from all [facility]. Date Advance Directives Provider Source July 03, 2011 CLINICAL WARNING RACHAEL KING [facility] Encounter Notes: All associated encounter notes This section contains the clinical notes associated to the Encounter. Date/Time Encounter Note(s) Provider Source May 18, 2021 03:11 PM PHARMACY NOTE: TIFFANIE PEREZ [place] [facility] LOCAL TITLE: PHARMACY NON VA CARE MEDICATIONS STANDARD TITLE: PHARMACY NOTE DATE OF NOTE: MAY 18, 2021@15:11 ENTRY DATE: MAY 18, 2021@15:11:08 AUTHOR: TIFFANIE PEREZ EXP COSIGNER: URGENCY: STATUS: COMPLETED [facility] R ECEIVED electronic prescription(s) (eRX(s))from NON- VA Provider: ABAD GOFF Date eRX received: Apr Outside (NON-VA) provider no t authorized to write for prescription(s) through [place] pharmacy. Prescription request REDIRECTED via FAX to one o f the following for review: [X][facility] (Dual) Care [ ]Other: [ ] [facility] (M[facility]) [ ] [facility] [ ] [facility] [ ] [facility] eRx Reference #: [id number] eRx Prescription Information: eRx Drug: gabapentin 100 mg capsule eRx Qty: 120 eRx Refills: 2 eRx Days Supply: 30 eRx Written Date: MAY 18, 2021 eRx Issue Date: Prohibit Renewals: No eRx Sig: Take 1 capsule by mouth twice a day And 2 tabs Q HS /zeb/ TIFFANIE PEREZ PharmD Signed: 05/18/2021 15:11
--- OUTSIDE RECORDS SUMMARY | 2022-01-23 15:16 | XMS_ITS | Encounter Summary ---
:1955 Author Organization Department [facility] Address [address] [place] [address] Support Name Relationship Address Phone JULIET MOODY Unavailable [address] [place] [employer] [facility] [employer] ISAIAH SMITH [address] SHENA PETERSEN Unavailable [address] [place] [address] SHENA PETERSEN Unavailable [address] [place] [address] Insurance Providers: All historical and current Section [...] MEDICARE MEDICARE PART June 18, PART A [id number] Smiley MOODY (WNR) (M) A 2009 16A [phone] [facility] Selected Encounter This section includes the information on record at [place] for the Encounter. Date/Time Encounter Type Encounter Description Reason Provider Source May 03, 2021 11:45 Outpatient Encounter PRIMARY CARE/MEDICINE AM IHE Encounter Template Text not used by [place] Plan of Treatment: Future Appointments (+ 6 months) and Future Tests (+/- 45 days) The Plan of Treatment section includes future care activities for the patient from all [place] treatmentfacilities. This section includes future appointments and future orders which are active, pending orscheduled.Future Appointments This section includes appointments that were scheduled to occur 6 months from the date of the Encounter, up to a maximum of 20 appointments. The data comes from all [place] treatment facilities. Appointment Date/Time Appointment Type Appointment Facili ty Name Jun 14, 2021 08:15 AM AMBULATORY - MEDICINE [facility] July 04, 2021 05:00 PM AMBULATORY - REHAB MEDICINE [facility] July 12, 2021 09:15 AM AMBULATORY - NONE [facility] July 12, 2021 02:00 PM AMBULATORY - REHAB MEDICINE [facility] Aug 11, 2021 09:00 AM AMBULATORY - REHAB MEDICINE [facility] Nov 02, 2021 05:30 PM AMBULATORY - REHAB MEDICINE [facility] Social History: Smoking Status (Most current) [...] 28, 2018 12:26 PM VA-TOBACCO NEVER USED [facility] Tobacco Use History This section includes a history of the smoking, or tobacco- related health factors, that were collected on or before the date of the Encounter. The data comes from the [place] facility where the Encounter took place. Date/Time Smoking Status/Tobacco Use Comment [facility] July 05, 2011 09:38 AM [...] this document. The data comes from all [facility]. Date Advance Directives Provider Source July 03, 2011 CLINICAL WARNING RACHAEL KING [facility] Encounter Notes: All associated encounter notes This section contains the clinical notes associated to the Encounter. Date/Time Encounter Note(s) Provider Source May 03, 2021 11:45 AM REPORT OF CONTACT: EARL CHOU [facility] LOCAL TITLE: APPOINTMENT SCHEDULING NOTE STANDARD TITLE: REPORT OF CONTACT DATE OF NOTE: MAY 03, 2021@11:45 ENTRY DATE: MAY 03, 2021@11:45:23 AUTHOR: JOSÉ ANTONIO,EARL M EXP COSIGNER: URGENCY: STATUS: COMPLETED Attempt to schedule return to clinic 1st Contact: Called [facility] at: [phone] Margie contreras Left message Phone number left for to call back: 2nd Contact: Sent letter by regular [place] mail to address on ray vital FRANSISCO, JOSÉ ANTONIO MINDY [address] [place] [address] If [facility] calls back, schedule appointment for : 60 [facility] RTC 05/2021 ANNUAL COMANAGED Is the RTC marked as no later than? No /es/ EARL CHOU ADVANCED [facility]SA Signed: 05/03/2021 11:46
--- OUTSIDE RECORDS SUMMARY | 2022-01-23 15:16 | XMS_ITS | Encounter Summary ---
:[address] [facility] Address [address] [place] [address] Support Name Relationship Address Phone JULIET MOODY Unavailable [address] [place] [address] SHENA PETERSEN Unavailable [address] [place] [address] SHENA PETERSEN Unavailable [address] [place] [address] Insurance Providers: All historical and current Section [...] MEDICARE MEDICARE PART June 18, PART A [id number] Smiley MOODY (WNR) (M A 2009 16A [phone] [facility] Selected Encounter This section includes the information on record at MD for the Encounter. Date/Time Encounter Type Encounter Description Reason Provider Source Jun 15, 2021 01:31 Outpatient Encounter TELEPHONE PRIMARY CARE IHE Encounter Template Text not used by MD Plan of Treatment: Future Appointments (+ 6 months) and Future Tests (+/- 45 days) The Plan of Treatment section includes future care activities for the patient from all MD treatmentfacilities. This section includes future appointments and future orders which are active, pending orscheduled.Future Appointments This section includes appointments that were scheduled to occur 6 months from the date of the Encounter, up to a maximum of 20 appointments. The data comes from all MD treatment facilities. Appointment Date/Time Appointment Type Appointment Facili ty Name July 04, 2021 05:00 PM AMBULATORY - REHAB MEDICINE [facility] July 12, 2021 09:15 AM AMBULATORY - NONE [facility] July 12, 2021 02:00 PM AMBULATORY - REHAB MEDICINE [facility] Aug 11, 2021 09:00 AM AMBULATORY - REHAB MEDICINE [facility] Nov 02, 2021 05:30 PM AMBULATORY - REHAB MEDICINE [facility] Nov 07, 2021 03:00 PM AMBULATORY - REHAB MEDICINE [facility] Nov 24, 2021 08:00 AM AMBULATORY - REHAB MEDICINE [facility] Nov 24, 2021 09:00 AM AMBULATORY - MEDICINE [facility] Social History: Smoking Status (Most current) and Tobacco Use (All prior to encounter date) This section includes the most current, and the historical, smoking and tobacco-related health factors from the MD facility where the Encounter took place.Current Smoking Status This section includes the most current smoking, or tobacco-related health factor, from the MD facility where the Encounter took place. Date/Time Current Smoking Status Comment Facility Jun 14, 2021 08:15 AM VA-TOBACCO USER SOME DAYS [facility] Tobacco Use History This section includes a history of the smoking, or tobacco- related health factors, that were collected on or before the date of the Encounter. The data comes from the MD facility where the Encounter took place. 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 The data comes from all MD facilities. Date Advance Directives Provider Source July 03, 2011 CLINICAL WARNING RACHAEL KING [facility] Encounter Notes: All associated encounter notes This section contains the clinical notes associated to the Encounter. Date/Time Encounter Note(s) Provider Source Jun 15, 2021 01:31 PM SOCIAL WORK CONSULT: FAIZA TIJERINA [place] [facility] LOCAL TITLE: SOCIAL WORK CONSULT C STANDARD TITLE: SOCIAL WORK CONSULT DATE OF NOTE: JUN 15, 2021@13:31 ENTRY DATE: JUN 15, 2021@13:31:42 AUTHOR: FAIZA TIJERINA EXP COSIGNER: URGENCY: STATUS: COMPLETED PCSW received the following consult: Transportation Please describe:Pt with history of CVA, needs he lp with transportation to and from MD appts Called ([phone] ). Slick's son answered. Discussed transportation resources. Per 's son, uses w/c. Discussed VTS. 's son requests this information be mailed to them. Elizabeth led information regarding [facility] and [facility] offices (for additional transportation resources if needed) to 's mailing address. /zeb/ VITA COOPER, FLEET MECHANIC STUDENT DRIVING INSTRUCTOR Signed: 06/15/2021 14:13
--- OUTSIDE RECORDS SUMMARY | 2022-01-23 15:17 | XMS_ITS | Encounter Summary ---
:[address] [facility] Address [address] [place] [address] Support Name Relationship Address Phone JULIET MOODY Unavailable [address] [place] [facility] [place] [address] SHENA PETERSEN Unavailable [address] [place] [address] SHENA PETERSEN Unavailable [address] [place] [address] Insurance Providers: All historical and current Section [...] MEDICARE MEDICARE PART June 18, PART A [id number] Smiley MOODY (WNR) (M A 2009 16A [phone] [facility] Selected Encounter This section includes the information on record at [place] for the Encounter. Date/Time Encounter Type Encounter Description Reason Provider Source Jun 17, 2021 01:21 Outpatient Encounter COMMUNITY CARE PM CONSULT IHE Encounter Template Text not used by [place] Plan of Treatment: Future Appointments (+ 6 [...] 2021 05:00 PM AMBULATORY - REHAB MEDICINE [facility] July 12, 2021 09:15 AM AMBULATORY - NONE [facility] July 12, 2021 02:00 PM AMBULATORY - REHAB MEDICINE [facility] Aug 11, 2021 09:00 AM AMBULATORY - REHAB MEDICINE [facility] Nov 02, 2021 05:30 PM AMBULATORY - REHAB MEDICINE [facility] Nov 07, 2021 03:00 PM AMBULATORY - REHAB MEDICINE [facility] Nov 24, 2021 08:00 AM AMBULATORY - REHAB MEDICINE [facility] Nov 24, 2021 09:00 AM AMBULATORY - MEDICINE [facility] Social History: Smoking Status (Most current) [...] 2021 08:15 AM VA-TOBACCO USER SOME DAYS [facility] Tobacco Use History This section includes a history of the smoking, or tobacco- related health factors, that were collected on or before the date of the Encounter. The data comes from the [place] facility where the Encounter took place. 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 [facility] Jun 14, 2021 08:15 AM VA-TOBACCO USE MED NO [place] [facility] Jun 14, 2021 08:15 AM VA-TOBACCO USER SOME DAYS [facility] Jan 28, 2018 12:26 PM VA-TOBACCO NEVER USED [place] [facility] July 05, 2011 09:38 AM LIFETIME NON-TOBACCO USER [facility] July 03, 2011 06:04 PM LIFETIME NON-TOBACCO USER [facility] Nov 20, 2007 08:19 AM LIFETIME NON-TOBACCO USER [facility] Advance Directives: All historical and current Section Date Range: From patient's date of to the date document was created. This section includes ALL of a patient's completed or amended VA Advance and Rescinded Directives. The entries below indicate that a directive exists for the patient, but an actual copy is not included with this document. The data comes from all [place] facilities. Date Advance Directives Provider Source July 03, 2011 CLINICAL WARNING RACHAEL KING [facility] Encounter Notes: All associated encounter notes This section contains the clinical notes associated to the Encounter. Date/Time Encounter Note(s) Provider Source Jun 17, 2021 01:21 PM PHARMACY NOTE: EARL TODD [facility] LOCAL TITLE: PHARMACY NON [place] CARE MEDICATIONS STANDARD TITLE: PHARMACY NOTE DATE OF NOTE: JUN 17, 2021@13:21 ENTRY DATE: JUN 17, 2021@13:21:18 AUTHOR: EARL TODD EXP COSIGNER: URGENCY: STATUS: COMPLETED [facility] RECEIVED electronic p rescription(s) (eRX(s)) from NON-VA Provider: ABAD GOFF Date eRX received: May Outside (NON-VA) provider not authorized to writ e for prescription(s) through [place] pharmacy. Prescription request REDIRECTED via FAX to one o f the following for review: [X][facility] (Dual) Care [ ]Other: [ ] [facility] ([facility]) [ ] [facility] [ ] [facility] [ ] [facility] eRx Reference #: [id number] eRx Prescription Information: eRx Drug: gabapentin 100 mg capsule eRx Qty: 120 eRx Refills: 2 eRx Days Supply: 30 eRx Written Date: JUN 16, 2021 eRx Issue Date: Prohibit Renewals: No eRx Sig: Take 1 capsule by mouth twice a day And 2 tabs Q HS /es/ EARL TODD pharmacist Signed: 06/17/2021 13:22
--- OUTSIDE RECORDS SUMMARY | 2022-01-23 15:17 | XMS_ITS | Encounter Summary ---
:1955 Author Organization [facility] Address [address] [place] [address] Support Name Relationship Address Phone JULIET MOODY Unavailable [address] [place] [facility] [place] [address] SHENA PETERSEN Unavailable [address] [place] [address] SHENA PETERSEN Unavailable [address] [place] [address] Insurance Providers: All historical and current Section [...] MEDICARE MEDICARE PART June 18, PART A [id number] Smiley MOODY (WNR) (M A 2009 16A [phone] [facility] Selected Encounter This section includes the information on record at [place] for the Encounter. Date/Time Encounter Type Encounter Reason Provider Source Description July 12, 2021 THERAPEUTIC OCCUPATIONAL ICD-10-CM I63.9 TOR GERARDO 02:00 PM ACTIVITIES THERAPY Cerebral R W infarction, unspecified with Provider Comments: Cerebral Infarction, unspecified IHE Encounter Template Text not used by [place] Assessments - Encounter Diagnoses This section includes the primary and secondary diagnoses documented for the Encounter. Date/Time Primary/Secondary Diagnosis Name Provider Source Diagnosis July 12, 2021 PRIMARY Cerebral SIDNEY GERARDO [facility] V A 02:55 PM infarction, W HCS [...] 2021 09:00 AM AMBULATORY - REHAB MEDICINE [facility] Nov 02, 2021 05:30 PM AMBULATORY - REHAB [facility] Nov 07, 2021 03:00 PM AMBULATORY - REHAB MEDICINE [facility] Nov 24, 2021 08:00 AM AMBULATORY - REHAB [facility] Nov 24, 2021 09:00 AM AMBULATORY - MEDICINE [facility] Social History: Smoking Status [...] 2021 08:15 AM VA-TOBACCO USER SOME DAYS [facility] Tobacco Use History This section includes a history of the smoking, or tobacco- related health factors, that were collected on or before the date of the Encounter. The data comes from the [place] facility where the Encounter took place. Date/Time Smoking Status/Tobacco Use Comment [facility] Jun 14, 2021 08:15 AM VA-TOBACCO USE > 15 LESS THAN 30 [facility] YEARS Jun 14, 2021 08:15 AM VA-TOBACCO [facility] Jun 14, 2021 08:15 AM VA-TOBACCO USE ACUTE CARE NURSING ASSISTANT NO [facility] Jun 14, 2021 08:15 AM VA-TOBACCO USE MED NO [place] [facility] Jun 14, 2021 08:15 AM VA-TOBACCO USER SOME DAYS [facility] Jan 28, 2018 12:26 PM VA-TOBACCO NEVER USED [place] [facility] July 05, 2011 09:38 AM [...] CLINICAL WARNING RACHAEL KING [facility] Encounter Notes: All associated encounter notes This section contains the clinical notes associated to the Encounter. Date/Time Encounter Note(s) Provider Source July 12, 2021 02:10 PM OCCUPATIONAL THERAPY CONSULT: SONNY GERARDO [facility] LOCAL TITLE: OCCUPATIONAL THERAPY CONSULT STANDARD [...] Jessa reports that he has received so nm therapy at [facility] after his [...] Medium - Per formance Health - Item #[id number] -Comfy Rest Hand Orthosis Adult - Performance He alth - Item #[id number] ASSESSMENT: -Jessa is a 65 yo male seeking OT services for UE strengthening/rehabilitation post CVA from 2019. Jessa currently lives in SNF t hat is fully accessible and requires varying levels of a ssistance for bathing, dressing, toileting, and all IADLs. Marit demonstrates RUE/RLE flaccidi ty/paralysis, hemiplegic shoulder, and expressive aphasia decreasin g safety and (I) and increasing pain/risk of falls. Jessa would benefit from equip ment listed above, as well as follow up with stroke rehab therapist OT Bam Suarez, alerted to note. Vet and son [...] enable completion of evaluation component. /zeb/ LALO CADENA OTR/Francois OCCUPATIONAL THERAPIST Signed: 07/12/2021 14:55 Receipt Acknowledged By: * AWAITING SIGNATURE * BAM SUAREZ
--- OUTSIDE RECORDS SUMMARY | 2022-01-23 15:17 | XMS_ITS | Encounter Summary ---
:1955 Author Organization Department [facility] Address [address] [place] [address] Support Name Relationship Address Phone JULIET MOODY Unavailable [address] [place] [facility] [place] [address] SHENA PETERSEN Unavailable [address] [place] [address] SHENA PETERSEN Unavailable [address] [place] [address] Insurance Providers: All historical and current Section [...] MEDICARE MEDICARE PART June 18, PART A [id number] 800 Smiley MOODY (WNR) (M A 2009 16A [phone] [facility] Selected Encounter This section includes the information on record at [place] for the Encounter. Date/Time Encounter Type Encounter Reason Provider Source Description July 12, 2021 MEDICAL TELEPHONE/ANCILLA ICD-10-CM Z71.3 KRISTI VINCENT I 09:15 AM NUTRITION INDIV RY Dietary counseling L IN and surveillance with Provider Comments: Dietary counseling and surveillance IHE Encounter Template Text not used by [place] Assessments - Encounter Diagnoses This section includes the primary and secondary diagnoses documented for the Encounter. Date/Time Primary/Secondary Diagnosis Name Provider Source Diagnosis July 12, 2021 PRIMARY Dietary counseling SHOAIB VINCENT IS [facility] 09:15 AM and surveillance L [facility] July 12, 2021 SECONDARY Body mass index SHOAIB VINCENT [place] 09:15 AM [BMI] 45.0-49.9, L [facility] adult July 12, 2021 SECONDARY Morbid (severe) SHOAIB VINCENT [facility] 09:15 AM obesity due to L [facility] excess calories July 12, 2021 SECONDARY Type 2 diabetes SHOAIB VINCENT [facility] 09:15 AM mellitus with L [facility] unspecified complications Plan of Treatment: Future Appointments (+ 6 months) and Future Tests (+/- 45 days) The Plan of Treatment section includes future care activities for the patient [facility] This section includes future appointments and [...] AM AMBULATORY - REHAB MEDICINE [facility] Nov 02, 2021 05:30 PM AMBULATORY - REHAB [facility] Nov 07, 2021 03:00 PM AMBULATORY - REHAB MEDICINE [facility] Nov 24, 2021 08:00 AM AMBULATORY - REHAB MEDICINE [facility] Nov 24, 2021 09:00 AM AMBULATORY - MEDICINE [facility] CS Social History: Smoking Status (Most current) [...] 08:15 AM VA-TOBACCO USER SOME DAYS [facility] Tobacco Use History This section includes a history of the smoking, or tobacco- related health factors, that were collected on or before the date of the Encounter. The data comes from the [place] facility where the Encounter took place. Date/Time Smoking Status/Tobacco Use Comment Facil ity Jun 14, 2021 08:15 AM VA-TOBACCO USE > [address] 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 Jun 14, 2021 08:15 AM [facility]CO [facility] Jun 14, 2021 08:15 AM VA-TOBACCO USER SOME DAYS [facility] Jan 28, 2018 12:26 PM VA-TOBACCO NEVER USED HARRIETT ERNANDEZ [facility] July 05, 2011 09:38 AM LIFETIME NON-TOBACCO USER [facility] July 03, 2011 06:04 PM LIFETIME NON-TOBACCO USER [facility] Nov 20, 2007 08:19 AM LIFETIME NON-TOBACCO USER [facility] Advance Directives: All historical and current Section Date Range: From patient's date of to the date document was created. This section includes ALL of a patient's completed or amended [place] Advance and Rescinded Directives. The entries below indicate that a directive exists for the patient, but an actual copy is not included with this document. The data comes from all [place] facilities. Date Advance Directives Provider Source July 03, [address] [facility] Encounter Notes: All associated encounter notes This section contains the clinical notes associated to the Encounter. Date/Time Encounter Note(s) Provider Source July 12, 2021 09:15 AM NUTRITION EDUCATION NOTE: SHOAIB VINCENT [facility] LOCAL TITLE: EDUCATION NUTRITION STANDARD TITLE: [...] 17 lbs. in 2 years (since ) [place] Body Weight: 166 lbs. Pertinent Past Medical History: HTN, DM, ANIBAL, H /o stroke, Obesity, Nutrition Related Medications: Atorvastatin, Fu rosemide, Metformin, Warfarin EDUCATION SCREENING PARTICIPANTS: Patient-Red, [id number]. Son likes to be at appointments to help with communication. Appoin tments are best after 3PM any day but Mondays BARRIERS/SPECIAL NEEDS: no barriers identified, speech limitations-from stroke, speaks slowly READINESS TO LEARN: no barriers Patient subjective statements: In an assisted l iving facility. I do have my own apartment. I get my meals here at the [facility]. Some snacks in my room. I [...] using his left leg Malnutrition Assessment (Per AND/ASPTONY Consensu s Statement, 2012) Suspect mild to [...] to decrease salt intake and on furosemide. 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 BMI 48, DM. Evaluation of Diagnosis Problem active INTERVENTION: Provided nutrition education/counseling: A. Healthy plate for planning meals 1. 2 for non-starchy veggies--at lunch and jarquin pper 2. 14 for protein: meat, cheese, eggs, nuts--p rotein at each meal and snack for healing wounds on legs 3. 02/21 for carbs: starch, starchy veggies and f [...] desired in the future. Malnutrition Assessment (Per AND/JOANN Yoderensu s Statement, 2012) Dietitian does not suspect malnutrition at this time, therefore, physical assessment not conducted FOLLOW UP: /es/ SHOAIB VINCENT RD CD REGISTERED DIETITIAN Signed: 07/13/2021 10:49 07/13/2021 ADDENDUM STATUS: COMPLETED Dear Red Moody: I am writing [facility]. It was a pleasure to speak with you. I look forward to working with you to meet your goals. If you have any question s, please contact me at the clinic at [phone] or through secure Bubbles ng (choose your primary care provider and put nutrition as the topic-it will be forwarded to me). During our phone appointment, we discussed the f enedina: A. Healthy plate for planning meals 1. /2 for non-starchy veggies--at lunch and jarquin pper [...] or schedule an appointment, please marshall duarte [phone]. Appointment options include: in person at the clinic, C (meaghan rondon) appointments or phone calls. In good health, Angela Andino, NISHA, CD [facility] Dietitian or Secure Message Enclosed: Healthy Plate /es/ SHOAIB VINCENT RD CD REGISTERED DIETITIAN Signed: 07/13/2021 13:59
--- OUTSIDE RECORDS SUMMARY | 2022-01-23 15:17 | XMS_ITS | Encounter Summary ---
:1955 Author Organization Department of [facility] rs Address [address] [place] [address] Support Name Relationship Address Phone JULIET MOODY Unavailable [address] [place] [facility] [place]AIAH SMITH [address] NICOLA SHENA Unavailable [address] [place] [address] NICOLASHENA Unavailable [address] [place] [address] Insurance Providers: All historical and current Section [...] MEDICARE MEDICARE PART June 18, PART A [id number] Smiley MOODY (WNR) (M) A 2009 16A [phone] [facility] Selected Encounter This section includes the information on record at [place] for the Encounter. Date/Time Encounter Type Encounter Reason Provider Source Description June 20, 2021 Outpatient PM&RS PHYSICIAN ICD-10-CM R26.9 VICKY SALEH 07:39 AM Encounter Unspecified M abnormalities of gait and mobility with Provider Comments: Unspecified Abnormalities of Gait and Mobility IHE Encounter Template Text not used by [place] Assessments - Encounter Diagnoses This section includes the primary and secondary diagnoses documented for the Encounter. Date/Time Primary/Secondary Diagnosis Name Provider Source Diagnosis June 20, 2021 PRIMARY Unspecified VICKY SALEH [facility] 01:57 PM abnormalities of M HCS [...] 20 appointments. The data comes from all [place] treatment facilities. Appointment Date/Time Appointment Type Appointment Facili ty Name July 04, 2021 05:00 PM AMBULATORY - REHAB MEDICINE [facility] July 12, 2021 09:15 AM AMBULATORY - NONE [facility] July 12, 2021 02:00 PM AMBULATORY - REHAB MED[facility] Aug 11, 2021 09:00 AM AMBULATORY - REHAB MED[facility] Nov 02, 2021 05:30 PM AMBULATORY - REHAB [facility] Nov 07, 2021 03:00 PM AMBULATORY - REHAB MED[facility] Nov 24, 2021 08:00 AM AMBULATORY - REHAB MED[facility] Nov 24, 2021 09:00 AM AMBULATORY - MEDICINE [facility] CS Social History: Smoking Status (Most current) and Tobacco Use (All prior to encounter date) This section includes the most current, and the historical, smoking and tobacco-related health factors from the [place] facility where the Encounter took place.Current Smoking Status This section includes the most current smoking, or tobacco-related health factor, from the [place] facility where the Encounter took place. Date/Time Current Smoking Status Comment Facility Jun 14, 2021 08:15 AM VA-TOBACCO USER SOME DAYS [facility] Tobacco Use History This section includes a history of the smoking, or tobacco- related health factors, that were collected on or before the date of the Encounter. The data comes from the [place] facility where the Encounter took place. Date/Time Smoking Status/Tobacco Use Comment [facility] it Jun 14, 2021 08:15 AM VA-TOBACCO USE > 15 LESS THAN 30 [facility] YEARS Jun 14, 2021 08:15 AM [facility] Jun 14, 2021 08:15 AM VA-TOBACCO USE OFFICE SERVICES REPRESENTATIVE NO [facility] Jun 14, 2021 08:15 AM [facility] Jun 14, 2021 08:15 AM VA-TOBACCO USER SOME DAYS [facility] Jan 28, 2018 12:26 PM VA-TOBACCO NEVER USED [place] July 05, 2011 09:38 AM LIFETIME NON-TOBACCO USER [facility] July 03, 2011 06:04 PM LIFETIME NON-TOBACCO USER [facility] Nov 20, 2007 08:19 AM LIFETIME NON-TOBACCO USER [facility] Advance Directives: All historical and current Section Date Range: From patient's date of to the date document was created. This section includes ALL of a patient's completed or amended [place] Advance and Rescinded Directives. The entries below indicate that a directive exists for the patient, but an actual copy is not included with this document. The data comes from all [place] facilities. Date Advance Directives Provider Source July 03, 2011 CLINICAL WARNING RACHAEL KING [facility] Encounter Notes: All associated encounter notes This section contains the clinical notes associated to the Encounter. Date/Time Encounter Note(s) Provider Source June 20, 2021 07:39 AM ORTHOTICS PROSTHETICS CONSULT: WILEY SALEH [facility] LOCAL TITLE: ELECTRIC MOBILITY CONSULT STANDARD TITLE: [...] for power mobility and request is approved pendromaine navarro for safety/driving skills, access to primary entrance of home and t ransportation device for vehicle. Total time spent completing e-consult: 11-20 minutes /es/ VICKY SALEH MD STAFF PHYSICIAN Signed: 06/20/2021 13:57
--- OUTSIDE RECORDS SUMMARY | 2022-01-23 15:18 | XMS_ITS | Encounter Summary ---
:1955 Author Organization Department [facility] Address [address] [place] [address] Support Name Relationship Address Phone JULIET MOODY Unavailable [address] [place] [facility] [place] [address] SHENA PETERSEN Unavailable [address] [place] [address] SHENA PETERSEN Unavailable [address] [place] [address] Insurance Providers: All historical and current Section [...] MEDICARE MEDICARE PART June 18, PART A [id number] 800 Smiley MOODY (WNR) (M A 2009 16A [phone] [facility] Selected Encounter This section includes the information on record at [place] for the Encounter. Date/Time Encounter Type Encounter Description Reason Provider Source Sep 27, 2021 12:49 Outpatient Encounter TELEPHONE PRIMARY CARE IHE Encounter Template Text not used by [place] Plan of Treatment: Future Appointments (+ 6 [...] 20 appointments. The data comes from all [place] treatment facilities. Appointment Date/Time Appointment Type Appointment Facili ty Name Nov 02, 2021 05:30 PM AMBULATORY - REHAB MEDICINE [facility] Nov 07, 2021 03:00 PM AMBULATORY - REHAB MEDICINE [facility] Nov 24, 2021 08:00 AM AMBULATORY - REHAB MEDICINE [facility] Nov 24, 2021 09:00 AM AMBULATORY - MEDICINE [facility] Mar 16, 2022 08:00 AM AMBULATORY - REHAB MEDICINE [facility] Social History: Smoking Status (Most current) [...] AM VA-TOBACCO DOESNT USE [place] [address] [facility] Tobacco Use History This section includes a history of the smoking, or tobacco- related health factors, that were collected on or before the date of the Encounter. The data comes from the [place] facility where the Encounter took place. Date/Time Smoking Status/Tobacco Use Comment [facility] ity Jun 14, 2021 08:15 AM VA-TOBACCO USE > 15 LESS [address]AN [address] 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 Jun 14, 2021 08:15 AM [facility]ACCO [facility] Jun 14, 2021 08:15 AM VA-TOBACCO USER SOME DAYS [facility] Jan 28, 2018 12:26 PM VA-TOBACCO NEVER USED [place] [facility] July 05, 2011 09:38 AM LIFETIME NON-TOBACCO USER [facility] July 03, 2011 06:04 PM LIFETIME NON-TOBACCO USER [facility] Nov 20, 2007 08:19 AM LIFETIME NON-TOBACCO USER [facility] Advance Directives: All historical and current Section Date Range: From patient's date of to the date document was created. This section includes ALL of a patient's completed or amended [place] Advance and Rescinded Directives. The entries below indicate that a directive exists for the patient, but an actual copy is not included with this document. The data comes from all [facility]. Date Advance Directives Provider Source July 03, [address] KING [facility] Encounter Notes: All associated encounter notes This section contains the clinical notes associated to the Encounter. Date/Time Encounter Note(s) Provider Source Sep 27, 2021 12:49 PM PRIMARY CARE NONVA NOTE: BRYCE MCGUIRE [facility] LOCAL TITLE: CO-MANAGED CARE NOTE STANDARD TITLE: PRIMARY CARE NONVA NOTE DATE OF NOTE: SEP 27, 2021@12:49 ENTRY DATE: SEP 27, 2021@12:49:52 AUTHOR: BRYCE MCGUIRE COSIGNER: URGENCY: STATUS: COMPLETED CO-MANAGED CARE NOTE Has ADDENDA Received a request for: 1. Gabapentin 100mg, take 2 capsules, 3 times da amie. Records scanned and available for review. Rx written by: Maureen Jaffe APRN, CNP Facility: [facility] Local provider phone #[phone] Local provider fax #[phone] Please alert me if med isn't approved or additio nal information is requested. If med is denied let me know what alternatives w ould be approved so I can communicate that information back to the local p tuckervider. /zeb/ BRYCE MCGUIRE LPN Co-Tax Technician Signed: 09/27/2021 12:52 Receipt Acknowledged By: 09/28/2021 16:16 /zeb/ NICK VASQUEZ Physician Emanations Analysis Technician 09/28/2021 ADDENDUM STATUS: COMPLETED Please call son/patient and inquire if they are truly asking to have this through VA pharmacy? He receives all meds throug h non-VA provider and may be safer to continue to do so in order to prevent c onfusion /NICK Diaz Physician Emanations Analysis Technician Signed: 09/28/2021 16:19 Receipt Acknowledged By: 09/28/2021 16:35 /zeb/ CHASIDY GODINEZ RN RN, BSN 09/28/2021 ADDENDUM STATUS: COMPLETED Ediphone Operator called and spoke to son. He said [facility] getting [facility] gabapentin ordered and [facility]. S o yes, requesting from us. /inga GODINEZ RN RN, BSN Signed: 09/28/2021 16:38 Receipt Acknowledged By: * AWAITING SIGNATURE * MONI BROWN
--- OUTSIDE RECORDS SUMMARY | 2022-01-23 15:18 | XMS_ITS | Encounter Summary ---
:1955 Author Organization Department [facility] Address [address] [place] [address] Support Name Relationship Address Phone JULIET MOODY Unavailable [address] [place] [facility] [place]H SMITH [address] SHENA PETERSEN Unavailable [address] [place] [address] SHENA PETERSEN Unavailable [address] [place] [address] Insurance Providers: All historical and current Section [...] MEDICARE MEDICARE PART June 18, PART A [id number] 800 Smiley MOODY (WNR) (M A 2009 16A [phone] [facility] Selected Encounter This section includes the information on record at [place] for the Encounter. Date/Time Encounter Type Encounter Description Reason Provider Source Sep 19, 2021 03:00 Outpatient Encounter TELEPHONE/ANCILLARY IHE Encounter Template Text not used by [...] 2021 05:30 PM AMBULATORY - REHAB MEDICINE [facility] Nov 07, 2021 03:00 PM AMBULATORY - REHAB MEDIC[facility] Nov 24, 2021 08:00 AM AMBULATORY - REHAB MEDICINE [facility] Nov 24, 2021 09:00 AM AMBULATORY - MEDICINE [facility] Mar 16, 2022 08:00 AM AMBULATORY - REHAB MEDICINE [facility] Social History: Smoking Status (Most [...] 2021 08:15 AM VA-TOBACCO USER SOME DAYS [facility] Tobacco Use History This section includes a history of the smoking, or tobacco- related health factors, that were collected on or before the date of the Encounter. The data comes from the [place] facility where the Encounter took place. 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 This section includes ALL of a patient's completed or amended [place] Advance and Rescinded Directives. The entries below [...] 03:16 PM NO SHOW NOTE: AGA CRUZ [facility] LOCAL TITLE: NO SHOW/CANCELLATION CLINIC NOTE STANDARD TITLE: NO SHOW NOTE DATE OF NOTE: SEP 19, 2021@15:16 ENTRY DATE: SEP 19, 2021@15:16:41 AUTHOR: AGA CRUZ EXP COSIGNER: URGENCY: STATUS: COMPLETED [place] not seen for scheduled appointment due t o: cancelled Called for 3pm nutri tion phone appointment. Reji Ruby answered on second attempt and requested to reschedule appointment d/t scheduling conflict. Appointment Rescheduled: No Home Health Care Physician provided Tung with scheduling number ) to reschedule nutrition appt, Tung prefers to reschedule multi ple upcoming appointments for the same day. Advise if any further follow-up. Notify this sig nee as additional signer for notification. /zeb/ AGA CRUZ MBA, NISHAN REGISTERED DIETITIAN, 4E PACT Signed: 09/19/2021 15:19
--- OUTSIDE RECORDS SUMMARY | 2022-01-23 15:18 | XMS_ITS | Encounter Summary ---
:1955 Author Organization Department [facility] Address [address] [place] [address] Support Name Relationship Address Phone JULIET MOODY Unavailable [address] [place] [facility] [place] [address] SHENA PETERSEN Unavailable [address] [place] [address] SHENA PETERSEN Unavailable [address] [place] [address] Insurance Providers: All historical and current Section [...] MEDICARE MEDICARE PART June 18, PART A [id number] 800 Smiley MOODY (WNR) (M) A 2009 16A [phone] [facility] Selected Encounter This section includes the information on record at [place] for the Encounter. Date/Time Encounter Type Encounter Description Reason Provider Source Sep 07, 2021 08:57 Outpatient Encounter COMMUNITY CARE PM CONSULT IHE Encounter Template Text not used by [place] Plan of Treatment: Future Appointments (+ 6 months) and Future Tests (+/- 45 days) The Plan of Treatment section includes future care activities for the patient from all [place] treatmentfacilities. This section includes future appointments and [...] 2021 05:30 PM AMBULATORY - REHAB [facility]ICINE [facility] Nov 07, 2021 03:00 PM AMBULATORY - REHAB MEDICINE [facility] Nov 24, 2021 08:00 AM AMBULATORY - REH[facility]IC[facility] Nov 24, 2021 09:00 AM AMBULATORY - MEDICINE [facility] CS Social History: Smoking [...] 2021 08:15 AM VA-TOBACCO USER SOME DAYS [facility] Tobacco Use History This section includes a history of the smoking, or tobacco- related health factors, that were collected on or before the date of the Encounter. The data comes from the [place] facility where the Encounter took place. Date/Time Smoking Status/Tobacco Use Comment Facil ity Jun 14, 2021 08:15 AM VA-TOBACCO USE > 15 LESS THAN 30 [facility] YEARS Jun 14, 2021 08:15 AM [facility] Jun 14, 2021 08:15 AM VA-TOBACCO USE ACCOUNTANT NO [facility] Jun 14, 2021 08:15 AM VA-TOBACCO USE MED NO [place] [facility] Jun 14, 2021 08:15 AM VA-TOBACCO USER SOME DAYS [facility] Jan 28, 2018 12:26 PM VA-TOBACCO NEVER USED [place] [facility] July 05, 2011 09:38 AM LIFETIME NON-TOBACCO USER [facility] July 03, 2011 06:04 PM LIFETIME NON-TOBACCO USER [facility] Nov 20, 2007 08:19 AM LIFETIME NON-TOBACCO USER [facility] Advance Directives: All historical and current Section Date Range: From patient's date of to the date document was created. This section includes ALL of a patient's completed or amended [place] Advance and Rescinded Directives. The entries below indicate that a directive exists for the patient, but an actual copy is not included with this document. The data comes from all [facility]. Date Advance Directives Provider Source July 03, 2011 CLINICAL WARNING RACHAEL KING [facility] Encounter Notes: All associated encounter notes This section contains the clinical notes associated to the Encounter. Date/Time Encounter Note(s) Provider Source Sep 07, 2021 08:57 PM PH[facility]AC[facility]: [facility] LOCAL TITLE: PHARMACY NON VA CARE MEDICATIONS STANDARD TITLE: PHARMACY NOTE DATE OF NOTE: SEP 07, 2021@20:57 ENTRY DATE: SEP 07, 2021@20:57:46 AUTHOR: SHERRIE PERRY EXP COSIGNER: URGENCY: STATUS: COMPLETED [facility] RECEIVED electronic p rescription(s) (eRX(s)) from NON-VA Provider: ABAD GOFF Date eRX received: Aug Outside (NON-VA) provider no t authorized to write for prescription(s) through [place] pharmacy. Prescription request REDIRECTED via FAX to one o f the following for review: [X][facility] (Dual) Care [ ]Other: [ ] [facility] (to) [ ] [facility] [ ] [facility] [ ] [facility] eRx Reference #: [id number] eRx Prescription Information: eRx Drug: gabapentin 100 mg capsule eRx Qty: 180 eRx Refills: 2 eRx Days Supply: 30 eRx Written Date: SEP 07, 2021 eRx Issue Date: Prohibit Renewals: No eRx Sig: Take 2 capsule by mouth three times a day /zeb/ SHERRIE PERRY pharmacist Signed: 09/07/2021 20:59
--- OUTSIDE RECORDS SUMMARY | 2022-01-23 15:18 | XMS_ITS | Encounter Summary ---
:1955 Author Organization [facility] Address [address] [place] [address] Support Name Relationship Address Phone JULIET MOODY Unavailable [address] [place] [facility] [place] [address] SHENA PETERSEN Unavailable [address] [place] [address] SHENA PETERSEN Unavailable [address] [place] [address] Insurance Providers: All historical and current Section [...] MEDICARE MEDICARE PART June 18, PART A [id number] 800 Smiley MOODY (WNR) (M A 2009 16A [phone] [facility] Selected Encounter This section includes the [...] Aug 11, 2021 PRIMARY Cerebral [facility] SU[facility]Z [facility] 02:40 PM infarction, HCS unspecified Plan of Treatment: Future Appointments (+ 6 months) and Future Tests (+/- 45 days) The Plan of Treatment section includes future care activities for the patient from all [place] treatmentfacilities. This section includes future appointments and [...] 24, 2021 09:00 AM AMBULATORY - MEDICINE [facility] CS Social History: Smoking Status (Most [...] 2021 08:15 AM VA-TOBACCO USER SOME DAYS [facility] Tobacco Use History This section includes a history of the smoking, or tobacco- related health factors, that were collected on or before the date of the Encounter. The data comes from the [place] facility where the Encounter took place. 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 [facility] Jun 14, 2021 08:15 AM VA-TOBACCO USE MED NO [place] [facility] Jun 14, 2021 08:15 AM VA-TOBACCO USER SOME DAYS [facility] Jan 28, 2018 12:26 PM [facility] July 05, 2011 09:38 AM LIFETIME NON-TOBACCO USER [facility] July 03, 2011 06:04 PM LIFETIME NON-TOBACCO USER [facility] Nov 20, 2007 08:19 AM LIFETIME NON-TOBACCO USER [facility] Advance Directives: All historical and current [...] July 03, 2011 CLINICAL WARNING RACHAEL KING [facility] Encounter Notes: All associated encounter notes This section contains the clinical notes associated to the Encounter. Date/Time Encounter Note(s) Provider Source Aug 11, 2021 10:55 AM OCCUPATIONAL THERAPY NOTE: BAM SUAREZ [facility] LOCAL TITLE: OT-PROGRESS NOTE STANDARD TITLE: [...] pain 4/10 at rest and standing. T knot tier points infraspinatus. Kineiotape patterm for subluxed shoulder [...] a zipper. Pt was measured today by [facility] DME- Pt was order one handed can melt house drag operator, rocker knife, folding josé erazo, one touch can melt house drag operator, dycem to open jars, dehydrogenation converter helper, and sli ng. /zeb/ RANJIT LOCKE/Francois,BLANK,MIKAYLA OCCUPATIONAL THERAPIST Signed: 08/11/2021 14:40
--- OUTSIDE RECORDS SUMMARY | 2022-01-23 15:19 | XMS_ITS | Encounter Summary ---
:1955 Author Organization Department [facility] rs Address [address] [place] [address] Support Name Relationship Address Phone JULIET MOODY Unavailable [address] [place] [facility] [place]AIAH SM[place] [address] SHENA PETERSEN Unavailable [address] [place] [address] SHENA PETERSEN Unavailable [address] [place] [address] Insurance Providers: All historical and current Section [...] MEDICARE MEDICARE PART June 18, PART A [id number] 800 Smiley MOODY (WNR) (M) A 2009 16A [phone] [facility] Selected Encounter This section includes the information on record at [place] for the Encounter. Date/Time Encounter Type Encounter Description Reason Provider Source Nov 02, 2021 05:30 Outpatient Encounter ADMIN PAT ACTIVTIES PM (MASNONCT) IHE Encounter Template Text not used by [place] Plan of Treatment: Future Appointments (+ 6 months) and Future Tests (+/- 45 days) The Plan of Treatment section includes future care activities for the patient from all [place] treatmentfacilities. This section includes future appointments and [...] 2021 03:00 PM AMBULATORY - REHAB MEDICINE [facility] Nov 24, 2021 08:00 AM AMBULATORY - REHAB MEDICINE [facility] Nov 24, 2021 09:00 AM AMBULATORY - MEDICINE [facility] Mar 16, 2022 08:00 AM AMBULATORY - REHAB MEDICINE [facility] Social History: Smoking Status (Most current) and [...] 2021 08:15 AM VA-TOBACCO USER SOME DAYS [facility] Tobacco Use History This section includes a history of the smoking, or tobacco- related health factors, that were collected on or before the date of the Encounter. The data comes from the [place] facility where the Encounter took place. 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 July 05, 2011 09:38 AM LIFETIME NON-TOBACCO USER [facility] July 03, 2011 06:04 PM LIFETIME NON-TOBACCO USER [facility] Nov 20, 2007 08:19 AM LIFETIME NON-TOBACCO USER [facility] Advance Directives: All historical and [...] July 03, 2011 CLINICAL WARNING RACHAEL KING [facility]
--- OUTSIDE RECORDS SUMMARY | 2022-01-23 15:19 | XMS_ITS | Encounter Summary ---
:1955 Author Organization [facility] rs Address [address] [place] [address] Support Name Relationship Address Phone JULIET MOODY Unavailable [address] [place] [facility] [place] [address] SHENA PETERSEN Unavailable [address] [place] [address] SHENA PETERSEN Unavailable [address] [place] [address] Insurance Providers: All historical and current Section [...] MEDICARE MEDICARE PART June 18, PART A [id number] Smiley MOODY (WNR) (M) A 2009 16A [phone] [facility] Selected Encounter This section includes the information on record at [place] for the Encounter. Date/Time Encounter Type Encounter Description Reason Provider Source July 04, 2021 05:00 Outpatient Encounter ADMIN PAT ACTIVTIES PM (MASNONCT) IHE Encounter Template Text not used by [place] Plan of Treatment: Future Appointments (+ 6 months) and Future Tests (+/- 45 days) The Plan of Treatment section includes future care activities for the patient from all [place] treatmentfacilities. This section includes future appointments and future orders which are active, pending orscheduled.Future Appointments This section includes appointments that were scheduled to occur 6 months from the date of the Encounter, up to a maximum of 20 appointments. The data comes from all [place] treatment facilities. Appointment Date/Time Appointment Type Appointment Facili ty Name July 12, 2021 09:15 AM AMBULATORY - NONE [facility] July 12, 2021 02:00 PM AMBULATORY - REHAB MEDICINE [facility] Aug 11, 2021 09:00 AM AMBULATORY - REHAB MEDICINE [facility] Nov 02, 2021 05:30 PM AMBULATORY - REHAB MEDICINE [facility] Nov 07, 2021 03:00 PM AMBULATORY - REHAB MEDICINE [facility] Nov 24, 2021 08:00 AM AMBULATORY - REHAB MEDICINE [facility] Nov 24, 2021 09:00 AM AMBULATORY - MEDICINE [facility] CS Social History: Smoking Status (Most current) and Tobacco Use (All prior to encounter date) This section includes the most current, and the historical, smoking and tobacco-related health factors from the [place] facility where the Encounter took place.Current Smoking Status This section includes the most current smoking, or tobacco-related health factor, from the [place] facility where the Encounter took place. Date/Time Current Smoking Status Comment Facility Jun 14, 2021 08:15 AM VA-TOBACCO USER SOME DAYS [facility] Tobacco Use History This section includes a history of the smoking, or tobacco- related health factors, that were collected on or before the date of the Encounter. The data comes from the [place] facility where the Encounter took place. 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 This section includes ALL of a patient's completed or amended [place] Advance and Rescinded Directives. The entries below indicate that a directive exists for the patient, but an actual copy is not included with this document. The data comes from all [place] facilities. Date Advance Directives Provider Source July 03, 2011 CLINICAL WARNING RACHAEL KING [facility]
--- OUTSIDE RECORDS SUMMARY | 2022-01-23 15:19 | XMS_ITS | Encounter Summary ---
:1955 Author Organization [facility] Address [address] [place] [address] Support Name Relationship Address Phone JULIET MOODY Unavailable [address] [place] [facility] [place] [address] SHENA PETERSEN Unavailable [address] [place] [address] SHENA PETERSEN Unavailable [address] [place] [address] Insurance Providers: All historical and current Section [...] MEDICARE MEDICARE PART June 18, PART A [id number] Smiley MOODY (WNR) (M A 2009 16A [phone] [facility] Selected Encounter This section includes the information on record at [place] for the Encounter. Date/Time Encounter Type Encounter Description Reason Provider Source Sep 22, 2021 01:00 Outpatient Encounter OCCUPATIONAL THERAPY IHE Encounter Template Text not used by [place] Plan of Treatment: Future Appointments (+ 6 months) and Future Tests (+/- 45 days) The Plan of Treatment section includes future care activities for the patient from all [place] treatmentfacilities. This section includes future appointments and future orders which are active, pending orscheduled.Future Appointments This section includes appointments that were scheduled to occur 6 months from the date of the Encounter, up to a maximum of 20 appointments. The data comes from all [place] treatment facilities. Appointment Date/Time Appointment Type Appointment Facili ty Name Nov 02, 2021 05:30 PM [facility] Nov 07, 2021 03:00 PM AMBULATORY - REHAB MEDICINE [facility] Nov 24, 2021 08:00 AM AMBULATORY - REHAB MEDICINE [facility] Nov 24, 2021 09:00 AM AMBULATORY - MEDICINE [facility] Mar 16, 2022 08:00 AM AMBULATORY - REHAB MEDICINE [facility] Social History: Smoking Status (Most current) and Tobacco Use (All prior to encounter date) This section includes the most current, and the historical, smoking and tobacco-related health factors from the [place] facility where the Encounter took place.Current Smoking Status This section includes the most current smoking, or tobacco-related health factor, from the [place] facility where the Encounter took place. Date/Time Current Smoking Status Comment Facility Jun 14, 2021 08:15 AM VA-TOBACCO USER SOME DAYS [facility] Tobacco Use History This section includes a history of the smoking, or tobacco- related health factors, that were collected on or before the date of the Encounter. The data comes from the [place] facility where the Encounter took place. 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 The entries below [...] 2021 01:39 PM REPORT OF CONTACT: TAYLOR MARIAHILARY GRAFF [facility] LOCAL TITLE: APPOINTMENT SCHEDULING NOTE STANDARD TITLE: REPORT OF CONTACT DATE OF NOTE: OCT 19, 2021@13:39 ENTRY DATE: OCT 19, 2021@13:39:33 AUTHOR: TAYLOR MARIA EXP COSIGNER: URGENCY: STATUS: COMPLETED Attempt to schedule return to clinic 1st Contact: Called at: [phone] Se p Left message Phone number left for to call back: [phone] 2nd Contact: Sent letter by regular [place] mail to address on ray JOSÉ ANTONIO Cotter [address] [place] [address] Additional information/contact attempts: Appointment added to [facility] for scheduli ng reminder If calls back, schedule appointment for : Return to [facility] OT BAM PLATA on or around ( Oct ) for a total of 1 appointment(s) 60 min Is the RTC marked as no later than? No /zeb/ TAYLOR MARIA [employer] Signed: 10/19/2021 13:40
--- OUTSIDE RECORDS SUMMARY | 2022-01-23 15:19 | XMS_ITS | Encounter Summary ---
:1955 Author Organization [facility] Address [address] [place] [address] Support Name Relationship Address Phone JULIET MOODY Unavailable [address] [place] [facility] [address] SHENA PETERSEN Unavailable [address] [place] [address] SHENA PETERSEN Unavailable [address] [place] [address] Insurance Providers: All historical and current Section [...] MEDICARE MEDICARE PART June 18, PART A [id number] 800 Smiley MOODY (WNR) (M A 2009 16A [phone] [facility] Selected Encounter This section includes the information on record at [place] for the Encounter. Date/Time Encounter Type Encounter Reason Provider Source Description Nov 07, 2021 NEUROMUSCULAR OCCUPATIONAL ICD-10-CM I63.9 D[facility]EL[facility]AM 03:00 PM REEDUCATION THERAPY Cerebral infarction, unspecified with Provider Comments: Cerebral infarction, unspecified IHE Encounter Template Text not used by [place] Assessments - Encounter Diagnoses This section includes the primary and secondary diagnoses documented for the Encounter. Date/Time Primary/Secondary Diagnosis Name Provider Source Diagnosis Nov 07, 2021 PRIMARY Cerebral BAM SUAREZ [facility] 04:38 PM infarction, HCS unspecified Plan [...] 2021 08:00 AM AMBULATORY - REHAB MEDICINE [facility] Nov 24, 2021 09:00 AM AMBULATORY - MEDICINE [facility] Mar 16, 2022 08:00 AM AMBULATORY - REHAB MEDICINE [facility] Social History: Smoking Status (Most [...] 2021 08:15 AM VA-TOBACCO USER SOME DAYS [facility] Tobacco Use History This section includes a history of the smoking, or tobacco- related health factors, that were collected on or before the date of the Encounter. The data comes from the [place] facility where the Encounter took place. Date/Time Smoking Status/Tobacco Use Comment Facil ity Jun 14, 2021 08:15 AM VA-TOBACCO USE > 15 LESS THAN 30 [facility] YEARS Jun 14, 2021 08:15 AM VA-TOBACCO USE ADVICE [place] [facility] Jun 14, 2021 08:15 AM VA-TOBACCO USE CITY DIRECTOR NO [facility] Jun 14, 2021 08:15 AM VA-TOBACCO USE MED NO [place] [facility] Jun 14, 2021 08:15 AM VA-TOBACCO USER SOME DAYS [facility] Jan 28, 2018 12:26 PM VA-TOBACCO NEVER USED [place] [facility] July 05, 2011 09:38 AM LIFETIME NON-TOBACCO USER [facility] July 03, 2011 06:04 PM LIFETIME NON-TOBACCO USER [facility] Nov 20, 2007 08:19 AM LIFETIME NON-TOBACCO USER [facility] Advance Directives: All historical and current Section Date Range: From patient's date of to the date document was created. This section includes ALL of a patient's completed or amended [place] Advance and Rescinded Directives. The entries below indicate that a directive exists for the patient, but an actual copy is not included with this document. The data comes from all [place] facilities. Date Advance Directives Provider Source July 03, 2011 CLINICAL WARNING RACHAEL KING [facility] Encounter Notes: All associated encounter notes This section contains the clinical notes associated to the Encounter. Date/Time Encounter Note(s) Provider Source Nov 07, 2021 04:37 PM OCCUPATIONAL THERAPY DISCHARGE NOTE: BAM SUAREZ [facility] LOCAL TITLE: OT-DISCHARGE NOTE STANDARD TITLE: OCCUPATIONAL [...] and treat Encounter: 60 min neuro ASSESSMENT: -Jessa is a 65 [...] has a resting hand splint that pt s abdirahman is fitting him. HEP: Pt instructed on [...] with a zipper. Pt was measured and [facility] will mail out the product. DME- Pt was instructed and demo the following: Pt was order one handed can radio mechanic helper, rocker knife, folding josé erazo, one touch can radio mechanic helper, dycem to open jars, finance specialist. Issued today: Please mail out and order thru [employer] [facility]: Bath Mitt [id number] Long bath brush 6330# Bottom Jose R [id number] Sammon Shayan easi finance specialist compact [id number]# and Clip for feather finance specialist [id number] Leg lift Inspection Mirror Holding Mitt large 6255# /es/ BAM SUAREZOTR/L,BCPR,MIKAYLA OCCUPATIONAL THERAPIST Signed: 11/08/2021 09:28 11/08/2021 ADDENDUM STATUS: COMPLETED Pt may be appropriate for botox and evaluation b y ECR REC provider. Alerting PCP that he may be appropria te for ECR- out pt stroke consult for evaluation of tone/botox attention Dr. Alcazar out pt stroke REC provider /zeb/ BAM SUAREZ,OTR/L,BCPR,DRS OCCUPATIONAL THERAPIST Signed: 11/08/2021 09:31 Receipt Acknowledged By: * AWAITING SIGNATURE * MONI BROWN
--- OUTSIDE RECORDS SUMMARY | 2022-01-23 15:20 | XMS_ITS | Encounter Summary ---
:1955 Author Organization Department [facility] Address [address] [place] [address] Support Name Relationship Address Phone JULIET MOODY Unavailable [address] [place] [address] SHENA PETERSEN Unavailable [address] [place] [address] SHENA PETERSEN Unavailable [address] [place] [address] Insurance Providers: All historical and current Section [...] MEDICARE MEDICARE PART June 18, PART A [id number] 800 Smiley MOODY (WNR) (M A 2009 16A [phone] [facility] Selected Encounter This section includes the [...] 24, 2021 09:00 AM AMBULATORY - MEDICINE [facility] Mar 16, 2022 08:00 AM AMBULATORY [...] 2021 08:15 AM VA-TOBACCO USER SOME DAYS [facility] Tobacco Use History This section includes a history of the smoking, or tobacco- related health factors, that were collected on or before the date of the Encounter. The data comes from the [facility] where the Encounter took place. Date/Time Smoking Status/Tobacco Use Comment [facility] Jun 14, 2021 08:15 AM VA-TOBACCO USE > 15 LESS THAN 30 [facility] YEARS Jun 14, 2021 08:15 AM 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 This section includes ALL of a patient's completed or amended [place] Advance and Rescinded Directives. The entries below indicate that a directive exists for the patient, but an actual copy is not included with this document. The data comes from all [facility]. Date Advance Directives Provider Source July 03, 2011 CLINICAL WARNING FERNANDORACHAEL [facility] Encounter Notes: All associated encounter notes This section contains the clinical notes associated to the Encounter. Date/Time Encounter Note(s) Provider Source Nov 16, 2021 11:19 AM NONVA NOTE: [facility] LOCAL TITLE: COMMUNITY CARE-CARE COORDINATION P CASEY NOTE STANDARD TITLE: NONVA NOTE DATE OF NOTE: NOV 16, 2021@11:19 ENTRY DATE: NOV 16, 2021@11:19:31 AUTHOR: TUTU SANCHEZ EXP COSIGNER: URGENCY: STATUS: COMPLETED COMMUNITY CARE-CARE COORDINATION PLAN NOTE Has ADDENDA Received DME from [facility] requesting ordering of venous compression device. Please refer to DME form upl oaded to [facility] dated 11/01/2021 for details. No community care referral associat ed with this request. /zeb/ TUTU SANCHEZ RN Registered Nurse, Care in Community Signed: 11/16/2021 11:24 Receipt Acknowledged By: 11/16/2021 11:27 /zeb/ MOY LEW MD MATERIALS SUPERVISOR, [facility] for MONI BROWN 11/16/2021 12:37 /zeb/ CHASIDY GODINEZ RN RN, BSN 11/16/2021 ADDENDUM STATUS: COMPLETED [employer] Scanned Document - Addendum. /zeb/ SARA WESTON RN fleet sales associate Store Planner Signed: 11/16/2021 11:26 11/16/2021 ADDENDUM STATUS: COMPLETED If PACT RN can provide me with the DME forms for review today then I will address it other PCP can address this issue. /zeb/ MOY LEW MD MATERIALS SUPERVISOR, [facility] Signed: 11/16/2021 11:30 Receipt Acknowledged By: 11/17/2021 10:57 /inga GODINEZ RN RN, BSN 11/17/2021 ADDENDUM STATUS: COMPLETED Ceramic Tile Installation Helper unable to find form. Can you please print and fax to [phone]? /inga GODINEZ RN RN, BSN Signed: 11/17/2021 10:57 11/17/2021 ADDENDUM STATUS: COMPLETED Irrelevant, web content writer able to find and print. /inga GODINEZ RN RN, BSN Signed: 11/17/2021 10:59
--- OUTSIDE RECORDS SUMMARY | 2022-01-23 15:20 | XMS_ITS | Encounter Summary ---
:1955 Author Organization [facility] Address [address] [place] [address] Support Name Relationship Address Phone JULIET MOODY Unavailable [address] [facility] [address] SHENA PETERSEN Unavailable [address] [place] [address] SHENA PETERSEN Unavailable [address] [place] [address] Insurance Providers: All historical and current Section [...] MEDICARE MEDICARE PART June 18, PART A [id number] Smiley MOODY (WNR) (M) A 2009 16A [phone] [facility] Selected Encounter This section includes the information on record at [place] for the Encounter. 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 Date/Time Primary/Secondary Diagnosis Name Provider Source Diagnosis Nov 27, 2021 PRIMARY Type 2 diabetes VIRAJ MEADE [facility] 09:46 PM mellitus with [facility] diabetic neuropathy, unsp Nov 27, 2021 SECONDARY Aphasia following VIRAJ MEADE [facility] 09:46 PM cerebral [facility] infarction Nov 27, 2021 SECONDARY Encounter for SADI PERES V A 09:46 PM immunization [facility] Nov 27, 2021 SECONDARY Lymphedema, not VIRAJ MEADE [facility] 09:46 PM elsewhere [facility] classified Nov 27, 2021 SECONDARY Morbid (severe) VIRAJ MEADE [facility] 09:46 PM obesity due to S M [facility] excess calories Nov 27, 2021 SECONDARY Spastic hemiplegia VIRAJ MEADE [facility] 09:46 PM affecting right [facility] dominant side Nov 27, 2021 SECONDARY Type 2 diabetes VIRAJ MEADE [facility] 09:46 PM mellitus with [facility] unspecified complications Plan of Treatment: Future Appointments (+ 6 months) and Future Tests (+/- 45 days) The Plan of Treatment section includes future care activities for the patient from all [place] [facility]. This section includes future appointments and future orders which are active, pending orscheduled.Future Appointments This section includes appointments that were scheduled to occur 6 months from the date of the Encounter, up to a maximum of 20 appointments. The data comes from all [place] treatment facilities. Appointment Date/Time Appointment Type Appointment Facili ty Name Mar 16, 2022 08:00 AM AMBULATORY - REHAB MEDICINE [facility] Vital Signs: All taken on the encounter date This section contains inpatient and outpatient Vital Signs collected on the date of the Encounter. Date/Time Temperature Pulse Blood Respiratory SP02 Pain Height Weight Korey dy Source Pressure Rate Mass Index Nov 24 F 69 135/87 15 /min 97 % 0 333 lb 48 [facility] 2021 08:06 /min mm[Hg] IS [facility] Immunizations: All administered on the encounter [...] Comment Facility Jun 14, 2021 08:15 AM GA-TOBACCO DOESNT USE WI 30 MIN [facility] Tobacco Use History This section [...] 08:15 AM 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 Jun 14, 2021 08:15 AM VA-TOBACCO USER SOME DAYS [facility] Jan 28, 2018 12:26 PM [facility] July 05, 2011 09:38 AM LIFETIME [...] July 03, 2011 CLINICAL WARNING RACHAEL KING [facility] Encounter Notes: All associated encounter notes This section contains the clinical notes associated to the Encounter. Date/Time Encounter Note(s) Provider Source Nov 24, 2021 09:46 [facility] LOC[facility] TITLE: MEDICATION RECONCILIATION NOTE STANDARD [...] 05:18 PHYSICAL MEDICINE REHAB CONSULT: ROLAND MEADE [facility] PM LOCAL TITLE: REHAB MEDICINE CONSULT STANDARD TITLE: PHYSICAL MEDICINE REHAB CONSULT DATE OF NOTE: NOV 24, 2021@17:18 ENTRY DATE: NOV 27, 2021@17:18:49 AUTHOR: ARIA MEADE EXP COSIGNER: URGENCY: STATUS: COMPLETED REHAB MEDICINE CONSULT Has ADDENDA Rehab Medicine Consult: Name: José Antonio Moody Last 4: 0716 Date of CVA: ( list others if multiple): 019 Functional Deficits from CVA: R hemiparesis, Imp aired ADLs, mobility, cervicalgia, aphasia CVA Etiology work up: Admitted to [facility] and transferred to where found to have had a L MCA distribution infarct, A fib w/ RVR, hyperglycemia, and R pneumonia. [facility] 4J was consulted but admissi on deferred due to medical acuity at the time and a subacute course of rehab was pursued at [facility]. He was referred [facility] OT for postacute RUE paresis interventio ns. See OT note. Currently at SNF for mcc care. Attended to appt by dtr who [...] - Mild impairment/chronic Level of supervision needed 24/ Current Sx: Pain mild-moderate in B legs [...] 2. Dyslipidemia 3. Diabetes mellitus (SNOMED CT 99280824) 4. Morbid obesity (SNOMED CT 818632465) 5. Depressive Disorder NOS 6. Diabetic neuropathy (SNOMED CT 944358985) 7. Sleep Apnea 8. Other Specified Counseling 9. Pes Planus, Acquired 10. Low back pain (SNOMED CT 533715598) 11. Recurrent major depressive episodes, moderat e (SNOMED CT 583793053) 12. Mixed anxiety and depressive disorder (SNOME D CT 357410331) 13. Hydrocele (SNOMED CT 06673613) 14. Hernia of anterior abdominal wall - Dx 04/03, Gen Surgical Eval 07/01 15. Anxiety 16. Mental disorder 17. Asthma ([facility] [id number]) 18. Cardiomyopathy 19. AF-Atrial Fibrillation ([facility] [id number]) 20. Heart failure 21. H/O: Stroke ([facility] [id number]) SocHx: but residing at [facility] in [facility] Accessible but wishes to engage in more communit y activities No tobacco, ETOH, or illicits Medically disabled Support services: RN, SURGEON/PRESIDENT Active Medications: Medications: Active Outpatient Medications (incl [...] w/ mass synergy of RUE attempts at bone char kiln tender 3+ mod Mahin at R FF, Thumb [...] months - dtr to accompany if possible. Bath and daughter concur w/ above plan of car e. /zeb/ ARIA MEADE M.D. STAFF PHYSICIAN Signed: 11/27/2021 21:46 11/27/2021 ADDENDUM STATUS: COMPLETED Trial of lidocaine patch 5% to R side of neck pr n neuropathic pain. /zeb/ ARIA MEADE M.D. STAFF PHYSICIAN Signed: 11/27/2021 21:54 Nov 24, 2021 11:12 IMMUNIZATION NOTE: ROHAN PERES [facility] TITLE: INFLUENZA VACCINATION [facility] STANDARD TITLE: IMMUNIZATION NOTE DATE OF [...] 0.5 ml IM today in Left Deltoid. 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
--- OUTSIDE RECORDS SUMMARY | 2022-01-23 15:21 | XMS_ITS | Encounter Summary ---
:[address] [facility] Address [address] [place] [address] Support Name Relationship Address Phone JULIET MOODY Unavailable [address] [place] [facility] [place] [address] NICOLASHENA Unavailable [address] [place] [address] SHENA PETERSEN Unavailable [address] [place] [address] Insurance Providers: All historical and current Section [...] MEDICARE MEDICARE PART June 18, PART A [id number] Smiley MOODY (WNR) (M A 2009 16A [phone] [facility] Selected Encounter This section includes the [...] [facility] 12:32 PM abnormalities of [facility] gait and mobility Plan of Treatment: Future Appointments (+ 6 months) and Future Tests (+/- 45 days) The Plan of Treatment section includes future care activities for the patient [facility] [place] [facility]. This section includes future appointments and [...] 2022 08:00 AM AMBULATORY - REHAB MEDICINE [facility] Vital Signs: All taken on the encounter date This section contains inpatient and outpatient Vital Signs collected on the date of the Encounter. Date/Time Temperature Pulse Blood Respiratory SP02 Pain Height Weight Korey dy Source Pressure Rate Mass Index Nov 24 F 69 135/87 15 /min 97 % 0 333 lb 48 [place] 2021 08:06 /min mm[Hg] [facility] Social History: Smoking Status (Most current) [...] 2021 08:15 AM VA-TOBACCO USER SOME DAYS [facility] Tobacco Use History This section includes a history of the smoking, or tobacco- related health factors, that were collected on or before the date of the Encounter. The data comes from the [place] facility where the Encounter took place. 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 [facility] Jun 14, 2021 08:15 AM VA-TOBACCO USE MED NO [place] [facility] Jun 14, 2021 08:15 AM VA-TOBACCO USER SOME DAYS [facility] Jan 28, 2018 12:26 PM VA-TOBACCO NEVER USED [place] [facility] July 05, 2011 09:38 AM LIFETIME NON-TOBACCO USER [facility] July 03, 2011 06:04 PM LIFETIME NON-TOBACCO USER [facility] Nov 20, 2007 08:19 AM LIFETIME NON-TOBACCO USER [facility] Advance Directives: All historical and [...] July 03, 2011 CLINICAL WARNING RACHAEL KING [facility] Encounter Notes: All associated encounter notes This section contains the clinical notes associated to the Encounter. 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 Measures sustained attention, working memory, vi sual processing, visuospatial skills, and psychomotor coordination. Client completed in 77 seconds with 5 er rors which indicates: Average+ but not deficient Average = 29 seconds Deficient = >78 seconds Rule of Thumb = Most in 90 seconds Prentice Making Test B (MOANS norms, age 56-97). [...] 35-40% (2019), global cardiomyopathy. Order(s) placed for: Preedo Q6 HD 21 wide x 20 deep Power tilt Green machine Transit ties downs Flat free drive wheels Base mounted foot platform Medium seat to floor height 2 Group 24 Gel Batteries Q-Logic 3E joystick Joystick mount on right with swing away mount Mushroom handle Rehab seat 2 post Flip up full length armrests Right arm trough Right thigh guide [place] [employer] M2 cushion 21 wide [...]
--- OUTSIDE RECORDS SUMMARY | 2022-01-23 15:21 | XMS_ITS | Encounter Summary ---
:1955 Author Organization Department [facility] Address [address] [place] [address] Support Name Relationship Address Phone JULIET MOODY Unavailable [address] [place] [facility] [place] [address] SHENA PETERSEN Unavailable [address] [place] [address] SHENA PETERSEN Unavailable [address] [place] [address] Insurance Providers: All historical and current Section [...] MEDICARE MEDICARE PART June 18, PART A [id number] Smiley MOODY (WNR) (M A 2009 16A [phone] [facility] Selected Encounter This section includes [...] 2022 08:00 AM AMBULATORY - [facility]AB [facility]ICINE [facility] [...] 2021 08:15 AM VA-TOBACCO USER SOME DAYS [facility] Tobacco Use History This section includes a history of the smoking, or tobacco- related health factors, that were collected on or before the date of the Encounter. The data comes from the [place] facility where the Encounter took place. 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 [facility] Jun 14, 2021 08:15 AM VA-TOBACCO USE MED NO [place] [facility] Jun 14, 2021 08:15 AM VA-TOBACCO USER SOME DAYS [facility] Jan 28, 2018 12:26 PM VA-TOBACCO NEVER USED [place] [facility] July 05, 2011 09:38 AM LIFETIME NON-TOBACCO USER [facility] July 03, 2011 06:04 PM LIFETIME NON-TOBACCO USER [facility] Nov 20, 2007 08:19 AM LIFETIME NON-TOBACCO USER [facility] Advance Directives: All historical and current Section Date Range: From patient's date of to the date document was created. This section includes ALL of a patient's completed or amended [place] Advance and Rescinded Directives. The entries below indicate that a directive exists for the patient, but an actual copy is not included with this document. The data comes from all [facility]. Date Advance Directives Provider Source July 03, 2011 CLINICAL WARNING RACHAEL KING [facility] Encounter Notes: All associated encounter notes This section contains the clinical notes associated to the Encounter. Date/Time Encounter Note(s) Provider Source Nov 29, 2021 03:17 PM NONVA NOTE: MERCEDEZ MORTENSEN [facility] LOCAL TITLE: COMMUNITY CARE-CARE COORDINATION P CASEY NOTE B STANDARD TITLE: NONVA NOTE DATE OF NOTE: NOV 29, 2021@15:17 ENTRY DATE: NOV 29, 2021@15:17:59 AUTHOR: JOSE MORTENSEN EXP COSIGNER: URGENCY: STATUS: COMPLETED COMMUNITY CARE-CARE COORDINATION PLAN NOTE Has ADDENDA Regina with [employer] (ph: ) called the [facility] call line and is asking about a wound pump request from [facility]. There is no consult to link this request with. Will defer to his PACT RN. Thank priscilla braxton for your patience. /zeb/ MERCEDEZ MORTENSEN [employer] EXTRACTION TENDER Signed: 11/29/2021 15:22 Receipt Acknowledged By: 11/30/2021 10:00 /zeb/ CHASIDY GODINEZ RN RN, BSN 11/30/2021 ADDENDUM STATUS: COMPLETED Generally vet would need to see our WOC and they would order wound vac if needed. Will alert PCP. /inga GODINEZ RN RN, BSN Signed: 11/30/2021 10:00 Receipt Acknowledged By: 11/30/2021 11:52 /NICK Diaz Physician [employer] Specialist 11/30/2021 ADDENDUM STATUS: COMPLETED Reviewed records in [employer]. Pt followed [facility] clinics for lymphedema and had recommended pt obtain lymphed cale pump to assist with manageement from home. Pt would need to be see i n our specialized lymphedema clinic. Please inform son/patient. If in agreeme nt, alert me so I can submit consult. /NICK Diaz Physician [employer] Specialist Signed: 12/01/2021 16:15 Receipt Acknowledged By: 12/04/2021 [...] our lymphedema cliinc. /zeb/ NICK VASQUEZ Physician [employer] Specialist Signed: 12/05/2021 12:52
== END 2022-01-23 15:13 | disposition home or self-care (01) ==
LOC: WOUND 15:13
PROVIDERS: Visit Provider Nurse Practitioner Family
DX: E11.622 Type 2 diabetes mellitus with other skin ulcer (principal); L97.912 Non-pressure chronic ulcer of unspecified part of right lower leg with fat layer exposed; I87.312 Chronic venous hypertension (idiopathic) with ulcer of left lower extremity; L97.825 Non-pressure chronic ulcer of other part of left lower leg with muscle involvement without evidence of necrosis; Z79.84 Long term (current) use of oral hypoglycemic drugs
CPT/HCPCS: 11042

== ENCOUNTER 2022-02-06 15:09 | Outpatient (CLI) | payer MEDICAID, SELFPAY | END 2022-02-06 15:10 | disposition home or self-care (01) | LOC: WOUND 15:09 | PROVIDERS: Visit Provider Nurse Practitioner Family | DX: E11.622 Type 2 diabetes mellitus with other skin ulcer (principal); L97.815 Non-pressure chronic ulcer of other part of right lower leg with muscle involvement without evidence of necrosis; Z79.84 Long term (current) use of oral hypoglycemic drugs; I87.312 Chronic venous hypertension (idiopathic) with ulcer of left lower extremity; L97.822 Non-pressure chronic ulcer of other part of left lower leg with fat layer exposed | CPT/HCPCS: 11042 ==

== ENCOUNTER 2022-02-27 11:03 | Outpatient (CLI) | payer MEDICAID, SELFPAY | END 2022-02-27 11:04 | disposition home or self-care (01) | LOC: WOUND 11:03 | PROVIDERS: Visit Provider Nurse Practitioner Family | DX: E11.622 Type 2 diabetes mellitus with other skin ulcer (principal); L97.812 Non-pressure chronic ulcer of other part of right lower leg with fat layer exposed; I87.312 Chronic venous hypertension (idiopathic) with ulcer of left lower extremity; L97.825 Non-pressure chronic ulcer of other part of left lower leg with muscle involvement without evidence of necrosis; I87.2 Venous insufficiency (chronic) (peripheral); G62.9 Polyneuropathy, unspecified; I89.0 Lymphedema, not elsewhere classified; Z79.84 Long term (current) use of oral hypoglycemic drugs | CPT/HCPCS: 11042 ==

== ENCOUNTER 2022-03-13 15:10 | Outpatient (CLI) | payer MEDICAID, SELFPAY | END 2022-03-13 15:11 | disposition home or self-care (01) | LOC: WOUND 15:10 | PROVIDERS: Visit Provider Nurse Practitioner Family | DX: E11.622 Type 2 diabetes mellitus with other skin ulcer (principal); L97.822 Non-pressure chronic ulcer of other part of left lower leg with fat layer exposed; L97.812 Non-pressure chronic ulcer of other part of right lower leg with fat layer exposed; I87.2 Venous insufficiency (chronic) (peripheral); Z79.84 Long term (current) use of oral hypoglycemic drugs; L97.825 Non-pressure chronic ulcer of other part of left lower leg with muscle involvement without evidence of necrosis | CPT/HCPCS: 11042 ==

== ENCOUNTER 2022-03-27 15:08 | Outpatient (CLI) | payer MEDICAID, SELFPAY | END 2022-03-27 15:09 | disposition home or self-care (01) | LOC: WOUND 15:08 | PROVIDERS: Visit Provider Nurse Practitioner Family | DX: E11.622 Type 2 diabetes mellitus with other skin ulcer (principal); L97.812 Non-pressure chronic ulcer of other part of right lower leg with fat layer exposed; I87.312 Chronic venous hypertension (idiopathic) with ulcer of left lower extremity; L97.822 Non-pressure chronic ulcer of other part of left lower leg with fat layer exposed; I87.2 Venous insufficiency (chronic) (peripheral); I89.0 Lymphedema, not elsewhere classified; Z79.84 Long term (current) use of oral hypoglycemic drugs | CPT/HCPCS: 11042 ==

== ENCOUNTER 2022-04-17 15:31 | Outpatient (CLI) | payer MEDICAID, SELFPAY | END 2022-04-17 15:32 | disposition home or self-care (01) | LOC: WOUND 15:31 | PROVIDERS: Visit Provider Nurse Practitioner Family | DX: E11.622 Type 2 diabetes mellitus with other skin ulcer (principal); L97.912 Non-pressure chronic ulcer of unspecified part of right lower leg with fat layer exposed; I87.312 Chronic venous hypertension (idiopathic) with ulcer of left lower extremity; L97.825 Non-pressure chronic ulcer of other part of left lower leg with muscle involvement without evidence of necrosis; I89.0 Lymphedema, not elsewhere classified; Z79.84 Long term (current) use of oral hypoglycemic drugs | CPT/HCPCS: 11042 ==

== ENCOUNTER 2022-05-01 15:13 | Outpatient (CLI) | payer MEDICAID, SELFPAY | END 2022-05-01 15:14 | disposition home or self-care (01) | LOC: WOUND 15:13 | PROVIDERS: Visit Provider Nurse Practitioner Family | DX: E11.622 Type 2 diabetes mellitus with other skin ulcer (principal); L97.812 Non-pressure chronic ulcer of other part of right lower leg with fat layer exposed; L97.825 Non-pressure chronic ulcer of other part of left lower leg with muscle involvement without evidence of necrosis; Z79.84 Long term (current) use of oral hypoglycemic drugs; I89.0 Lymphedema, not elsewhere classified | CPT/HCPCS: 11042 ==

== ENCOUNTER 2022-05-15 08:53 | Outpatient (CLI) | payer MEDICAID, SELFPAY | END 2022-05-15 08:54 | disposition home or self-care (01) | LOC: WOUND 08:53 | PROVIDERS: Visit Provider Physician Assistant Surgical | DX: E11.622 Type 2 diabetes mellitus with other skin ulcer (principal); L97.825 Non-pressure chronic ulcer of other part of left lower leg with muscle involvement without evidence of necrosis; L97.812 Non-pressure chronic ulcer of other part of right lower leg with fat layer exposed; I89.0 Lymphedema, not elsewhere classified; I87.2 Venous insufficiency (chronic) (peripheral); Z79.84 Long term (current) use of oral hypoglycemic drugs | CPT/HCPCS: 11042; 97165; 97535 ==

== ENCOUNTER 2022-05-29 09:20 | Outpatient (CLI) | payer MEDICAID, SELFPAY | END 2022-05-29 09:21 | disposition home or self-care (01) | LOC: WOUND 09:20 | PROVIDERS: Visit Provider Nurse Practitioner Family | DX: E11.622 Type 2 diabetes mellitus with other skin ulcer (principal); L97.812 Non-pressure chronic ulcer of other part of right lower leg with fat layer exposed; L97.822 Non-pressure chronic ulcer of other part of left lower leg with fat layer exposed; Z79.84 Long term (current) use of oral hypoglycemic drugs | CPT/HCPCS: 11042 ==

== ENCOUNTER 2022-06-12 14:59 | Outpatient (CLI) | payer MEDICAID, SELFPAY | END 2022-06-12 15:00 | disposition home or self-care (01) | LOC: WOUND 14:59 | PROVIDERS: Visit Provider Nurse Practitioner Family | DX: E11.622 Type 2 diabetes mellitus with other skin ulcer (principal); L97.812 Non-pressure chronic ulcer of other part of right lower leg with fat layer exposed; L97.825 Non-pressure chronic ulcer of other part of left lower leg with muscle involvement without evidence of necrosis; I89.0 Lymphedema, not elsewhere classified; Z79.84 Long term (current) use of oral hypoglycemic drugs | CPT/HCPCS: 11042 ==

== ENCOUNTER 2022-07-24 10:30 | Outpatient (RCR) | payer OTHER, MEDICAID, SELFPAY ==
--- NOTE | 2022-05-15 19:33 | OT.OPLE ---
OT Outpatient Lymphedema Eval OT Outpatient Lymphedema Eval Start: 05/15/22 09:47 Freq: Status: Active Protocol: Document 05/15/22 18:44 LCN (Rec: 05/15/22 19:22 LCN [id number]) E-signed By Gretel Cole, OTR/L, CLT OT Outpatient Evaluation Details Type Type Eval Complexity Low OT OP Lymphedema Evaluation Insurance Information Insurance Information Medicaid Current Condition/Medical Diagnosis Referring Provider Josafat Alcazar [place] Treatment Diagnosis B LE lymphedema, slow healing ulcers B LE. 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 (pt was found 4 days later) with extensive rehab at [facility] x 6 months. Now lives in assisted living appts at [facility] with nursing assist for dressing changes. Has occasional falls, primarily wheelchair user at a stand pivot level. Foot propels his WC. 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 He is being referred to OT support manual lymphatic drainage, update of compression and fitting for lymphedema pump to support his lifelong condition and support wound healing. Medical History Medical History DVT,CHF,Obesity,Heart Disease, Cellulitis/Infection,Slow Healing Wound,DM,CVI,Fall Risk Medical History Comments Gets botox injections q 3 months to manage R UE pain/ spasticity pre hemiplegia. Has cardio myopathy, A FIb, B LE neuropathy, recurrent MDD, obesity sleep apnea, h/o phlbitis, PVD. Pt had CHRISTIAN study at [place] completed 05/14/22, results not known. 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 Has limited transit support from [place] for getting 2nd appts for OT (most agencies do not transport there with Medicaid). Pt was fit for motor Advestigo, fell out of it. Now has new power chair that he uses in building and out in community. Can grocery shop alone using it. Patient Difficulties Difficulties With Any Of The Following Walking,Dressing,Reaching Feet & Toes Patient Difficulties Comments Max A with moving R foot into car per edema girth, hemiplegia of R LE. Waers basket ball shorts year long as primary lower body layers. Has adapted comfort care diabetic shoes with elastic laces. Exercise History Does Patient Exercise Regularly No Exercise Comments Has an arm bike, needs dony hand strap adaptation. Loss of Function/Strength/Mobility Loss Of Function/Strength/Mobility Uses bed rails/hospital bed (I Comments ) in /out of bed, shower chair /grab bars/hand held shower to bathe (I) on Fridays. Brings his provided meals B/L/D to his room (I). Rarely uses stove, but can manage from wheelchair height. Has dressing changes in [place] wound care every other Saturday. Nursing at [facility] changes dressings Sat or alternating Tuesdays and Fridays. Previous Treatment Previous Treatment For Swelling/ Compression Garment,Elevation Lymphedema Previous Treatment/Current Home Program hAS had a demo session with lymph pump in the past. Had been using velcro wrap compression prior to wound care setting. Compression History Does Patient Currently Wear Compression Yes During Daytime Compression During Daytime Comments changes with nursing every other day Does Patient Currently Wear Compression Yes At Night Current Swelling (Location/Pitting/Texture) Pitting Scale: 0 = No pitting 1+ Tissue returns to normal almost immediately 2+ Tissue returns after 15-30 seconds 3+ Tissue returns after 1-1/2 minutes 4+ Tissue returns after 2-3 minutes N/A Tissue no longer pits due to induration Tissue texture: Soft or indurated Clinical Presentation Area B LE mid thighs to toes. Clinical Presentation Pitting 3+ Clinical Presentation Texture Thick, brawny. R LE is dusky dry and flakey with brown crusted squared toes. L LE is more supple, but still brawny , light cocoa colored. Poor skin mobilty at superificial, dermal and musclular /deep tissue layers. Mild yeasty odor. Lymphedema/Lipedema/CVI WOUNDS--R w ulcer pre tibial shaft 1.5.10 cm punched in with beefy red center with evidence of the long slow healing/keratosis for 2 cm surrounding. Draining clear/ yellow exudate with some clear red spots. L side has 5 ulcers for mid to lateral tibial shaft ( between 13 cm to 28 cm lines from the floor). 1.5 cm x 1.0c , 3.0 x 2.2/thin pink/ruptured lymphocele, 1.3 x 1.5 cm ( irregular edges, yellow slough center) and 1. 1x 1.4 cm, punched in red beefy centers. Triggering Event & Start Date of Wounds started 2 years ago. Swelling/Lymphedema Lymphedema started after his CVA/DVT. Type of Swelling Secondary Staging Staging Stage 3 Positive Stemmer's Sign Yes Skin Changes Skin Changes Hemosiderin Staining,Fissures, Hyperkeratosis,Lymphorrhea, Stasis Dermatitis,Toe/Foot Deformities,Fibrosis,Limited Skin Mobility Assessment Assessment Kevin would benefit from skilled OT to bring to lymphedema care to next level with updated compression, use of self massage/pumping exercises and lymphatic pump to support healing wounds faster, improving skin integrity and helping with lifting R LE up into car. Impairments Impairments Loss of Mobility,Limb Heaviness,Poor Clothing Fit Problem List Problem List Limited Knowledge of Lymphedema Treatment/Condition /Precautions,Limited Knowledge of Skin Care & Infection Precautions,Significant Risk For Infection For Lymphedema Related Complications,Does Not Have a HEP,Does Not Have Appropriate Compression Garments For LT Management, Presents With Increased Fall Risk Secondary To Lymphedema, Presents With Impaired Mobility/ROM,Lack Of Caregiver Support,Financial Insecurity Patient Goals Patient Goals To heal wounds faster, get lymph pump to help. Short Term Goals (# of Weeks) 6 Click To Default Short Term Goals Standard Goals Short Term Goals Goal 1: Patient and or caregiver will understand lymphedema precautions to decrease risk of infection and further lymphedema related complications Goal 2: Patient will develop a tolerance for wearing multi-layer, short stretch bandages between treatment sessions to facilitate limb decongestion Goal 3: Patient will experience decreased pitting edema in order to improve tissue health and decrease risk for infection/cellulitis Goal 4: Patient will perform HEP with minimal assistance in order to improve lymphatic flow and venous return Goal 5 : Patient will perform modified self MLD protocol with minimal assistance to help reduce swelling and improve ROM and mobility Corporate Compliance Manager Goals (# of Weeks) 12 Click To Default Corporate Compliance Manager Goals Standard Goals Corporate Compliance Manager Goals Goal 1: Patient and/or caregiver will be independent with short-stretch compression bandaging for continued volume reduction and prevention of recurrence Goal 2: Patient will experience increased ROM and mobility in order to improve safety and independence with transfers and mobility Goal 3: Patient will be independent with donning and doffing of compression garments which will enable regular daily garment wear Goal 4: Patient will achieve a specific reduction of 500 mL volume loss for BLE from total measurements to enable functional improvements such as fitting into standard sized clothing and shoes, return to a prior level of functional mobility, improved balance, and reduced risk of falling. Indicate cm in comments below Goal 5: Patient and/or caregiver will be independent with HEP and lymphedema management to reduce risk for edema relapse and to reduce risk for infection Treatment Plan Treatment Plan Evaluation,Edema Control, Therapeutic Exercise,Self-Care /Home Management,Caregiver Training,Education Other Treatment Plan Approved for initial 15 visits Expected Frequency 1-2x Week Expected Duration 15 Certification Certification I Certify That: Therapy Services Provided, Therapy Plan Established, Therapy Plan Reviewed Recertification Information Recertification Information Initial Certification Date 05/15/22 Recertification Due Date 08/15/22 Provider Signature Shows Agreement With POC & Medical Necessity Physician Comment/Change Comment or Changes Physician NPI Number #
--- NOTE | 2022-05-15 19:36 | OT.OPLDN ---
OT Outpatient Lymphedema Daily Note OT Outpatient Lymphedema Daily Note Start: 05/15/22 09:47 Freq: Status: Active Protocol: Document 05/15/22 19:22 MIKEY (Rec: 05/15/22 19:32 LCN [id number]) E-signed By Gretel Cole, OTR/L, CLT OT OP Lymphedema Daily/Progress Note Note Type Note Type Daily Visit Number 1 Insurance Information Insurance Information Medicaid Current Condition/Medical Diagnosis Referring Provider Josafat Alcazar [place] Treatment Diagnosis B LE lymphedema, slow healing ulcers B LE. 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 (pt was found 4 days later) with extensive rehab at [facility] x 6 months. Now lives in assisted living appts at [facility] with nursing assist for dressing changes. Has occasional falls, primarily wheelchair user at a stand pivot level. Foot propels his WC. Medical Contraindications DM,Depression,Stroke Subjective Subjective Kevin Evans is a lively upbeat 66 y/o disabled male who struggles with venous insufficiency, lymphedema, poor skin mobility, poor skin integrity and slow healing wounds and has been working with the [facility] wound healing [facility] for the past 2 yrs, along with having care for his prior CVA [facility]. He is being referred to OT support manual lymphatic drainage, update of compression and fitting for lymphedema pump to support his lifelong condition and support wound healing. Home Program Compliant To Home Program Yes Home Program Specifics WOund care dressing changes every other day and 23/24 hr compression wear, off for showers. Circumferential Measurements Lower Extremity Left Lower Extremity Great Toe 10.2 MPT 25.5 Arch 27 Calcaneous 40.5 Ankle 0 10cm 29.5 20cm 31.0 30cm 42 40cm 39 50cm 50 Total 294.7 Right Lower Extremity Great Toe 11.5 MPT 27 Arch 28.5 Calcaneous 40 Ankle 0 10cm 33.5 20cm 40.5 30cm 50 40cm 44 50cm 52 Total 327.0 Treatment Self Care Educated pt on pump options, how to schedule ion day, where to use, styles available. Pt feels comfortable looking at zipper closure B LE sleeves, is not sure about having Bio Med Pants due to heis hernia. OTR reapplies wound care dressings per NH and C orders (wound wash/gauze squares. Eucerin to surrounding areas. Barrier wipe to margins, puracol collagen dressing ( moisten with saline and apply) , adaptic over wound affected areas and ABD pad 8x10 B shins and Coban 2 Lite 2 layer bandage system with black hose over top. Pt comfortable to compression level. Self Care Activity Minutes (minutes) 20 Assessment Kevin would benefit from skilled OT to bring to lymphedema care to next level with updated compression, use of self massage/pumping exercises and lymphatic pump to support healing wounds faster, improving skin integrity and helping with lifting R LE up into car. Impairments Loss of Mobility,Limb Heaviness,Poor Clothing Fit Problem List Limited Knowledge of Lymphedema Treatment/Condition /Precautions,Limited Knowledge of Skin Care & Infection Precautions,Significant Risk For Infection For Lymphedema Related Complications,Does Not Have a HEP,Does Not Have Appropriate Compression Garments For LT Management, Presents With Increased Fall Risk Secondary To Lymphedema, Presents With Impaired Mobility/ROM,Lack Of Caregiver Support,Financial Insecurity Patient Goals Patient Goals To heal wounds faster, get lymph pump to help. Short Term Goals (# of Weeks) 6 Short Term Goals Goal 1: Patient and or caregiver will understand lymphedema precautions to decrease risk of infection and further lymphedema related complications Goal 2: Patient will develop a tolerance for wearing multi-layer, short stretch bandages between treatment sessions to facilitate limb decongestion Goal 3: Patient will experience decreased pitting edema in order to improve tissue health and decrease risk for infection/cellulitis Goal 4: Patient will perform HEP with minimal assistance in order to improve lymphatic flow and venous return Goal 5 : Patient will perform modified self MLD protocol with minimal assistance to help reduce swelling and improve ROM and mobility Director Global Development Goals (# of Weeks) 12 Mcc Goals Goal 1: Patient and/or caregiver will be independent with short-stretch compression bandaging for continued volume reduction and prevention of recurrence Goal 2: Patient will experience increased ROM and mobility in order to improve safety and independence with transfers and mobility Goal 3: Patient will be independent with donning and doffing of compression garments which will enable regular daily garment wear Goal 4: Patient will achieve a specific reduction of 500 mL volume loss for BLE from total measurements to enable functional improvements such as fitting into standard sized clothing and shoes, return to a prior level of functional mobility, improved balance, and reduced risk of falling. Indicate cm in comments below Goal 5: Patient and/or caregiver will be independent with HEP and lymphedema management to reduce risk for edema relapse and to reduce risk for infection Treatment Plan Treatment Plan Evaluation,Edema Control, Therapeutic Exercise,Self-Care /Home Management,Caregiver Training,Education Other Treatment Plan Approved for initial 15 visits Expected Frequency 1-2x Week Expected Duration 15 Daily Plan of Care Continue Per POC Treatment Minutes Untimed Treatment Minutes 55 Timed Treatment Minutes 20 Total Timed Treatment Minutes 75 Occupational Therapy Billing Units Billing Units Self Care/Home Management 1 Certification Certification I Certify That: Therapy Services Provided, Therapy Plan Established, Therapy Plan Reviewed Recertification Information Recertification Information Initial Certification Date 05/15/22 Recertification Due Date 08/15/22 Provider Signature Shows Agreement With POC & Medical Necessity Physician Comment/Change Comment or Changes Physician NPI Number #
== END 2022-11-21 23:59 | disposition home or self-care (01) ==
PROVIDERS: Visit Provider Physical Medicine & Rehabilitation
DX: I89.0 Lymphedema, not elsewhere classified (principal); Z51.89 Encounter for other specified aftercare
CPT/HCPCS: 97140; 97165; 97535

== ENCOUNTER 2022-07-24 11:27 | Outpatient (CLI) | payer MEDICAID, SELFPAY | END 2022-07-24 11:28 | disposition home or self-care (01) | LOC: WOUND 11:27 | PROVIDERS: Visit Provider Nurse Practitioner Family | DX: E11.622 Type 2 diabetes mellitus with other skin ulcer (principal); L97.812 Non-pressure chronic ulcer of other part of right lower leg with fat layer exposed; L97.825 Non-pressure chronic ulcer of other part of left lower leg with muscle involvement without evidence of necrosis; I89.0 Lymphedema, not elsewhere classified; Z79.84 Long term (current) use of oral hypoglycemic drugs | CPT/HCPCS: 11042 ==

== ENCOUNTER 2022-08-07 10:59 | Outpatient (CLI) | payer OTHER, MEDICAID, SELFPAY | END 2022-08-07 11:00 | disposition home or self-care (01) | LOC: WOUND 10:59 | PROVIDERS: Visit Provider Physician Assistant Surgical | DX: E11.622 Type 2 diabetes mellitus with other skin ulcer (principal); L97.212 Non-pressure chronic ulcer of right calf with fat layer exposed; L97.812 Non-pressure chronic ulcer of other part of right lower leg with fat layer exposed; I89.0 Lymphedema, not elsewhere classified; Z79.84 Long term (current) use of oral hypoglycemic drugs | CPT/HCPCS: 11042 ==

== ENCOUNTER 2022-09-04 08:06 | Outpatient (CLI) | payer OTHER, MEDICAID, SELFPAY | END 2022-09-04 08:07 | disposition home or self-care (01) | LOC: WOUND 08:06 | PROVIDERS: Visit Provider Nurse Practitioner Family | DX: E11.622 Type 2 diabetes mellitus with other skin ulcer (principal); L97.812 Non-pressure chronic ulcer of other part of right lower leg with fat layer exposed; E11.621 Type 2 diabetes mellitus with foot ulcer; L97.512 Non-pressure chronic ulcer of other part of right foot with fat layer exposed; Z79.84 Long term (current) use of oral hypoglycemic drugs | CPT/HCPCS: 11042 ==

== ENCOUNTER 2022-09-18 08:11 | Outpatient (CLI) | payer MEDICAID, SELFPAY | END 2022-09-18 08:12 | disposition home or self-care (01) | LOC: WOUND 08:11 | PROVIDERS: Visit Provider Nurse Practitioner Family | DX: E11.622 Type 2 diabetes mellitus with other skin ulcer (principal); L97.812 Non-pressure chronic ulcer of other part of right lower leg with fat layer exposed; E11.621 Type 2 diabetes mellitus with foot ulcer; L97.512 Non-pressure chronic ulcer of other part of right foot with fat layer exposed; I87.312 Chronic venous hypertension (idiopathic) with ulcer of left lower extremity; L97.822 Non-pressure chronic ulcer of other part of left lower leg with fat layer exposed; Z79.84 Long term (current) use of oral hypoglycemic drugs | CPT/HCPCS: 11042 ==

== ENCOUNTER 2022-10-02 15:16 | Outpatient (CLI) | payer MEDICAID, SELFPAY | END 2022-10-02 15:17 | disposition home or self-care (01) | LOC: WOUND 15:16 | PROVIDERS: Visit Provider Nurse Practitioner Family | DX: E11.622 Type 2 diabetes mellitus with other skin ulcer (principal); L97.812 Non-pressure chronic ulcer of other part of right lower leg with fat layer exposed; E11.621 Type 2 diabetes mellitus with foot ulcer; L97.512 Non-pressure chronic ulcer of other part of right foot with fat layer exposed; I87.312 Chronic venous hypertension (idiopathic) with ulcer of left lower extremity; L97.822 Non-pressure chronic ulcer of other part of left lower leg with fat layer exposed; Z79.84 Long term (current) use of oral hypoglycemic drugs | CPT/HCPCS: 11042 ==

== ENCOUNTER 2022-10-16 08:01 | Outpatient (CLI) | payer MEDICAID, SELFPAY | END 2022-10-16 08:02 | disposition home or self-care (01) | LOC: WOUND 08:01 | PROVIDERS: Visit Provider Nurse Practitioner Family | DX: E11.622 Type 2 diabetes mellitus with other skin ulcer (principal); L97.812 Non-pressure chronic ulcer of other part of right lower leg with fat layer exposed; E11.621 Type 2 diabetes mellitus with foot ulcer; L97.512 Non-pressure chronic ulcer of other part of right foot with fat layer exposed; I87.312 Chronic venous hypertension (idiopathic) with ulcer of left lower extremity; L97.822 Non-pressure chronic ulcer of other part of left lower leg with fat layer exposed; Z79.84 Long term (current) use of oral hypoglycemic drugs | CPT/HCPCS: 11042 ==

== ENCOUNTER 2022-10-30 07:53 | Outpatient (CLI) | payer MEDICAID, SELFPAY | END 2022-10-30 07:54 | disposition home or self-care (01) | LOC: WOUND 07:53 | PROVIDERS: Visit Provider Nurse Practitioner Family | DX: E11.622 Type 2 diabetes mellitus with other skin ulcer (principal); L97.812 Non-pressure chronic ulcer of other part of right lower leg with fat layer exposed; I89.0 Lymphedema, not elsewhere classified; Z79.84 Long term (current) use of oral hypoglycemic drugs | CPT/HCPCS: 11042 ==

== ENCOUNTER 2022-11-13 07:56 | Outpatient (CLI) | payer MEDICAID, SELFPAY | END 2022-11-13 07:57 | disposition home or self-care (01) | LOC: WOUND 07:56 | PROVIDERS: Visit Provider Nurse Practitioner Family | DX: E11.622 Type 2 diabetes mellitus with other skin ulcer (principal); L97.812 Non-pressure chronic ulcer of other part of right lower leg with fat layer exposed; I87.312 Chronic venous hypertension (idiopathic) with ulcer of left lower extremity; L97.822 Non-pressure chronic ulcer of other part of left lower leg with fat layer exposed; I89.0 Lymphedema, not elsewhere classified; Z79.84 Long term (current) use of oral hypoglycemic drugs | CPT/HCPCS: 11042 ==

== ENCOUNTER 2022-11-27 07:49 | Outpatient (CLI) | payer MEDICAID, SELFPAY | END 2022-11-27 07:50 | disposition home or self-care (01) | LOC: WOUND 07:49 | PROVIDERS: Visit Provider Nurse Practitioner Family | DX: E11.622 Type 2 diabetes mellitus with other skin ulcer (principal); L97.812 Non-pressure chronic ulcer of other part of right lower leg with fat layer exposed; I89.0 Lymphedema, not elsewhere classified; Z79.84 Long term (current) use of oral hypoglycemic drugs | CPT/HCPCS: 11042 ==

== ENCOUNTER 2022-12-11 07:59 | Outpatient (CLI) | payer MEDICAID, SELFPAY | END 2022-12-11 08:00 | disposition home or self-care (01) | LOC: WOUND 07:59 | PROVIDERS: Visit Provider Nurse Practitioner Family | DX: E11.622 Type 2 diabetes mellitus with other skin ulcer (principal); L97.812 Non-pressure chronic ulcer of other part of right lower leg with fat layer exposed; I89.0 Lymphedema, not elsewhere classified; Z79.84 Long term (current) use of oral hypoglycemic drugs | CPT/HCPCS: 99213 ==

== ENCOUNTER 2023-02-03 08:38 | Outpatient (CLI) | payer MEDICARE, OTHER, MEDICAID, SELFPAY | END 2023-02-03 08:39 | disposition home or self-care (01) | LOC: AMB 02-04 12:30 | PROVIDERS: Visit Provider Student in an Organized Health Care Education/Training Program | DX: S59.911A Unspecified injury of right forearm, initial encounter (principal); W05.0XXA Fall from non-moving wheelchair, initial encounter; Y92.099 Unspecified place in other non-institutional residence as the place of occurrence of the external cause | CPT/HCPCS: A0425; A0427 ==

== ENCOUNTER 2023-02-03 09:37 | Inpatient (IN) | payer OTHER, MEDICAID, SELFPAY ==
[2023-02-03] VITALS (46 sets, daily range): BP systolic 94–150; BP diastolic 56–133; PULSE 82–162; RESP 16–26; TEMP 36.4–38.2; O2SAT 79–98
--- NOTE | 2023-02-03 09:39 | CRLHL7_ITS ---
For Patients: As a result of the Cures Act, medical imaging exams and procedure reports are released immediately into your electronic medical record. You may view this report before your referring provider. If you have questions, please contact your health care provider. INDICATION: Fall TECHNIQUE: CT cervical spine without contrast. COMPARISON: None. FINDINGS: Vertebrae: Straightening of expected cervical lordosis. There are no fractures or suspicious bony lesions. Discs and facet joints: There are diffuse degenerative changes in the disc spaces and facet joints. Extraspinal findings: Paraspinous soft tissues are unremarkable. IMPRESSION: 1. No evidence of acute cervical spine fracture. 2. Multilevel degenerative spondylosis. Please note that all CT scans at this facility use dose modulation, iterative reconstruction, and/or weight-based dosing when appropriate to reduce radiation dose to as low as reasonably achievable. Dictated by Chad Dailey MD @ 02/03/2023 10:45:35 AM (Electronically Signed)
--- NOTE | 2023-02-03 09:39 | CRLHL7_ITS ---
For Patients: As a result of the Century Cures Act, medical imaging exams and procedure reports are released immediately into your electronic medical record. You may view this report before your referring provider. If you have questions, please contact your health care provider. Indication: Fall Technique: Right shoulder 2 views. Per x-ray tech, suboptimal positioning due to patient condition. Comparison: None. Impression: Suboptimal positioning due to patient condition. Generalized osteopenia. Given limitations of exam no evidence of fracture. The humeral head may be slightly anterior inferior to the glenoid although this may be due to positioning. Cannot exclude an anterior dislocation. Recommend clinical correlation. Degenerative changes of the AC joint. Dictated by Chad Dailey MD @ 02/03/2023 10:55:15 AM (Electronically Signed)
--- NOTE | 2023-02-03 09:39 | CRLHL7_ITS ---
For Patients: As a result of the Cures Act, medical imaging exams and procedure reports are released immediately into your electronic medical record. You may view this report before your referring provider. If you have questions, please contact your health care provider. Indication: Fall Technique: Left humerus, 2 views. Per x-ray tech, suboptimal position due to patient condition. The proximal humerus is excluded from the field of view on the lateral. Comparison: None. Impression: 1. Per x-ray tech, suboptimal positioning/examination due to patient condition. 2. Given limitations, no evidence of fracture. Nonspecific periosteal reaction involving the mid humeral diaphysis. Generalized osteopenia. Dictated by Chad Dailey MD @ 02/03/2023 10:48:46 AM (Electronically Signed)
--- NOTE | 2023-02-03 09:39 | CRLHL7_ITS ---
For Patients: As a result of the Century Cures Act, medical imaging exams and procedure reports are released immediately into your electronic medical record. You may view this report before your referring provider. If you have questions, please contact your health care provider. INDICATION: FALL TECHNIQUE: Head CT without contrast. COMPARISON: None. FINDINGS: Large area of encephalomalacia within the left frontoparietal region compatible with remote insult. There is associated ex vacuo dilatation of the left lateral ventricle. Smaller area of encephalomalacia within the high right parietal lobe. There are nonspecific low attenuation white matter changes consistent with chronic microvascular disease. No sign of intracranial hemorrhage, or midline shift. No evidence of mass effect. Mild mucosal thickening of the left maxillary sinus. The visualized orbits are grossly unremarkable. No skull fractures. Carotid siphon and intradural vertebral artery atherosclerotic calcifications. IMPRESSION: 1. No evidence of intracranial hemorrhage or skull fracture. 2. Large area of encephalomalacia within the left frontoparietal region and small area of encephalomalacia within the right parietal lobe, compatible with remote insults. Please note that all CT scans at this facility use dose modulation, iterative reconstruction, and/or weight-based dosing when appropriate to reduce radiation dose to as low as reasonably achievable. Dictated by Chad Dailey MD @ 02/03/2023 10:37:58 AM (Electronically Signed)
--- NOTE | 2023-02-03 09:39 | CRLHL7_ITS ---
For Patients: As a result of the Century Cures Act, medical imaging exams and procedure reports are released immediately into your electronic medical record. You may view this report before your referring provider. If you have questions, please contact your health care provider. Indication: FALL Technique: Right forearm 2 views. Per x-ray identification technician suboptimal positioning due to patient condition. Comparison: None. Findings: Vascular calcifications. Generalized osteopenia. Given limitations of exam no evidence of forearm fracture although the proximal form is excluded from the [id number] on the labeled lateral view (although this appears to be the AP view). Impression: Given limitations of exam there is no evidence of fracture. Dictated by Chad Dailey MD @ 02/03/2023 10:59:50 AM (Electronically Signed)
--- NOTE | 2023-02-03 10:43 | ED_ITS ---
HPI - General Adult General Chief complaint: Fall/Minor Trauma Stated complaint: Fall, hit head Time Seen by Provider: 02/03/23 09:39 Source: patient and EMS Mode of arrival: EMS Limitations: altered mental status History of Present Illness HPI narrative: 67-year-old male, resident at [facility] living at the [facility], presenting via EMS secondary to fall. According to the patient he felt out of his recliner he. Is estimated by EMS and staff at [facility] that he was on the ground for approximately 2 hours. Patient is complaining of right arm pain. He denies headache or neck pain. Patient does have a history of a stroke and his speech is altered, staff at [address] [place] [address] is unsure if this is his baseline or not. However, looking through his medical records it does appear that he has a history of aphasia secondary to stroke. 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 Medications: Amlodipine 5 mg daily Aspirin 81 mg daily Atorvastatin 80 mg daily Eliquis 5 mg p.o. b.i.d. Lasix 60 mg p.o. b.i.d. Gabapentin 100 mg p.o. t.i.d. glipizide ER 5 mg daily Metformin 1000 mg p.o. b.i.d. Metformin 500 mg daily Metoprolol ER 100 mg daily Valsartan 40 mg p.o. b.i.d. Valsartan 80 mg p.o. b.i.d. Related Data Home Medications Medication Instructions Recorded Confirmed amlodipine 5 mg tablet 5 mg PO DAILY 02/03/23 02/03/23 apixaban 5 mg tablet (Eliquis) 5 mg PO BID 02/03/23 02/03/23 aspirin 81 mg chewable tablet 1 tab PO DAILY 02/03/23 02/03/23 atorvastatin 80 mg tablet 80 mg PO DAILY 02/03/23 02/03/23 bacitracin 500 unit/gram topical topical 02/03/23 ointment furosemide 40 mg tablet 40 mg PO 3XD 02/03/23 02/03/23 gabapentin 100 mg capsule 100 mg PO 3XD 02/03/23 02/03/23 glipizide 5 mg tablet, extended 5 mg PO DAILY 02/03/23 02/03/23 release 24 hr metformin 1,000 mg tablet 1,000 mg PO BIDWMEAL 02/03/23 02/03/23 metoprolol succinate 100 mg 100 mg PO DAILY 02/03/23 02/03/23 tablet,extended release 24 hr valsartan 40 mg tablet 80 mg PO DAILY 02/03/23 02/03/23 Allergies Allergy/AdvReac Type Severity Reaction Status Date / Time lisinopril Allergy Mild Verified 02/03/23 10:02 Review of Systems Status of ROS: Reports: 10 or more systems reviewed and unremarkable except as noted in History and below Narrative: Patient is able to answer yes or no questions. Exam Narrative: Exam Narrative: Morbidly obese patient in no acute distress. Alert and oriented x3, however, patient is sleepy as he did receive 50 mcg of fentanyl in the ambulance. Answers questions appropriately however, does have aphasia and speech is difficult for him. He is able to answer yes or no questions without difficulty. He is not in any respiratory distress. He is febrile with a temperature of 1 00.5?. HEENT: Normocephalic, he does have swelling over the right restorationism region. Pupils are equally round reactive to light. Extraocular muscles are intact. He has swelling without ecchymosis around the right eye. Conjunctivae are moist without any icterus noted. Moist mucous membranes. Posterior pharynx is normal. Neck is soft without any lymphadenopathy or thyromegaly. No masses are appreciated. He has no tenderness over the cervical spine. Cardiovascular: Tachycardic. Lungs: Clear to auscultation bilaterally no wheezes rhonchi or rales are appreciated. Abdomen: Soft and nontender. Patient has a very large ventral wall hernia that is non reducible. Does not appear to be tender. He has normal bowel sounds. Patient has a large pannus with poor hygiene under the pannus. Extremities: Bilateral lower extremities show woody induration and poor hygiene. He has abrasions of the right shoulder and upper arm a anteriorly. Mild erythema in the area. Is not hot to touch. His right hand is swollen but not tender. He complains of diffuse discomfort of the entire arm. I can, however, squeeze a the upper arm elbow lower arm and wrist without the patient appearing to be in increased discomfort. Crusting and poor hygiene in the axillary regions. Skin: Well perfused. Patient smells strongly of urine. Const: Vital Signs, click to edit/add: Vital Signs - 24 hr 02/03/23 09:39 02/03/23 09:47 02/03/23 09:51 Temperature 100.5 F H Pulse Rate 115 H Pulse Rate [Pulse Oximeter] 110 H Respiratory Rate 24 Blood Pressure Blood Pressure [Ri ght Upper Arm] 119/95 H Pulse Oximetry 96 97 96 Oxygen Delivery Me thod Room Air 02/03/23 09:54 02/03/23 10:16 02/03/23 10:19 Temperature Pulse Rate 119 H Pulse Rate [Pulse Oximeter] Respiratory Rate Blood Pressure 94/60 120/80 Blood Pressure [Ri ght Upper Arm] Pulse Oximetry 97 Oxygen Delivery Me thod 02/03/23 10:22 02/03/23 10:32 02/03/23 10:33 Temperature Pulse Rate 108 H 105 H Pulse Rate [Pulse Oximeter] Respiratory Rate Blood Pressure 150/133 H 135/96 H Blood Pressure [Ri ght Upper Arm] Pulse Oximetry 96 96 Oxygen Delivery Me thod 02/03/23 10:42 02/03/23 10:46 02/03/23 10:50 Temperature Pulse Rate 112 H 162 H Pulse Rate [Pulse Oximeter] Respiratory Rate Blood Pressure 136/82 125/95 H Blood Pressure [Ri ght Upper Arm] Pulse Oximetry 96 79 L Oxygen Delivery Me thod 02/03/23 10:51 02/03/23 10:58 02/03/23 11:00 Temperature Pulse Rate 110 H 106 H Pulse Rate [Pulse Oximeter] Respiratory Rate Blood Pressure 111/56 L 108/56 L Blood Pressure [Ri ght Upper Arm] Pulse Oximetry 96 95 Oxygen Delivery Me thod 02/03/23 11:08 02/03/23 11:09 02/03/23 11:11 Temperature Pulse Rate 108 H 108 H 111 H Pulse Rate [Pulse Oximeter] Respiratory Rate Blood Pressure 136/95 H 134/102 H Blood Pressure [Ri ght Upper Arm] Pulse Oximetry 96 95 96 Oxygen Delivery Me thod 02/03/23 11:15 02/03/23 11:16 02/03/23 11:22 Temperature Pulse Rate 110 H 111 H 104 H Pulse Rate [Pulse Oximeter] Respiratory Rate Blood Pressure 140/101 H 122/94 H Blood Pressure [Ri ght Upper Arm] Pulse Oximetry 95 96 95 Oxygen Delivery Me thod 02/03/23 11:26 02/03/23 11:32 02/03/23 11:34 Temperature Pulse Rate 110 H 111 H Pulse Rate [Pulse Oximeter] Respiratory Rate Blood Pressure 138/91 H 138/102 H Blood Pressure [Ri ght Upper Arm] Pulse Oximetry 95 94 Oxygen Delivery Me thod 02/03/23 11:40 02/03/23 11:42 Temperature 100.8 F H Pulse Rate 106 H Pulse Rate [Pulse Oximeter] Respiratory Rate Blood Pressure 106/83 Blood Pressure [Ri ght Upper Arm] Pulse Oximetry 96 Oxygen Delivery Me thod Course Course ED Course: Is very difficult established an IV, this took over an hour. And then it took another hour or so to get labs drawn. EKG, read by me, shows atrial fibrillation with a pulse of 116. In the meantime, IV fluids and Tylenol were ordered, and a triple swab was done. He has had imaging without contrast of head and cervical spine-both of which were unremarkable for any acute changes. We also x-rayed the right upper extremity which did not show any acute pathology. Lab work showed elevated lactate, CRP. COVID positive. Chest x-ray pending at this time. Glucose is elevated. Patient's blood pressure fluctuated quite a bit from the low 100s all the way up to 150 systolic. Pulse fluctuated from the low 100s the 1 teens. A total of 1.5 L normal saline ordered given patient's history of congestive heart failure with decreased ejection fracture. Vital Signs Vital signs: Initial Vital Signs Pulse Oximetry 96 02/03/23 09:39 Vital Signs Pulse Oximetry 96 02/03/23 09:39 Temperature 100.8 F H 02/03/23 11:40 Pulse Rate 106 H 02/03/23 11:42 Respiratory Rate 24 02/03/23 09:51 Blood Pressure 106/83 02/03/23 11:42 Pulse Oximetry 96 02/03/23 11:42 Oxygen Delivery Method Room Air 02/03/23 09:51 Medications Administered Medications: Discontinued Medications Generic Name Dose Route Start Last Admin Trade Name Freq PRN Reason Stop Dose Admin Acetaminophen 650 mg 02/03/23 11:34 02/03/23 11:40 Acetaminophen 325 Mg Tablet PO 02/03/23 11:35 650 mg ONCE ONE Administration Sodium Chloride 1,000 mls @ 1,000 mls/hr 02/03/23 10:45 02/03/23 12:05 0.9 % Sodium Chloride 1000 Ml IV 02/03/23 11:44 Infused .Q1H NANCI Infusion Medical Decision Making MDM Narrative Medical decision making narrative: 67-year-old male with complex medical history, COVID positive presenting with weakness and a fall out of his chair. Given the state that he was in upon presentation I do not feel that it is safe for this patient to go back to assisted living. I do feel like he needs more aggressive cares. Patient will be admitted to the hospital for further management at this time. Of note, do not think patient has sepsis. He does have a temperature greater than 100.9, heart rate greater than 90 however he does have atrial fibrillation with RVR that can account for this. He does not have an elevated white count or increased respiratory rate. His blood pressure is fluctuating and is not consistently low. Medical Records Medical records reviewed: Yes I reviewed the patient's medical records Lab Data Lab results reviewed: Yes I reviewed the patient's lab results Labs: Lab Results 02/03/23 02/03/23 02/03/23 Range/Units 09:40 11:20 12:00 WBC 7.56 (4.50-11.00) K/uL RBC 4.52 (4.30-5.90) m/uL Hgb 13.4 L (13.5-17.5) gm/dL Hct 40.5 (37.0-53.0) % MCV 90 (80-100) fL MCH 30 (26-34) pg MCHC 33 (32-36) gm/dL RDW Coeff of Jennifer 13.1 (11.5-15.5) % Plt Count 223 (140-440) K/uL Neut % (Auto) 71.6 (42.0-72.0) % Lymph % (Auto) 11.6 L (20-44) % [place] % (Auto) 16.0 H (0.0-11.0) % Eos % (Auto) 0.0 (0.0-7.0) % Baso % (Auto) 0.5 (0.0-3.0) % Neut # (Auto) 5.41 (1.7-7.0) K/uL Lymph # (Auto) 0.90 (0.90-2.90) K/uL [place] # (Auto) 1.20 H (0.00-0.90) K/UL Eos # (Auto) 0.00 (0.00-0.50) K/uL Baso # (Auto) 0.04 (0.00-0.30) K/uL Abs Immat Gran (auto) 0.02 (0.00-0.30) K/uL Imm/Tot Granulo (auto) 0.3 % ESR 17 H (2-15) mm/hr VBG pH 7.388 (7.32-7.43) VBG pCO2 44 (40-50) mmHG VBG pO2 36.0 (25-47) mmHG VBG HCO3 26 (21-28) mmol/L Sodium 135 (135-149) mmol/L Potassium 4.5 (3.6-5.1) mmol/L Chloride 98 (96-114) mmol/L Carbon Dioxide 25 (20-32) mmol/L Anion Gap 12 (7-15) mEq/L BUN 26 (7-30) mg/dL Creatinine 1.3 (0.5-1.5) mg/dL Estimated GFR 61 ml/min Glucose 363 H* (60-115) mg/dL Lactate 4.3 H* (0.5-1.9) mmol/L Calcium 9.0 (8.4-10.6) mg/dL Total Bilirubin 1.4 (0.1-1.5) mg/dL Direct Bilirubin 0.3 (0.0-0.5) mg/dL AST 39 H (12-35) U/L ALT 34 (4-50) U/L Alkaline Phosphatase 91 (40-150) U/L Total Creatine Kinase 348 H (54-186) U/L Troponin I 0.03 (0.01-0.04) ng/mL C-Reactive Protein 4.6 H (0.5-1.0) mg/dL Total Protein 6.3 (6.0-8.3) g/dL Albumin 3.9 (3.3-5.0) g/dL Urine Color (Yellow) Urine Appearance (Clear) Urine pH (5.0-8.5) Ur Specific [place] (1.000-1.030) Urine Protein (Negative) Urine Glucose (UA) (Negative) Urine Ketones (Negative) Urine Blood (Negative) Urine Nitrite (Negative) Urine Bilirubin (Negative) Urine Urobilinogen (0.2-1.0) Ur Leukocyte Esterase (Negative) Urine RBC (0-2) Urine WBC (0-5) Ur Squamous Epith Cells (None-Few) Amorphous Sediment (None) Other Sediment (None) Urine Bacteria (None) Urine Mucus (None) Salicylates < 1.0 L (1.0-10) mg/dL Urine Opiates Screen (Negative) Ur Oxycodone Screen (Negative) Urine Methadone Screen (Negative) Ur Propoxyphene Screen Acetaminophen < 10.0 L (10.0-30.0) ug/mL Ur Barbiturates Screen (Negative) U Tricyclic Antidepress (Negative) Ur Phencyclidine Scrn (Negative) Ur Amphetamines Screen (Negative) U Methamphetamines Scrn (Negative) U Benzodiazepines Scrn (Negative) Urine Cocaine Screen (Negative) U Marijuana (THC) Screen (Negative) Ur Drug Screen Comment Ethyl Alcohol < 0.01 L (0.01-0.03) % SARS-CoV-2 (PCR) POSITIVE SARS-CoV-2 A (Negative) Influenza Type A (PCR) Negative PCR FLU A (Negative) Influenza Type B (PCR) Negative PCR FLU B (Negative) RSV (PCR) Negative PCR RSV (Negative) POC Troponin I 0.02 (0.01-0.04) ng/ml 02/03/23 Range/Units 12:20 WBC (4.50-11.00) K/uL RBC (4.30-5.90) m/uL Hgb (13.5-17.5) gm/dL Hct (37.0-53.0) % MCV (80-100) fL MCH (26-34) pg MCHC (32-36) gm/dL RDW Coeff of Jennifer (11.5-15.5) % Plt Count (140-440) K/uL Neut % (Auto) (42.0-72.0) % Lymph % (Auto) (20-44) % [place] % (Auto) (0.0-11.0) % Eos % (Auto) (0.0-7.0) % Baso % (Auto) (0.0-3.0) % Neut # (Auto) (1.7-7.0) K/uL Lymph # (Auto) (0.90-2.90) K/uL [place] # (Auto) (0.00-0.90) K/UL Eos # (Auto) (0.00-0.50) K/uL Baso # (Auto) (0.00-0.30) K/uL Abs Immat Gran (auto) (0.00-0.30) K/uL Imm/Tot Granulo (auto) % ESR (2-15) mm/hr VBG pH (7.32-7.43) VBG pCO2 (40-50) mmHG VBG pO2 (25-47) mmHG VBG HCO3 (21-28) mmol/L Sodium (135-149) mmol/L Potassium (3.6-5.1) mmol/L Chloride (96-114) mmol/L Carbon Dioxide (20-32) mmol/L Anion Gap (7-15) mEq/L BUN (7-30) mg/dL Creatinine (0.5-1.5) mg/dL Estimated GFR ml/min Glucose (60-115) mg/dL Lactate (0.5-1.9) mmol/L Calcium (8.4-10.6) mg/dL Total Bilirubin (0.1-1.5) mg/dL Direct Bilirubin (0.0-0.5) mg/dL AST (12-35) U/L ALT (4-50) U/L Alkaline Phosphatase (40-150) U/L Total Creatine Kinase (54-186) U/L Troponin I (0.01-0.04) ng/mL C-Reactive Protein (0.5-1.0) mg/dL Total Protein (6.0-8.3) g/dL Albumin (3.3-5.0) g/dL Urine Color Yellow (Yellow) Urine Appearance Clear (Clear) Urine pH 5.5 (5.0-8.5) Ur Specific [place] 1.015 (1.000-1.030) Urine Protein 2+ A (Negative) Urine Glucose (UA) 2+ A (Negative) Urine Ketones Trace A (Negative) Urine Blood 1+ A (Negative) Urine Nitrite Negative (Negative) Urine Bilirubin Negative (Negative) Urine Urobilinogen 0.2 (0.2-1.0) Ur Leukocyte Esterase Negative (Negative) Urine RBC 2-5 A (0-2) Urine WBC 2-5 (0-5) Ur Squamous Epith Cells Few (None-Few) Amorphous Sediment Few A (None) Other Sediment HYALINE CASTS (None) Urine Bacteria Few A (None) Urine Mucus Few A (None) Salicylates (1.0-10) mg/dL Urine Opiates Screen Negative (Negative) Ur Oxycodone Screen Negative (Negative) Urine Methadone Screen Negative (Negative) Ur Propoxyphene Screen Not Reportable Acetaminophen (10.0-30.0) ug/mL Ur Barbiturates Screen Negative (Negative) U Tricyclic Antidepress Negative (Negative) Ur Phencyclidine Scrn Negative (Negative) Ur Amphetamines Screen Negative (Negative) U Methamphetamines Scrn Negative (Negative) U Benzodiazepines Scrn Negative (Negative) Urine Cocaine Screen Negative (Negative) U Marijuana (THC) Screen Negative (Negative) Ur Drug Screen Comment See Note Ethyl Alcohol (0.01-0.03) % SARS-CoV-2 (PCR) (Negative) Influenza Type A (PCR) (Negative) Influenza Type B (PCR) (Negative) RSV (PCR) (Negative) POC Troponin I (0.01-0.04) ng/ml Imaging Data CT scan - head: Attestation: I have reviewed the pertinent imaging results. Radiologist's impression: Head CT without contrast. COMPARISON: None. FINDINGS: Large area of encephalomalacia within the left frontoparietal region compatible with remote insult. There is associated ex vacuo dilatation of the left lateral ventricle. Smaller area of encephalomalacia within the high right parietal lobe. There are nonspecific low attenuation white matter changes consistent with chronic microvascular disease. No sign of intracranial hemorrhage, or midline shift. No evidence of mass effect. Mild mucosal thickening of the left maxillary sinus. The visualized orbits are grossly unremarkable. No skull fractures. Carotid siphon and intradural vertebral artery atherosclerotic calcifications. IMPRESSION: 1. No evidence of intracranial hemorrhage or skull fracture. 2. Large area of encephalomalacia within the left frontoparietal region and small area of encephalomalacia within the right parietal lobe, compatible with remote insults. Cervical spine CT: Attestation: I have reviewed the pertinent imaging results. Radiologist's impression: CT cervical spine without contrast. COMPARISON: None. FINDINGS: Vertebrae: Straightening of expected cervical lordosis. There are no fractures or suspicious bony lesions. Discs and facet joints: There are diffuse degenerative changes in the disc spaces and facet joints. Extraspinal findings: Paraspinous soft tissues are unremarkable. IMPRESSION: 1. No evidence of acute cervical spine fracture. 2. Multilevel degenerative spondylosis. X-ray humerus: Attestation: I have reviewed the pertinent imaging results. Radiologist's impression: Left humerus, 2 views. Per x-ray tech, suboptimal position due to patient condition. The proximal humerus is excluded from the field of view on the lateral. Comparison: None. Impression: 1. Per x-ray tech, suboptimal positioning/examination due to patient condition. 2. Given limitations, no evidence of fracture. Nonspecific periosteal reaction involving the mid humeral diaphysis. Generalized osteopenia. X-ray shoulder: Attestation: I have reviewed the pertinent imaging results. Radiologist's impression: Right shoulder 2 views. Per x-ray tech, suboptimal positioning due to patient condition. Comparison: None. Impression: Suboptimal positioning due to patient condition. Generalized osteopenia. Given limitations of exam no evidence of fracture. The humeral head may be slightly anterior inferior to the glenoid although this may be due to positioning. Cannot exclude an anterior dislocation. Recommend clinical correlation. Degenerative changes of the AC joint. X-ray forearm: Attestation: I have reviewed the pertinent imaging results. Radiologist's impression: Right forearm 2 views. 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 Comparison: None. Findings: Vascular calcifications. Generalized osteopenia. Given limitations of exam no evidence of forearm fracture although the proximal form is excluded from the [id number] on the labeled lateral view (although this appears to be the AP view). Impression: Given limitations of exam there is no evidence of fracture. ECG Data Attestation: I personally reviewed and interpreted this ECG as follows: Discharge Plan Discharge Clinical Impression: COVID-19, Weakness Patient Disposition: Admitted As Observation Condition: Stable
[2023-02-03] MEDS: 0.9 % SODIUM CHLORIDE 1000 ml 1,000 ML IV (10:50)
[2023-02-03] MEDS: ACETAMINOPHEN 325 MG TABLET 650 MG PO ×2 (11:40→20:33)
[2023-02-03 12:13] LABS: Basophils Absolute Auto 0.04 K/uL (0.00-0.30); Basophils Percent Auto 0.5 % (0.0-3.0); Hematocrit 40.5 % (37.0-53.0); Hemoglobin* 13.4 gm/dL (13.5-17.5); Immature Granulocytes Abs Auto 0.02 K/uL (0.00-0.30); Immature Granulocytes Pct Auto 0.3 %; Lymphocytes Percent Auto 11.6 % (20-44); Mean Corpuscular HGB Conc 33 gm/dL (32-36); Mean Corpuscular Hemoglobin 30 pg (26-34); Mean Corpuscular Volume 90 fL (80-100); Neutrophils Absolute Auto 5.41 K/uL (1.7-7.0); Neutrophils Percent Auto 71.6 % (42.0-72.0); Platelet Count* 223 K/uL (140-440); RDW Coefficient of Variation % 13.1 % (11.5-15.5); Red Blood Count 4.52 m/uL (4.30-5.90); White Blood Count* 7.56 K/uL (4.50-11.00)
[2023-02-03 12:14] LABS: HCO3 VBG 26 mmol/L (21-28); PCO2 VBG 44 mmHG (40-50); pH VBG 7.388 (7.32-7.43)
[2023-02-03 12:15] LABS: Lactate* 4.3 mmol/L (0.5-1.9)
[2023-02-03 12:16] LABS: Slide Review Reflex No
[2023-02-03 12:22] LABS: Troponin, Point-of-Care* 0.02 ng/ml (0.01-0.04)
[2023-02-03 12:34] LABS: Albumin* 3.9 g/dL (3.3-5.0)
[2023-02-03 12:35] LABS: Chloride* 98 mmol/L (96-114); Potassium* 4.5 mmol/L (3.6-5.1); Sodium* 135 mmol/L (135-149)
[2023-02-03 12:37] LABS: Alanine Aminotransferase* 34 U/L (4-50); Alkaline Phosphatase* 91 U/L (40-150); Aspartate Amino Transferase* 39 U/L (12-35); Bilirubin Direct* 0.3 mg/dL (0.0-0.5); Bilirubin Total* 1.4 mg/dL (0.1-1.5); Total Protein* 6.3 g/dL (6.0-8.3)
[2023-02-03 12:38] LABS: Anion Gap 12 mEq/L (7-15); Blood Urea Nitrogen* 26 mg/dL (7-30); Carbon Dioxide* 25 mmol/L (20-32); Creatine Kinase* 348 U/L (54-186); Creatinine* 1.3 mg/dL (0.5-1.5); Estimated Glomerular Filt Rate 61 ml/min
[2023-02-03 12:41] LABS: C Reactive Protein* 4.6 mg/dL (0.5-1.0)
[2023-02-03 12:42] LABS: Appearance Urine Clear (Clear); Bilirubin Urine Negative (Negative); Blood Urine 1+ (Negative); Color Urine Yellow (Yellow); Glucose Urine 2+ (Negative); Ketones Urine Trace (Negative); Leukocyte Esterase Urine Negative (Negative); Nitrite Urine Negative (Negative); Protein Urine 2+ (Negative); Specific Gravity Urine 1.015 (1.000-1.030); Urobilinogen Urine 0.2 (0.2-1.0); pH Urine 5.5 (5.0-8.5)
[2023-02-03 12:47] LABS: Acetaminophen* < 10.0 ug/mL (10.0-30.0); Ethanol* < 0.01 % (0.01-0.03); Glucose* 363 mg/dL (60-115); Salicylate* < 1.0 mg/dL (1.0-10)
[2023-02-03 12:48] LABS: Amphetamine Screen Urine Negative (Negative); Barbiturate Screen Urine Negative (Negative); Benzodiazepines Screen Urine Negative (Negative); Cannabinoid Screen Urine Negative (Negative); Cocaine Screen Urine Negative (Negative); Methadone Screen Urine Negative (Negative); Methamphetamines Screen Urine Negative (Negative); Opiate Screen Urine Negative (Negative); Oxycodone Screen Urine Negative (Negative); Phencyclidine Screen Urine Negative (Negative); Tricyclic Antidepressant Urine Negative (Negative)
[2023-02-03 12:49] LABS: Troponin I* 0.03 ng/mL (0.01-0.04)
[2023-02-03 12:56] LABS: Erythrocyte SedimentationRate* 17 mm/hr (2-15)
[2023-02-03 12:57] LABS: Amorphous Sediment Urine Few; Bacteria Urine Few; Mucus Urine Few; Other Sediment Urine HYALINE CASTS; Squamous Epithelial Cell Urine Few (None-Few)
[2023-02-03 13:05] LABS: PCR FLU A Negative PCR FLU A (Negative); PCR FLU B Negative PCR FLU B (Negative); PCR RSV Negative PCR RSV (Negative)
[2023-02-03 13:08] LABS: SARS PCR* POSITIVE SARS-CoV-2 (Negative)
--- NOTE | 2023-02-03 13:18 | CRLHL7_ITS ---
For Patients: As a result of the Cures Act, medical imaging exams and procedure reports are released immediately into your electronic medical record. You may view this report before your referring provider. If you have questions, please contact your health care provider. INDICATION: Covid COMPARISON: None. TECHNIQUE: 1 view chest radiograph. FINDINGS: Lung volumes are moderate. No focal consolidations. No pulmonary edema. No pleural effusion. No pneumothorax. No pneumomediastinum. Enlarged appearing cardiac silhouette may be due to slight patient rotation, lung volumes, and portable technique. Atherosclerotic calcifications of the aortic arch. Bones: Normal for age. IMPRESSION: Lungs clear. Borderline heart size. Dictated by Cinthia Rodrigez MD @ 02/03/2023 2:43:01 PM (Electronically Signed)
[2023-02-03] MEDS: 0.9 % SODIUM CHLORIDE 500 ML 500 ML IV (13:20)
--- NOTE | 2023-02-03 14:08 | ED.NURSE ---
Pt report given to eric MEYERS
--- NOTE | 2023-02-03 14:33 | ED.NURSE ---
Unable to get complete q10 vital signs as we were attempting to get IV access in either of pt arms, and pt went off for CT and X-ray scans shortly after.
[2023-02-03 14:37] LABS: Lactate Sepsis w/Reflex* 3.8 mmol/L (0.5-1.9)
--- NOTE | 2023-02-03 14:52 | P.IMHP_ITS ---
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 The patient is not oriented and can not provide hx. I called his son Osito who states father has extremely low quality of life. He id DNR/DNI. He had reported fall; unknown if he hit his head. He presented to ED where cxr showed no acute findings. CT head Large area of encephalomalacia within the left frontoparietal region compatible with remote insult. There is associated ex vacuo dilatation of the left lateral ventricle. Smaller area of encephalomalacia within the high right parietal lobe. There are nonspecific low attenuation white matter changes consistent with chronic microvascular disease. No sign of intracranial hemorrhage, or midline shift. No evidence of mass effect. Notable labs included normal wbc, lactate 4.3->3.8. CK 348->495, Trop WNL, UA with bacteria. he was given IVF and admitted for further evaluation. ct head Large area of encephalomalacia within the left frontoparietal region compatible with remote insult. There is associated ex vacuo dilatation of the left lateral ventricle. Smaller area of encephalomalacia within the high right parietal lobe. There are nonspecific low attenuation white matter changes consistent with chronic microvascular disease. No sign of intracranial hemorrhage, or midline shift. No evidence of mass effect. Mild mucosal thickening of the left maxillary sinus. The visualized orbits are grossly unremarkable. No skull fractures. Carotid siphon and intradural vertebral artery atherosclerotic calcifications. cxr Lungs clear. Borderline heart size. shoulder xray Impression: Suboptimal positioning due to patient condition. Generalized osteopenia. Given limitations of exam no evidence of fracture. The humeral head may be slightly anterior inferior to the glenoid although this may be due to positioning. Cannot exclude an anterior dislocation. Recommend clinical correlation. Degenerative changes of the AC joint. Impression: 1. Per x-ray tech, suboptimal positioning/examination due to patient condition. 2. Given limitations, no evidence of fracture. Nonspecific periosteal reaction involving the mid humeral diaphysis. Generalized osteopenia. IMPRESSION: 1. No evidence of acute cervical spine fracture. 2. Multilevel degenerative spondylosis. [facility] Social History What is your current living situation?: I presently have a place to live Problems where you live: no known problems Problems where you live details: none In the past 12 months, utilities in danger of being shut off: no In past 12 months, lack of transportation kept you from medical appts, meetings, work, or getting things needed for daily living: no In the past 12 mos, have been you worried that your food would run out before you had money to buy more?: never true In the past 12 mos, the food you bought just didn't last and you didn't have money to buy more?: never true Highest level of school completed/degree received: some college, no degree Smoking Status: Never smoker How often do you have a drink containing alcohol: never How often do you have six or more drinks on one occasion: Never AUDIT-C Alcohol total score: 0 Non-prescribed substance use: denies use How often does anyone, including family, friends and others, physically hurt you : never How often does anyone, including family, friends and others, insult or talk down to you: never How often does anyone, including family, friends and others, threaten you with harm: never How often does anyone, including family, friends and others, scream or curse at you: never service: Yes Meds Home Medications and Allergies Home Medications Medication Instructions Recorded Confirmed Type amlodipine 5 mg tablet 5 mg PO DAILY 02/03/23 02/03/23 History apixaban 5 mg tablet (Eliquis) 5 mg PO BID 02/03/23 02/03/23 History aspirin 81 mg chewable tablet 1 tab PO DAILY 02/03/23 02/03/23 History atorvastatin 80 mg tablet 80 mg PO DAILY 02/03/23 02/03/23 History bacitracin 500 unit/gram topical topical 02/03/23 History ointment furosemide 40 mg tablet 40 mg PO 3XD 02/03/23 02/03/23 History gabapentin 100 mg capsule 100 mg PO 3XD 02/03/23 02/03/23 History glipizide 5 mg tablet, extended 5 mg PO DAILY 02/03/23 02/03/23 History release 24 hr metformin 1,000 mg tablet 1,000 mg PO BIDWMEAL 02/03/23 02/03/23 History metoprolol succinate 100 mg 100 mg PO DAILY 02/03/23 02/03/23 History tablet,extended release 24 hr valsartan 40 mg tablet 80 mg PO DAILY 02/03/23 02/03/23 History Allergies Allergy/AdvReac Type Severity Reaction Status Date / Time lisinopril Allergy Mild Verified 02/03/23 10:02 Exam Narrative: Exam Narrative: Gen: morbidly obese male no acute distress HEENT: NCAT EOMI mmm Neck: Supple CV: tachycardic normal s1 s2 Lungs: coarse breath sounds Abd: Soft,nt, nd; large abdominal wall ventral hernia Neuro: Alert, but not oriented, baseline expressive aphasia MSK: age appropriate muscle mass Skin; venous staiss LEs Ext: 3+ bilateral LE edema; 1-2+ UE edema Const: Vital Signs, click to edit/add: Vital Signs - 24 hr 02/03/23 09:39 02/03/23 09:47 02/03/23 09:51 Temperature 100.5 F H Pulse Rate 115 H Pulse Rate [Pulse Oximeter] 110 H Respiratory Rate 24 Blood Pressure Blood Pressure [Le ft Arm] Blood Pressure [Ri ght Upper Arm] 119/95 H Pulse Oximetry 96 97 96 Oxygen Delivery Me thod Room Air 02/03/23 09:54 02/03/23 10:16 02/03/23 10:19 Temperature Pulse Rate 119 H Pulse Rate [Pulse Oximeter] Respiratory Rate Blood Pressure 94/60 120/80 Blood Pressure [Le ft Arm] Blood Pressure [Ri ght Upper Arm] Pulse Oximetry 97 Oxygen Delivery Me thod 02/03/23 10:22 02/03/23 10:32 02/03/23 10:33 Temperature Pulse Rate 108 H 105 H Pulse Rate [Pulse Oximeter] Respiratory Rate Blood Pressure 150/133 H 135/96 H Blood Pressure [Le ft Arm] Blood Pressure [Ri ght Upper Arm] Pulse Oximetry 96 96 Oxygen Delivery Me thod 02/03/23 10:42 02/03/23 10:46 02/03/23 10:50 Temperature Pulse Rate 112 H 162 H Pulse Rate [Pulse Oximeter] Respiratory Rate Blood Pressure 136/82 125/95 H Blood Pressure [Le ft Arm] Blood Pressure [Ri ght Upper Arm] Pulse Oximetry 96 79 L Oxygen Delivery Me thod 02/03/23 10:51 02/03/23 10:58 02/03/23 11:00 Temperature Pulse Rate 110 H 106 H Pulse Rate [Pulse Oximeter] Respiratory Rate Blood Pressure 111/56 L 108/56 L Blood Pressure [Le ft Arm] Blood Pressure [Ri ght Upper Arm] Pulse Oximetry 96 95 Oxygen Delivery Me thod 02/03/23 11:08 02/03/23 11:09 02/03/23 11:11 Temperature Pulse Rate 108 H 108 H 111 H Pulse Rate [Pulse Oximeter] Respiratory Rate Blood Pressure 136/95 H 134/102 H Blood Pressure [Le ft Arm] Blood Pressure [Ri ght Upper Arm] Pulse Oximetry 96 95 96 Oxygen Delivery Me thod 02/03/23 11:15 02/03/23 11:16 02/03/23 11:22 Temperature Pulse Rate 110 H 111 H 104 H Pulse Rate [Pulse Oximeter] Respiratory Rate Blood Pressure 140/101 H 122/94 H Blood Pressure [Le ft Arm] Blood Pressure [Ri ght Upper Arm] Pulse Oximetry 95 96 95 Oxygen Delivery Me thod 02/03/23 11:26 02/03/23 11:32 02/03/23 11:34 Temperature Pulse Rate 110 H 111 H Pulse Rate [Pulse Oximeter] Respiratory Rate Blood Pressure 138/91 H 138/102 H Blood Pressure [Le ft Arm] Blood Pressure [Ri ght Upper Arm] Pulse Oximetry 95 94 Oxygen Delivery Me thod 02/03/23 11:40 02/03/23 11:42 02/03/23 12:02 Temperature 100.8 F H Pulse Rate 106 H Pulse Rate [Pulse Oximeter] Respiratory Rate Blood Pressure 106/83 103/75 Blood Pressure [Le ft Arm] Blood Pressure [Ri ght Upper Arm] Pulse Oximetry 96 Oxygen Delivery Me thod 02/03/23 12:03 02/03/23 12:15 02/03/23 12:21 Temperature Pulse Rate 107 H 106 H 101 H Pulse Rate [Pulse Oximeter] Respiratory Rate Blood Pressure 116/76 Blood Pressure [Le ft Arm] Blood Pressure [Ri ght Upper Arm] Pulse Oximetry 95 96 94 Oxygen Delivery Me thod 02/03/23 12:34 02/03/23 12:41 02/03/23 12:45 Temperature Pulse Rate 106 H 103 H 99 Pulse Rate [Pulse Oximeter] Respiratory Rate Blood Pressure 113/69 Blood Pressure [Le ft Arm] Blood Pressure [Ri ght Upper Arm] Pulse Oximetry 94 92 95 Oxygen Delivery Me thod 02/03/23 13:00 02/03/23 13:02 02/03/23 13:15 Temperature Pulse Rate 90 100 95 Pulse Rate [Pulse Oximeter] Respiratory Rate Blood Pressure 102/69 Blood Pressure [Le ft Arm] Blood Pressure [Ri ght Upper Arm] Pulse Oximetry 93 95 94 Oxygen Delivery Me thod 02/03/23 13:21 02/03/23 13:30 02/03/23 13:41 Temperature Pulse Rate 93 101 H 102 H Pulse Rate [Pulse Oximeter] Respiratory Rate Blood Pressure 116/74 116/80 Blood Pressure [Le ft Arm] Blood Pressure [Ri ght Upper Arm] Pulse Oximetry 95 94 95 Oxygen Delivery Me thod 02/03/23 14:13 Temperature 98.2 F Pulse Rate Pulse Rate [Pulse Oximeter] 107 H Respiratory Rate 26 H Blood Pressure Blood Pressure [Le ft Arm] 131/91 H Blood Pressure [Ri ght Upper Arm] Pulse Oximetry 95 Oxygen Delivery Me thod Room Air Hospitalist - H&P: Result Labs Labs: Short CBC 02/03/23 Range/Units 12:00 WBC 7.56 (4.50-11.00) K/uL Hgb 13.4 L (13.5-17.5) gm/dL Hct 40.5 (37.0-53.0) % Plt Count 223 (140-440) K/uL BMP 02/03/23 12:00 Sodium 135 Potassium 4.5 Chloride 98 Carbon Dioxide 25 BUN 26 Creatinine 1.3 Glucose 363 H* Calcium 9.0 Cardiac Enzymes 02/03/23 Range/Units 12:00 Total Creatine Kinase 348 H (54-186) U/L Troponin I 0.03 (0.01-0.04) ng/mL Liver Function 02/03/23 Range/Units 12:00 Total Bilirubin 1.4 (0.1-1.5) mg/dL Direct Bilirubin 0.3 (0.0-0.5) mg/dL AST 39 H (12-35) U/L ALT 34 (4-50) U/L Alkaline Phosphatase 91 (40-150) U/L Albumin 3.9 (3.3-5.0) g/dL Urine // Range/Units 12:20 Urine Color Yellow (Yellow) Urine Appearance Clear (Clear) Urine pH 5.5 (5.0-8.5) Ur Specific [place] 1.015 (1.000-1.030) Urine Protein 2+ A (Negative) Urine Glucose (UA) 2+ A (Negative) Assessment and Plan Assessment and plan (1) COVID-19: Status: Acute Plan Kevin Patiño is a 67 year old male hx of CVA with residual right sided hemiparesis and expressive aphasia, hx of atrial fibrillation (on eliquis), RUE DVT, RLE DVT, HFrEF, Type II DM, HLD, Morbid obesity , ANIBAL, mild intermittent asthma who presented from assisted living for evaluation of fall. The patient is not oriented and can not provide hx. He had reported fall; unknown if he hit his head. He presented to ED where cxr showed no acute findings. CT head Large area of encephalomalacia within the left frontoparietal region compatible with remote insult. There is associated ex vacuo dilatation of the left lateral ventricle. Smaller area of encephalomalacia within the high right parietal lobe. There are nonspecific low attenuation white matter changes consistent with chronic microvascular disease. No sign of intracranial hemorrhage, or midline shift. No evidence of mass effect. Notable labs included normal wbc, lactate 4.3->3.8. CK 348->495, Trop WNL, UA with bacteria. he was given IVF and admitted for further evaluation. 1. COVID 19; 2. SIRS syndrome tachycardia, tachypnea, lactic acidosis; possible early sepsis from UTI 3. Hx of CVA with residual right sided hemiparesis and expressive aphasia 4. hx of atrial fibrillation (on eliquis) 5. Hx of RUE DVT, RLE DVT 6. Hx of HFrEF 7. Hx of Type II DM 8. Hx of HLD 9. Hx of Morbid obesity 10. Hx of ANIBAL 11. Hx of mild intermittent asthma 12. Unwitness fall; generalized weakness Plan -start remdesivir -if becomes hypoxic start decadron -start ceftriaxone for possible UTI -gentle IVF -hold diuretics -hold anithypertensives -continue eliquis -hold statin -daily cbc and LFTs while on remdesivir -SSI -check procal -trend CK and lactate -f/u Ucx Code-DNR/DNI DVT ppx-on eliquis Family communication-Spoke with Son Osito by phone
[2023-02-03 14:56] LABS: Creatine Kinase* 495 U/L (54-186)
[2023-02-03] MEDS: cefTRIAXone 2 GM in 0.9 % SODIUM CHLORIDE Mini-bag 100 ML IVPB (14:59)
[2023-02-03 15:03] LABS: HCO3 VBG 24 mmol/L (21-28); PCO2 VBG 36 mmHG (40-50); PO2 VBG 54.4 mmHG (25-47); pH VBG 7.433 (7.32-7.43)
[2023-02-03] MEDS: GABAPENTIN 100 MG CAPSULE PO ×2 (15:07→20:31)
[2023-02-03 15:14] LABS: Procalcitonin* 0.17 ng/mL (<0.50)
[2023-02-03 16:37] LABS: Lactate Sepsis 2 Hour 3.2 mmol/L (0.5-1.9)
[2023-02-03] MEDS: 0.9 % SODIUM CHLORIDE 1000 ml 1,000 ML 100 ML IV (16:44)
[2023-02-03] MEDS: INSULIN ASPART 100 UNIT/ML SUBCUT ×2 (17:56→20:31)
--- NOTE | 2023-02-03 18:33 | PC.NURSE ---
End of Shift: Patient pleasant and cooperative. Patient vitally stable, lungs clear, BS WNL, IV running NS at 100. Patient rates chronic right arm and leg pain from stroke, patient will say left side pain when he means right. Patient 2 assist to commode. Patient with right sided weakness and aphasic. Patient is delayed with questions and with some cognitive impairment. Patient tele=A.fib. Blood sugar 395. Patient tolerating regular diet.
[2023-02-03] MEDS: APIXABAN 5 MG TABLET PO (20:31)
[2023-02-04] VITALS (8 sets, daily range): BP systolic 104–124; BP diastolic 73–77; PULSE 81–101; RESP 18–22; TEMP 36.6–37.2; O2SAT 90–95
[2023-02-04] MEDS: 0.9 % SODIUM CHLORIDE 1000 ml 1,000 ML 100 ML IV ×2 (03:22→13:09)
[2023-02-04] MEDS: ACETAMINOPHEN 325 MG TABLET 650 MG PO ×3 (03:22→20:18)
[2023-02-04 06:41] LABS: Basophils Absolute Auto 0.02 K/uL (0.00-0.30); Basophils Percent Auto 0.4 % (0.0-3.0); Eosinophils Absolute Auto 0.01 K/uL (0.00-0.50); Eosinophils Percent Auto 0.2 % (0.0-7.0); Hematocrit 37.8 % (37.0-53.0); Hemoglobin* 12.5 gm/dL (13.5-17.5); Immature Granulocytes Abs Auto 0.01 K/uL (0.00-0.30); Immature Granulocytes Pct Auto 0.2 %; Lymphocytes Absolute Auto 1.01 K/uL (0.90-2.90); Lymphocytes Percent Auto 20.1 % (20-44); Mean Corpuscular HGB Conc 33 gm/dL (32-36); Mean Corpuscular Hemoglobin 30 pg (26-34); Mean Corpuscular Volume 91 fL (80-100); Monocytes Percent Auto 12.9 % (0.0-11.0); Neutrophils Absolute Auto 3.33 K/uL (1.7-7.0); Neutrophils Percent Auto 66.2 % (42.0-72.0); Platelet Count* 177 K/uL (140-440); RDW Coefficient of Variation % 13.6 % (11.5-15.5); Red Blood Count 4.17 m/uL (4.30-5.90); White Blood Count* 5.03 K/uL (4.50-11.00)
--- NOTE | 2023-02-04 06:41 | PC.NURSE ---
: pleasant and cooperative. Delayed speech, aphasic from hx CVA. Right sided weakness. Pt c/o right arm pain and requested to keep it elevated, pt stated that this arm always hurts but keeping it elevated seems to help per pt, prn Tylenol given. Abrasions noted on Right shoulder, bruising and abrasions noted in right armpit as well. 1 x large incont, required linen change. Abd hernia, pt states he has had it since he was a teen and that he wasn?t able to get it removed because he was ?too fat?
[2023-02-04 06:49] LABS: Slide Review Reflex No
[2023-02-04 06:55] LABS: Chloride* 102 mmol/L (96-114)
[2023-02-04 06:56] LABS: Albumin* 3.5 g/dL (3.3-5.0)
[2023-02-04 06:57] LABS: Potassium* 3.8 mmol/L (3.6-5.1); Sodium* 136 mmol/L (135-149)
[2023-02-04 06:59] LABS: Alanine Aminotransferase* 30 U/L (4-50); Alkaline Phosphatase* 74 U/L (40-150); Anion Gap 8 mEq/L (7-15); Aspartate Amino Transferase* 43 U/L (12-35); Bilirubin Total* 0.7 mg/dL (0.1-1.5); Blood Urea Nitrogen* 22 mg/dL (7-30); Carbon Dioxide* 26 mmol/L (20-32); Creatine Kinase* 1262 U/L (54-186); Estimated Glomerular Filt Rate 84 ml/min; Glucose* 232 mg/dL (60-115); Total Protein* 6.1 g/dL (6.0-8.3)
[2023-02-04 07:00] LABS: Calcium* 8.5 mg/dL (8.4-10.6)
[2023-02-04 07:16] LABS: Procalcitonin* 0.18 ng/mL (<0.50)
[2023-02-04] MEDS: INSULIN ASPART 100 UNIT/ML SUBCUT ×4 (08:14→20:18)
[2023-02-04] MEDS: GABAPENTIN 100 MG CAPSULE PO ×3 (08:18→20:19)
[2023-02-04] MEDS: ASPIRIN 81 MG TAB.CHEW PO (08:19)
[2023-02-04] MEDS: APIXABAN 5 MG TABLET PO ×2 (08:19→20:19)
[2023-02-04] MEDS: METOPROLOL SUCCINATE (XL) 100 MG TAB PO (08:20)
--- NOTE | 2023-02-04 09:00 | CRLHL7_ITS ---
For Patients: As a result of the Century Cures Act, medical imaging exams and procedure reports are released immediately into your electronic medical record. You may view this report before your referring provider. If you have questions, please contact your health care provider. INDICATION : Trauma. Fall. Evaluate for dislocation. TECHNIQUE: Two portable views of the right shoulder. COMPARISON: February 03, 2023. FINDINGS: No convincing evidence for acute right shoulder dislocation. Skeletal demineralization. 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 IMPRESSION: No convincing evidence for shoulder dislocation. Dictated by Lang Rodrigues MD @ 02/04/2023 10:43:12 AM (Electronically Signed)
--- NOTE | 2023-02-04 09:00 | CRLHL7_ITS ---
For Patients: As a result of the Century Cures Act, medical imaging exams and procedure reports are released immediately into your electronic medical record. You may view this report before your referring provider. If you have questions, please contact your health care provider. INDICATION: Right lower extremity redness. Swelling. COMPARISON: None. TECHNIQUE: A compression venous ultrasound exam was performed of the right lower extremity using [place] scale imaging, color Doppler and spectral Doppler analysis. FINDINGS: Sonographic imaging of the right lower extremity demonstrates normal compressibility and color Doppler venous blood flow within the common femoral vein, deep femoral vein, and the proximal greater saphenous vein. Within the thigh, the femoral vein is patent and compressible. At a lower level, the popliteal and posterior tibial veins also show normal compressibility and color Doppler venous blood flow. Limited imaging of the contralateral groin demonstrates a normal spectral waveform and color Doppler venous blood flow within the left common femoral vein. IMPRESSION: Normal venous ultrasound exam. No evidence of deep vein thrombosis within the right lower extremity. Dictated by Lang Rodrigues MD @ 02/04/2023 8:28:30 AM (Electronically Signed)
--- NOTE | 2023-02-04 10:30 | P.IMPN_ITS ---
Progress Note: A&P Assessment and plan (1) COVID-19: Problem details: - on Remdesivir as COVID-specific therapy - stable on RA Status: Acute (2) Weakness: Problem details: - improving, therapies ordered Status: Acute (3) Aphasia as late effect of cerebrovascular accident: Problem details: - baseline Status: Acute (4) Insulin dependent diabetes mellitus: Problem details: - last A1C 12.1 11/2022 - continue home medications, SSI Status: Acute (5) Abnormal urinalysis: Problem details: - Ceftriaxone initiated 02/03, d/c'd 02/04 given negative urine culture Status: Acute (6) Lower extremity edema: Problem details: - history of RLE DVT remotely - negative u/s for DVT on 02/04 - continue Apixaban Status: Acute Plan - per above - discontinue IV antibiotics at this time given negative urine culture - continue low-dose IV fluids given elevated CK, patient tolerating well without any evidence of overload or hypoxia - home dose of Apixaban for prophylaxis - continue home medications for comorbidities (+ SSI) - appears close to baseline, if continues to improve, anticipate discharge home to [facility] as early as tomorrow (Tung is in agreement and plans to transport) - son Tung updated by phone, questions answered Subjective Date Seen: 02/04/23 Interval history: Red has no concerns for the hospitalist team this morning. He feels like he is moving back to physical baseline. His right shoulder pain has improved, but is still present. No acute findings noted on x-ray this morning. Right lower extremity ultrasound was negative for DVT. Blood sugars have been elevated (200-300); notably, last A1c was greater than 12. He denies chest pain or shortness of breath. He believes he will be ready to discharge back to [facility] tomorrow. Exam Narrative: Exam Narrative: GEN: Alert and answering questions appropriately, aphasia is evident HEENT: Cerumen noted in right ear canal, not obstructive. Chronic right facial droop noted, stable CV: RRR (in sinus rhythm during my exam) R: No wheezing, decreased bibasilar breath sounds. Breathing comfortably without tachypnea Ab: Protuberant, soft, nontender Ext: Lower extremity edema bilaterally, right greater than left Skin: Erythema over bilateral lower extremities, right greater than left. Not warm, consistent with peripheral vascular disease Neuro: Right-sided weakness and facial droop, aphasia - all stable sequela from CVA Psych: Appropriate Const: Vital Signs, click to edit/add: Vital Signs - 24 hr 02/03/23 10:32 02/03/23 10:33 02/03/23 10:42 Temperature Pulse Rate 108 H 105 H 112 H Pulse Rate [Pulse Oximeter] Respiratory Rate Blood Pressure 135/96 H 136/82 Blood Pressure [Le ft Arm] Pulse Oximetry 96 96 96 Oxygen Delivery Me thod 02/03/23 10:46 02/03/23 10:50 02/03/23 10:51 Temperature Pulse Rate 162 H Pulse Rate [Pulse Oximeter] Respiratory Rate Blood Pressure 125/95 H 111/56 L Blood Pressure [Le ft Arm] Pulse Oximetry 79 L Oxygen Delivery Me thod 02/03/23 10:58 02/03/23 11:00 02/03/23 11:08 Temperature Pulse Rate 110 H 106 H 108 H Pulse Rate [Pulse Oximeter] Respiratory Rate Blood Pressure 108/56 L 136/95 H Blood Pressure [Le ft Arm] Pulse Oximetry 96 95 96 Oxygen Delivery Me thod 02/03/23 11:09 02/03/23 11:11 02/03/23 11:15 Temperature Pulse Rate 108 H 111 H 110 H Pulse Rate [Pulse Oximeter] Respiratory Rate Blood Pressure 134/102 H Blood Pressure [Le ft Arm] Pulse Oximetry 95 96 95 Oxygen Delivery Me thod 02/03/23 11:16 02/03/23 11:22 02/03/23 11:26 Temperature Pulse Rate 111 H 104 H 110 H Pulse Rate [Pulse Oximeter] Respiratory Rate Blood Pressure 140/101 H 122/94 H 138/91 H Blood Pressure [Le ft Arm] Pulse Oximetry 96 95 95 Oxygen Delivery Me thod 02/03/23 11:32 02/03/23 11:34 02/03/23 11:40 Temperature 100.8 F H Pulse Rate 111 H Pulse Rate [Pulse Oximeter] Respiratory Rate Blood Pressure 138/102 H Blood Pressure [Le ft Arm] Pulse Oximetry 94 Oxygen Delivery Me thod 02/03/23 11:42 02/03/23 12:02 02/03/23 12:03 Temperature Pulse Rate 106 H 107 H Pulse Rate [Pulse Oximeter] Respiratory Rate Blood Pressure 106/83 103/75 Blood Pressure [Le ft Arm] Pulse Oximetry 96 95 Oxygen Delivery Me thod 02/03/23 12:15 02/03/23 12:21 02/03/23 12:34 Temperature Pulse Rate 106 H 101 H 106 H Pulse Rate [Pulse Oximeter] Respiratory Rate Blood Pressure 116/76 Blood Pressure [Le ft Arm] Pulse Oximetry 96 94 94 Oxygen Delivery Me thod 02/03/23 12:41 02/03/23 12:45 02/03/23 13:00 Temperature Pulse Rate 103 H 99 90 Pulse Rate [Pulse Oximeter] Respiratory Rate Blood Pressure 113/69 Blood Pressure [Le ft Arm] Pulse Oximetry 92 95 93 Oxygen Delivery Me thod 02/03/23 13:02 02/03/23 13:15 02/03/23 13:21 Temperature Pulse Rate 100 95 93 Pulse Rate [Pulse Oximeter] Respiratory Rate Blood Pressure 102/69 116/74 Blood Pressure [Le ft Arm] Pulse Oximetry 95 94 95 Oxygen Delivery Me thod 02/03/23 13:30 02/03/23 13:41 02/03/23 14:13 Temperature 98.2 F Pulse Rate 101 H 102 H Pulse Rate [Pulse Oximeter] 107 H Respiratory Rate 26 H Blood Pressure 116/80 Blood Pressure [Le ft Arm] 131/91 H Pulse Oximetry 94 95 95 Oxygen Delivery Me thod Room Air 02/03/23 14:30 02/03/23 15:17 02/03/23 17:23 Temperature 98.3 F Pulse Rate 88 Pulse Rate [Pulse Oximeter] 112 H Respiratory Rate 16 Blood Pressure Blood Pressure [Le ft Arm] 120/89 Pulse Oximetry 98 Oxygen Delivery Me thod Room Air Room Air 02/03/23 19:00 02/03/23 22:16 02/03/23 22:44 Temperature 98.2 F Pulse Rate 82 Pulse Rate [Pulse Oximeter] 97 Respiratory Rate 16 16 Blood Pressure Blood Pressure [Le ft Arm] 108/90 H Pulse Oximetry 95 Oxygen Delivery Me thod Room Air 02/03/23 23:00 02/04/23 03:00 02/04/23 07:00 Temperature 97.6 F 98.9 F 98.0 F Pulse Rate Pulse Rate [Pulse Oximeter] 98 101 H 94 Respiratory Rate 18 22 22 Blood Pressure Blood Pressure [Le ft Arm] 120/79 118/76 123/73 Pulse Oximetry 95 94 93 Oxygen Delivery Me thod Room Air Room Air Room Air Labs Labs: Laboratory Results - last 24 hr 02/03/23 02/03/23 02/03/23 09:40 11:20 12:00 WBC 7.56 RBC 4.52 Hgb 13.4 L Hct 40.5 MCV 90 MCH 30 MCHC 33 RDW Coeff of Jennifer 13.1 Plt Count 223 Neut % (Auto) 71.6 Lymph % (Auto) 11.6 L [place] % (Auto) 16.0 H Eos % (Auto) 0.0 Baso % (Auto) 0.5 Neut # (Auto) 5.41 Lymph # (Auto) 0.90 [place] # (Auto) 1.20 H Eos # (Auto) 0.00 Baso # (Auto) 0.04 Abs Immat Gran (auto) 0.02 Imm/Tot Granulo (auto) 0.3 ESR 17 H VBG pH 7.388 VBG pCO2 44 VBG pO2 36.0 VBG HCO3 26 Sodium 135 Potassium 4.5 Chloride 98 Carbon Dioxide 25 Anion Gap 12 BUN 26 Creatinine 1.3 Estimated GFR 61 Glucose 363 H* Lactate 4.3 H* Calcium 9.0 Total Bilirubin 1.4 Direct Bilirubin 0.3 AST 39 H ALT 34 Alkaline Phosphatase 91 Total Creatine Kinase 348 H Troponin I 0.03 C-Reactive Protein 4.6 H Total Protein 6.3 Albumin 3.9 Procalcitonin Urine Color Urine Appearance Urine pH Ur Specific [place] Urine Protein Urine Glucose (UA) Urine Ketones Urine Blood Urine Nitrite Urine Bilirubin Urine Urobilinogen Ur Leukocyte Esterase Urine RBC Urine WBC Ur Squamous Epith Cells Amorphous Sediment Other Sediment Urine Bacteria Urine Mucus Salicylates < 1.0 L Urine Opiates Screen Ur Oxycodone Screen Urine Methadone Screen Ur Propoxyphene Screen Acetaminophen < 10.0 L Ur Barbiturates Screen U Tricyclic Antidepress Ur Phencyclidine Scrn Ur Amphetamines Screen U Methamphetamines Scrn U Benzodiazepines Scrn Urine Cocaine Screen U Marijuana (THC) Screen Ur Drug Screen Comment Ethyl Alcohol < 0.01 L SARS-CoV-2 (PCR) POSITIVE SARS-CoV-2 A Influenza Type A (PCR) Negative PCR FLU A Influenza Type B (PCR) Negative PCR FLU B RSV (PCR) Negative PCR RSV POC Troponin I 0.02 02/03/23 02/03/23 02/03/23 12:20 14:30 14:33 WBC RBC Hgb Hct MCV MCH MCHC RDW Coeff of Jennifer Plt Count Neut % (Auto) Lymph % (Auto) [place] % (Auto) Eos % (Auto) Baso % (Auto) Neut # (Auto) Lymph # (Auto) [place] # (Auto) Eos # (Auto) Baso # (Auto) Abs Immat Gran (auto) Imm/Tot Granulo (auto) ESR VBG pH 7.433 H VBG pCO2 36 L VBG pO2 54.4 H VBG HCO3 24 Sodium Potassium Chloride Carbon Dioxide Anion Gap BUN Creatinine Estimated GFR Glucose Lactate 3.8 H Calcium Total Bilirubin Direct Bilirubin AST ALT Alkaline Phosphatase Total Creatine Kinase 495 H Troponin I C-Reactive Protein Total Protein Albumin Procalcitonin 0.17 Urine Color Yellow Urine Appearance Clear Urine pH 5.5 Ur Specific [place] 1.015 Urine Protein 2+ A Urine Glucose (UA) 2+ A Urine Ketones Trace A Urine Blood 1+ A Urine Nitrite Negative Urine Bilirubin Negative Urine Urobilinogen 0.2 Ur Leukocyte Esterase Negative Urine RBC 2-5 A Urine WBC 2-5 Ur Squamous Epith Cells Few Amorphous Sediment Few A Other Sediment HYALINE CASTS Urine Bacteria Few A Urine Mucus Few A Salicylates Urine Opiates Screen Negative Ur Oxycodone Screen Negative Urine Methadone Screen Negative Ur Propoxyphene Screen Not Reportable Acetaminophen Ur Barbiturates Screen Negative U Tricyclic Antidepress Negative Ur Phencyclidine Scrn Negative Ur Amphetamines Screen Negative U Methamphetamines Scrn Negative U Benzodiazepines Scrn Negative Urine Cocaine Screen Negative U Marijuana (THC) Screen Negative Ur Drug Screen Comment See Note Ethyl Alcohol SARS-CoV-2 (PCR) Influenza Type A (PCR) Influenza Type B (PCR) RSV (PCR) POC Troponin I 02/03/23 02/04/23 02/04/23 16:33 04:00 06:26 WBC 5.03 RBC 4.17 L Hgb 12.5 L Hct 37.8 MCV 91 MCH 30 MCHC 33 RDW Coeff of Jennifer 13.6 Plt Count 177 Neut % (Auto) 66.2 Lymph % (Auto) 20.1 [place] % (Auto) 12.9 H Eos % (Auto) 0.2 Baso % (Auto) 0.4 Neut # (Auto) 3.33 Lymph # (Auto) 1.01 [place] # (Auto) 0.60 Eos # (Auto) 0.01 Baso # (Auto) 0.02 Abs Immat Gran (auto) 0.01 Imm/Tot Granulo (auto) 0.2 ESR VBG pH VBG pCO2 VBG pO2 VBG HCO3 Sodium 136 Potassium 3.8 Chloride 102 Carbon Dioxide 26 Anion Gap 8 BUN 22 Creatinine 1.0 Estimated GFR 84 Glucose 232 H Lactate 3.2 H Calcium 8.5 Total Bilirubin 0.7 Direct Bilirubin AST 43 H ALT 30 Alkaline Phosphatase 74 Total Creatine Kinase 1262 H Troponin I C-Reactive Protein Total Protein 6.1 Albumin 3.5 Procalcitonin 0.18 Urine Color Urine Appearance Urine pH Ur Specific [place] Urine Protein Urine Glucose (UA) Urine Ketones Urine Blood Urine Nitrite Urine Bilirubin Urine Urobilinogen Ur Leukocyte Esterase Urine RBC Urine WBC Ur Squamous Epith Cells Amorphous Sediment Other Sediment Urine Bacteria Urine Mucus Salicylates Urine Opiates Screen Ur Oxycodone Screen Urine Methadone Screen Ur Propoxyphene Screen Acetaminophen Ur Barbiturates Screen U Tricyclic Antidepress Ur Phencyclidine Scrn Ur Amphetamines Screen U Methamphetamines Scrn U Benzodiazepines Scrn Urine Cocaine Screen U Marijuana (THC) Screen Ur Drug Screen Comment Ethyl Alcohol SARS-CoV-2 (PCR) Influenza Type A (PCR) Influenza Type B (PCR) RSV (PCR) POC Troponin I
--- NOTE | 2023-02-04 20:09 | PC.NURSE ---
Patient pleasant, alert and cooperative. Uses call light appropriately. Intermittent dry cough. Tolerated regular diet. PRN Tylenol given for pain in right arm and leg rated 3-4/10.
[2023-02-05] MEDS: 0.9 % SODIUM CHLORIDE 1000 ml 1,000 ML 100 ML IV (00:21)
[2023-02-05 02:55] VITALS: BP 123/84; PULSE 78; RESP 24; TEMP 36.5; O2SAT 92
--- NOTE | 2023-02-05 05:54 | PC.NURSE ---
19-07: pleasant and cooperative. calls appropriately. VSS.
[2023-02-05 06:34] LABS: HCO3 VBG 26 mmol/L (21-28); PCO2 VBG 43 mmHG (40-50); PO2 VBG 49.7 mmHG (25-47); pH VBG 7.387 (7.32-7.43)
--- NOTE | 2023-02-05 06:52 | PC.NURSE ---
bed bath given this am
[2023-02-05 07:06] LABS: Albumin* 3.1 g/dL (3.3-5.0); Chloride* 106 mmol/L (96-114); Hemoglobin* 12.1 gm/dL (13.5-17.5); Lymphocytes Percent Auto 36.1 % (20-44); Mean Corpuscular HGB Conc 33 gm/dL (32-36); Mean Corpuscular Hemoglobin 30 pg (26-34); Mean Corpuscular Volume 91 fL (80-100); Neutrophils Percent Auto 49.4 % (42.0-72.0); Platelet Count* 176 K/uL (140-440); RDW Coefficient of Variation % 13.4 % (11.5-15.5); Red Blood Count 4.05 m/uL (4.30-5.90); White Blood Count* 2.88 K/uL (4.50-11.00)
[2023-02-05 07:07] LABS: Basophils Percent Auto 0.7 % (0.0-3.0); Eosinophils Percent Auto 0.7 % (0.0-7.0); Immature Granulocytes Pct Auto 0.3 %; Monocytes Percent Auto 12.8 % (0.0-11.0); Potassium* 4.1 mmol/L (3.6-5.1); Sodium* 137 mmol/L (135-149)
[2023-02-05 07:09] LABS: Anion Gap 6 mEq/L (7-15); Bilirubin Total* 0.5 mg/dL (0.1-1.5); Carbon Dioxide* 25 mmol/L (20-32); Creatinine* 0.8 mg/dL (0.5-1.5); Estimated Glomerular Filt Rate 98 ml/min; Total Protein* 5.8 g/dL (6.0-8.3)
[2023-02-05 07:10] LABS: Alanine Aminotransferase* 32 U/L (4-50); Alkaline Phosphatase* 86 U/L (40-150); Aspartate Amino Transferase* 44 U/L (12-35); Blood Urea Nitrogen* 19 mg/dL (7-30); Glucose* 270 mg/dL (60-115)
[2023-02-05 07:12] LABS: Creatine Kinase* 1076 U/L (54-186)
[2023-02-05 07:17] LABS: Slide Review Reflex No
[2023-02-05] MEDS: SODIUM CHLORIDE 0.9 % (FLUSH) 10 ML SYRINGE 5 ML IVF (09:12)
[2023-02-05] MEDS: METOPROLOL SUCCINATE (XL) 100 MG TAB PO (09:12)
[2023-02-05] MEDS: INSULIN ASPART 100 UNIT/ML SUBCUT ×2 (09:12→12:46)
[2023-02-05] MEDS: APIXABAN 5 MG TABLET PO (09:12)
[2023-02-05] MEDS: GABAPENTIN 100 MG CAPSULE PO ×2 (09:12→12:45)
[2023-02-05] MEDS: ASPIRIN 81 MG TAB.CHEW PO (09:12)
[2023-02-05] MEDS: ACETAMINOPHEN 325 MG TABLET 650 MG PO (09:13)
[2023-02-05] MEDS: DOCUSATE SODIUM 100 MG CAPSULE PO (09:15)
--- NOTE | 2023-02-05 09:15 | PC.NURSE ---
Patient was lowered to ground while transferring to commode. Patient stated he had to have a BM. Fnp had room set up as patient requested. patient stood and pivoted to wheelchair, then was standing to pivot from wheelchair to commode. Patient was turning with writers help and feet seemed to have gotten tangled up and patient went forward onto wheelchair. Fnp was unable to hold patients weight and lowered to his knees. Staff assist button was hit. 2 other staff came to help. Patient unable to stand with the help of 3. Mechanical lift was used to get patient to commode and back to bed. Vitals were checked and within normal limits. Notified MD and PT and patients son of the event. No injuries were sustained per patient.
[2023-02-05 09:49] VITALS: BP 120/77; PULSE 86; RESP 20; TEMP 36.8; O2SAT 94
[2023-02-05 10:17] VITALS: PULSE 77
--- NOTE | 2023-02-05 10:35 | PC.NURSE ---
Patient requested to have flu shot in hospital. Dr. Lizett child with patient receiving. Per pharmacy, we do not administer flu shots inpatient anymore. Patient will need to get through PCP.
--- NOTE | 2023-02-05 10:45 | PM.DS1 ---
DS: Providers Provider Date Seen: 02/05/23 Date of admission: 02/03/23 14:21 Primary care physician: Gayla Provider Generic Admitting Clinician: Roberto Colbert MD Consults: PT Attending Physician on discharge: Fara Phoenix MD Date of Discharge: 02/05/23 DS: Diagnosis Discharge Diagnosis (1) COVID-19: Status: Acute Problem details: - received Remdesivir as COVID-specific therapy, did not require steroids or supplemental oxygen - fall 2/2 weakness primary symptom on admission, improved (2) Weakness: Status: Acute Problem details: - improved during stay - followed by therapy who did not recommend any specific increase in services (3) Aphasia as late effect of cerebrovascular accident: Status: Acute Problem details: - baseline (4) Abnormal urinalysis: Status: Acute Problem details: - Ceftriaxone initiated 02/03, d/c'd 02/04 given negative urine culture - remained afebrile during stay, no leukocytosis (5) Lower extremity edema: Status: Acute Problem details: - with erythema - history of RLE DVT remotely - negative u/s for DVT on 02/04 - erythema noted without warmth, likely related to PVD/edema (afebrile, normal WBC) - continued Apixaban - anticipate improvement as he restarts Lasix as an outpatient (this was held during hospitalization) (6) Non-insulin dependent diabetes mellitus: Status: Acute Problem details: - last A1C 12.1 11/2022 - sugars 175-300 during stay - consider initiation of insulin as an outpatient given suboptimal glucose control DS: Summary Hospital Course Hospital Course: Red is a 67-year-old male with comorbidities of atrial fibrillation, ANIBAL, CAD, CHF, and CVA with resultant aphasia and nonambulatory status, who presented to the emergency after having a fall at [facility]. In the ER, he did not have any bony abnormalities, was found to be positive for COVID. He was admitted and remdesivir initiated as COVID specific therapy. During stay, he remained stable on room air and did not require any other COVID specific therapies. Comorbidities noted above, baseline. Patient noted to have Edema of BLE, R>L, in addition to bilateral erythema R>L. Given history of DVT, ultrasound obtained (negative). No evidence of bacterial cellulitis, likely related to PVD and fluid overload (Lasix held during stay and patient received gentle IVF resuscitation given elevated CK and lactate on admission, both improved). Anticipate that edema and erythema will improve with compression and re-initiation of diuretics. Seen by therapies, no additional rehab or services needed. Patient felt back to baseline and requesting d/c home to [facility] on 02/05/23. Son Tung in agreement with discharge, will assist with transportation. Status at Discharge Functional status at discharge: wheelchair bound Overall status at discharge: patient is progressing back to baseline Time Spent with Patient Time attestation: Total time spent providing and/or coordinating discharge services: Time spent: Greater than 30 minutes Specific discharge activities: Medication reconciliation, updates to family, care coordination Exam Narrative: Exam Narrative: GEN: Alert and laying in bed, nontoxic, baseline aphasia noted CV: RRR, not in atrial fibrillation during my exam, no concerning murmurs R: Air movement adequate bilaterally no wheezing Ext: Pitting edema bilaterally, R>L Skin: Erythema on bilateral lower extremities, R>L. There has been no extension of erythema outside of outlined area from admission Neuro: Baseline facial droop and weakness from known CVA Const: Vital Signs, click to edit/add: Vital Signs - 24 hr 02/04/23 11:00 02/04/23 14:59 02/04/23 15:00 Temperature 98.2 F 98.2 F Pulse Rate 87 Pulse Rate [Pulse Oximeter] 89 87 Respiratory Rate 18 20 Blood Pressure [Le ft Arm] 124/74 112/75 Pulse Oximetry 92 95 Oxygen Delivery Me thod Room Air Room Air 02/04/23 19:00 02/04/23 22:55 02/04/23 22:55 Temperature 98.4 F 98 F Pulse Rate Pulse Rate [Pulse Oximeter] 87 83 83 Respiratory Rate 20 20 22 Blood Pressure [Le ft Arm] 121/77 104/74 Pulse Oximetry 90 92 Oxygen Delivery Me thod Room Air Room Air 02/04/23 23:05 02/05/23 02:55 02/05/23 09:49 Temperature 97.7 F 98.3 F Pulse Rate 81 Pulse Rate [Pulse Oximeter] 78 86 Respiratory Rate 24 20 Blood Pressure [Le ft Arm] 123/84 120/77 Pulse Oximetry 92 94 Oxygen Delivery Il thod Room Air Room Air 02/05/23 10:17 Temperature Pulse Rate 77 Pulse Rate [Pulse Oximeter] Respiratory Rate Blood Pressure [Le ft Arm] Pulse Oximetry Oxygen Delivery Me thod DS: Data Data Completed and Pending Labs on day of discharge: Labs from last 24 hours 02/05/23 05:39 WBC 2.88 L RBC 4.05 L Hgb 12.1 L Hct 37.0 MCV 91 MCH 30 MCHC 33 RDW Coeff of Jennifer 13.4 Plt Count 176 Neut % (Auto) 49.4 Lymph % (Auto) 36.1 [place] % (Auto) 12.8 H Eos % (Auto) 0.7 Baso % (Auto) 0.7 Neut # (Auto) 1.40 L Lymph # (Auto) 1.00 [place] # (Auto) 0.40 Eos # (Auto) 0.00 Baso # (Auto) 0.00 Abs Immat Gran (auto) 0.00 Imm/Tot Granulo (auto) 0.3 VBG pH 7.387 VBG pCO2 43 VBG pO2 49.7 H VBG HCO3 26 Sodium 137 Potassium 4.1 Chloride 106 Carbon Dioxide 25 Anion Gap 6 L BUN 19 Creatinine 0.8 Estimated GFR 98 Glucose 270 H Calcium 8.0 L Total Bilirubin 0.5 AST 44 H ALT 32 Alkaline Phosphatase 86 Total Creatine Kinase 1076 H Total Protein 5.8 L Albumin 3.1 L Preliminary micro results at discharge 02/03/23 09:45 Blood Culture - Preliminary Blood NO GROWTH AFTER 48 HOURS 02/03/23 09:43 Blood Culture - Preliminary Blood NO GROWTH AFTER 48 HOURS Discharge Plan Discharge Disposition: [facility] Date of Admission: 02/03/23 14:21 Attending Provider on Discharge: Fara Phoenix Primary Care Provider: Gayla Mansfield Provider Condition: Stable Anticipated Discharge Date/Time: 02/05/23 13:00 Discharge Medications: Continued furosemide 40 mg tablet 60 mg PO BID@ atorvastatin 80 mg tablet 80 mg PO HS metoprolol succinate 100 mg tablet extended release 24 hr 100 mg PO DAILY glipizide 5 mg tablet extended release 24hr 5 mg PO DAILY metformin 1,000 mg tablet 1,000 mg PO BIDWMEAL aspirin 81 mg tablet,chewable 1 tab PO HS gabapentin 100 mg capsule 100 mg PO 3XD Eliquis 5 mg tablet 5 mg PO BID metformin 500 mg tablet 500 mg PO DAILY Patient Comments: at noon acetaminophen 325 mg tablet 650 mg PO Q6H PRN Held amlodipine 5 mg tablet 5 mg PO DAILY Hold Instructions: Resume on 02/12/23. hold for one week (BP on the low side in hospital), recheck BP at [facility], restart pending PCP thoughts valsartan 40 mg tablet 120 mg PO BID Hold Instructions: Resume on 02/12/23. hold for one week, then restart pending BPs at home Discharge Orders: Discharge Order (Routine); Ordered 02/05/23 Ordered By: Fraa Phoenix Additional Instructions: Restart all of your home medications EXCEPT Valsartan and Amlodipine (holding these because blood pressure was low in the hospital). Recheck BP with PCP in 1 week to see if these need to be restarted. Wear ALEKSEY wrap on lower extremities for swelling - this should get better in the next few day as Lasix is restarted. Activity Detail: per previous Discharge Diet: Diabetic Follow Up Appointments: Generic,Amb Provider [Primary Care Provider] - (See PCP at [facility] in 1 week for BP check and hospital f/u) Forms: Scriptick Info Instructions Admit to: SNF Discharge Potential: Poor Length of Stay: >90 days Can use facility standing orders?: Yes Code Status: DNR/DNI Rehab Potential: Fair Therapy: Physical Therapy, Occupational Therapy and Speech Therapy Therapy Orders Additional Information: per previous, h/o CVA Oxygen: No Urinary Catheter: No Glucose Checks: BID Next INR: n/a Lab Orders: BMP in one week Hospice Evaluate and Admit: n/a Orders are good >30 days: Yes Signature: Fara Phoenix MD
[2023-02-05 11:42] VITALS: BP 112/73; PULSE 82; RESP 18; TEMP 37; O2SAT 94
--- NOTE | 2023-02-05 12:58 | PC.NURSE ---
End of shift note: VS within normal limits. Has had 2 large BMs today. One continent and one incontinent. PIV is patent and intact. Received last dose of remdesivir today. On room air. Right lower extremity is swollen and red. MD looked at it and did not feel it was cellulitis. Recommended kassandra wraps to both legs. These were applied and tolerated by patient. See note about pivot transfer to the bathroom. Patient is alert and oriented X3. Has aphasia. Uses call light appropriately. Has chronic pain in right shoulder and right leg. Tylenol PRN and gabapentin have been helpful with this. Lung sounds diminished. Bowel sounds active. Voiding without difficulty. Tolerating a regular diet. Patient wishes to return back to [facility]. Recommended following up with PCP regarding blood sugars. Attempted to call report to [facility] but no answer. Message left to return our call.
--- NOTE | 2023-02-05 13:09 | PC.NURSE ---
Attempted to call [facility] 3 more times without success.
--- NOTE | 2023-02-05 13:57 | PC.NURSE ---
Patient discharged with son. Patient was able to self transfer to a wheelchair without difficulty. PIV taken out and catheter intact. All belongings sent with patient. Packet of info sent with patient to give to nursing staff. Son has a copy as well. All questions answered and left via wheelchair.
== END 2023-02-05 13:45 | DRG 178 ==
LOC: ED 13:24 → MEDSURG 13:37
PROVIDERS: Family Medicine; Hospitalist; Admitting Provider Internal Medicine; Emergency Provider Family Medicine; Visit Provider Internal Medicine
DX: U07.1 COVID-19 (principal); I48.20 Chronic atrial fibrillation, unspecified; I69.351 Hemiplegia and hemiparesis following cerebral infarction affecting right dominant side; I50.20 Unspecified systolic (congestive) heart failure; Z86.718 Personal history of other venous thrombosis and embolism; Z79.01 Long term (current) use of anticoagulants; E66.01 Morbid (severe) obesity due to excess calories; I69.320 Aphasia following cerebral infarction; Z79.84 Long term (current) use of oral hypoglycemic drugs; G47.33 Obstructive sleep apnea (adult) (pediatric); Z79.4 Long term (current) use of insulin; R53.1 Weakness; R82.90 Unspecified abnormal findings in urine; G93.89 Other specified disorders of brain; E11.51 Type 2 diabetes mellitus with diabetic peripheral angiopathy without gangrene; Y92.099 Unspecified place in other non-institutional residence as the place of occurrence of the external cause; J45.20 Mild intermittent asthma, uncomplicated; W07.XXXA Fall from chair, initial encounter; F32.A Depression, unspecified; E78.5 Hyperlipidemia, unspecified
CPT/HCPCS: 36415; 70450; 71045; 72125; 73030; 73060; 73090; 80048; 80053; 80076; 80143; 80179; 80306; 81001; 82077; 82550; 82803; 82962; 83605; 84145; 84484; 85025; 85651; 86140; 87040; 87086; 87631; 93005; 93971; 94761; 95992; 97161; 97530; 99285; 99291; A9270; G0390; J0696; J7030; J7050; J7120

== ENCOUNTER 2023-03-31 09:04 | Emergency (ER) | payer OTHER, MEDICAID, SELFPAY ==
[2023-03-31 09:14] VITALS: BP 99/57; PULSE 97; RESP 18; TEMP 35.7; O2SAT 97; BMI 31.4
--- NOTE | 2023-03-31 09:25 | CRLHL7_ITS ---
For Patients: As a result of the Century Cures Act, medical imaging exams and procedure reports are released immediately into your electronic medical record. You may view this report before your referring provider. If you have questions, please contact your health care provider. INDICATION: Umbilical hernia, scrotal pain. TECHNIQUE: CT abdomen and pelvis acquired with 100 mL Isovue 370 IV contrast. COMPARISON: None. FINDINGS: Lower chest: Fibrotic changes in the right lower lobe, with associated calcifications versus postsurgical change. No focal consolidation. Liver: No suspicious focal hepatic lesion. Gallbladder and bile ducts: Cholelithiasis. No secondary signs of acute cholecystitis. Pancreas: Mild fatty atrophy. Spleen: Unremarkable. Splenule is noted. Adrenal glands: Unremarkable. Kidneys: Kidneys enhance symmetrically, without hydronephrosis. Retroperitoneum: No lymphadenopathy. Bowel and mesentery: Bowel is not obstructed. No significant ascites. No pneumoperitoneum. Large fecal burden noted throughout the colon. Normal appendix. Bladder: Unremarkable for degree of distension. Reproductive organs: No significant prostatomegaly. Scrotum was not included within field of view of this study. Pelvic lymph nodes: No lymphadenopathy. Vessels: Few scattered atherosclerotic calcifications. Abdominal wall: Large fat filled umbilical hernia. Bones: Multilevel degenerative changes of the spine. Bones are osteopenic. IMPRESSION: 1. Large fat filled umbilical hernia. 2. Cholelithiasis. 3. Scrotum was not included within field of view of this study. Please note that all CT scans at this facility use dose modulation, iterative reconstruction, and/or weight-based dosing when appropriate to reduce radiation dose to as low as reasonably achievable. Dictated by Radha Garcia MD @ 03/31/2023 11:28:50 AM (Electronically Signed)
--- NOTE | 2023-03-31 09:26 | ED.ABDPAIN ---
HPI - Abdominal Pain General Chief Complaint: Abdominal Pain Stated Complaint: pain, hernia Time Seen by Provider: 03/31/23 09:12 History of Present Illness HPI narrative: This 67-year-old male comes in with his son reporting worsening abdominal pain radiating into his scrotum. He is morbidly obese and has had an umbilical hernia for more than 40 years. He has a large umbilical hernia that he states is not any larger but is now experiencing more pain over the past week or so. He also reports pain and swelling down into his scrotum with some small amount of fluid draining through the skin of the scrotum. He does not report any fevers or bowel dysfunction. He did have a stroke and has residual effects including dysarthria. Related Data Home Medications Medication Instructions Recorded Confirmed amlodipine 5 mg tablet 5 mg PO DAILY 02/03/23 02/03/23 apixaban 5 mg tablet (Eliquis) 5 mg PO BID 02/03/23 02/03/23 aspirin 81 mg chewable tablet 1 tab PO HS 02/03/23 02/04/23 atorvastatin 80 mg tablet 80 mg PO HS 02/03/23 02/04/23 furosemide 40 mg tablet 60 mg PO BID@09,14 02/03/23 02/04/23 gabapentin 100 mg capsule 100 mg PO 3XD 02/03/23 02/03/23 glipizide 5 mg tablet, extended 5 mg PO DAILY 02/03/23 02/03/23 release 24 hr metformin 1,000 mg tablet 1,000 mg PO BIDWMEAL 02/03/23 02/03/23 metoprolol succinate 100 mg 100 mg PO DAILY 02/03/23 02/03/23 tablet,extended release 24 hr valsartan 40 mg tablet 120 mg PO BID 02/03/23 02/04/23 acetaminophen 325 mg tablet 650 mg PO Q6H PRN 02/04/23 02/04/23 metformin 500 mg tablet 500 mg PO DAILY 02/04/23 02/04/23 Previous Rx's Medication Instructions Recorded furosemide 40 mg tablet 40 mg PO BID #10 tabs 03/31/23 hydrocodone 5 mg-acetaminophen 325 1 tab PO Q4-6H PRN pain #15 tabs 03/31/23 mg tablet Allergies Allergy/AdvReac Type Severity Reaction Status Date / Time lisinopril Allergy Mild Verified 03/31/23 10:50 Review of Systems Status of ROS Reports: 10 or more systems reviewed and unremarkable except as noted in History and below Narrative Constitutional: No fevers, no weight gain or loss. Eyes: No discharge. No vision changes. HENT: No congestion, no sore throat, no ear pain. Cardiovascular: No chest pain, no palpitations. Respiratory: No shortness of breath, no wheezes, no cough. Gastrointestinal: No vomiting, no diarrhea. Abdominal pain radiating to the scrotum as described above. Genitourinary: No dysuria, no hematuria. Musculoskeletal: Normal range of motion. Skin: No rashes, no pruritis. Neurological: No dizziness, weakness, sensory change, speech change. Endo/Heme/Allergies: No bruising or bleeding. No polydipsia. Pysch: no suicidality, no anxiety, no insomnia. All other systems reviewed and are negative. [facility] Medical History (Updated 03/31/23 @ 12:20 by Abdoul Berg MD) Non-insulin dependent diabetes mellitus Weakness ?R53.1 - Weakness (ICD-10) CHF (congestive heart failure) ?I50.9 - Heart failure, unspecified (ICD-10) Atrial fibrillation ?I48.91 - Unspecified atrial fibrillation (ICD-10) ANIBAL (obstructive sleep apnea) ?G47.33 - Obstructive sleep apnea (adult) (pediatric) (ICD-10) DVT (deep venous thrombosis) ?I82.409 - Acute embolism and thrombosis of unspecified deep veins of unspecified lower extremity (ICD-10) Aphasia as late effect of cerebrovascular accident ?I69.320 - Aphasia following cerebral infarction (ICD-10) Essential hypertension ?I10 - Essential (primary) hypertension (ICD-10) Methamphetamine abuse in remission ?F15.11 - Other stimulant abuse, in remission (ICD-10) Social History What is your current living situation?: I presently have a place to live Problems where you live: no known problems Problems where you live details: none In the past 12 months, utilities in danger of being shut off: no In past 12 months, lack of transportation kept you from medical appts, meetings, work, or getting things needed for daily living: no In the past 12 mos, have been you worried that your food would run out before you had money to buy more?: never true In the past 12 mos, the food you bought just didn't last and you didn't have money to buy more?: never true Highest level of school completed/degree received: some college, no degree Smoking Status: Never smoker How often do you have a drink containing alcohol: never How often do you have six or more drinks on one occasion: Never AUDIT-C Alcohol total score: 0 Non-prescribed substance use: denies use How often does anyone, including family, friends and others, physically hurt you: never How often does anyone, including family, friends and others, insult or talk down to you: never How often does anyone, including family, friends and others, threaten you with harm: never How often does anyone, including family, friends and others, scream or curse at you: never service: Yes Exam Narrative: Exam Narrative: Constitutional: Well-developed, well-nourished, no acute distress. HEENT: Normocephalic, atraumatic. Neck: Normal range of motion. Nontender. Supple. Heart: Regular. No murmurs. Normal rate. Intact distal pulses. Lungs: Clear to auscultation. No chest discomfort. No wheezes, rhonchi, or rales. Abdomen: Normal bowel sounds. Distended at the umbilicus due to a large umbilical hernia. No rebound tenderness. Genitalia: Scrotal edema with some fluid discharge through the skin. Back: No midline tenderness. Normal range of motion. Extremities: Normal range of motion. No injury. Skin: Intact. No rash. Warm. No erythema or pallor. Neurologic: No altered sensation. No weakness. Alert and oriented. Psychiatric: No suicidality. No anxiety or depression. No insomnia. Nursing notes and vitals signs are reviewed. Const: Vital Signs, click to edit/add: Vital Signs - 24 hr 03/31/23 09:14 Temperature 96.2 F L Pulse Rate [Left P ulse Oximeter] 97 Respiratory Rate 18 Blood Pressure [Le ft Upper Arm] 99/57 L Pulse Oximetry 97 Oxygen Delivery Me thod Room Air Course Vital Signs Vital signs: Initial Vital Signs Temperature 96.2 F L 03/31/23 09:14 Temperature Source Temporal Artery Scan 03/31/23 09:14 Pulse Rate 97 03/31/23 09:14 Pulse Rhythm Regular 03/31/23 09:14 Pulse Strength 3+ Normal 03/31/23 09:14 Respiratory Rate 18 03/31/23 09:14 Blood Pressure 99/57 L 03/31/23 09:14 Blood Pressure Mean 71 03/31/23 09:14 Blood Pressure Position Sitting 03/31/23 09:14 Pulse Oximetry 97 03/31/23 09:14 Oxygen Delivery Method Room Air 03/31/23 09:14 Vital Signs Temperature 96.2 F L 03/31/23 09:14 Pulse Rate 97 03/31/23 09:14 Respiratory Rate 18 03/31/23 09:14 Blood Pressure 99/57 L 03/31/23 09:14 Pulse Oximetry 97 03/31/23 09:14 Oxygen Delivery Method Room Air 03/31/23 09:14 Temperature 96.2 F L 03/31/23 09:14 Pulse Rate 97 03/31/23 09:14 Respiratory Rate 18 03/31/23 09:14 Blood Pressure 99/57 L 03/31/23 09:14 Pulse Oximetry 97 03/31/23 09:14 Oxygen Delivery Method Room Air 03/31/23 09:14 MDM - Abdominal Pain MDM Narrative Medical decision making narrative: This patient comes in reporting increased abdominal pain around his umbilical hernia. He also has scrotal edema. The patient does take Lasix daily and has large bilateral pedal edema. The patient states that he has had this large umbilical hernia for over 40 years. An IV was established and labs are acquired. These returned with reassuring findings. His glucose is elevated. The patient is on insulin. CT imaging of the abdomen and pelvis shows a large umbilical hernia but no sign of incarceration or bowel protrusion. I advised the patient to follow-up with surgery clinic to consider options for these symptoms. He states that he is urinating frequently but nevertheless has significant fluid overload with now scrotal edema. I did advise him to take an extra Lasix tablet daily for a week or 10 days. He also received a prescription for some tablets of [place] for pain relief. Lab Data Labs: Lab Results 03/31/23 Range/Units 09:40 WBC 5.86 (4.50-11.00) K/uL RBC 4.33 (4.30-5.90) m/uL Hgb 12.9 L (13.5-17.5) gm/dL Hct 39.1 (37.0-53.0) % MCV 90 (80-100) fL MCH 30 (26-34) pg MCHC 33 (32-36) gm/dL RDW Coeff of Jennifer 13.0 (11.5-15.5) % Plt Count 282 (140-440) K/uL Neut % (Auto) 69.2 (42.0-72.0) % Lymph % (Auto) 20.8 (20-44) % [place] % (Auto) 7.5 (0.0-11.0) % Eos % (Auto) 1.7 (0.0-7.0) % Baso % (Auto) 0.5 (0.0-3.0) % Neut # (Auto) 4.05 (1.7-7.0) K/uL Lymph # (Auto) 1.22 (0.90-2.90) K/uL [place] # (Auto) 0.40 (0.00-0.90) K/UL Eos # (Auto) 0.10 (0.00-0.50) K/uL Baso # (Auto) 0.03 (0.00-0.30) K/uL Abs Immat Gran (auto) 0.02 (0.00-0.30) K/uL Imm/Tot Granulo (auto) 0.3 % Sodium 136 (135-149) mmol/L Potassium 4.4 (3.6-5.1) mmol/L Chloride 96 (96-114) mmol/L Carbon Dioxide 30 (20-32) mmol/L Anion Gap 10 (7-15) mEq/L BUN 20 (7-30) mg/dL Creatinine 1.0 (0.5-1.5) mg/dL Estimated Creat Clear 78.44 Estimated GFR 84 ml/min Glucose 382 H* (60-115) mg/dL Calcium 9.4 (8.4-10.6) mg/dL Imaging Data CT scan - abdomen: Radiologist's impression: 1. Large fat filled umbilical hernia. 2. Cholelithiasis. 3. Scrotum was not included within field of view of this study. Discharge Plan Discharge Clinical Impression: Lower extremity edema, Umbilical hernia, Scrotal edema Patient Disposition: Home w/ Parent or Adult Condition: Unchanged Additional Instructions: Take an extra dose of Lasix daily for 7-10 days for better diuresis. Follow-up with surgery clinic to consider options for the umbilical hernia. Call [phone] for appointment. Use [place] as needed and directed for pain relief. Return if worsening. Prescriptions: New furosemide 40 mg tablet 40 mg PO BID Qty: 10 0RF hydrocodone-acetaminophen 5-325 mg tablet 1 tab PO Q4-6H PRN (Reason: pain) Qty: 15 0RF No Action furosemide 40 mg tablet 60 mg PO BID@09,14 atorvastatin 80 mg tablet 80 mg PO HS metoprolol succinate 100 mg tablet extended release 24 hr 100 mg PO DAILY glipizide 5 mg tablet extended release 24hr 5 mg PO DAILY amlodipine 5 mg tablet 5 mg PO DAILY Hold Instructions: Resume on 02/12/23. hold for one week (BP on the low side in hospital), recheck BP at [facility], restart pending PCP thoughts metformin 1,000 mg tablet 1,000 mg PO BIDWMEAL aspirin 81 mg tablet,chewable 1 tab PO HS gabapentin 100 mg capsule 100 mg PO 3XD valsartan 40 mg tablet 120 mg PO BID Hold Instructions: Resume on 02/12/23. hold for one week, then restart pending BPs at home Eliquis 5 mg tablet 5 mg PO BID metformin 500 mg tablet 500 mg PO DAILY Patient Comments: at noon acetaminophen 325 mg tablet 650 mg PO Q6H PRN Follow Up/Referrals: Donal,Gayla Provider [Primary Care Provider] - Stand Alone Forms: MyHealth Info Instructions
--- OUTSIDE RECORDS SUMMARY | 2023-03-31 09:44 | XMS_ITS | Continuity of Care Document ---
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 It does not include entries that were removed or entered in error. Problem Status Onset Date Problem Type Date of Resolution Comments Source AF-Atrial Fibrillation (SCT 10629677) Active Condition [facility] Anxiety Active Condition [facility] Asthma (SCT 133403929) Active Condition [facility] Benign essential hypertension (SNOMED CT 9990657) Active Condition [facility] Cardiomyopathy Active Condition [facility] Depressive Disorder NOS Active Condition [facility] Diabetes mellitus (SNOMED CT 32123177) Active Condition [facility] Diabetic neuropathy (SNOMED CT 605076786) Active Condition [facility] Dyslipidemia Active Condition [facility] H/O: Stroke (SCT 029949627) Active Condition [facility] Heart failure [facility] Hernia of anterior abdominal wall Active Condition Sep 14, 2013 Entered By: ALDO TOLLIVER Comment: Dx 04/03, Gen Surgical Eval 07/01 [facility] Hydrocele (SNOMED CT 21538419) Active Condition [facility] Low back pain (SNOMED CT 141018081) Active Condition [facility] Mental disorder [facility] 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 Condition [facility] Morbid obesity (SNOMED CT 267849817) Active Condition [facility] Other Specified Counseling (ICD-9-CM V65.49) [facility] Pes Planus, Acquired Active Condition [facility] Recurrent major depressive episodes, moderate (SNOMED CT 295415955) Active Condition [facility] Sleep Apnea [facility] Diagnosis: ICD-10-CM E11.8 Type 2 diabetes mellitus with unspecified complications Active Diagnosis [facility] Diagnosis: ICD-10-CM F99 Mental disorder, not otherwise specified Active Diagnosis [facility] Diagnosis: ICD-10-CM I87.2 Venous insufficiency (chronic) (peripheral) Active Diagnosis [facility] Diagnosis: ICD-10-CM R26.9 Unspecified abnormalities of gait and mobility Active Diagnosis [facility] Diagnosis: ICD-10-CM I89.0 Lymphedema, not elsewhere classified Active Diagnosis [facility] Diagnosis: ICD-10-CM 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 Medication Details Route Status Patient Instructions Prescription Expires Prescription Number Last Dispense Date Ordering Provider Order Date Source ACETAMINOPH EN 325MG TAB TAKE TWO TABLETS BY MOUTH EVERY 6 HOURS NEEDED ORALLY ACTIVE BROWN,ABBY AN 2019 [facility] ALBUTEROL INHL,ORAL INHALE BY INHALATI ON PRN INHALA TION ACTIVE BROWN,ABBY 2020 [facility] AMLODIPINE BESYLATE 10MG TAB TAKE ONE-HALF TABLET BY MOUTH EVERY DAY ORALLY ACTIVE BROWN,ABBY 2019 [facility] ASPIRIN 81MG TAB,EC TAKE ONE TABLET BY MOUTH EVERY DAY ORALLY ACTIVE BROWN,ABBY 2019 [facility] ATORVASTATI N CA 80MG TAB TAKE ONE TABLET BY MOUTH AT BEDTIME ORALLY ACTIVE BROWN,ABBY AN 2019 [facility] BACITRACIN 500UNT/GM OINT,TOP APPLY TO AFFECTED AREA TOPICALL Y PRN TOPICA LLY ACTIVE KEVINABBY AN 2020 [facility] BACLOFEN 10MG TAB TAKE ONE-HALF TABLET BY MOUTH TWICE A DAY AND TAKE ONE TABLET AT BEDTIME FOR R SIDED SPASTICI TY ORALLY ACTIVE 06/01/2023 [id number] 3 ARIA MEADE 2022 [facility] BACLOFEN 10MG TAB TAKE ONE-HALF TABLET BY MOUTH TWICE A DAY AND TAKE ONE TABLET AT BEDTIME FOR R SIDED SPASTICI TY ORALLY DISCONT INUED 11/25/2022 [id number] 2 DESHAUN ARIA Rosa 2021 [facility] CARBAMIDE PEROXIDE 6.5%/GLYCER IN SOLN,OTIC INSTILL 5-10 DROPS IN BOTH EARS TWICE A DAY FOR EAR WAX REMOVAL KEEP DROPS IN EAR CANAL FOR SEVERAL MINUTES. MAY RINSE EAR WITH WARM WATER. KEEP DROPS IN EAR CANAL FOR SEVERAL MINUTES. MAY RINSE EAR WITH WARM WATER. BOTH EARS 03/14/2023 [id number] ALMA CULLEN Y 2022 [facility] DOCUSATE NA 50MG/SENNOS IDES 8.6MG TAB TAKE ONE TABLET BY MOUTH TWICE A DAY NEEDED ORALLY ACTIVE ABBY BROWN AN LATOYA 2020 [facility] FLUTICASONE PROPIONATE 50MCG/SPRAY SOLN,NASAL, 16GM SPRAY 2 SPRAYS IN EACH NOSTRIL EVERY DAY NASAL ACTIVE ABBY BROWN AN LATOYA 2019 [facility] FUROSEMIDE 20MG TAB TAKE ONE TABLET BY MOUTH EVERY DAY ORALLY ACTIVE ABBY BROWN AN LATOYA 2019 [facility] GABAPENTIN 100MG CAP TAKE 1 CAPSULE BY MOUTH TWICE A DAY ORALLY ACTIVE ABBY BROWN AN LATOYA 2021 [facility] INSULIN,GLA RGINE-YFGN 100UNIT/ML INJ PEN,3ML INJECT 10 UNITS UNDER THE SKIN AT BEDTIME FOR DIABETES *STOP GLIPIZID E 02/09 SUBCUT ANEOUS ACTIVE 02/13/2024 [id number] ALMA CULLEN Y 2022 [facility] LIDOCAINE 5% PATCH APPLY 1 PATCH TOPICALL Y 7 PM-7AM NEEDED FOR NECK PAIN. WEAR FOR ONLY 12 HOURS THEN REMOVE FOR 12 HOURS. TOPICA LLY 01/04/2023 [id number] DESHAUN ARIA Rosa 2021 [facility] METFORMIN HCL 1000MG TAB TAKE ONE TABLET BY MOUTH TWO TIMES A DAY ORALLY ACTIVE BROWN,ABBY AN LATOYA2020 [facility] METOPROLOL SUCCINATE 200MG TAB,SA TAKE ONE-HALF TABLET BY MOUTH EVERY DAY ORALLY ACTIVE BROWN,ABBY LATOYA2019 [facility] NYSTATIN POWDER USE TOPICALL Y TWICE A DAY TOPICA LLY ACTIVE BROWN,2019 [facility] SENNOSIDES 8.6MG TAB TAKE ONE TABLET BY MOUTH EVERY DAY ORALLY ACTIVE BROWN,2019 [facility] VALSARTAN 80MG TAB TAKE 1.5 TABLETS BY MOUTH TWICE A DAY ORALLY ACTIVE BROWN,2020 [facility] WARFARIN NA 1MG TAB TAKE 10 TABLETS BY MOUTH EVERY DAY ORALLY ACTIVE BROWN,ABBY 2020 [facility] Allergies, Adverse Reactions, Alerts Combined list of allergies from Department of Defense and [facility] facilities. It does not include entries that were removed or entered in error. Substance Category Reaction Severity Reaction type Status Date Reported Comments Source LISINOPRIL Propensity to adverse reactions to drug (finding) Cough active 07/06/2011 [facility] Immunizations Combined list of available immunizations from the Department of [facility] and [facility] facilities. Immunization Series Date Given Administered By Site Reaction Lot Number CVX Code Drug Applications Processor Status Comments Source COVID-19 (MODERNA), MRNA, LNP-S, BIVALENT, PF, 50 MCG/0.5 ML OR 25MCG/0.25 ML DOSE 2021 229 complet ed [facility] INFLUENZA, INJECTABLE, QUADRIVALENT, PRESERVATIVE FREE 2021 150 complet ed [facility] INFLUENZA, INJECTABLE, QUADRIVALENT 2020 158 complet ed [facility] INFLUENZA, UNSPECIFIED FORMULATION 2020 88 complet ed [facility] COVID-19 (MODERNA), MRNA, LNP-S, PF, 100 MCG/0.5 ML DOSE 2 2020 207 complet ed [facility] COVID-19 (MODERNA), MRNA, LNP-S, PF, 100 MCG/0.5 ML DOSE 1 2020 207 complet ed [facility] INFLUENZA, INJECTABLE, QUADRIVALENT 2019 158 complet ed [facility] ZOSTER RECOMBINANT 2 2018 187 complet ed [facility] INFLUENZA, SEASONAL, INJECTABLE, PRESERVATIVE FREE 2018 140 complet ed [facility] ZOSTER RECOMBINANT 1 2018 187 complet ed [facility] INFLUENZA, SEASONAL, INJECTABLE, PRESERVATIVE FREE 2017 140 complet ed [facility] INFLUENZA, SEASONAL, INJECTABLE, PRESERVATIVE FREE 2015 140 complet ed [facility] INFLUENZA, SEASONAL, INJECTABLE, PRESERVATIVE FREE 2014 140 complet ed [facility] INFLUENZA, UNSPECIFIED FORMULATION 2013 88 complet ed [facility] INFLUENZA, UNSPECIFIED FORMULATION 2012 88 complet ed [facility] TDAP 2012 115 complet ed [id number] 05/06/15 [employer] [facility] INFLUENZA, UNSPECIFIED FORMULATION 2011 88 complet ed [facility] INFLUENZA, UNSPECIFIED FORMULATION 2009 88 complet ed [facility] PNEUMOCOCCAL, UNSPECIFIED FORMULATION 2007 109 complet ed [employer] lot# [id number] exp. [id number] [facility] INFLUENZA (HISTORICAL) 2007 88 complet ed [facility] TDAP 2007 115 complet ed [facility] INFLUENZA (HISTORICAL) 2007 88 complet ed [facility] INFLUENZA, SEASONAL, INJECTABLE 2007 141 complet ed [facility] TD(ADULT) UNSPECIFIED FORMULATION 2007 139 complet ed [facility] Results Combined list of recent chemistry, hematology and other laboratory results from Department of Defense and [facility], ranging from 15 months to all on record, depending upon the facility. Order Name Results Value Reference Range Date Interpretation Specimen Comments Source HEMOGLOBI N A1C HEMOGLOBIN A1C/HEMOGLO BIN.TOTAL IN BLOOD 11.4 4.0 - 6.0 02/12 H Specimen Type: BLOOD Comment: Values obtained from A1C measurement s can vary. For typical A1C assays, a reported value of 7.0 could actually be between 6.7 and 7.3 if measured by a reference method. A reported value of 9.0 could actually be between 8.7 and 9.3. Ref: http://www. ngsp.org/[place] Pdata.asp Ordering Provider: MONI BROWN Report Released Date/Time: Feb 08, 2023 11:20 AM Reporting Lab: [facility] [address] Performing Lab: [facility] [address] [place] [facility] TSH W/REFLEX TO FREE T4 THYROTROPIN [UNITS/VOLU ME] IN SERUM OR PLASMA 1.91 0.35 - 4.94 02/12 Specimen Type: PLASMA Comment: Elevated triglycerid e result from a non-fasting specimen should be interpreted with caution. A fasting panel is recommended for accurate triglycerid es when trigs are >200 from a non-fasting specimen. Ordering Provider: MONI BROWN Report Released Date/Time: Feb 08, 2023 11:20 AM Reporting Lab: [facility] [address] Performing Lab: [facility] [address] [facility] LIPID PANEL,NON -FASTING CHOLESTEROL [MASS/VOLUM E] IN SERUM OR PLASMA 84 <199 - 199 02/12 Specimen Type: PLASMA Comment: Elevated triglycerid e result from a non-fasting specimen should be interpreted with caution. A fasting panel is recommended for accurate triglycerid es when trigs are >200 from a non-fasting specimen. Ordering Provider: MONI BROWN Report Released Date/Time: Feb 08, 2023 11:20 AM Reporting Lab: [facility] [address] Performing Lab: [facility] [address] [place] [facility] LIPID PANEL,NON -FASTING CHOLESTEROL IN HDL [MASS/VOLUM E] IN SERUM OR PLASMA 20 40 02/12 L Specimen Type: PLASMA Comment: Elevated triglycerid e result from a non-fasting specimen should be interpreted with caution. A fasting panel is recommended for accurate triglycerid es when trigs are >200 from a non-fasting specimen. Ordering Provider: MONI BROWN Report Released Date/Time: Feb 08, 2023 11:20 AM Reporting Lab: [facility] [phone] Performing Lab: [facility] [address] [place] [facility] LIPID PANEL,NON -FASTING CHOLESTEROL IN LDL [MASS/VOLUM E] IN SERUM OR PLASMA BY CALCULATION 16 <99 - 99 02/12 Specimen Type: PLASMA Comment: Elevated triglycerid e result from a non-fasting specimen should be interpreted with caution. A fasting panel is recommended for accurate triglycerid es when trigs are >200 from a non-fasting specimen. Ordering Provider: MONI BROWN Report Released Date/Time: Feb 08, 2023 11:20 AM Reporting Lab: [facility] [address] Performing Lab: [facility] [address] [place] [facility] LIPID PANEL,NON -FASTING CHOLESTEROL IN VLDL [MASS/VOLUM E] IN SERUM OR PLASMA BY CALCULATION 48 <29 - 29 02/12 H Specimen Type: PLASMA Comment: Elevated triglycerid e result from a non-fasting specimen should be interpreted with caution. A fasting panel is recommended for accurate triglycerid es when trigs are >200 from a non-fasting specimen. Ordering Provider: MONI BROWN Report Released Date/Time: Feb 08, 2023 11:20 AM Reporting Lab: [facility] [address] Performing Lab: [facility] [address] [place] [facility] LIPID PANEL,NON -FASTING CHOLESTEROL NON HDL [MASS/VOLUM E] IN SERUM OR PLASMA 64 <129 - 129 02/12 Specimen Type: PLASMA Comment: Elevated triglycerid e result from a non-fasting specimen should be interpreted with caution. A fasting panel is recommended for accurate triglycerid es when trigs are >200 from a non-fasting specimen. Ordering Provider: MONI BROWN Report Released Date/Time: Feb 08, 2023 11:20 AM Reporting Lab: [facility] [address] Performing Lab: [facility] [address] [place] [facility] LIPID PANEL,NON -FASTING TRIGLYCERID E [MASS/VOLUM E] IN SERUM OR PLASMA 240 <149 - 149 02/12 H Specimen Type: PLASMA Comment: Elevated triglycerid e result from a non-fasting specimen should be interpreted with caution. A fasting panel is recommended for accurate triglycerid es when trigs are >200 from a non-fasting specimen. Ordering Provider: MONI BROWN Report Released Date/Time: Feb 08, 2023 11:20 AM Reporting Lab: [facility] [address] Performing Lab: [facility] [address] [place] [facility] CBC LEUKOCYTES [#/VOLUME] IN BLOOD BY AUTOMATED COUNT 5.73 4.0 - 11.0 02/12 Specimen Type: BLOOD No comment entered. Ordering Provider: MONI BROWN Report Released Date/Time: Feb 08, 2023 11:20 AM Reporting Lab: [facility] [address] Performing Lab: [facility] [address] [place] [facility] CBC ERYTHROCYTE S [#/VOLUME] IN BLOOD BY AUTOMATED COUNT 4.37 4.6 - 6.2 02/12 L Specimen Type: BLOOD No comment entered. Ordering Provider: MONI BROWN Report Released Date/Time: Feb 08, 2023 11:20 AM Reporting Lab: [facility] [address] Performing Lab: [facility] [address] [place] [facility] CBC HEMOGLOBIN [MASS/VOLUM E] IN BLOOD 13.1 13.5 - 17.9 02/12 L Specimen Type: BLOOD No comment entered. Ordering Provider: MONI BROWN Report Released Date/Time: Feb 08, 2023 11:20 AM Reporting Lab: [facility] [address] Performing Lab: [facility] [address] [place] [facility] CBC HEMATOCRIT [VOLUME FRACTION] OF BLOOD BY AUTOMATED COUNT 39.2 41 - 54 02/12 L Specimen Type: BLOOD No comment entered. Ordering Provider: MONI BROWN Report Released Date/Time: Feb 08, 2023 11:20 AM Reporting Lab: [facility] [address] Performing Lab: [id number] [place] [facility] CBC MCV [ENTITIC VOLUME] BY AUTOMATED COUNT 89.7 80 - 100 02/12 Specimen Type: BLOOD No comment entered. Ordering Provider: MONI BROWN Report Released Date/Time: Feb 08, 2023 11:20 AM Reporting Lab: [facility] [address] Performing Lab: [facility] [address] [place] [facility] CBC MCH [ENTITIC MASS] BY AUTOMATED COUNT 30.0 27 - 33 02/12 Specimen Type: BLOOD No comment entered. Ordering Provider: MONI BROWN Report Released Date/Time: Feb 08, 2023 11:20 AM Reporting Lab: [facility] [address] Performing Lab: [facility] [address] [place] [facility] CBC MCHC [MASS/VOLUM E] BY AUTOMATED COUNT 33.4 32.0 - 37.5 02/12 Specimen Type: BLOOD No comment entered. Ordering Provider: MONI BROWN Report Released Date/Time: Feb 08, 2023 11:20 AM Reporting Lab: [facility] [address] Performing Lab: [facility] [address] [place] [facility] CBC PLATELETS [#/VOLUME] IN BLOOD BY AUTOMATED COUNT 276 150 - 400 02/12 Specimen Type: BLOOD No comment entered. Ordering Provider: MONI BROWN Report Released Date/Time: Feb 08, 2023 11:20 AM Reporting Lab: [facility] [address] Performing Lab: [facility] [address] [place] [facility] CBC PLATELET MEAN VOLUME [ENTITIC VOLUME] IN BLOOD BY AUTOMATED COUNT 10.1 7.4 - 10.4 02/12 Specimen Type: BLOOD No comment entered. Ordering Provider: MONI BROWN Report Released Date/Time: Feb 08, 2023 11:20 AM Reporting Lab: [facility] [address] Performing Lab: [facility] [address] [facility] CBC ERYTHROCYTE DISTRIBUTIO N WIDTH [RATIO] BY AUTOMATED COUNT 13.4 11.5 - 14.5 02/12 Specimen Type: BLOOD No comment entered. Ordering Provider: MONI BROWN Report Released Date/Time: Feb 08, 2023 11:20 AM Reporting Lab: [facility] [address] Performing Lab: [facility] [address] [place] [facility] COMPREHEN SIVE METABOLIC PANEL+MG CREATININE [MASS/VOLUM E] IN SERUM OR PLASMA 1.6 0.7 - 1.2 02/12 H Specimen Type: PLASMA Comment: Elevated triglycerid e result from a non-fasting specimen should be interpreted with caution. A fasting panel is recommended for accurate triglycerid es when trigs are >200 from a non-fasting specimen. Ordering Provider: MONI BROWN Report Released Date/Time: Feb 08, 2023 11:20 AM Reporting Lab: [facility] [address] Performing Lab: [facility] [address] [place] [facility] COMPREHEN SIVE METABOLIC PANEL+MG UREA NITROGEN [MASS/VOLUM E] IN SERUM OR PLASMA 24 8 - 26 02/12 Specimen Type: PLASMA Comment: Elevated triglycerid e result from a non-fasting specimen should be interpreted with caution. A fasting panel is recommended for accurate triglycerid es when trigs are >200 from a non-fasting specimen. Ordering Provider: MONI BROWN Report Released Date/Time: Feb 08, 2023 11:20 AM Reporting Lab: [facility] [address] Performing Lab: [facility] [address] [place] [facility] COMPREHEN SIVE METABOLIC PANEL+MG GLUCOSE [MASS/VOLUM E] IN SERUM OR PLASMA 268 70 - 100 02/12 H Specimen Type: PLASMA Comment: Elevated triglycerid e result from a non-fasting specimen should be interpreted with caution. A fasting panel is recommended for accurate triglycerid es when trigs are >200 from a non-fasting specimen. Ordering Provider: MONI BROWN Report Released Date/Time: Feb 08, 2023 11:20 AM Reporting Lab: [facility] [address] Performing Lab: [facility] [address] [facility] COMPREHEN SIVE METABOLIC PANEL+MG SODIUM [MOLES/VOLU ME] IN SERUM OR PLASMA 140 136 - 145 02/12 Specimen Type: PLASMA Comment: Elevated triglycerid e result from a non-fasting specimen should be interpreted with caution. A fasting panel is recommended for accurate triglycerid es when trigs are >200 from a non-fasting specimen. Ordering Provider: MONI BROWN Report Released Date/Time: Feb 08, 2023 11:20 AM Reporting Lab: [facility] [address] Performing Lab: [facility] [address] [facility]MG POTASSIUM [MOLES/VOLU ME] IN SERUM OR PLASMA 3.7 3.5 - 5.1 02/12 Specimen Type: PLASMA Comment: Elevated triglycerid e result from a non-fasting specimen should be interpreted with caution. A fasting panel is recommended for accurate triglycerid es when trigs are >200 from a non-fasting specimen. Ordering Provider: MONI BROWN Report Released Date/Time: Feb 08, 2023 11:20 AM Reporting Lab: [facility] [address] Performing Lab: [facility] [address] [facility] COMPREHEN SIVE METABOLIC PANEL+MG CHLORIDE [MOLES/VOLU ME] IN SERUM OR PLASMA 99 98 - 107 02/12 Specimen Type: PLASMA Comment: Elevated triglycerid e result from a non-fasting specimen should be interpreted with caution. A fasting panel is recommended for accurate triglycerid es when trigs are >200 from a non-fasting specimen. Ordering Provider: MONI BROWN Report Released Date/Time: Feb 08, 2023 11:20 AM Reporting Lab: [facility] [address] Performing Lab: [facility] [address] [place] [facility] COMPREHEN SIVE METABOLIC PANEL+MG CARBON DIOXIDE, TOTAL [MOLES/VOLU ME] IN SERUM OR PLASMA 02/12 Specimen Type: PLASMA Comment: Elevated triglycerid e result from a non-fasting specimen should be interpreted with caution. A fasting panel is recommended for accurate triglycerid es when trigs are >200 from a non-fasting specimen. Ordering Provider: MONI BROWN Report Released Date/Time: Feb 08, 2023 11:20 AM Reporting Lab: [facility] [address] Performing Lab: [facility] [address] [place] [facility] COMPREHEN SIVE METABOLIC PANEL+MG CALCIUM [MASS/VOLUM E] IN SERUM OR PLASMA 9.1 8.4 - 10.2 02/12 Specimen Type: PLASMA Comment: Elevated triglycerid e result from a non-fasting specimen should be interpreted with caution. A fasting panel is recommended for accurate triglycerid es when trigs are >200 from a non-fasting specimen. Ordering Provider: MONI BROWN Report Released Date/Time: Feb 08, 2023 11:20 AM Reporting Lab: [facility] [address] Performing Lab: [facility] [address] [place] [facility] COMPREHEN SIVE METABOLIC PANEL+MG PROTEIN [MASS/VOLUM E] IN SERUM OR PLASMA 6.8 6.0 - 8.3 02/12 Specimen Type: PLASMA Comment: Elevated triglycerid e result from a non-fasting specimen should be interpreted with caution. A fasting panel is recommended for accurate triglycerid es when trigs are >200 from a non-fasting specimen. Ordering Provider: MONI BROWN Report Released Date/Time: Feb 08, 2023 11:20 AM Reporting Lab: [facility] [address] Performing Lab: [facility] [address] [place] [facility] COMPREHEN SIVE METABOLIC PANEL+MG ALBUMIN [MASS/VOLUM E] IN SERUM OR PLASMA 3.8 3.5 - 5.2 02/12 Specimen Type: PLASMA Comment: Elevated triglycerid e result from a non-fasting specimen should be interpreted with caution. A fasting panel is recommended for accurate triglycerid es when trigs are >200 from a non-fasting specimen. Ordering Provider: MONI BROWN Report Released Date/Time: Feb 08, 2023 11:20 AM Reporting Lab: [facility] [address] Performing Lab: [facility] [address] [place] [facility] COMPREHEN SIVE METABOLIC PANEL+MG BILIRUBIN.T OTAL [MASS/VOLUM E] IN SERUM OR PLASMA 1.6 0.2 - 1.2 02/12 H Specimen Type: PLASMA Comment: Elevated triglycerid e result from a non-fasting specimen should be interpreted with caution. A fasting panel is recommended for accurate triglycerid es when trigs are >200 from a non-fasting specimen. Ordering Provider: MONI BROWN Report Released Date/Time: Feb 08, 2023 11:20 AM Reporting Lab: [facility] [address] Performing Lab: [facility] [address] [place] [facility] COMPREHEN SIVE METABOLIC PANEL+MG MAGNESIUM [MASS/VOLUM E] IN SERUM OR PLASMA 1.8 1.6 - 2.6 02/12 Specimen Type: PLASMA Comment: Elevated triglycerid e result from a non-fasting specimen should be interpreted with caution. A fasting panel is recommended for accurate triglycerid es when trigs are >200 from a non-fasting specimen. Ordering Provider: MONI BROWN Report Released Date/Time: Feb 08, 2023 11:20 AM Reporting Lab: [facility] [facility] [address] Performing Lab: [facility] [address] [place] [facility] COMPREHEN SIVE METABOLIC PANEL+MG ANION GAP IN SERUM OR PLASMA 12 5 - 15 02/12 Specimen Type: PLASMA Comment: Elevated triglycerid e result from a non-fasting specimen should be interpreted with caution. A fasting panel is recommended for accurate triglycerid es when trigs are >200 from a non-fasting specimen. Ordering Provider: MONI BROWN Report Released Date/Time: Feb 08, 2023 11:20 AM Reporting Lab: [facility] [address] Performing Lab: [facility] [address] [place] [facility] COMPREHEN SIVE METABOLIC PANEL+MG ALKALINE PHOSPHATASE [ENZYMATIC ACTIVITY/VO LUME] IN SERUM OR PLASMA 77 40 - 150 02/12 Specimen Type: PLASMA Comment: Elevated triglycerid e result from a non-fasting specimen should be interpreted with caution. A fasting panel is recommended for accurate triglycerid es when trigs are >200 from a non-fasting specimen. Ordering Provider: MONI BROWN Report Released Date/Time: Feb 08, 2023 11:20 AM Reporting Lab: [facility] [address] Performing Lab: [facility] [address] [place] [facility] COMPREHEN SIVE METABOLIC PANEL+MG ALANINE AMINOTRANSF ERASE [ENZYMATIC ACTIVITY/VO LUME] IN SERUM OR PLASMA 34 <55 - 55 02/12 Specimen Type: PLASMA Comment: Elevated triglycerid e result from a non-fasting specimen should be interpreted with caution. A fasting panel is recommended for accurate triglycerid es when trigs are >200 from a non-fasting specimen. Ordering Provider: MONI BROWN Report Released Date/Time: Feb 08, 2023 11:20 AM Reporting Lab: [facility] [phone] Performing Lab: [facility] [address] [place] [facility] COMPREHEN SIVE METABOLIC PANEL+MG ASPARTATE AMINOTRANSF ERASE [ENZYMATIC ACTIVITY/VO LUME] IN SERUM OR PLASMA 28 <34 - 34 02/12 Specimen Type: PLASMA Comment: Elevated triglycerid e result from a non-fasting specimen should be interpreted with caution. A fasting panel is recommended for accurate triglycerid es when trigs are >200 from a non-fasting specimen. Ordering Provider: MONI BROWN Report Released Date/Time: Feb 08, 2023 11:20 AM Reporting Lab: [facility] [address] Performing Lab: [facility] [address] [place] [facility] COMPREHEN SIVE METABOLIC PANEL+MG GLOMERULAR FILTRATION RATE/1.73 SQ M.PREDICTED [VOLUME RATE/AREA] IN SERUM, PLASMA OR BLOOD BY CREATININE- BASED FORMULA (CKD-EPI 2020) 48 60 02/12 L Specimen Type: PLASMA Comment: Elevated triglycerid e result from a non-fasting specimen should be interpreted with caution. A fasting panel is recommended for accurate triglycerid es when trigs are >200 from a non-fasting specimen. Ordering Provider: MONI BROWN Report Released Date/Time: Feb 08, 2023 11:20 AM Reporting Lab: [facility] [phone] Performing Lab: [facility] [address] [facility] COMPREHEN SIVE METABOLIC PANEL+MG BILIRUBIN.D IRECT [MASS/VOLUM E] IN SERUM OR PLASMA 0.4 <0.5 - 0.5 02/12 Specimen Type: PLASMA Comment: Elevated triglycerid e result from a non-fasting specimen should be interpreted with caution. A fasting panel is recommended for accurate triglycerid es when trigs are >200 from a non-fasting specimen. Ordering Provider: MONI BROWN Report Released Date/Time: Feb 08, 2023 11:20 AM Reporting Lab: [facility] [address] Performing Lab: [facility] [address] [facility] Vital Signs Combined list of inpatient and outpatient Vital Signs from Department of Defense and Veterans Affairs, ranging from 12 months to all on record, depending upon the facility. Vital Sign Value Date Comments Source SYSTOLIC BLOOD PRESSURE 104 02/12/2023 08:39:41 [facility] DIASTOLIC BLOOD PRESSURE 71 02/12/2023 08:39:41 [facility] PULSE OXIMETRY 99% 02/12/2023 08:39:41 [place] [facility] WEIGHT 02/12/2023 08:39:41 [facility] PAIN 0 02/12/2023 08:39:41 [facility] HEIGHT 02/12/2023 08:39:41 [facility] TEMPERATURE 97 02/12/2023 08:39:41 [facility] PULSE 80 02/12/2023 08:39:41 [facility] RESPIRATION 16 02/12/2023 08:39:41 [place] [facility] Encounters Combined list of: 1) Encounters from Department of [facility] Affairs facilities going back up to thelast 18 months. 2) Encounters from the Department of Defense facilities going back up to 280 months. Location Location Details Encounter Type Encounter Number Reason For Visit Attending Provider ADM Date DC Date Status Disposition Source [place] [facility] Outpatient Encounter [id number] 11/02 [facility] [place] [facility] REEDUCATIO N [id number] Diagnos is: ICD-10- CM I63.9 Cerebra l infarct ion, unspeci fied
BAM SUAREZ 11/07 [facility] [place] [facility] Outpatient Encounter [id number] 11/16 [facility] [place] [facility] [place] [id number] Diagnos is: ICD-10- CM E11.40 Type 2 diabete s mellitu s with diabeti c neuropa thy, unsp
Rosa MEADE 11/24 [facility] [place] [facility] TRAINING [id number] Diagnos is: ICD-10- CM R26.9 Unspeci fied abnorma lities of gait and mobilit y
PENELOPE CHANEY 11/24 [facility] [place] [facility] Outpatient Encounter [id number] 11/29 [facility] [place] [facility] Outpatient Encounter [id number] 12/27 [facility] [place] [facility] Outpatient Encounter [id number] 02/06 [facility] [place] [facility] Outpatient Encounter [id number] 02/21 [facility] [place] [facility] [id number] Diagnos is: ICD-10- CM R53.1 Weaknes s
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
Rosa MEADE 03/16 [facility] Outpatient Encounter [id number] 03/16 [facility] OFF/OP CNSLTJ NEW/EST LOW 30 [id number] Diagnos is: ICD-10- CM I89.0 Lymphed cale, not elsewhe re classif ied<br/ > LATOYA MATOS 04/10 [facility] Outpatient Encounter [id number] 04/11 [facility] TRA[facility] [id number] Diagnos is: ICD-10- CM R26.9 Unspeci fied abnorma lities of gait and mobilit y
PENELOPE CHANEY 05/02 [facility] Outpatient Encounter [id number] 05/15 [facility] Outpatient Encounter [id number] Miko NICHOLE 05/15 [facility] Outpatient Encounter [id number] 06/18 [facility] Outpatient Encounter [id number] Diagnos is: ICD-10- CM I87.2 Venous insuffi ciency (chroni c) (periph eral)<b r/> GUILLERMO MATA 10/11 [facility] [place] [facility] Outpatient Encounter [id number] 11/28 [facility] [place] [facility] Outpatient Encounter [id number] BASSFrancois YAMILETH Lee 02/04 [facility] [place] [facility] Outpatient Encounter [id number] Diagnos is: ICD-10- CM F99 Mental disorde r, not otherwi se specifi ed
ELFERING,N ICOLE M 02/08 [facility] [place] [facility] OFF[facility] O/P EST MOD 30-39 MIN [id number] Diagnos is: ICD-10- CM E11.8 Type 2 diabete s mellitu s with unspeci fied complic ations< br/> MELYSSA CULLEN Y 02/12 [facility] [place] [facility] Outpatient Encounter [id number] 02/13 [facility] [place] [facility] Outpatient Encounter [id number] 02/27 [facility] [place] [facility] Outpatient Encounter [id number] 02/28 [facility] [place] [facility] Outpatient Encounter [id number] 03/01 [facility] [place] [facility] Outpatient Encounter [id number] 03/07 [facility] [place] [facility] Outpatient Encounter [id number] 03/21 [facility] Social History Combined list of available smoking, tobacco, and other social history from Department of Defense and Veterans Affairs facilities. Social History Type Response Date Comment [facility] e Tobacco smoking status [facility]-TOBACCO NEVER USED 02/12/2023 [facility] History of tobacco use [place]-TOBACCO USER SOME DAYS 06/14/2021 [facility] History of tobacco use DC-TOBACCO NEVER USED 01/28/2018 [facility] History of tobacco use FORMER TOBACCO USER 7Y OR GREATER 10/25/2016 [facility] History of tobacco use LIFETIME NON-TOBACCO USER 10/12/2015 [facility] History of tobacco use LIFETIME NON-TOBACCO USER 09/22/2014 [facility] History of tobacco use FORMER TOBACCO USER 7Y OR GREATER 07/07/2013 [facility] History of tobacco use LIFETIME NON-TOBACCO USER 07/05/2011 [facility] History of tobacco use LIFETIME NON-TOBACCO USER 07/03/2011 [facility] History of tobacco use LIFETIME NON-TOBACCO USER 11/20/2007 [facility] Plan of Care List of future care activities from [facility] facilities. Additional future care activities may be listed in the Assessment and Plan section. Date/Time Care Activity Care Activity Detail Facili ty 05/13/2023 AMBULATORY - MEDICINE AMBULATORY - [facility]IC[facility] [place] Advance Directives List of completed, amended, or rescinded Advance Directives on record at [facility] facilities. An actual copy of the Directive is not included. Date Advance Directive Provider Source 07/03/2011 CLINICAL WARNING RACHAEL KING [facility]
--- OUTSIDE RECORDS SUMMARY | 2023-03-31 09:45 | XMS_ITS | Encounter Summary ---
Author Name [facility] Organization [facility] Address [address] [place] [address] Support Name Relationship Address Phone FRANSISCORIA ROBERSONIS Next of Kin [address] [place] [address] SHENA PETERSEN Emergency Contact [address] [place] [address] SHENA PETERSEN Next of Kin [address] [place] [phone] Insurance Providers: All historical and current Section Date Range: From patient's date of to the date document was created. This section includes the names of all active insurance providers for the patient. Insurance Provider Type of Coverage Plan Name Start of Policy Coverage End of Policy Coverage Group Number Member ID Insurance Provider's Telephone Number Policy Erazo's Name Patient's Relationship to Policy Erazo MEDICARE (WNR) MEDICARE (M) PART A June 18, 2009 PART A [id number] [phone] Smiley MOODY PATIENT Selected Encounter This section includes the information on record at [place] for the Encounter. Date/Time Encounter Type Encounter Description Reason Provider Source Apr 10, 2022 10:00 AM OFF/OP CNSLTJ NEW/EST LOW 30 VASCULAR SURGERY ICD-10-CM I89.0 Lymphedema, not elsewhere classified JOSE MATOS Miko Encounter Template Text not used by [place] Assessments - Encounter Diagnoses This section includes the primary and secondary diagnoses documented for the Encounter. Date/Time Primary/Secondary Diagnosis Diagnosis Name Provider Source Apr 10, 2022 11:18 AM PRIMARY Lymphedema, not elsewhere classified MARIAJOSE CAR [facility] Plan of Treatment: Future Appointments (+ 6 months) and Future Tests (+/- 45 days) The Plan of Treatment section includes future care activities for the [facility] This section includes future appointments and future orders which are active, pending or scheduled. Future Appointments This section includes appointments that were scheduled to occur 6 months from the date of the Encounter, up to a maximum of 20 appointments. The data comes from all [place] treatment facilities. Appointment Date/Time Appointment Type Appointme nt Facility Name Apr 25, 2022 06:00 PM AMB[facility]ORY - NONE [facility] May 02, 2022 09:30 AM AMBULATORY - NONE [facility] May 02, 2022 11:00 AM AMBULATORY - [facility] May 02, 2022 01:00 PM AMBULATORY - NONE [facility] May 02, 2022 03:00 PM AMBULATORY - NONE [facility] May 15, 2022 10:30 AM AMBULATORY - NONE [facility] Jun 15, 2022 10:00 AM AMBULATORY - NONE [facility] Social History: Smoking Status (Most current) and Tobacco Use (All prior to encounter date) This section includes the most current, and the historical, smoking and tobacco- related health factors from the [place] facility where the Encounter took place. Current Smoking Status This section includes the most current smoking, or tobacco-related health factor, from the [place] facility where the Encounter took place. Date/Time Current Smoking Status Comment Jorge meyery Jun 14, 2021 08:15 AM VA-TOBACCO USER SOME DAYS [facility] Tobacco Use History This section includes a history of the smoking, or tobacco-related health factors, that were collected on or before the date of the Encounter. The data comes from the [place] facility where the Encounter took place. 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 This section includes ALL of a patient's completed or amended [place] Advance and Rescinded Directives. The entries below indicate that a directive exists for the patient, but an actual copy is not included with this document. The data comes from all [facility]. Date Advance Directives Provider Source July 03, 2011 CLINICAL WARNING RACHAEL KING [facility] Radiology Reports: +/- 30 days of the encounter Radiology Reports For cases when an order for radiology services may have been completed prior to the date of the Encounter, the report list includes the Radiology Reports that were completed up to 30 days before dateof the Encounter. For cases when an order for radiology services may have been completed after the date of the Encounter, the report list also includes the Radiology Reports that were completed up to30 days after date of the Encounter. The data comes from all [place] treatment facilities. Date/Time Radiology Report Provider Source May 02, 2022 09:35 AM US LOWER EXTREMITY ARTERY (BILATERAL) (P): JOSÉ ANTONIO MOODY [id number] -1955 M Exm Date: MAY 02, 2022@09:35 Req Phys: GUILLERMO MATA Loc: [facility] (Req'g Loc) Img Loc: Ultrasound Imaging Service: Unknown (Case [id number] COMPLETE) US LOWER EXTREMITY ARTERIES BILAT(US Detailed) CPT:86765 Reason for Study: lymphedema Clinical History: IS NOT under investigation for COVID-19 or is COVID-19 negative bilat lymnphedema Responsible provider name and phone number to notify for critical findings if other than user placing the order and pager listed below: User placing orders pager: LAST CREATININE____ Report Status: Verified Date Reported: MAY 02, 2022 Date Verified: MAY 02, 2022 Engineering Executive E-Sig:/ES/ELEUTERIO PERSON MD Report: Duplex Ultrasound of the bilateral Lower Extremity Arteries History: Reason for Study: lymphedema Technique: Arterial duplex examination performed using B-mode, color flow and spectral Doppler assessment. Comparison: ABIs from the same day Findings: Peak systolic velocities were measured as follows: Right lower extremity: SUPERVISOR FACEPIECE LINE prox: 60 cm/sec SUPERVISOR FACEPIECE LINE mid: 79 cm/sec SUPERVISOR FACEPIECE LINE distal: 81 cm/sec PFA: 46 cm/sec SFA prox: 88 cm/sec SFA mid: 72 cm/sec SFA distal: 72 cm/sec Popliteal prox: 57 cm/sec Popliteal mid: 51 cm/sec Popliteal distal: 49 cm/sec STERLING prox calf: 50 cm/sec Common trunk: 66 cm/sec OUTPATIENT FACILITY PHYSICAL THERAPIST ankle: 64 cm/sec STERLING ankle: 33 cm/sec Waveforms are diffusely multiphasic with the exception of the tibioperoneal trunk and the OUTPATIENT FACILITY PHYSICAL THERAPIST at the ankle which are monophasic . Left lower extremity: SUPERVISOR FACEPIECE LINE prox: 94 cm/sec SUPERVISOR FACEPIECE LINE mid: 94 cm/sec SUPERVISOR FACEPIECE LINE distal: 103 cm/sec PFA: 70 cm/sec SFA prox: 90 cm/sec SFA mid: 81 cm/sec SFA distal: 62 cm/sec Popliteal prox: 57 cm/sec Popliteal mid: 45 cm/sec Popliteal distal: 52 cm/sec STERLING prox calf: 37 cm/sec Common trunk: 58 cm/sec OUTPATIENT FACILITY PHYSICAL THERAPIST ankle: 24 cm/sec STERLING ankle: 33 cm/sec Waveforms are diffusely multiphasic with the exception of the OUTPATIENT FACILITY PHYSICAL THERAPIST at the ankle which is monophasic . Impression: 1. Right leg arteries: Patent lower extremity arteries without evidence for focal hemodynamically significant stenosis. 2. Left leg arteries: Patent lower extremity arteries without evidence for focal hemodynamically significant stenosis. THE REPORT OF THE PATIENT'S FINDINGS ENDS HERE. Lower Extremity Arterial Duplex Interpretation Guidelines (ouzinkie arteries, bypass grafts, iliac, femoral, popliteal and infrapopliteal arteries) Stenoses: Severity Velocity Ratio* Normal <1.5:1 Not hemodynamically significant 1.5:1-3.5 Hemodynamically significant >3.5:1 or PSV>300cm/s with turbulence and change in waveform distal to the stenosis Occlusion No color saturation *Velocity ratio is the peak systolic velocity measured at the area of stenosis (numerator) compared to the velocity in the proximal adjacent normal artery (denominator). An occlusion is recognized by the absence of color saturation in the artery and a collateral vessel at the site of the occlusion. Reconstitution is recognized by islam of color in the artery with a collateral vessel identified at the level of reconstitution. Note: Extremely low flow states are present both above and below occlusions; make sure the color parameters are adjusted to detect these low velocities. Otherwise, the length of the occlusion could be overestimated. Primary Interpreting Staff: ELEUTERIO PERSON MD, RADIOLOGIST (Engineering Executive) /ELEUTERIO SCOTT [facility] May 02, 2022 09:33 AM SEGMENTALS/CHRISTIAN: JOSÉ ANTONIO MOODY [id number] -1955 M Exm Date: MAY 02, 2022@09:33 Req Phys: GUILLERMO MATA Loc: [facility] (Req'g Loc) Img Loc: VASCULAR LAB PROCEDURES Service: Unknown (Case [id number] COMPLETE) SEGMENTALS/CHRISTIAN (VAS Detailed) CPT:47557 Reason for Study: lymphedema Clinical History: [place] IS NOT under investigation for COVID-19 or is COVID-19 negative bilat lymnphedema Responsible provider name and phone number to notify for critical findings if other than user placing the order and pager listed below: User placing orders pager: LAST CREATININE____ Report Status: Verified Date Reported: MAY 02, 2022 Date Verified: MAY 02, 2022 Engineering Executive E-Sig:/ES/ELEUTERIO PERSON MD Report: Bilateral Lower Extremity Ankle Brachial Indices and Segmental Pressures Comparison study: None available Technique: Brachial, ankle and great toe pressures obtained along with VPR waveforms of the lower extremities at 3 or more levels, and great toe PPG waveforms History: Reason for Study: lymphedema Findings: Right: Arm: 128 mmHg PT at ankle: Non-compressible DP at foot: Non-compressible First toe: 108 mmHg CHRISTIAN: Non-compressible TBI: 0.84 First toe PPG: Normal Left: Arm: 124 mmHg PT at ankle: Non-compressible DP at foot: Non-compressible First toe: 116 mmHg CHRISTIAN: Non-compressible TBI: 0.91 First toe PPG: Normal Pulse volume recordings: Right leg: Unremarkable. Left leg: Unremarkable. Impression: 1. Right lower extremity: CHRISTIAN: Non-compressible. When the arteries are not compressible, ABIs are not accurate for the diagnosis of peripheral arterial disease. TBI: 0.84. Normal. PVRs: Do not suggest a focal level of arterial disease. First toe PPG: Normal. 2. Left lower extremity: CHRISTIAN: Non-compressible. When the arteries are not compressible, ABIs are not accurate for the diagnosis of peripheral arterial disease. TBI: 0.91. Normal. PVRs: Do not suggest a focal level of arterial disease. First toe PPG: Normal. Primary Interpreting Staff: ELEUTERIO PERSON MD, RADIOLOGIST (Engineering Executive) /ELEUTERIO SCOTT [facility] Encounter Notes: All associated encounter notes This section contains the clinical notes associated to the Encounter. Date/Time Encounter Note(s) Provider Source Apr 10, 2022 10:29 AM VASCULAR SURGERY C ONSULT: LOCAL TITLE: VASCULAR CONSULT STANDARD TITLE: VASCULAR SURGERY CONSULT DATE OF NOTE: APR 10, 2022@10:29 ENTRY DATE: APR 10, 2022@10:29:26 AUTHOR: DOC CAR EXP COSIGNER: URGENCY: STATUS: COMPLETED VASCULAR CONSULT Has ADDENDA Vascular Surgery Consult Note: Reason for visit: HPI: 66 years old MALE with PMH of HTN, HLD, CVD ( recent L MCA distribution infarct), A fib w/ RVR, hyperglycemia, and R pneumonia and has marked B LE lymphedema ( despite Unna boot wraps and sequential pressure wrapping). Has been non ambulatory for last couple of years. Review of System: Negative unless mentioned in HPI Past Medical History/Past Surgical History: Active problems - Computerized Problem List is the source for the followin. Benign essential hypertension (SNOMED CT 4922767) 2. Dyslipidemia 3. Diabetes mellitus (SNOMED CT 42911040) 4. Morbid obesity (SNOMED CT 984251987) 5. Depressive Disorder NOS 6. Diabetic neuropathy (SNOMED CT 545828368) 7. Sleep Apnea 8. Other Specified Counseling 9. Pes Planus, Acquired 10. Low back pain (SNOMED CT 906564103) 11. Recurrent major depressive episodes, moderate (SNOMED CT 376653500) 12. Mixed anxiety and depressive disorder (SNOMED CT 490072278) 13. Hydrocele (SNOMED CT 82929529) 14. Hernia of anterior abdominal wall - Dx 04/03, Gen Surgical Eval 07/01 15. Anxiety 16. Mental disorder 17. Asthma ([facility] 535977933) 18. Cardiomyopathy 19. AF-Atrial Fibrillation ([facility] 32513147) 20. Heart failure 21. H/O: Stroke ([facility] [id number]) Medications: Active and Recently Outpatient Medications (including Supplies): Active Outpatient Medications Status 1) BACLOFEN 10MG TAB TAKE ONE-HALF TABLET BY MOUTH TWICE ACTIVE A DAY AND TAKE ONE TABLET AT BEDTIME FOR R SIDED SPASTICITY 2) GABAPENTIN 100MG CAP TAKE TWO CAPSULES BY MOUTH THREE ACTIVE TIMES A DAY 3) LIDOCAINE 5% PATCH APPLY 1 PATCH TOPICALLY 7 PM-7AM ACTIVE NEEDED FOR NECK PAIN. WEAR FOR ONLY 12 HOURS THEN REMOVE FOR 12 HOURS. Inactive Outpatient Medications Status 1) LIDOCAINE 5% PATCH APPLY 1 PATCH TOPICALLY 7 PM-7AM DISCONTINUED FOR PAIN. WEAR FOR ONLY 12 HOURS THEN REMOVE FOR 12 (EDIT) HOURS. Active Non-VA Medications Status 1) Non-VA ACETAMINOPHEN 325MG TAB 650MG MOUTH EVERY 6 ACTIVE HOURS NEEDED 2) Non-VA ALBUTEROL INHL,ORAL INHALATION NEEDED ACTIVE 3) Non-VA AMLODIPINE BESYLATE 10MG TAB 5MG MOUTH EVERY ACTIVE DAY 4) Non-VA ASPIRIN 81MG EC TAB 81MG MOUTH EVERY DAY ACTIVE 5) Non-VA ATORVASTATIN CALCIUM 80MG TAB 80MG MOUTH AT ACTIVE BEDTIME 6) Non-VA BACITRACIN 500 UNT/GM TOP OINT TO AFFECTED ACTIVE AREA TOPICALLY NEEDED 7) Non-VA DOCUSATE NA 50MG/SENNOSIDES 8.6MG TAB 1 TABLET ACTIVE MOUTH TWICE A DAY NEEDED 8) Non-VA FLUTICASONE PROP 50MCG 120D NASAL INHL 2 ACTIVE SPRAYS EACH NOSTRIL EVERY DAY 9) Non-VA FUROSEMIDE 20MG TAB 20MG MOUTH EVERY DAY ACTIVE 10) Non-VA GABAPENTIN 100MG CAP 100MG MOUTH TWICE A DAY ACTIVE 11) Non-VA METFORMIN HCL 1000MG TAB 1000MG MOUTH TWO ACTIVE TIMES A DAY 12) Non-VA METOPROLOL SUCCINATE 200MG SA TAB 100MG MOUTH ACTIVE EVERY DAY 13) Non-VA NYSTATIN POWDER TOPICALLY TWICE A DAY ACTIVE 14) Non-VA SENNOSIDES 8.6MG TAB 8.6MG MOUTH EVERY DAY ACTIVE 15) Non-VA VALSARTAN 80MG TAB 120MG MOUTH TWICE A DAY ACTIVE 16) Non-VA WARFARIN (COUMADIN) NA 1MG TAB 10MG MOUTH ACTIVE EVERY DAY 20 Total Medications No Active Remote Medications for this patient Allergies: FACILITY ALLERGY/ADR -------- [facility] Family History: Non contributory Social History: Smoking: Non smoker Dyspnea with exertion with 1 flight of stairs: No (non ambulatory) Physical Exam: General: Aox 3 Resp: NLB RA CV: rate controlled irregular rhythm Abd:soft, non tender Ext: Bilateral lymphedema ( R>>L). Biphasic L DP and PT. Monophasic strong DP and PT . Difficult to assess if palpable because of edema. Labs: INR: INR - NONE FOUND WBC: WBC____ Hemoglobin: HGB____ Platelets: PLT ____ CREATININE____ Imaging: None Assement/Plan: 66 years old MALE with PMH of HTN, HLD, CVD ( recent L MCA distribution infarct), A fib w/ RVR, hyperglycemia, and R pneumonia and has marked B LE lymphedema ( despite Unna boot wraps and sequential pressure wrapping). Has been non ambulatory for last couple of years. - Will obtain US CHRISTIAN to ensure that he can tolerate compression - Referral to lymphedema clinic once non invasives done 15 mins spent on encounter D/w Dr. Matos /zeb/ DOC CAR MD FELLOW Signed: 04/10/2022 11:18 Receipt Acknowledged By: 04/10/2022 15:24 /zeb/ JOSE MATOS MD VASCULAR SURGERY STAFF 04/10/2022 ADDENDUM STATUS: COMPLETED I discussed this patient with Dr. Car, and agree with his plan. Recommend obtaining noninvasive images prior to referral for lymphedema treatment. We will follow-up with additional recommendations. 30 minutes total spent on this encounter. /zeb/ JOSE MATOS MD VASCULAR SURGERY STAFF Signed: 04/10/2022 13:02 04/18/2022 ADDENDUM STATUS: COMPLETED Following up on Lymphedema services per communication with [place] Stroke Rehab team. [facility] is also involved at this point. Patient is receiving some wound therapy services through [facility] to address LE wounds and lymphedma. Spoke with MIRA Shah at [facility] about patient's care. They are requesting lymphedema pumps for this patient d/t barriers/compliance issues with other items trialed. They are [facility]. He is currently not seeing a Certified Lyphedema Therapist (CLT)--working with wound care RNs. Appears patient has upcoming CHRISTIAN testing in 2 weeks at the [place]. Recent [place] Lymphedema consult was cancelled d/t lack of CHRISTIAN testing to date. To faciliate most appropriate care for this patient, promotion writer will place CC OT consult for Lymphedema services at [facility]. MIRA Shah confirmed they have OTs who are trained CLTs, and patient can receive services with them. For continuity of care and increased burden of drive time (~45 min), recommend patient continue services at [facility]. CHRISTIAN results can be sent to [facility] after testing is complete to provide input on appropriate garments to treat lymphedema symptoms. Cosigning Stroke Rehab/Vascular teams for FYI. /zeb/ NATANAEL MARTÍNEZ DPSmiley PHYSICAL THERAPIST Signed: 04/18/2022 12:19 Receipt Acknowledged By: * AWAITING SIGNATURE * ARIA MEADE * AWAITING SIGNATURE * JOSE MATOS * AWAITING SIGNATURE * DOC CAR KAUSTAV [facility]
--- OUTSIDE RECORDS SUMMARY | 2023-03-31 09:45 | XMS_ITS | Encounter Summary ---
Author Name Department of Vetera Affairs Organization Department of Vetera ns Affairs Address [address] [place] [address] Support Name Relationship Address Phone FRANSISCOJULIET ROBERSON Next of Kin [address] [place] [address] SHENA PETERSEN Emergency Contact [address] [place] [address] SHENA PETERSEN Next of Kin [address] [place] [address] Insurance Providers: All historical and current [...] PART A June 18, 2009 PART A [id number] Smiley MOODY PATIENT Selected Encounter This section includes the information on record at [place] for the Encounter. Date/Time Encounter Type Encounter Description Reason Pro vider Source Apr 11, 2022 08:53 AM Outpatient Encounter TELEPHONE/SURGERY IHE Encounter Template Text not used by [...] [place] treatment facilities. Appointment Date/Time Appointment Type Appointme nt Facility Name Apr 25, 2022 06:00 PM [facility]ORY [place] [facility] May 02, 2022 09:30 AM [facility]ORY [place] [facility] May 02, 2022 11:00 AM AMBULATORY - MEDICINE [facility] May 02, 2022 01:00 PM [place] - [place] [facility] May 02, 2022 03:00 PM [facility]ORY - [place] [facility] May 15, 2022 10:30 AM [place] [facility] Jun 15, 2022 10:00 AM [place] [facility] Social History: Smoking Status (Most current) and Tobacco Use (All prior to encounter date) This section includes the most current, and the historical, smoking and tobacco- related health factors from the [place] facility where the Encounter took place. Current Smoking Status This section includes the most current smoking, or tobacco-related health factor, from the [place] facility where the Encounter took place. Date/Time Current Smoking Status Comment Facil ity Jun 14, 2021 08:15 AM VA-TOBACCO USER [...] > 1 5 LESS THAN 30 YEARS [facility] Jun 14, 2021 08:15 AM VA-TOBACCO USE ADVICE [facility] Jun 14, 2021 08:15 AM VA-TOBACCO USE RADIATION CONTROL HEALTH PHYSICIST NO [facility] Jun 14, 2021 08:15 AM VA-TOBACCO USE MED NO [facility] Jun 14, 2021 08:15 AM VA-TOBACCO USER SOME DAYS [facility] Jan 28, 2018 12:26 PM VA-TOBACCO NEVER USED [facility] July 05, 2011 09:38 AM LIFETIME NON-TOBACCO [...] this document. The data comes from all [place] facilities. Date Advance Directives Provider Source July 03, 2011 CLINICAL WARNING RACHAEL KING [facility] Radiology Reports: +/- 30 days of the [...] the Encounter. The data comes from all [place] treatment facilities. Date/Time Radiology Report Provider Source May 02, 2022 09:35 AM US LOWER EXTREMITY ARTERY (BILATERAL) (P): JOSÉ ANTONIO MOODY [id number] -1955 M Exm Date: MAY 02, 2022@09:35 Req Phys: GUILLERMO MATA Loc: [facility] VASC FELLOW (Req'g Loc) Img Loc: Ultrasound Imaging Service: Unknown (Case [id number] COMPLETE) US LOWER EXTREMITY ARTERIES BILAT(US Detailed) CPT:56139 Reason for Study: lymphedema Clinical History: [place] IS NOT under investigation for COVID-19 or is COVID-19 negative bilat lymnphedema Responsible provider name and phone number to notify for critical findings if other than user placing the order and pager listed below: User placing orders pager: LAST CREATININE____ Report Status: Verified Date Reported: MAY 02, 2022 Date Verified: MAY 02, 2022 Restaurant Greeter E-Sig:/ES/ELEUTERIO PERSON MD Report: Duplex Ultrasound of the bilateral Lower Extremity Arteries History: Reason for Study: lymphedema Technique: Arterial duplex examination performed using B-mode, color flow and spectral Doppler assessment. Comparison: ABIs from the same day Findings: Peak systolic velocities were measured as follows: Right lower extremity: FLY RAIL OPERATOR prox: 60 cm/sec FLY RAIL OPERATOR mid: 79 cm/sec FLY RAIL OPERATOR distal: 81 cm/sec PFA: 46 cm/sec SFA prox: 88 cm/sec SFA mid: 72 cm/sec SFA distal: 72 cm/sec Popliteal prox: 57 cm/sec Popliteal mid: 51 cm/sec Popliteal distal: 49 cm/sec STERLING prox calf: 50 cm/sec Common trunk: 66 cm/sec CARE PROVIDER ankle: 64 cm/sec STERLING ankle: 33 cm/sec Waveforms are diffusely multiphasic with the exception of the tibioperoneal trunk and the CARE PROVIDER at the ankle which are monophasic . Left lower extremity: FLY RAIL OPERATOR prox: 94 cm/sec FLY RAIL OPERATOR mid: 94 cm/sec FLY RAIL OPERATOR distal: 103 cm/sec PFA: 70 cm/sec SFA prox: 90 cm/sec SFA mid: 81 cm/sec SFA distal: 62 cm/sec Popliteal prox: 57 cm/sec Popliteal mid: 45 cm/sec Popliteal distal: 52 cm/sec STERLING prox calf: 37 cm/sec Common trunk: 58 cm/sec CARE PROVIDER ankle: 24 cm/sec STERLING ankle: 33 cm/sec Waveforms are diffusely multiphasic with the exception of the CARE PROVIDER at the ankle which is monophasic . Impression: 1. Right leg arteries: Patent lower extremity arteries without evidence for focal hemodynamically significant stenosis. 2. Left leg arteries: Patent lower extremity arteries without evidence for focal hemodynamically significant stenosis. THE REPORT OF THE PATIENT'S FINDINGS ENDS HERE. Lower Extremity Arterial Duplex Interpretation Guidelines ([place] arteries, bypass grafts, iliac, femoral, popliteal and [...] of the occlusion. Reconstitution is recognized by scientologist of color in the artery with a collateral vessel identified at the level of reconstitution. Note: Extremely low flow states are present both above and below occlusions; make sure the color parameters are adjusted to detect these low velocities. Otherwise, the length of the occlusion could be overestimated. Primary Interpreting Staff: ELEUTERIO PERSON MD, RADIOLOGIST (Restaurant Greeter) /ELEUTERIO SCOTT [facility] May 02, 2022 09:33 AM SEGMENTALS/CHRISTIAN: FRANSISCOJOSÉ ANTONIO ROBERSON [id number] -1955 Exm Date: MAY 02, 2022@09:33 Req Phys: GUILLERMO MATA Loc: [facility] VASC FELLOW (Req'g Loc) Img Loc: VASCULAR LAB PROCEDURES Service: Unknown (Case [id number] COMPLETE) SEGMENTALS/CHRISTIAN (VAS Detailed) CPT:49051 Reason for Study: lymphedema Clinical History: IS NOT under investigation for COVID-19 or is COVID-19 negative bilat lymnphedema Responsible provider name and phone number to notify for critical findings if other than user placing the order and pager listed below: User placing orders pager: LAST CREATININE____ Report Status: Verified Date Reported: MAY 02, 2022 Date Verified: MAY 02, 2022 Restaurant Greeter E-Sig:/ES/ELEUTERIO PERSON MD Report: Bilateral Lower Extremity [...] Primary Interpreting Staff: ELEUTERIO PERSON MD, RADIOLOGIST (Restaurant Greeter) /ELEUTERIO SCOTT [facility] Encounter Notes: All associated encounter notes This section contains the clinical notes associated to the Encounter. Date/Time Encounter Note(s) Provider Source Apr 11, 2022 08:53 AM REPORT OF CONTACT: LOCAL TITLE: APPOINTMENT SCHEDULING NOTE STANDARD TITLE: REPORT OF CONTACT DATE OF NOTE: APR 11, 2022@08:53 ENTRY DATE: APR 11, 2022@08:54:02 AUTHOR: NO MOMIN EXP COSIGNER: URGENCY: STATUS: COMPLETED Attempted to schedule Return to clinic (RTC) Spoke with pt sonKarri about scheduling. ULS needs to be done first. Transferred him to Imaging scheduling line ([phone]) to either schedule or LM. He asked that we call him back to schedule appt for Dad. Return to [facility] FISHERIES MANAGER PHONE on or around ( Apr 17, 2022 ) for a total of 1 appointment(s) Prerequisites: Imaging Orders FISHERIES MANAGER Phone or Fellow phone , US prior /zeb/ NO MOMIN Advanced Line Welder Signed: 04/11/2022 08:56 NO MOMIN [facility]
--- OUTSIDE RECORDS SUMMARY | 2023-03-31 09:46 | XMS_ITS | Encounter Summary ---
Author Name Department of Vetera Affairs Organization Department of Vetera ns Affairs Address [address] [place] [address] Support Name Relationship Address Phone FRANSISCOJULIET ROBERSON Next of Kin [address] [place] [address] SHENA PETERSEN Emergency Contact [address] [place] [address] SHENA PETERSEN Next of Kin [address] [place] [address] Insurance Providers: All historical and current [...] PART A June 18, 2009 PART A [id number] [phone] Smiley MOODY PATIENT Selected Encounter This section includes the information on record at [place] for the Encounter. Date/Time Encounter Type Encounter Description Reason Provider Source May 02, 2022 11:00 AM WHEELCHAIR MNGMENT TRAINING WHEELCHAIR & ADVAN MOBILITY ICD-10-CM R26.9 Unspecified abnormalities of gait and mobility HORTENSIA CHANEY [facility] Encounter Template Text not used by [place] Assessments - Encounter Diagnoses This section includes the primary and secondary diagnoses documented for the Encounter. Date/Time Primary/Secondary Diagnosis Diagnosis Name Provider Source May 02, 2022 03:56 PM PRIMARY Unspecified abnormalities of gait and mobility HORTENSIA CHANEY [facility] Plan of Treatment: Future Appointments (+ 6 months) and Future Tests (+/- 45 days) The Plan of Treatment section includes future care activities for the patient from all [place] [facility]. This section includes future appointments and future orders which are active, pending or scheduled. Future Appointments This section includes appointments that were scheduled to occur 6 months from the date of the Encounter, up to a maximum of 20 appointments. The data comes from all [place] treatment facilities. Appointment Date/Time Appointment Type Appointme nt Facility Name May 15, 2022 10:30 AM AMBULATORY - NONE [facility] Jun 15, 2022 10:00 AM AMBULATORY - NONE [facility] Oct 11, 2022 02:30 PM AMBULATORY - SURGERY [facility] Social History: Smoking Status (Most current) and Tobacco Use (All prior to encounter date) This section includes the most current, and the historical, smoking and tobacco- related health factors from the [place] facility where the Encounter took place. Current Smoking Status This section includes the most current smoking, or tobacco-related health factor, from the [place] facility where the Encounter took place. Date/Time Current Smoking Status Comment Facil ity Jun 14, 2021 08:15 AM VA-TOBACCO DOESNT USE WI 30 MIN WAKEUP [facility] Tobacco Use History This section includes a history of the smoking, or tobacco-related health factors, that were collected on or before the date of the Encounter. The data comes from the [place] facility where the Encounter took place. Date/Time Smoking Status/Tobacco Use Comment F acility Jun 14, 2021 08:15 AM VA-TOBACCO USE > 1 5 LESS THAN 30 YEARS [facility] Jun 14, 2021 08:15 AM VA-TOBACCO USE ADVICE [facility] Jun 14, 2021 08:15 AM VA-TOBACCO USE SENIOR SECURITY ANALYST NO [facility] Jun 14, 2021 08:15 AM VA-TOBACCO USE MED NO [facility] Jun 14, 2021 08:15 AM VA-TOBACCO USER SOME DAYS [facility] Jan 28, 2018 12:26 PM VA-TOBACCO NEVER USED [facility] July 05, 2011 09:38 AM LIFETIME NON-TOBACCO USER [facility] July 03, 2011 06:04 PM LIFETIME NON-TOBACCO USER [facility] Nov 20, 2007 08:19 AM LIFETIME NON-TOBACCO USER [facility] Advance Directives: All historical and [...] July 03, 2011 CLINICAL WARNING RACHAEL KING [facility] Radiology Reports: +/- 30 days of the [...] the Encounter. The data comes from all [place] treatment facilities. Date/Time Radiology Report Provider Source May 02, 2022 09:35 AM US LOWER EXTREMITY ARTERY (BILATERAL) (P): JOSÉ ANTONIO MOODY [id number] -1955 M Exm Date: MAY 02, 2022@09:35 Req Phys: GUILLERMO MATA Loc: [facility] VASC FELLOW (Req'g Loc) Img Loc: Ultrasound Imaging Service: Unknown (Case [id number] COMPLETE) US LOWER EXTREMITY ARTERIES BILAT(US Detailed) CPT:62197 Reason for Study: lymphedema Clinical History: [place] IS NOT under investigation for COVID-19 or is COVID-19 negative bilat lymnphedema Responsible provider name and phone number to notify for critical findings if other than user placing the order and pager listed below: User placing orders pager: LAST CREATININE____ Report Status: Verified Date Reported: MAY 02, 2022 Date Verified: MAY 02, 2022 Bellows Assembler E-Sig:/ES/ELEUTERIO PERSON MD Report: Duplex Ultrasound of the bilateral Lower Extremity Arteries History: Reason for Study: lymphedema Technique: Arterial duplex examination performed using B-mode, color flow and spectral Doppler assessment. Comparison: ABIs from the same day Findings: Peak systolic velocities were measured as follows: Right lower extremity: BIOSECURITY OFFICER prox: 60 cm/sec BIOSECURITY OFFICER mid: 79 cm/sec BIOSECURITY OFFICER distal: 81 cm/sec PFA: 46 cm/sec SFA prox: 88 cm/sec SFA mid: 72 cm/sec SFA distal: 72 cm/sec Popliteal prox: 57 cm/sec Popliteal mid: 51 cm/sec Popliteal distal: 49 cm/sec STERLING prox calf: 50 cm/sec Common trunk: 66 cm/sec KAYAKING INSTRUCTOR ankle: 64 cm/sec STERLING ankle: 33 cm/sec Waveforms are diffusely multiphasic with the exception of the tibioperoneal trunk and the KAYAKING INSTRUCTOR at the ankle which are monophasic . Left lower extremity: BIOSECURITY OFFICER prox: 94 cm/sec BIOSECURITY OFFICER mid: 94 cm/sec BIOSECURITY OFFICER distal: 103 cm/sec PFA: 70 cm/sec SFA prox: 90 cm/sec SFA mid: 81 cm/sec SFA distal: 62 cm/sec Popliteal prox: 57 cm/sec Popliteal mid: 45 cm/sec Popliteal distal: 52 cm/sec STERLING prox calf: 37 cm/sec Common trunk: 58 cm/sec KAYAKING INSTRUCTOR ankle: 24 cm/sec STERLING ankle: 33 cm/sec Waveforms are diffusely multiphasic with the exception of the KAYAKING INSTRUCTOR at the ankle which is monophasic . Impression: 1. Right leg arteries: Patent lower extremity arteries without evidence for focal hemodynamically significant stenosis. 2. Left leg arteries: Patent lower extremity arteries without evidence for focal hemodynamically significant stenosis. THE REPORT OF THE PATIENT'S FINDINGS ENDS HERE. Lower Extremity Arterial Duplex Interpretation Guidelines ([place] arteries, bypass grafts, iliac, femoral, popliteal and [...] Primary Interpreting Staff: ELEUTERIO PERSON MD, RADIOLOGIST (Bellows Assembler) /ELEUTERIO SCOTT [facility] May 02, 2022 09:33 AM SEGMENTALS/CHRISTIAN: JOSÉ ANTONIO MOODY [id number] -1955 M Exm Date: MAY 02, 2022@09:33 Req Phys: GUILLERMO MATA Loc: [facility] VASC FELLOW (Req'g Loc) Img Loc: VASCULAR LAB PROCEDURES Service: Unknown (Case [id number] COMPLETE) SEGMENTALS/CHRISTIAN (VAS Detailed) CPT:13967 Reason for Study: lymphedema Clinical History: [place] IS NOT under investigation for COVID-19 or is COVID-19 negative bilat lymnphedema Responsible provider name and phone number to notify for critical findings if other than user placing the order and pager listed below: User placing orders pager: LAST CREATININE____ Report Status: Verified Date Reported: MAY 02, 2022 Date Verified: MAY 02, 2022 Bellows Assembler E-Sig:/ES/ELEUTERIO PERSON MD Report: Bilateral Lower Extremity [...] Primary Interpreting Staff: ELEUTERIO PERSON MD, RADIOLOGIST (Bellows Assembler) /ELEUTERIO SCOTT [facility] Encounter Notes: All associated encounter notes This section contains the clinical notes associated to the Encounter. Date/Time Encounter Note(s) Provider Source May 02, 2022 03:42 PM OCCUPATIONAL THERAPY NOTE: LOCAL TITLE: OT-PROGRESS NOTE STANDARD TITLE: OCCUPATIONAL THERAPY NOTE DATE OF NOTE: MAY 02, 2022@15:42 ENTRY DATE: MAY 02, 2022@15:42:42 AUTHOR: HORTENSIA CHANEY EXP COSIGNER: URGENCY: STATUS: COMPLETED OCCUPATIONAL THERAPY PROGRESS NOTE Treatment Diagnosis: Unspecified Abnormalities of Gait and Mobility(ICD-10-CM R26.9) Referring Provider: VICKY SALEH Date of Initial: Oct 19, 2021 Precautions: falls Pt seen as an outpatient on 05/02/2022 for: - wheelchair mgmt training 53 mins (4 Units) Vet arrives this date in a courtesy [facility] accompanied by his son. He is attending clinic today for disbursement of his [employer] [facility] pwc (S/N:[id number]) and BroadClip M2 cushion. Vet transfers into w/c with SBA Vet position himself back in the chair. The back, headrest and armrests were adjusted at last OT appointment. Large hand support was attached to the right side Simeon Williams arm trough. Foot rests adjusted to correct height. The vet has significant difficulty lifting and lowering the footplates of the center mount foot support. The vet's sone notes that for transfers the vet is proficient at flipping up the foot plates of swing away footrests. These will be ordered for the vet to improve independence with moving the foot support out of the way for safe transfers. Joystick position is adjusted to provide proper shoulder and hand position and optimal control while driving. Reviewed modes/profiles and operation of pwc. Vet completed test drive safely using appropriate speeds and observing safety when approaching corners or crowded areas without need for changes to programming The Total Weight of the wheelchair is: 404 lbs. GOALS: - Patient verbalized understanding of responsibilities for transporting power mobility device, and PSAS repair policy. - MET - Patient will demonstrate appropriate use of new power mobility device on a variety surfaces. - MET - Patient will verbalize understanding of safety concepts about power mobility use and incorporate into driving skills. MET NEW GOAL (05/02/22) - By the end of the episode of care the vet will be able to independently move front foot supports out of his way for safe transfers with minimal difficulty. EDUCATION: Readiness to Learn: Ready to learn Educational Topics: features of new pwc, how to protect the joystick in rain, proper uses for wheelchair. Provided Mobility Device Informational hand out and [facility] - Wheelchair Clinic Power Mobility handout and reviewed charging of batteries, Storage Cleaning, Brake release, outdoor use, and wheelchair replacement. Vet was provided wheelchair clinic and Prosthetics phone numbers. Participant(s): Patient and son Teaching Strategy: 1:1, Written Materials Participant verbalizes understanding and demonstrates safe driving. Plan: 1) New swing away foot rests and brackets to be installed on w/c by w/c tech. 2) Vet to RTC for 1 60 min session for adjustment of footrests /es/ HORTENSIA CHANEY OTR/Francois,ATP,SMS OCCUPATIONAL THERAPIST Signed: 05/02/2022 15:57 HORTENSIA CHNAEY [facility]
--- OUTSIDE RECORDS SUMMARY | 2023-03-31 09:46 | XMS_ITS | Encounter Summary ---
Author Name Department of Vetera ns Affairs Organization Department of Vetera ns Affairs Address [address] [place] [address] Support Name Relationship Address Phone FRANSISCORIA ROBERSONIS Next of Kin [address] [place] [address] SHENA PETERSEN Emergency Contact [address] [place] [address] SHENA PETERSEN Next of Kin [address] [place] [address] Insurance Providers: All historical and current [...] PART A June 18, 2009 PART A [id number] [phone] Smiley MOODY PATIENT Selected Encounter This section includes the information on record at [place] for the Encounter. Date/Time Encounter Type Encounter Description Reason Pro vider Source June 18, 2022 02:48 PM Outpatient Encounter PRIMARY CARE/MEDICINE IHE Encounter Template Text not used by [place] Plan of Treatment: Future Appointments (+ 6 months) and Future Tests (+/- 45 days) The Plan of Treatment section includes future care activities for the patient from all [place] treatmentfacilities. This section includes future appointments and future orders which are active, pending or scheduled. Future Appointments This section includes appointments that were scheduled to occur 6 months from the date of the Encounter, up to a maximum of 20 appointments. The data comes from all [place] treatment facilities. Appointment Date/Time Appointment Type Appointme nt Facility Name Oct 11, 2022 02:30 PM AMBULATORY - SURGERY [facility] Social History: Smoking Status (Most current) and Tobacco Use (All prior to encounter date) This section includes the most current, and the historical, smoking and tobacco- related health factors from the [place] facility where the Encounter took place. Current Smoking Status This section includes the most current smoking, or tobacco-related health factor, from the [place] facility where the Encounter took place. Date/Time Current Smoking Status Comment Jorge ity Jun 14, 2021 08:15 AM VA-TOBACCO DOESNT USE WI 30 MIN WAKEUP [facility] Tobacco Use History This section includes a history of the smoking, or tobacco-related health factors, that were collected on or before the date of the Encounter. The data comes from the [place] facility where the Encounter took place. 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 The entries below indicate that a directive exists for the patient, but an actual copy is not included with this document. The data comes from all [facility]. Date Advance Directives Provider Source July 03, 2011 CLINICAL WARNING RACHAEL KING [facility] Encounter Notes: All associated encounter notes This section contains the clinical notes associated to the Encounter. Date/Time Encounter Note(s) Provider Source June 18, 2022 02:48 PM REPORT OF CONTACT: LOCAL TITLE: APPOINTMENT SCHEDULING NOTE STANDARD TITLE: REPORT OF CONTACT DATE OF NOTE: JUNE 18, 2022@14:48 ENTRY DATE: JUNE 18, 2022@14:48:18 AUTHOR: NALLELY REDDY EXP COSIGNER: URGENCY: STATUS: COMPLETED APPOINTMENT SCHEDULING NOTE Has ADDENDA Attempted to schedule Recall/Patient Center Scheduling (PtCSch) Contact attempt made to [place] 1st attempt Letter 2nd attempt Telephone Left message on voice mail to call back to this number [phone] If calls back, schedule appt for: msp pact karen 4D 60 minute appointment F/I fasting lab /zeb/ NALLELY REDDY SOCIAL MEDIA MARKETING ANALYST Signed: 06/18/2022 14:50 06/19/2022 ADDENDUM STATUS: COMPLETED Order can be dispositioned 07/01/2022 /inga REDDY SOCIAL MEDIA MARKETING ANALYST Signed: 06/19/2022 08:59 NALLELY REDDY [facility]
--- OUTSIDE RECORDS SUMMARY | 2023-03-31 09:46 | XMS_ITS | Encounter Summary ---
Author Name Department of Vetera Affairs Organization Department of Vetera ns Affairs Address [address] [place] [address] Support Name Relationship Address Phone FRANSISCOJULIET ROBERSON Next of Kin [address] [place] [address] SHENA PETERSEN Emergency Contact [address] [place] [address] SHENA PETERSEN Next of Kin [address] [place] [address] Insurance Providers: All historical and current [...] PART A June 18, 2009 PART A [id number] Smiley MOODY PATIENT Selected Encounter This section includes the information on record at [place] for the Encounter. Date/Time Encounter Type Encounter Description Reason Pro vider Source May 15, 2022 12:00 AM Outpatient Encounter COMMUNITY CARE CONSULT IHE Encounter Template Text not used [...] [place] treatment facilities. Appointment Date/Time Appointment Type Appointme nt Facility Name Jun 15, 2022 10:00 AM AMBULATORY - NONE [facility] Oct 11, 2022 02:30 PM AMBULATORY - SURGERY [facility] Social History: Smoking Status (Most current) and Tobacco Use (All prior to encounter date) This section includes the most current, and the historical, smoking and tobacco- related health factors from the [place] facility where the Encounter took place. Current Smoking Status This section includes the most current smoking, or tobacco-related health factor, from the [place] facility where the Encounter took place. Date/Time Current Smoking Status Comment Facil ity Jun 14, 2021 08:15 AM VA-TOBACCO USER SOME DAYS [facility] Tobacco Use History This section includes a history of the smoking, or tobacco-related health factors, that were collected on or before the date of the Encounter. The data comes from the [place] facility where the Encounter took place. Date/Time Smoking Status/Tobacco Use Comment F acility Jun 14, 2021 08:15 AM VA-TOBACCO USE > 1 5 LESS THAN 30 YEARS [facility] Jun 14, 2021 08:15 AM VA-TOBACCO USE ADVICE [facility] Jun 14, 2021 08:15 AM VA-TOBACCO USE CLIENT APPLICATION SUPPORT SPECIALIST NO [facility] Jun 14, 2021 08:15 AM VA-TOBACCO USE MED NO [facility] Jun 14, 2021 08:15 AM VA-TOBACCO USER SOME DAYS [facility] Jan 28, 2018 12:26 PM VA-TOBACCO NEVER USED [facility] July 05, 2011 09:38 AM LIFETIME NON-TOBACCO USER [facility] July 03, 2011 06:04 PM LIFETIME NON-TOBACCO USER [facility] Nov 20, 2007 08:19 AM LIFETIME NON-TOBACCO USER [facility] Advance Directives: All historical and current Section Date Range: From patient's date of to the date document was created. This section includes ALL of a patient's completed or amended [place] Advance and Rescinded Directives. The entries below indicate that a directive exists for the patient, but an actual copy is not included with this document. The data comes from all [facility]. Date Advance Directives Provider Source July 03, 2011 CLINICAL WARNING FERNANDORACHAEL [facility] Radiology Reports: +/- 30 days of the [...] data comes from all [place] treatment facilities. Date/Time Radiology Report Provider Source May 02, 2022 09:35 AM US LOWER EXTREMITY ARTERY (BILATERAL) (P): JOSÉ ANTONIO MOODY [id number] -1955 M Exm Date: MAY 02, 2022@09:35 Req Phys: GUILLERMO MATA Loc: [facility] VASC FELLOW (Req'g Loc) Img Loc: Ultrasound Imaging Service: Unknown (Case [id number] COMPLETE) US LOWER EXTREMITY ARTERIES BILAT(US Detailed) CPT:88578 Reason for Study: lymphedema Clinical History: IS NOT under investigation for COVID-19 or is COVID-19 negative bilat lymnphedema Responsible provider name and phone number to notify for critical findings if other than user placing the order and pager listed below: User placing orders pager: LAST CREATININE____ Report Status: Verified Date Reported: MAY 02, 2022 Date Verified: MAY 02, 2022 Residential Leasing Manager E-Sig:/ES/ELEUTERIO PERSON MD Report: Duplex Ultrasound of the bilateral Lower Extremity Arteries History: Reason for Study: lymphedema Technique: Arterial duplex examination performed using B-mode, color flow and spectral Doppler assessment. Comparison: ABIs from the same day Findings: Peak systolic velocities were measured as follows: Right lower extremity: SPAR MACHINE OPERATOR HELPER prox: 60 cm/sec SPAR MACHINE OPERATOR HELPER mid: 79 cm/sec SPAR MACHINE OPERATOR HELPER distal: 81 cm/sec PFA: 46 cm/sec SFA prox: 88 cm/sec SFA mid: 72 cm/sec SFA distal: 72 cm/sec Popliteal prox: 57 cm/sec Popliteal mid: 51 cm/sec Popliteal distal: 49 cm/sec STERLING prox calf: 50 cm/sec Common trunk: 66 cm/sec RAZOR GRINDER ankle: 64 cm/sec STERLING ankle: 33 cm/sec Waveforms are diffusely multiphasic with the exception of the tibioperoneal trunk and the RAZOR GRINDER at the ankle which are monophasic . Left lower extremity: SPAR MACHINE OPERATOR HELPER prox: 94 cm/sec SPAR MACHINE OPERATOR HELPER mid: 94 cm/sec SPAR MACHINE OPERATOR HELPER distal: 103 cm/sec PFA: 70 cm/sec SFA prox: 90 cm/sec SFA mid: 81 cm/sec SFA distal: 62 cm/sec Popliteal prox: 57 cm/sec Popliteal mid: 45 cm/sec Popliteal distal: 52 cm/sec STERLING prox calf: 37 cm/sec Common trunk: 58 cm/sec RAZOR GRINDER ankle: 24 cm/sec STERLING ankle: 33 cm/sec Waveforms are diffusely multiphasic with the exception of the RAZOR GRINDER at the ankle which is monophasic . Impression: 1. Right leg arteries: Patent lower extremity arteries without evidence for focal hemodynamically significant stenosis. 2. Left leg arteries: Patent lower extremity arteries without evidence for focal hemodynamically significant stenosis. THE REPORT OF THE PATIENT'S FINDINGS ENDS HERE. Lower Extremity Arterial Duplex Interpretation Guidelines (tribe arteries, bypass grafts, iliac, femoral, popliteal and [...] of the occlusion. Reconstitution is recognized by zoroastrian of color in the artery with a collateral vessel identified at the level of reconstitution. Note: Extremely low flow states are present both above and below occlusions; make sure the color parameters are adjusted to detect these low velocities. Otherwise, the length of the occlusion could be overestimated. Primary Interpreting Staff: ELEUTERIO PERSON MD, RADIOLOGIST (Residential Leasing Manager) /ELEUTERIO SCOTT [facility] May 02, 2022 09:33 AM SEGMENTALS/CHRISTIAN: JOSÉ ANTONIO MOODY [id number] -1955 M Ex Date: MAY 02, 2022@09:33 Req Phys: GUILLERMO MATA [facility] Loc) Img Loc: VASCULAR LAB PROCEDURES Service: Unknown (Case [id number] COMPLETE) SEGMENTALS/CHRISTIAN (VAS Detailed) CPT:52825 Reason for Study: lymphedema Clinical History: [place] IS NOT under investigation for COVID-19 or is COVID-19 negative bilat lymnphedema Responsible provider name and phone number to notify for critical findings if other than user placing the order and pager listed below: User placing orders pager: LAST CREATININE____ Report Status: Verified Date Reported: MAY 02, 2022 Date Verified: MAY 02, 2022 Residential Leasing Manager E-Sig:/ES/ELEUTERIO PERSON MD Report: Bilateral Lower Extremity [...] Primary Interpreting Staff: ELEUTERIO PERSON MD, RADIOLOGIST (Residential Leasing Manager) /ELEUTERIO SCOTT [facility] Encounter Notes: All associated encounter notes This section contains the clinical notes associated to the Encounter. Date/Time Encounter Note(s) Provider Source May 15, 2022 12:00 AM NONVA CONSULT: LOCAL TITLE: COMMUNITY CARE CONSULT RESULT OCCUPATIONAL THERAPY STANDARD TITLE: NONVA CONSULT DATE OF NOTE: MAY 15, 2022 ENTRY DATE: MAY 21, 2022@14:33:46 AUTHOR: PROCESS,RPA EXP COSIGNER: URGENCY: STATUS: COMPLETED COMMUNITY CARE CONSULT RESULT OCCUPATIONAL THERAPY Has ADDENDA [employer] - Scanned Document COMMUNITY CARE-TITLE I [employer] APPOINTMENT INFORMATION Documentation received from non-VA provider and scanned into [employer]. /zeb/ NOEL PROCESS Signed: 05/21/2022 14:33 08/23/2022 ADDENDUM STATUS: COMPLETED Alerting PACT: Please see attached Plan of Care for outside OT vendor. Please review, print, sign and refax form to vendor at your earliest convenience. /zeb/ MIRA Jimenez MA radio director Basic Acoustic Analyst Signed: 08/23/2022 13:31 Receipt Acknowledged By: 08/23/2022 14:16 /zeb/ Aaron Atkins D.O. Staff Physician for MONI LATOYA BROWN * AWAITING SIGNATURE * MK DELEON 08/23/2022 ADDENDUM STATUS: COMPLETED Form signed and given to MSAs to fax return. /zeb/ Aaron Atkins D.O. Staff Physician Signed: 08/23/2022 14:16 PROCESS,NOEL [facility]
--- OUTSIDE RECORDS SUMMARY | 2023-03-31 09:46 | XMS_ITS | Encounter Summary ---
Author Name Department of Vetera Affairs Organization Department of Vetera ns Affairs Address [address] [place] [address] Support Name Relationship Address Phone FRANSISCOJULIET ROBERSON Next of Kin [address] [place] [address] SHENA PETERSEN Emergency Contact [address] [place] [address] SHENA PETERSEN Next of Kin [address] [place] [address] Insurance Providers: All historical and current [...] PART A June 18, 2009 PART A [id number] [phone] Smiley MOODY PATIENT Selected Encounter This section includes the information on record at [place] for the Encounter. Date/Time Encounter Type Encounter Description Reason Provider Source May 15, 2022 10:30 AM Outpatient Encounter COMMUNITY CARE CONSULT RIKA NICHOLE Miko Encounter Template Text not used by [place] Plan of Treatment: Future Appointments (+ 6 months) and Future Tests (+/- 45 days) The Plan of Treatment section includes future care activities for the patient from all [place] treatmentfacilities. This section includes future appointments and future orders which are active, pending or scheduled. Future Appointments This section includes appointments that were scheduled to occur 6 months from the date of the Encounter, up to a maximum of 20 appointments. The data comes from all [place] treatment facilities. Appointment Date/Time Appointment Type Appointme nt Facility Name Jun 15, 2022 10:00 AM AMBULATORY - NONE [facility] Oct 11, 2022 02:30 PM AMBULATORY - SURGERY [facility] Social History: Smoking Status (Most current) and Tobacco Use (All prior to encounter date) This section includes the most current, and the historical, smoking and tobacco- related health factors from the [place] facility where the Encounter took place. Current Smoking Status This section includes the most current smoking, or tobacco-related health factor, from the [place] facility where the Encounter took place. Date/Time Current Smoking Status Comment Facil ity Jun 14, 2021 08:15 AM VA-TOBACCO USER SOME DAYS [facility] Tobacco Use History This section includes a history of the smoking, or tobacco-related health factors, that were collected on or before the date of the Encounter. The data comes from the [place] facility where the Encounter took place. Date/Time Smoking Status/Tobacco Use Comment F acility Jun 14, 2021 08:15 AM VA-TOBACCO USE > 1 5 LESS THAN 30 YEARS [facility] Jun 14, 2021 08:15 AM VA-TOBACCO USE ADVICE [facility] Jun 14, 2021 08:15 AM VA-TOBACCO USE AUDIOVISUAL PRODUCTION SPECIALIST NO [facility] Jun 14, 2021 08:15 AM VA-TOBACCO USE MED NO [facility] Jun 14, 2021 08:15 AM VA-TOBACCO USER SOME DAYS [facility] Jan 28, 2018 12:26 PM VA-TOBACCO NEVER USED [facility] July 05, 2011 09:38 AM LIFETIME [...] ALL of a patient's completed or amended [place] Advance and Rescinded Directives. The entries below indicate that a directive exists for the patient, but an actual copy is not included with this document. The data comes from all [facility]. Date Advance Directives Provider Source July 03, 2011 CLINICAL WARNING FERNANDORACHAEL [facility] Radiology Reports: +/- 30 days of [...] the Encounter. The data comes from all [place] treatment facilities. Date/Time Radiology Report Provider Source May 02, 2022 09:35 AM US LOWER EXTREMITY ARTERY (BILATERAL) (P): JOSÉ ANTONIO MOODY [id number] -1955 M Exm Date: MAY 02, 2022@09:35 Req Phys: GUILLERMO MATA Loc: [facility] VASC FELLOW (Req'g Loc) Img Loc: Ultrasound Imaging Service: Unknown (Case [id number] COMPLETE) US LOWER EXTREMITY ARTERIES BILAT(US Detailed) CPT:20476 Reason for Study: lymphedema Clinical History: IS NOT under investigation for COVID-19 or is COVID-19 negative bilat lymnphedema Responsible provider name and phone number to notify for critical findings if other than user placing the order and pager listed below: User placing orders pager: LAST CREATININE____ Report Status: Verified Date Reported: MAY 02, 2022 Date Verified: MAY 02, 2022 Detector Car Operator E-Sig:/ES/ELEUTERIO PERSON MD Report: Duplex Ultrasound of the bilateral Lower Extremity Arteries History: Reason for Study: lymphedema Technique: Arterial duplex examination performed using B-mode, color flow and spectral Doppler assessment. Comparison: ABIs from the same day Findings: Peak systolic velocities were measured as follows: Right lower extremity: STRAW BOSS prox: 60 cm/sec STRAW BOSS mid: 79 cm/sec STRAW BOSS distal: 81 cm/sec PFA: 46 cm/sec SFA prox: 88 cm/sec SFA mid: 72 cm/sec SFA distal: 72 cm/sec Popliteal prox: 57 cm/sec Popliteal mid: 51 cm/sec Popliteal distal: 49 cm/sec STERLING prox calf: 50 cm/sec Common trunk: 66 cm/sec MONITOR AND STORAGE BIN TENDER ankle: 64 cm/sec STERLING ankle: 33 cm/sec Waveforms are diffusely multiphasic with the exception of the tibioperoneal trunk and the MONITOR AND STORAGE BIN TENDER at the ankle which are monophasic . Left lower extremity: STRAW BOSS prox: 94 cm/sec STRAW BOSS mid: 94 cm/sec STRAW BOSS distal: 103 cm/sec PFA: 70 cm/sec SFA prox: 90 cm/sec SFA mid: 81 cm/sec SFA distal: 62 cm/sec Popliteal prox: 57 cm/sec Popliteal mid: 45 cm/sec Popliteal distal: 52 cm/sec STERLING prox calf: 37 cm/sec Common trunk: 58 cm/sec MONITOR AND STORAGE BIN TENDER ankle: 24 cm/sec STERLING ankle: 33 cm/sec Waveforms are diffusely multiphasic with the exception of the MONITOR AND STORAGE BIN TENDER at the ankle which is monophasic . Impression: 1. Right leg arteries: Patent lower extremity arteries without evidence for focal hemodynamically significant stenosis. 2. Left leg arteries: Patent lower extremity arteries without evidence for focal hemodynamically significant stenosis. THE REPORT OF THE PATIENT'S FINDINGS ENDS HERE. Lower Extremity Arterial Duplex Interpretation Guidelines ([place] arteries, bypass grafts, iliac, femoral, popliteal and [...] of the occlusion. Reconstitution is recognized by anabaptist of color in the artery with a collateral vessel identified at the level of reconstitution. Note: Extremely low flow states are present both above and below occlusions; make sure the color parameters are adjusted to detect these low velocities. Otherwise, the length of the occlusion could be overestimated. Primary Interpreting Staff: ELEUTERIO PERSON MD, RADIOLOGIST (Detector Car Operator) /ELEUTERIO SCOTT [facility] May 02, 2022 09:33 AM SEGMENTALS/CHRISTIAN: JOSÉ ANTONIO MOODY [id number] -1955 M Ex Date: MAY 02, 2022@09:33 Req Phys: GUILLERMO MATA Loc: [facility] VASC FELLOW (Req'g Loc) Img Loc: VASCULAR LAB PROCEDURES Service: Unknown (Case [id number] COMPLETE) SEGMENTALS/CHRISTIAN (VAS Detailed) CPT:23506 Reason for Study: lymphedema Clinical History: IS NOT under investigation for COVID-19 or is COVID-19 negative bilat lymnphedema Responsible provider name and phone number to notify for critical findings if other than user placing the order and pager listed below: User placing orders pager: LAST CREATININE____ Report Status: Verified Date Reported: MAY 02, 2022 Date Verified: MAY 02, 2022 travayl E-Sig:/ES/ELEUTERIO PERSON MD Report: Bilateral Lower Extremity [...] Primary Interpreting Staff: ELEUTERIO PERSON MD, RADIOLOGIST (Detector Car Operator) /ELEUTERIO SCOTT [facility]
--- OUTSIDE RECORDS SUMMARY | 2023-03-31 09:46 | XMS_ITS | Encounter Summary ---
Author Name Department of Vetera ns Affairs Organization Department of Vetera ns Affairs Address [address] [place] [address] Support Name Relationship Address Phone FRANSISCOJULIET ROBERSON Next of Kin [address] [place] [address] SHENA PETERSEN Emergency Contact [address] [place] [address] SHENA PETERSEN Next of Kin [address] [place] [address] Insurance Providers: All historical and current [...] PART A June 18, 2009 PART A [id number] [phone] Smiley MOODY PATIENT Selected Encounter This section includes the information on record at [place] for the Encounter. Date/Time Encounter Type Encounter Description Reason Provider Source Oct 11, 2022 02:30 PM Outpatient Encounter TELEPHONE/SURGER Y ICD-10-CM I87.2 Venous insufficiency (chronic) (peripheral) DANNIELLE MATA [facility] Encounter Template Text not used by [place] Assessments - Encounter Diagnoses This section includes the primary and secondary diagnoses documented for the Encounter. Date/Time Primary/Secondary Diagnosis Diagnosis Name Provider Source Oct 11, 2022 02:30 PM PRIMARY Venous insufficiency (chronic) (peripheral) DANNIELLE MATA [facility] Plan of Treatment: Future Appointments (+ 6 months) and Future Tests (+/- 45 days) The Plan of Treatment section includes future care activities for the patient from all [facility]. This section includes future appointments and future orders which are active, pending or scheduled. Future Appointments This section includes appointments that were scheduled to occur 6 months from the date of the Encounter, up to a maximum of 20 appointments. The data comes from all [facility] facilities. Appointment Date/Time Appointment Type Appointme nt Facility Name Feb 04, 2023 06:12 PM [facility] Feb 12, 2023 08:30 AM AMBULATORY - MEDICINE [facility] Feb 12, 2023 09:30 AM AMBULATORY - NONE [facility] Feb 27, 2023 05:00 PM AMBULATORY - REHAB MEDICIN E [facility] Mar 01, 2023 09:30 AM AMBULATORY - REHAB MEDICIN E [facility] Mar 15, 2023 05:00 PM AMBULATORY - REHAB MEDICIN [facility] Social History: Smoking Status (Most current) and Tobacco Use (All prior to encounter date) This section includes the most current, and the historical, smoking and tobacco- related health factors from the [place] facility where the Encounter took place. Current Smoking Status This section includes the most current smoking, or tobacco-related health factor, from the [place] facility where the Encounter took place. Date/Time Current Smoking Status Comment Jorge meyery Jun 14, 2021 08:15 AM VA-TOBACCO USER SOME DAYS [facility] Tobacco Use History This section includes a history of the smoking, or tobacco-related health factors, that were collected on or before the date of the Encounter. The data comes from the [place] facility where the Encounter took place. Date/Time Smoking Status/Tobacco Use Comment F acility Jun 14, 2021 08:15 AM VA-TOBACCO USE > 1 5 LESS THAN 30 YEARS [facility] Jun 14, 2021 08:15 AM VA-TOBACCO USE ADVICE [facility] Jun 14, 2021 08:15 AM VA-TOBACCO USE MANAGER CULTURE NO [facility] Jun 14, 2021 08:15 AM VA-TOBACCO USE MED NO [facility] Jun 14, 2021 08:15 AM VA-TOBACCO USER SOME DAYS [facility] Jan 28, 2018 12:26 PM VA-TOBACCO NEVER USED [facility] July 05, 2011 09:38 AM LIFETIME NON-TOBACCO USER [facility] July 03, 2011 06:04 PM LIFETIME NON-TOBACCO USER [facility] Nov 20, 2007 08:19 AM LIFETIME NON-TOBACCO USER [facility] Advance Directives: All historical and current Section Date Range: From patient's date of to the date document was created. This section includes ALL of a patient's completed or amended [place] Advance and Rescinded Directives. The entries below indicate that a directive exists for the patient, but an actual copy is not included with this document. The data comes from all [place] facilities. Date Advance Directives Provider Source July 03, 2011 CLINICAL WARNING RACHAEL KING [facility] Encounter Notes: All associated encounter notes This section contains the clinical notes associated to the Encounter. Date/Time Encounter Note(s) Provider Source Oct 11, 2022 03:18 PM VASCULAR SURGERY A TTENDING NOTE: LOCAL TITLE: VASCULAR SURGERY CLINIC NOTE STANDARD TITLE: VASCULAR SURGERY ATTENDING NOTE DATE OF NOTE: OCT 11, 2022@15:18 ENTRY DATE: OCT 11, 2022@15:18:17 AUTHOR: GUILLERMO MATA EXP COSIGNER: URGENCY: STATUS: COMPLETED Patient is a 66-year-old gentleman with PMH of HTN, HLD, CVA of left MCA territory, A. fib with RVR on chronic warfarin, hyperglycemia, diabetic neuropathy, ANIBAL who largely has been nonambulatory for a couple of years and was seen 04/10 08/10 for evaluation for lymphedema consult. 05/02/2022 ABIs and ultrasound ordered showing oncoming compressible vessels on bilateral lower extremities with toe pressure 108 on the right side and 116 on the left side. Duplex ultrasound showed patent arteries with no hemodynamically significant stenosis. Patient was contacted by phone today where I was able to reach his son. He reports his father has moved into a facility at this point in time. He endorses that his dad does have the lymphedema pumps and because of this his edema is decreased and his wounds are improved. A/P: 66 yo gentleman with likely chronic venous insufficiency and lymphedema being followed by the Lymphedema Team for management. Non-incasive imaging showing no to low amount of arterial disease. We discussed likely venous disease and that it is managed not cured. Pt's son verbalized understanding. We discussed no need to follow up with Vascular Surgery unless he develops pain in his legs, non-healing wounds. Recommendation to continue with Lymphedema pumps for compression therapy. /zeb/ GUILLERMO MATA CNP NURSE PRACTITIONER Signed: 10/11/2022 15:24 GUILLERMO MATA [facility]
--- OUTSIDE RECORDS SUMMARY | 2023-03-31 09:47 | XMS_ITS | Encounter Summary ---
Author Name Department of Vetera Affairs Organization Department of Vetera ns Affairs Address [address] [place] [address] Support Name Relationship Address Phone FRANSISCOJULIET ROBERSON Next of Kin [address] [place] [address] SHENA PETERSEN Emergency Contact [address] [place] [address] SHENA PETERSEN Next of Kin [address] [place] [address] Insurance Providers: All historical and current [...] PART A June 18, 2009 PART A [id number] Smiley MOODY PATIENT Selected Encounter This section includes the information on record at [place] for the Encounter. Date/Time Encounter Type Encounter Description Reason Provider Source Feb 04, 2023 06:12 PM Outpatient Encounter ADMIN PAT ACTIVTIES (MASNONCT) NEDRA BASS Miko Encounter Template Text not used by [place] Plan of Treatment: Future Appointments (+ 6 months) and Future Tests (+/- 45 days) The Plan of Treatment section includes future care activities for the patient from all [place] treatmentfacilities. This section includes future appointments and future orders which are active, pending or scheduled. Future Appointments This section includes appointments that were scheduled to occur 6 months from the date of the Encounter, up to a maximum of 20 appointments. The data comes from all [place] treatment facilities. Appointment Date/Time Appointment Type Appointme nt Facility Name Feb 12, 2023 08:30 AM [facility] Feb 12, 2023 09:30 AM [facility] Feb 27, 2023 05:00 PM AMBULATORY - REHAB MEDICIN E [facility] Mar 01, 2023 09:30 AM AMBULATORY - REHAB MEDICIN E [facility] Mar 15, 2023 05:00 PM AMBULATORY - REHAB MEDICIN E [facility] May 13, 2023 10:15 AM AMBULATORY - MEDICINE [facility] Lab Results: +/- 30 days of the encounter This section includes the Chemistry and Hematology Lab Results on record with [place] for the patient. Radiology Reports and Pathology Reports are provided separately, in subsequent sections. Lab Results This section contains the Chemistry/Hematology Results that were resulted 30 days before or 30 daysafter the date of the Encounter. Date/Time Source Result Type Result - Unit Interpretation Reference Range Comment Feb 12, 2023 09:32 AM [facility] HEMOGLOBIN A1C Specimen Type: BLOOD Comment: Values obtained from A1C measurements can vary. For typical A1C assays, a reported value of 7.0 could actually be between 6.7 and 7.3 if measured by a reference method. A reported value of 9.0 could actually be between 8.7 and 9.3. Ref: http://www.ngs p.org/CAPdata. asp Ordering Provider: MONI BROWN Report Released Date/Time: Feb 08, 2023 11:20 AM Reporting Lab: [facility] [id number] Performing Lab: [facility] [id number] HEMOGLOBIN A1C 11.4 H 4.0-6.0 Feb 12, 2023 09:32 AM [facility] TSH W/REFLEX TO FREE T4 Specimen Type: PLASMA Comment: Elevated triglyceride result from a non-fasting specimen should be interpreted with caution. A fasting panel is recommended for accurate triglycerides when trigs are >200 from a non-fasting specimen. Ordering Provider: MONI BROWN Report Released Date/Time: Feb 08, 2023 11:20 AM Reporting Lab: [facility] [id number] Performing Lab: [facility] [id number] TSH 1.91 0.35-4.94 Feb 12, 2023 09:32 AM [facility] LIPID PANEL,NON-FASTING Specimen Type: PLASMA Comment: Elevated triglyceride result from a non-fasting specimen should be interpreted with caution. A fasting panel is recommended for accurate triglycerides when trigs are >200 from a non-fasting specimen. Ordering Provider: MONI BROWN Report Released Date/Time: Feb 08, 2023 11:20 AM Reporting Lab: [facility] [id number] Performing Lab: [facility] [id number] CHOLESTEROL 84 <199 .HDL 20 L >40 LDL CALCULATION 16 <99 VLDL CALCULATION 48 H <29 NON HDL CHOLESTEROL 64 <129 TRIG(NON FASTING) 240 H <149 Feb 12, 2023 09:32 AM [facility] CBC Specimen Type: BLOOD No comment entered. Ordering Provider: MONI BROWN Report Released Date/Time: Feb 08, 2023 11:20 AM Reporting Lab: [facility] [id number] Performing Lab: [facility] [id number] WBC 5.73 4.0-11.0 RBC 4.37 L 4.6-6.2 HGB 13.1 L 13.5-17.9 HCT 39.2 L 41-54 MCV 89.7 80-100 MCH 30.0 27-33 MCHC 33.4 32.0-37.5 PLT 276 150-400 MPV 10.1 7.4-10.4 RDW 13.4 11.5-14.5 Feb 12, 2023 09:32 AM [facility] COMPREHENSIVE METABOLIC PANEL+MG Specimen Type: PLASMA Comment: Elevated triglyceride result from a non-fasting specimen should be interpreted with caution. A fasting panel is recommended for accurate triglycerides when trigs are >200 from a non-fasting specimen. Ordering Provider: MONI BROWN Report Released Date/Time: Feb 08, 2023 11:20 AM Reporting Lab: [facility] [id number] Performing Lab: [facility] [id number] CREATININE 1.6 H 0.7-1.2 UREA NITROGEN 24 8-26 GLUCOSE 268 H 70-100 SODIUM 140 136-145 POTASSIUM 3.7 3.5-5.1 CHLORIDE 99 98-107 CO2 29 22-29 CALCIUM 9.1 8.4-10.2 PROTEIN,TOTAL 6.8 6.0-8.3 ALBUMIN 3.8 3.5-5.2 BILIRUBIN, TOTAL 1.6 H 0.2-1.2 MAGNESIUM 1.8 1.6-2.6 ANION GAP 12 5-15 ALKALINE PHOSPHATASE 77 40-150 ALT/SGPT 34 <55 AST/SGOT 28 <34 .CREAT EGFR(CKD-EPI) 48 L >60 DIR. BILIRUBIN 0.4 <0.5 Social History: Smoking Status (Most current) and Tobacco Use (All prior to encounter date) This section includes the most current, and the historical, smoking and tobacco- related health factors from the [place] facility where the Encounter took place. Current Smoking Status This section includes the most current smoking, or tobacco-related health factor, from the [place] facility where the Encounter took place. Date/Time Current Smoking Status Comment Facil ity Jun 14, 2021 08:15 AM VA-TOBACCO DOESNT USE WI 30 MIN WAKEUP [facility] Tobacco Use History This section includes a history of the smoking, or tobacco-related health factors, that were collected on or before the date of the Encounter. The data comes from the [place] facility where the Encounter took place. 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 [facility] Jun 14, 2021 08:15 AM VA-TOBACCO USE MED NO [facility] Jun 14, 2021 08:15 AM VA-TOBACCO USER SOME DAYS [facility] Jan 28, 2018 12:26 PM VA-TOBACCO NEVER USED [facility] July 05, 2011 09:38 AM LIFETIME NON-TOBACCO USER [facility] July 03, 2011 06:04 PM LIFETIME NON-TOBACCO USER [facility] Nov 20, 2007 08:19 AM LIFETIME NON-TOBACCO USER [facility] Advance Directives: All historical and current Section Date Range: From patient's date of to the date document was created. This section includes ALL of a patient's completed or amended [place] Advance and Rescinded Directives. The entries below indicate that a directive exists for the patient, but an actual copy is not included with this document. The data comes from all [place] facilities. Date Advance Directives Provider Source July 03, 2011 CLINICAL WARNING RACHAEL KING [facility] Encounter Notes: All associated encounter notes This section contains the clinical notes associated to the Encounter. Date/Time Encounter Note(s) Provider Source Feb 08, 2023 10:15 AM ADDENDUM: LOCAL TITLE: Addendum STANDARD TITLE: ADDENDUM DATE OF NOTE: FEB 08, 2023@10:15:17 ENTRY DATE: FEB 08, 2023@10:15:18 AUTHOR: NEDRA BASS EXP COSIGNER: URGENCY: STATUS: COMPLETED Clinical Care Coordination Information Hospital Discharge note Medical records received: 02/06/2023 Hospital: [place] Admit date: 02/03/2023 Discharge date: 02/05/2023 Discharge diagnosis: COVID-19 Weakness Aphasia Abnormal urinalysis Lower extremity edema non-insulin dependent diabetes meelitus Disposition: SNF Follow up:Please review records for any needed follow up. Follow Up Appointments: Generic,Amb Provider [Primary Care Provider] - (See PCP at [facility] in 1 week for BP check and hospital f/u) Medical records have been uploaded to the patient's chart and are available for viewing in [employer]. /zeb/ Nedra Bass GRANITE CUTTER APPRENTICE CNOR assistant to the president Mineral Resources Inspector Signed: 02/08/2023 10:18 Receipt Acknowledged By: 02/08/2023 10:48 /es/ Ronny Gutierrez APRN, [employer]EN [employer]FFEE BLENDER Family Nurse Practitioner for MONI BROWN 02/08/2023 12:03 /es/ CHASIDY GODINEZ RN RN, BSN --- Original Document --- 02/03/23 COMMUNITY CARE-JASON SELF PRESENTING CARE COORD PLAN NOTE: Emergency Notification Intake Date Presenting to the Facility: Jan Method of Contact: Notified from [employer] worklist Notification ID: [id number] HSRM Referral #: [facility] Hospital Name: Hospital: [facility] Address: [address] City: [place] State: [place] Zip Code: Community Facility Point of Contact: Name: MELISSA Chief complaint: Fall/Minor Trauma Primary Diagnosis: Secondary Diagnosis: Disposition Admitted Route of Admission: Date of Admission: Jan Admitting Diagnosis: Covid U07.1, Sepsis Community Care Provider: Confirm Level of Care: Closed - Approved for 1702 /zeb/ ALFRED GARBER CONFERENCE SERVICES COORDINATOR ON DUTY Signed: 02/04/2023 18:16 Receipt Acknowledged By: 02/05/2023 15:16 /zeb/ Nedra Bass RN BSN CNOR assistant to the president Mineral Resources Inspector 02/06/2023 13:46 /zeb/ BRETT CHANH ...[facility] 02/06/2023 ADDENDUM STATUS: COMPLETED Records have been requested for this episode of care. Alerting PACT RN for awareness. /MIRA HilarioN CNOR assistant to the president Mineral Resources Inspector Signed: 02/06/2023 12:32 Receipt Acknowledged By: 02/06/2023 16:08 /zeb/ CHASIDY GODINEZ RN RN, BSN 02/03/2023 ADDENDUM STATUS: COMPLETED [facility] Scanned Document - Addendum. [facility] records SCANNED DOCUMENT SIGNATURE NOT REQUIRED Electronically Filed: 02/08/2023 by: Nedra Bass RN BSN CNOR assistant to the president Mineral Resources Inspector NEDRA BASS [facility] Feb 06, 2023 12:30 PM ADDENDUM: LOCAL TITLE: Addendum STANDARD TITLE: ADDENDUM DATE OF NOTE: FEB 06, 2023@12:30:04 ENTRY DATE: FEB 06, 2023@12:30:05 AUTHOR: NEDRA BASS EXP COSIGNER: URGENCY: STATUS: COMPLETED Records have been requested for this episode of care. Alerting PACT RN for awareness. /inga Bass RN BSN CNOR assistant to the president Mineral Resources Inspector Signed: 02/06/2023 12:32 Receipt Acknowledged By: 02/06/2023 16:08 /inga GODINEZ RN RN, BSN --- Original Document --- 02/03/23 COMMUNITY CARE-JASON SELF PRESENTING CARE COORD PLAN NOTE: Emergency Notification Intake Date Presenting to the Facility: Jan Method of Contact: Notified from [employer] worklist Notification ID: [id number] [place] [facility] Address: [address]: [place] State: [place] Zip Code: Community Facility Point of Contact: Name: UR Chief complaint: Fall/Minor Trauma Primary Diagnosis: Secondary Diagnosis: Disposition Admitted Route of Admission: Date of Admission: Jan Admitting Diagnosis: Covid U07.1, Sepsis Community Care Provider: Confirm Level of Care: Closed - Approved for 1703 /inga GARBER CONFERENCE SERVICES COORDINATOR ON DUTY Signed: 02/04/2023 18:16 Receipt Acknowledged By: 02/05/2023 15:16 /zeb/ Nedra Bass GRANITE CUTTER APPRENTICE CNOR assistant to the president Mineral Resources Inspector 02/06/2023 13:46 /zeb/ BRETT Villalobos NEPALESE ...[facility] NEDRA BASS [facility] Feb 03, 2023 10:00 AM NONVA NOTE: LOCAL TITLE: COMMUNITY CARE-JASON SELF PRESENTING CARE COORD PLAN STANDARD TITLE: NONVA NOTE DATE OF NOTE: FEB 03, 2023@10:00 ENTRY DATE: FEB 04, 2023@18:13:19 AUTHOR: ALFRED GARBER EXP COSIGNER: URGENCY: STATUS: COMPLETED COMMUNITY CARE-JASON SELF PRESENTING CARE COORD PLAN NOTE Has ADDENDA Emergency Notification Intake Date Presenting to the Facility: Jan Method of Contact: Notified from [employer] worklist Notification ID: [id number] HSRM [facility] Address: [address]: [place] State: [place] Zip Code: Community Facility Point of Contact: Name: MELISSA Chief complaint: Fall/Minor Trauma Primary Diagnosis: Secondary Diagnosis: Disposition Admitted Route of Admission: Date of Admission: Jan Admitting Diagnosis: Covid U07.1, Sepsis Community Care Provider: Terrell Level of Care: Closed - Approved for 1702 /zeb/ ALFRED GARBER CONFERENCE SERVICES COORDINATOR ON DUTY Signed: 02/04/2023 18:16 Receipt Acknowledged By: 02/05/2023 15:16 /zeb/ Nedra Bass GRANITE CUTTER APPRENTICE CNOR assistant to the president Mineral Resources Inspector 02/06/2023 13:46 /zeb/ BRETT Villalobos NEPALESE ...[facility] 02/06/2023 ADDENDUM STATUS: COMPLETED Records have been requested for this episode of care. Alerting PACT RN for awareness. /zeb/ Nedra Bass GRANITE CUTTER APPRENTICE CNOR assistant to the president Mineral Resources Inspector Signed: 02/06/2023 12:32 Receipt Acknowledged By: 02/06/2023 16:08 /zeb/ CHASIDY GODINEZ RN RN, BSN 02/08/2023 ADDENDUM STATUS: COMPLETED Clinical Care Coordination Information Hospital Discharge note Medical records received: 02/06/2023 Hospital: [place] Admit date: 02/03/2023 Discharge date: 02/05/2023 Discharge diagnosis: COVID-19 Weakness Aphasia Abnormal urinalysis Lower extremity edema non-insulin dependent diabetes meelitus Disposition: SNF Follow up:Please review records for any needed follow up. Follow Up Appointments: Generic,Amb Provider [Primary Care Provider] - (See PCP at [facility] in 1 week for BP check and hospital f/u) Medical records have been uploaded to the patient's chart and are available for viewing in [facility]. /inga Bass GRANITE CUTTER APPRENTICE CNOR assistant to the president Mineral Resources Inspector Signed: 02/08/2023 10:18 Receipt Acknowledged By: * AWAITING SIGNATURE * MONI BROWN * AWAITING SIGNATURE * CHASIDY GODINEZ 02/03/2023 ADDENDUM STATUS: COMPLETED [facility] Scanned Document - Addendum. [facility] records SCANNED DOCUMENT SIGNATURE NOT REQUIRED Electronically Filed: 02/08/2023 by: Nedra M Bass, GRANITE CUTTER APPRENTICE CNOR assistant to the president Mineral Resources Inspector ALFRED GARBER [facility]
--- OUTSIDE RECORDS SUMMARY | 2023-03-31 09:47 | XMS_ITS | Encounter Summary ---
Author Name Department of Vetera Affairs Organization Department of Vetera Affairs Address [address] [place] [address] Support Name Relationship Address Phone FRANSISCORIA ROBERSONIS Next of Kin [address] [place] [address] SHENA PETERSEN Emergency Contact [address] [place] [address] SHENA PETERSEN Next of Kin [address] [place] [address] Insurance Providers: All historical and current [...] PART A June 18, 2009 PART A [phone] Smiley MOODY PATIENT Selected Encounter This section includes the information on record at [place] for the Encounter. Date/Time Encounter Type Encounter Description Reason Pro vider Source Nov 28, 2022 12:00 PM Outpatient Encounter PHYSICAL THERAPY IHE Encounter Template Text not used [...] 04, 2023 06:12 PM AM[facility]ULATORY - NONE [facility] Feb 12, 2023 08:30 AM AMBULATORY [facility] Feb 12, 2023 09:30 AM AMBULATORY - NONE [facility] Feb 27, 2023 05:00 PM AMBULATORY - REHAB MEDICIN E [facility] Mar 01, 2023 09:30 AM AMBULATORY - REHAB MEDICIN E [facility] Mar 15, 2023 05:00 PM AMBULATORY - REHAB MEDICIN E [facility] May 13, 2023 10:15 AM AMBULATORY - MEDICINE [facility] Social History: Smoking Status (Most current) [...] > 1 [address]ESS THAN [address] [facility] Jun 14, 2021 08:15 AM VA-TOBACCO USE ADVICE 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 Jun 14, 2021 08:15 AM VA-TOBACCO USE MED NO [facility] Jun 14, 2021 08:15 AM VA-TOBACCO USER SOME DAYS [facility] Jan 28, 2018 12:26 PM VA-TOBACCO NEVER USED [facility] July 05, 2011 09:38 AM LIFETIME NON-TOBACCO [...] 03, 2011 CLINICAL WARN[address] RACHAEL KING [facility] Encounter Notes: All associated encounter notes This section contains the clinical notes associated to the Encounter. Date/Time Encounter Note(s) Provider Source Nov 29, 2022 12:20 PM ADDENDUM: LOCAL TITLE: Addendum STANDARD TITLE: ADDENDUM DATE OF NOTE: NOV 29, 2022@12:20:17 ENTRY DATE: NOV 29, 2022@12:20:18 AUTHOR: REJI MUROIGNER: URGENCY: STATUS: COMPLETED Vendor is requesting that the attached records be signed by the ordering provider and faxed back to them. /es/ REJI MURO MSN, RN-AMY COMMUNITY CARPENTER FORM Signed: 11/29/2022 12:20 Receipt Acknowledged By: 11/29/2022 18:01 /es/ ARIA MEADE M.D. STAFF PHYSICIAN --- Original Document --- 11/28/22 COMMUNITY CARE CONSULT RESULT OCCUPATIONAL THERAPY: [facility] - Scanned Document SCANNED DOCUMENT SIGNATURE NOT REQUIRED Electronically Filed: 11/29/2022 by: REJI FULLER, RN-BC COMMUNITY CARPENTER FORM REJI MURO [facility] Nov 28, 2022 12:00 PM NONVA CONSULT: LOCAL TITLE: COMMUNITY CARE CONSULT RESULT OCCUPATIONAL THERAPY STANDARD TITLE: NONVA CONSULT DATE OF NOTE: NOV 28, 2022@12:00 ENTRY DATE: NOV 29, 2022@12:19:55 AUTHOR: REJI MUROIGNER: URGENCY: STATUS: COMPLETED COMMUNITY CARE CONSULT RESULT OCCUPATIONAL THERAPY Has ADDENDA [facility] - Scanned Document SCANNED DOCUMENT SIGNATURE NOT REQUIRED Electronically Filed: 11/29/2022 by: REJI MURO MSN, RN-AMY COMMUNITY CARPENTER FORM 11/29/2022 ADDENDUM STATUS: COMPLETED Vendor is requesting that the attached records be signed by the ordering provider and faxed back to them. /zeb/ REJI MURO MSN, RN- COMMUNITY CARPENTER FORM Signed: 11/29/2022 12:20 Receipt Acknowledged By: * AWAITING SIGNATURE * ARIA MEADE,REJI [facility]
--- OUTSIDE RECORDS SUMMARY | 2023-03-31 09:48 | XMS_ITS | Encounter Summary ---
Author Name Department of Vetera Affairs Organization Department of Vetera ns Affairs Address [address] [place] [address] Support Name Relationship Address Phone FRANSISCOTUNG ROBERSONIS Next of Kin [address] [place] [address] SHENA PETERSEN Emergency Contact [address] [place] [phone] SHENA PETERSEN Next of Kin [address] [place] [address] Insurance Providers: All historical and current [...] PART A June 18, 2009 PART A [id number] Smiley MOODY PATIENT Selected Encounter This section includes the information on record at PA for the Encounter. Date/Time Encounter Type Encounter Description Reason Provider Source Feb 08, 2023 11:24 AM Outpatient Encounter TELEPHONE PRIMARY CARE ICD-10-CM F99 Mental disorder, not otherwise specified MEERA GODINEZ Miko Encounter Template Text not used by PA Assessments - Encounter Diagnoses This section includes the primary and secondary diagnoses documented for the Encounter. Date/Time Primary/Secondary Diagnosis Diagnosis Name Provider Source Feb 08, 2023 11:24 AM PRIMARY Mental disorder, not otherwise specified MATTHEW GODINEZ [facility] Feb 08, 2023 11:24 AM SECONDARY Other specified counseling MATTHEW GODINEZ [facility] Feb 08, 2023 11:24 AM SECONDARY Type 2 diabetes mellitus with diabetic neuropathy, unsp ELFERING,MATTHEW LE M [facility] Feb 08, 2023 11:24 AM SECONDARY Type 2 diabetes mellitus with unspecified complications MATTHEW GODINEZ [facility] Plan of Treatment: Future Appointments (+ 6 months) and Future Tests (+/- 45 days) The Plan of Treatment section includes future care activities for the patient [facility] This section includes future appointments and future orders which are active, pending or scheduled. Future Appointments This section includes appointments that were scheduled to occur 6 months from the date of the Encounter, up to a maximum of 20 appointments. The data comes from all [facility] facilities. Appointment Date/Time Appointment Type Appointme nt Facility Name Feb 12, 2023 08:30 AM AMBULATORY - MEDICINE [facility] Feb 12, 2023 09:30 AM AMBULATORY - NONE [facility] Feb 27, 2023 05:00 PM AMBULATORY - REHAB MEDICIN [facility] Mar 01, 2023 09:30 AM AMBULATORY - REHAB MEDICIN [facility] Mar 15, 2023 05:00 PM AMBULATORY - REHAB MEDICIN [facility] May 13, 2023 10:15 AM AMBULATORY - MEDICINE [facility] Lab Results: +/- 30 days of the encounter This section includes the Chemistry and Hematology Lab Results on record with PA for the patient. Radiology Reports and Pathology Reports are provided separately, in subsequent sections. Lab Results This section contains the Chemistry/Hematology Results that were resulted 30 days before or 30 daysafter the date of the Encounter. Date/Time Source Result Type Result - Unit Interpretation Reference Range Comment Feb 12, 2023 09:32 AM [facility] HEMOGLOBIN A1C Specimen Type: BLOOD Comment: Values [...] Feb 08, 2023 11:20 AM Reporting Lab: [facility] [id number] Performing Lab: [facility] [id number] HEMOGLOBIN A1C 11.4 H 4.0-6.0 Feb 12, 2023 09:32 AM [facility] TSH W/REFLEX TO FREE T4 Specimen Type: PLASMA Comment: Elevated triglyceride result from a non-fasting specimen should be interpreted with caution. A fasting panel is recommended for accurate triglycerides when trigs are >200 from a non-fasting specimen. Ordering Provider: MONI BROWN Report Released Date/Time: Feb 08, 2023 11:20 AM Reporting Lab: [facility] [id number] Performing Lab: [facility] [id number] TSH 1.91 0.35-4.94 Feb 12, 2023 09:32 AM [facility] LIPID PANEL,NON-FASTING Specimen Type: PLASMA Comment: Elevated triglyceride result from a non-fasting specimen should be interpreted with caution. A fasting panel is recommended for accurate triglycerides when trigs are >200 from a non-fasting specimen. Ordering Provider: MONI BROWN Report Released Date/Time: Feb 08, 2023 11:20 AM Reporting Lab: [facility] [id number] Performing Lab: [facility] [id number] CHOLESTEROL 84 <199 .HDL 20 L >40 LDL CALCULATION 16 <99 VLDL CALCULATION 48 H <29 NON HDL CHOLESTEROL 64 <129 TRIG(NON FASTING) 240 H <149 Feb 12, 2023 09:32 AM [facility] CBC Specimen Type: BLOOD No comment entered. Ordering Provider: MONI BROWN Report Released Date/Time: Feb 08, 2023 11:20 AM Reporting Lab: [facility] [id number] Performing Lab: [facility] [id number] WBC 5.73 4.0-11.0 RBC 4.37 L 4.6-6.2 HGB 13.1 L 13.5-17.9 HCT 39.2 L 41-54 MCV 89.7 80-100 MCH 30.0 27-33 MCHC 33.4 32.0-37.5 PLT 276 150-400 MPV 10.1 7.4-10.4 RDW 13.4 11.5-14.5 Feb 12, 2023 09:32 AM [facility] COMPREHENSIVE METABOLIC PANEL+MG Specimen Type: PLASMA Comment: Elevated triglyceride result from a non-fasting specimen should be interpreted with caution. A fasting panel is recommended for accurate triglycerides when trigs are >200 from a non-fasting specimen. Ordering Provider: MONI BROWN Report Released Date/Time: Feb 08, 2023 11:20 AM Reporting Lab: [facility] [id number] Performing Lab: [facility] [id number] CREATININE 1.6 H 0.7-1.2 UREA NITROGEN 24 [...] and tobacco- related health factors from the PA facility where the Encounter took place. Current Smoking Status This section includes the most current smoking, or tobacco-related health factor, from the PA facility where the Encounter took place. Date/Time Current Smoking Status Comment Jorge ity Jun 14, 2021 08:15 AM VA-TOBACCO USER SOME DAYS [facility] Tobacco Use History This section includes a history of the smoking, or tobacco-related health factors, that were collected on or before the date of the Encounter. The data comes from the PA facility where the Encounter took place. 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 [facility] Jun 14, 2021 08:15 AM VA-TOBACCO USE MED NO [facility] Jun 14, 2021 08:15 AM VA-TOBACCO USER SOME DAYS [facility] Jan 28, 2018 12:26 PM VA-TOBACCO NEVER USED [facility] July 05, 2011 09:38 AM LIFETIME NON-TOBACCO USER [facility] July 03, 2011 06:04 PM LIFETIME NON-TOBACCO USER [facility] Nov 20, 2007 08:19 AM LIFETIME NON-TOBACCO USER [facility] Advance Directives: All historical and current Section Date Range: From patient's date of to the date document was created. This section includes ALL of a patient's completed or amended PA Advance and Rescinded Directives. The entries below indicate that a directive exists for the patient, but an actual copy is not included with this document. The data comes from all PA facilities. Date Advance Directives Provider Source July 03, 2011 CLINICAL WARNING RACHAEL KING [facility] Encounter Notes: All associated encounter notes This section contains the clinical notes associated to the Encounter. Date/Time Encounter Note(s) Provider Source Feb 08, 2023 01:20 PM ADDENDUM: LOCAL TITLE: Addendum STANDARD TITLE: ADDENDUM DATE OF NOTE: FEB 08, 2023@13:20:32 ENTRY DATE: FEB 08, 2023@13:20:33 AUTHOR: LEOBARDO DIAZ EXP COSIGNER: URGENCY: STATUS: COMPLETED Covering alerts for assigned PACT CPP Per [facility] records in [facility]- last a1c on 11/14/22 was 12.1%. It appears patient is only taking metformin currently if non-VA med list is up to date. Given degree of elevation of a1c, would recommend resuming insulin glargine at upcoming PCP visit. Patient may also be a good candidate for a GLP-1a in the future, however currently unable to start semaglutide due to shortage. Recommend PACT pharmacy follow-up after upcoming PCP visit if PCP deems appropriate, please enter RTC or refer PACT pharmacist after visit. Thank you! 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 He would like to bring charity is ROSIE for hosp f/u and overdue annual and to talk to pharm/PCP about starting insulin again, stopped approx 1 year ago. Tung states that Red is declining, he no longer feels like the Assisted Living setting is appropriate, perhaps needs a Mcfp. Per ER note in [facility]: The reason he was initially brought to ER was due to fall, states he fell out of recliner. Had aphasia, beleived that this did not worsen, as he has had aphasia since stroke. Had swelling around right eye/ forehead, so believed to have hit his head. States he also smelled very strongly of urine when came to ER. He was also covid positive, had fever. BP, HR and RR slightly elevated, O2 WNL. Due to fall, poor continence cares, and charity's poor cognition, son and hospital doc recommend increasing amount of care. Routine labs ordered with goal of having done now, and PCP can do annual virtually. Alerting the provider who will see charity next week as I. Also alerting pharmacy to this, to request to restart insulin. However, due to poor cognition, unclear how appropriate this is, unless care facility can administer. Charity and son will be here Tues AM, ok with getting labs after appt. /zeb/ CHASIDY GODINEZ RN RN, BSN Signed: 02/08/2023 11:52 Receipt Acknowledged By: 02/08/2023 15:18 /zeb/ OLIVER SHETTY PA-C PHYSICIAN COKE STILL CLEANER 02/08/2023 13:24 /zeb/ LEOBARDO DIAZ, PHARMD, BCACP PACT Clinical Pharmacist Practitioner for LEOBARDO AGGARWAL [facility] Feb 08, 2023 11:24 AM NURSING OUTPATIENT NOTE: LOCAL TITLE: MEDICINE CLINIC NURSING RN NOTE STANDARD TITLE: NURSING OUTPATIENT NOTE DATE OF NOTE: FEB 08, 2023@11:24 ENTRY DATE: FEB 08, 2023@11:25:46 AUTHOR: CHASIDY GODINEZ EXP COSIGNER: URGENCY: STATUS: COMPLETED MEDICINE CLINIC NURSING RN NOTE Has ADDENDA TYPE OF VISIT: Telephone REASON FOR VISIT: hosp f/u ALLERGIES: FACILITY ALLERGY/ADR -------- [facility] 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 He would like to bring charity is [facility]IE for hosp f/u and overdue annual and to talk to pharm/PCP about starting insulin again, stopped approx 1 year ago. Tung states that Red is declining, he no longer feels like the Assisted Living setting is appropriate, perhaps needs a Mcfp. Per ER note in [facility]: The reason he was initially brought to ER was due to fall, states he fell out of recliner. Had aphasia, beleived that this did not worsen, as he has had aphasia since stroke. Had swelling around right eye/ forehead, so believed to have hit his head. States he also smelled very strongly of urine when came to ER. He was also covid positive, had fever. BP, HR and RR slightly elevated, O2 WNL. Due to fall, poor continence cares, and charity's poor cognition, son and hospital doc recommend increasing amount of care. Routine labs ordered with goal of having done now, and PCP can do annual virtually. Alerting the provider who will see vet next week as FYI. Also alerting pharmacy to this, to request to restart insulin. However, due to poor cognition, unclear how appropriate this is, unless care facility can administer. Charity and son will be here Tues AM, ok with getting labs after appt. /zeb/ CHASIDY GODINEZ RN RN, BSN Signed: 02/08/2023 11:52 Receipt Acknowledged By: 02/08/2023 15:18 /zeb/ OLIVER SHETTY PA-C PHYSICIAN COKE STILL CLEANER 02/08/2023 13:24 /zeb/ LEOBARDO DIAZ PHARMD, SALEEMCP PACT Clinical Pharmacist Practitioner for RIKA NICHOLE 02/08/2023 ADDENDUM STATUS: COMPLETED Covering alerts for assigned PACT CPP Per [facility] records in [facility]- last a1c on 11/14/22 was 12.1%. It appears patient is only taking metformin currently if non-VA med list is up to date. Given degree of elevation of a1c, would recommend resuming insulin glargine at upcoming PCP visit. Patient may also be a good candidate for a GLP-1a in the future, however currently unable to start semaglutide due to shortage. Recommend PACT pharmacy follow-up after upcoming PCP visit if PCP deems appropriate, please enter RTC or refer PACT pharmacist after visit. Thank you! /inga DIAZ PHARMD, SALEEMCP PACT Clinical Pharmacist Practitioner Signed: 02/08/2023 13:23 Receipt Acknowledged By: * AWAITING SIGNATURE * OLIVER SHETTY [facility]
--- OUTSIDE RECORDS SUMMARY | 2023-03-31 09:48 | XMS_ITS | Encounter Summary ---
Author Name Department of Vetera Affairs Organization Department of Vetera ns Affairs Address [address] [place] [address] Support Name Relationship Address Phone FRANSISCOJULIET ROBERSON Next of Kin [address] [place] [address] SHENA PETERSEN Emergency Contact [address] [place] [address] SHENA PETERSEN Next of Kin [address] [place] [phone] Insurance Providers: All historical and current [...] PART A June 18, 2009 PART A [id number] Smiley MOODY PATIENT Selected Encounter This section includes the information on record at OR for the Encounter. Date/Time Encounter Type Encounter Description Reason Pro vider Source Feb 27, 2023 03:00 PM Outpatient Encounter TELEPHONE PRIMARY CARE IHE Encounter [...] OR treatment facilities. Appointment Date/Time Appointment Type Appointme nt Facility Name Mar 01, 2023 09:30 AM AMBULATORY - REHAB MEDICIN E [facility] Mar 15, 2023 05:00 PM AMBULATORY - REHAB MEDICIN [facility] May 13, 2023 10:15 AM AMBULATORY - MEDICINE [facility] Lab Results: +/- 30 days of the encounter This section includes the Chemistry and Hematology Lab Results on record with OR for the patient. Radiology Reports and Pathology Reports are provided separately, in subsequent sections. Lab Results This section contains the Chemistry/Hematology Results that were resulted 30 days before or 30 daysafter the date of the Encounter. Date/Time Source Result Type Result - Unit Interpretation Reference Range Comment Feb 12, 2023 09:32 AM [facility] HEMOGLOBIN A1C Specimen Type: BLOOD Comment: Values [...] Reporting Lab: [facility] [id number] Performing Lab: [facility] [id number] HEMOGLOBIN A1C 11.4 H 4.0-6.0 Feb 12, 2023 09:32 AM [facility] TSH W/REFLEX TO FREE T4 Specimen Type: PLASMA Comment: Elevated triglyceride result from a non-fasting specimen should be interpreted with caution. A fasting panel is recommended for accurate triglycerides when trigs are >200 from a non-fasting specimen. Ordering Provider: MONI BROWN Report Released Date/Time: Feb 08, 2023 11:20 AM Reporting Lab: [facility] [id number] Performing Lab: [facility] [id number] TSH 1.91 0.35-4.94 Feb 12, 2023 09:32 AM [facility] LIPID PANEL,NON-FASTING Specimen Type: PLASMA Comment: Elevated triglyceride result from a non-fasting specimen should be interpreted with caution. A fasting panel is recommended for accurate triglycerides when trigs are >200 from a non-fasting specimen. Ordering Provider: MONI BROWN Report Released Date/Time: Feb 08, 2023 11:20 AM Reporting Lab: [facility] [id number] Performing Lab: [facility] [id number] CHOLESTEROL 84 <199 .HDL 20 L >40 LDL CALCULATION 16 <99 VLDL CALCULATION 48 H <29 NON HDL CHOLESTEROL 64 <129 TRIG(NON FASTING) 240 H <149 Feb 12, 2023 09:32 AM [facility] CBC Specimen Type: BLOOD No comment entered. Ordering Provider: MONI BROWN Report Released Date/Time: Feb 08, 2023 11:20 AM Reporting Lab: [facility] [id number] Performing Lab: [facility] [id number] WBC 5.73 4.0-11.0 RBC 4.37 L 4.6-6.2 HGB 13.1 L 13.5-17.9 HCT 39.2 L 41-54 MCV 89.7 80-100 MCH 30.0 27-33 MCHC 33.4 32.0-37.5 PLT 276 150-400 MPV 10.1 7.4-10.4 RDW 13.4 11.5-14.5 Feb 12, 2023 09:32 AM [facility] COMPREHENSIVE METABOLIC PANEL+MG Specimen Type: PLASMA Comment: Elevated triglyceride result from a non-fasting specimen should be interpreted with caution. A fasting panel is recommended for accurate triglycerides when trigs are >200 from a non-fasting specimen. Ordering Provider: MONI BROWN Report Released Date/Time: Feb 08, 2023 11:20 AM Reporting Lab: [facility] [id number] Performing Lab: [facility] [id number] CREATININE 1.6 H 0.7-1.2 UREA NITROGEN 24 [...] and tobacco- related health factors from the OR facility where the Encounter took place. Current Smoking Status This section includes the most current smoking, or tobacco-related health factor, from the OR facility where the Encounter took place. Date/Time Current Smoking Status Comment Facil ity Feb 12, 2023 08:30 AM VA-TOBACCO NEVER USED [facility] Tobacco Use History This section includes a history of the smoking, or tobacco-related health factors, that were collected on or before the date of the Encounter. The data comes from the OR facility where the Encounter took place. 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 [facility] Jun 14, 2021 08:15 AM VA-TOBACCO USE MED NO [facility] Jun 14, 2021 08:15 AM VA-TOBACCO USER SOME DAYS [facility] Jan 28, 2018 12:26 PM VA-TOBACCO NEVER USED [facility] July 05, 2011 09:38 AM LIFETIME NON-TOBACCO USER [facility] July 03, 2011 06:04 PM LIFETIME NON-TOBACCO USER [facility] Nov 20, 2007 08:19 AM LIFETIME NON-TOBACCO USER [facility] Advance Directives: All historical and current Section Date Range: From patient's date of to the date document was created. This section includes ALL of a patient's completed or amended OR Advance and Rescinded Directives. The entries below indicate that a directive exists for the patient, but an actual copy is not included with this document. The data comes from all [facility]. Date Advance Directives Provider Source July 03, 2011 CLINICAL WARNING RACHAEL KING [facility] Encounter Notes: All associated encounter notes This section contains the clinical notes associated to the Encounter. Date/Time Encounter Note(s) Provider Source Feb 27, 2023 03:22 PM NO SHOW NOTE: LOCAL TITLE: NO SHOW/CANCELLATION CLINIC NOTE STANDARD TITLE: NO SHOW NOTE DATE OF NOTE: FEB 27, 2023@15:22 ENTRY DATE: FEB 27, 2023@15:22:03 AUTHOR: ESHA MARIE EXP COSIGNER: URGENCY: STATUS: COMPLETED [place] not seen for scheduled appointment due to: Other. Reached out to listed phone numbers for today's scheduled phone visit -pt's son, Tung, answered on cellular number; noted pt is currently in an SNF -Tung did not have any updated clinical information regarding patient following patient's recent visit w/ PCP on 02/12 -Tung indicates the information provided at recent PCP visit was passed on to pt's L[facility] ([facility]). Attempted to reach out to that facility, though no nurse was available for discussion. Retail Buyer will review w/ usual PACT pharmacist, who is out today. Appointment Rescheduled: Request for visit to be rescheduled to a future latha /zeb/ ESHA MARIE PharmD CLINICAL LINEN CLERK Signed: 02/27/2023 15:30 Receipt Acknowledged By: 02/28/2023 09:03 /zeb/ NALLELY REDDY PROPERTY CONSULTANT ESHA MARIE [facility]
--- OUTSIDE RECORDS SUMMARY | 2023-03-31 09:48 | XMS_ITS | Encounter Summary ---
Author Name [employer] Organization [employer] [facility] [employer] Address [address] [place] [address] Support Name Relationship Address Phone FRANSISCOJULIET ROBERSON Next of Kin [address] [place] [address] SHENA PETERSEN Emergency Contact [address] [place] [address] SHENA PETERSEN Next of Kin [address] [place] [id number] Insurance Providers: All historical and current [...] PART A June 18, 2009 PART A [id number] Smiley MOODY PATIENT Selected Encounter This section includes the information on record at NH for the Encounter. Date/Time Encounter Type Encounter Description Reason Provider Source Feb 12, 2023 08:30 AM OFFICE O/P EST MOD 30-39 MIN PRIMARY CARE/MEDICINE ICD-10-CM E11.8 Type 2 diabetes mellitus with unspecified complications TK CULLEN Miko Encounter Template Text not used by NH Assessments - Encounter Diagnoses This section includes the primary and secondary diagnoses documented for the Encounter. Date/Time Primary/Secondary Diagnosis Diagnosis Name Provider Source Feb 12, 2023 03:25 PM PRIMARY Type 2 diabetes mellitus with unspecified complications TK CULLEN [facility] Feb 12, 2023 03:25 PM SECONDARY Cerebral infarction, unspecified TK CULLEN [facility] Feb 12, 2023 03:25 PM SECONDARY Impacted cerumen, bilateral TK CULLEN [facility] Plan of Treatment: Future Appointments [...] NH treatment facilities. Appointment Date/Time Appointment Type Appointme nt Facility Name Feb 27, 2023 05:00 PM AMBULATORY - REHAB MEDICIN [facility] Mar 01, 2023 09:30 AM AMBULATORY - RE[facility] Mar 15, 2023 05[facility]00 [facility] May 13, 2023 10:15 AM [facility] - MEDICINE [facility] Lab Results: +/- 30 days of the encounter This section includes the Chemistry and Hematology Lab Results on record with NH for the patient. Radiology Reports and Pathology Reports are provided separately, in subsequent sections. Lab Results This section contains the Chemistry/Hematology Results that were resulted 30 days before or 30 daysafter the date of the Encounter. Date/Time Source Result Type Result - Unit Interpretation Reference Range Comment Feb 12, 2023 09:[address] [facility] HEMOGLOBIN A1C Specimen Type: BLOOD [...] Feb 08, 2023 11:20 AM Reporting Lab: [facility] [id number] Performing Lab: [facility] [id number] HEMOGLOBIN A1C 11.4 H 4.0-6.0 Feb 12, 2023 09:[address] [facility] TSH W/REFLEX TO FREE T4 Specimen Type: PLASMA Comment: Elevated triglyceride result from a non-fasting specimen should be interpreted with caution. A fasting panel is recommended for accurate triglycerides when trigs are >200 from a non-fasting specimen. Ordering Provider: MONI BROWN Report Released Date/Time: Feb 08, 2023 11:20 AM Reporting Lab: [facility] [id number] Performing Lab: [facility] [id number] TSH 1.91 0.35-4.94 Feb 12, 2023 09:[address] [facility] LIPID PANEL,NON-FASTING Specimen Type: PLASMA Comment: Elevated triglyceride result from a non-fasting specimen should be interpreted with caution. A fasting panel is recommended for accurate triglycerides when trigs are >200 from a non-fasting specimen. Ordering Provider: MONI BROWN Report Released Date/Time: Feb 08, 2023 11:20 AM Reporting Lab: [facility] [id number] Performing Lab: [facility] [id number] CHOLESTEROL 84 <199 .HDL 20 L >40 LDL CALCULATION 16 <99 VLDL CALCULATION 48 H <29 NON HDL CHOLESTEROL 64 <129 TRIG(NON FASTING) 240 H <149 Feb 12, 2023 09:[address] [facility] CBC Specimen Type: BLOOD No comment entered. Ordering Provider: MONI BROWN Report Released Date/Time: Feb 08, 2023 11:20 AM Reporting Lab: [facility] [id number] Performing Lab: [facility] [id number] WBC 5.73 4.0-11.0 RBC 4.37 L 4.6-6.2 HGB 13.1 L 13.5-17.9 HCT 39.2 L 41-54 MCV 89.7 80-100 MCH 30.0 27-33 MCHC 33.4 32.0-37.5 PLT 276 150-400 MPV 10.1 7.4-10.4 RDW 13.4 11.5-14.5 Feb 12, 2023 09:[address] [facility] COMPREHENSIVE METABOLIC PANEL+MG Specimen Type: PLASMA Comment: Elevated triglyceride result from a non-fasting specimen should be interpreted with caution. A fasting panel is recommended for accurate triglycerides when trigs are >200 from a non-fasting specimen. Ordering Provider: MONI BROWN Report Released Date/Time: Feb 08, 2023 11:20 AM Reporting Lab: [facility] [id number] Performing Lab: [facility] [id number] CREATININE 1.6 H 0.7-1.2 UREA NITROGEN 24 [...] 48 L >60 DIR. BILIRUBIN 0.4 <0.5 Vital Signs: All taken on the encounter date This section contains inpatient and outpatient Vital Signs collected on the date of the Encounter. Date/Time Temperature Pulse Blood Pressure Respiratory Rate SP02 Pain Height Weight Body Mass Index Source Feb 12, 2023 08:39 AM 97 F 80 /min 104/71 mm[Hg] 16 /min 99 % 0 [place] [facility] Social History: Smoking Status (Most current) and Tobacco Use (All prior to encounter date) This section includes the most current, and the historical, smoking and tobacco- related health factors from the NH facility where the Encounter took place. Current Smoking Status This section includes the most current smoking, or tobacco-related health factor, from the NH facility where the Encounter took place. Date/Time Current Smoking Status Comment Jorge briscoe Feb 12, 2023 08:30 AM VA-TOBACCO NEVER USED [facility] Tobacco Use History This section includes a history of the smoking, or tobacco-related health factors, that were collected on or before the date of the Encounter. The data comes from the NH facility where the Encounter took place. Date/Time Smoking Status/Tobacco Use Comment Alden umana Jun 14, 2021 08:15 AM VA-TOBACCO DOESNT USE WI [address] [facility] Jun 14, 2021 08:15 AM VA-TOBACCO USE > 1 5 LESS THAN [address] [facility] Jun 14, 2021 08:15 AM VA-TOBACCO USE ADVICE [facility] Jun 14, 2021 08:15 AM VA-TOBACCO USE [employer] NO [facility] Jun 14, 2021 08:15 AM VA-TOBACCO USE MED NO [facility] Jun 14, 2021 08:15 AM VA-TOBACCO USER SOME DAYS [facility] Jan 28, 2018 12:26 PM VA-TOBACCO NEVER USED [facility] July 05, 2011 09:38 AM LIFETIME NON-TOBACCO USER [facility] July 03, 2011 06:04 PM LIFETIME NON-TOBACCO USER [facility] Nov 20, 2007 08:19 AM LIFETIME NON-TOBACCO USER [facility] Advance Directives: All historical and current Section Date Range: From patient's date of to the date document was created. This section includes ALL of a patient's completed or amended NH Advance and Rescinded Directives. The entries below indicate that a directive exists for the patient, but an actual copy is not included with this document. The data comes from all NH facilities. Date Advance Directives Provider Source July 03, [address] [facility] [facility] Encounter Notes: All associated encounter notes This section contains the clinical notes associated to the Encounter. Date/Time Encounter Note(s) Provider Source Feb 12, 2023 03:46 PM ADDENDUM: LOCAL TITLE: Addendum STANDARD TITLE: ADDENDUM DATE OF NOTE: FEB 12, 2023@15:46:28 ENTRY DATE: FEB 12, 2023@15:46:29 AUTHOR: TK CULLEN EXP COSIGNER: URGENCY: STATUS: COMPLETED rn please infrom pt eun Ruby he can f/u with PT regarding manual w/c /zeb/ TK CULLEN NURSE PRACTITIONER Signed: 02/12/2023 15:49 Receipt Acknowledged By: 02/13/2023 09:47 /zeb/ CHASIDY GODINEZ RN RN, BSN === --- Original Document --- 02/12/23 MEDICINE CLINIC NOTE: Nurse's Notes Reviewed. Chief Complaint: f/u HPI: Mr. Moody is in clinic with his son Tung. pmhx a.fib, cad, chf, cva aphasia, dvt. patient was admitted locally 02/03 after a fall. he was dx with covid and treated for uti but antibiotic d/c after negative urine culture. tung wants new shoes and feels patient needs higher level of care. currently lives at [facility] . his glucose levels have been elevated there is recommended to restart insulin. takes metformin and glipizide xl no labs updated a1c. he has a rash to left upper arm since 02/03 which has scab over and improving. has chronic right ear 2 years pain denies dizziness, trauma, hearing loss. meds are manage by [facility]. pt and son unsure of what meds he is taking meds list rom d/c summary reviewed. Past medical history/Active Problems: Active Problems: Active problems - Computerized Problem List is the source for the followin. Benign essential hypertension (SNOMED CT 4721696) 2. Dyslipidemia 3. Diabetes mellitus (SNOMED CT 95278741) 4. Morbid obesity (SNOMED CT 244261241) 5. Depressive Disorder NOS 6. Diabetic neuropathy (SNOMED CT 239570783) 7. Sleep Apnea 8. Other Specified Counseling 9. Pes Planus, Acquired 10. Low back pain (SNOMED CT 712685333) 11. Recurrent major depressive episodes, moderate (SNOMED CT 331068884) 12. Mixed anxiety and depressive disorder (SNOMED CT 687155170) 13. Hydrocele (SNOMED CT 83895877) 14. Hernia of anterior abdominal wall - Dx 04/03, Gen Surgical Eval 07/01 15. Anxiety 16. Mental disorder 17. Asthma (SCT 843117722) 18. Cardiomyopathy 19. AF-Atrial Fibrillation (SCT 45652194) 20. Heart failure 21. H/O: Stroke ([facility] 501150429) Review of Systems: Feels well, no weight loss, good appetite. No Chest Pain. No Shortness of breath. No orthopnea, PND, or peripheral edema. No abdominal pain, N/V, or change in bowel habits. No diarrhea or constipation. No Bleeding. Physical Exam: VS: Temp: 97 F [36.1 C] (02/12/2023 08:39) BP: 104/71 (02/12/2023 08:39) Pulse:80 (02/12/2023 08:39) Resp: 16 (02/12/2023 08:39) Weight: Refused (02/12/2023 08:39) Pain: 0 (02/12/2023 08:39) O2 Sat: 99% (02/12/2023 08:39) BMI: BMI not available without height HEENT: bilateral cerumen impaction Cardiac: RRR with normal S1 and S2; without murmur, gallop, rub. Chest/Lungs: Bilaterally clear Abdominal: Soft, Non-Tender lower abdomen hernia Extremities: Comment: ble edema r>l bilateral kassandra wrap Lab Data: Last 48 hours: GLUCOSE: 268 H UREA NITROGEN: 24 CREATININE: 1.6 H SODIUM: 140 POTASSIUM: 3.7 CHLORIDE: 99 CO2: 29 CALCIUM: 9.1 CHOLESTEROL: 84 PROTEIN,TOTAL: 6.8 ALBUMIN: 3.8 BILIRUBIN,TOTAL: 1.6 H BILIRUBIN,DIRECT: 0.4 MAGNESIUM: 1.8 HDL: 20 L TSH: 1.91 ANION GAP: 12 LDL CHOL: 16 VLDL CHOL: 48 H ALKALINE PHOSPHATASE(37C): 77 SGOT(37C): 28 SGPT(37C): 34 NON HDL CHOLESTEROL: 64 TRIG(NON FASTING): 240 H CREATININE EGFR (CKD-EPI): 48 L HGB A1C: 11.4 H WBC: 5.73 RBC: 4.37 L HGB: 13.1 L HCT: 39.2 L MCV: 89.7 MCH: 30.0 MCHC: 33.4 RDW: 13.4 PLT: 276 MPV: 10.1 Patient was informed of all the above labs during this visit. Assessment/Plan: DM- A1C 11.4% today labs to review and decide on starting insulin lantus pen 10 units hs started d/c glipizide sr - metformin decrease to 1000mg daild given elevated creat -repeat creat in 1 week at [facility] ordered given to pt son glucose meter given to pt and son in clinic -f/u with [facility] early Feb RLE edema- ultrasound negative during hospital stay continue apixaban hx RLE dvt elevated creat- repeat in 1 week at [facility]. metformin dose decrease until repeat lab total bili is elevated will repeat at [facility] in 1 week pt asymptomatic covid- given remdesivir completed CVA- hx L MCA stroke in 01/2019. Residual RUE/LUE weakness and expressive aphasia. - Electric w/c not working OT consult -requesting consult for manual w/c cosult placed mobility consult HFrEF/Cardiomyopathy- continue Furosemide, Metoprolol and Valsartan Afib- continue apixaban, metoprolol Followed by non-VA Cards at [facility]. - Metoprolol succ 100mg qday - Warfarin 10mg qday per non-VA AC clinic for CVA ppx HTN-continue amlodipine, metoprolol sr, valsartan hernia lower abdominal no pain binder ordered, advise pt and son on sign of hernia strangulation/incarcerati on. unable to reduce hernis right ear cerumen- debrox ordered f/u with pcp for further management and possible ent consult Hyperlipidemia- Atorvastatin f/u with pcp in 3 months More than 50% of this 30 min appt was spent counseling/coordinating care for the medical problems outlined above. /es/ TK CULLEN NURSE PRACTITIONER Signed: 02/12/2023 15:46 Receipt Acknowledged By: 02/12/2023 16:08 /es/ JONNIE ABRAHAM MD Staff Physician for MONI DAVIDSONLE 02/13/2023 ADDENDUM STATUS: COMPLETED Called and gave son PT phone # /es/ CHASIDY GODINEZ RN RN, BSN Signed: 02/13/2023 09:48 02/13/2023 ADDENDUM STATUS: UNSIGNED You may not VIEW this UNSIGNED Addendum. TK CULLEN [facility] Feb 12, 2023 09:00 AM INTERNAL MEDICINE NOTE: LOCAL TITLE: MEDICINE CLINIC NOTE STANDARD TITLE: INTERNAL MEDICINE NOTE DATE OF NOTE: FEB 12, 2023@09:00 ENTRY DATE: FEB 12, 2023@09:00:05 AUTHOR: TK CULLEN EXP COSIGNER: URGENCY: STATUS: COMPLETED MEDICINE CLINIC NOTE Has ADDENDA Nurse's Notes Reviewed. Chief Complaint: f/u HPI: Mr. Moody is in clinic with his son Tung. pmhx a.fib, cad, chf, cva aphasia, dvt. patient was admitted locally 02/03 after a fall. he was dx with covid and treated for uti but antibiotic d/c after negative urine culture. tung wants new shoes and feels patient needs higher level of care. currently lives at [facility] . his glucose levels have been elevated there is recommended to restart insulin. takes metformin and glipizide xl no labs updated a1c. he has a rash to left upper arm since 02/03 which has scab over and improving. has chronic right ear 2 years pain denies dizziness, trauma, hearing loss. meds are manage by [facility]. pt and son unsure of what meds he is taking meds list rom d/c summary reviewed. Past medical history/Active Problems: Active Problems: Active problems - Computerized Problem List is the source for the followin. Benign essential hypertension (SNOMED CT 1286915) 2. Dyslipidemia 3. Diabetes mellitus (SNOMED CT 27223284) 4. Morbid obesity (SNOMED CT 280955834) 5. Depressive Disorder NOS 6. Diabetic neuropathy (SNOMED CT 505584283) 7. Sleep Apnea 8. Other Specified Counseling 9. Pes Planus, Acquired 10. Low back pain (SNOMED CT 903116290) 11. Recurrent major depressive episodes, moderate (SNOMED CT 896430221) 12. Mixed anxiety and depressive disorder (SNOMED CT 001738508) 13. Hydrocele (SNOMED CT 66762723) 14. Hernia of anterior abdominal wall - Dx 04/03, Gen Surgical Eval 07/01 15. Anxiety 16. Mental disorder 17. Asthma ([facility] 787582720) 18. Cardiomyopathy 19. AF-Atrial Fibrillation ([facility] 00151110) 20. Heart failure 21. H/O: Stroke ([facility] 856699526) Review of Systems: Feels well, no weight loss, good appetite. No Chest Pain. No Shortness of breath. No orthopnea, PND, or peripheral edema. No abdominal pain, N/V, or change in bowel habits. No diarrhea or constipation. No Bleeding. Physical Exam: VS: Temp: 97 F [36.1 C] (02/12/2023 08:39) BP: 104/71 (02/12/2023 08:39) Pulse:80 (02/12/2023 08:39) Resp: 16 (02/12/2023 08:39) Weight: Refused (02/12/2023 08:39) Pain: 0 (02/12/2023 08:39) O2 Sat: 99% (02/12/2023 08:39) BMI: BMI not available without height HEENT: bilateral cerumen impaction Cardiac: RRR with normal S1 and S2; without murmur, gallop, rub. Chest/Lungs: Bilaterally clear Abdominal: Soft, Non-Tender lower abdomen hernia Extremities: Comment: ble edema r>l bilateral kassandra wrap Lab Data: Last 48 hours: GLUCOSE: 268 H UREA NITROGEN: 24 CREATININE: 1.6 H SODIUM: 140 POTASSIUM: 3.7 CHLORIDE: 99 CO2: 29 CALCIUM: 9.1 CHOLESTEROL: 84 PROTEIN,TOTAL: 6.8 ALBUMIN: 3.8 BILIRUBIN,TOTAL: 1.6 H BILIRUBIN,DIRECT: 0.4 MAGNESIUM: 1.8 HDL: 20 L TSH: 1.91 ANION GAP: 12 LDL CHOL: 16 VLDL CHOL: 48 H ALKALINE PHOSPHATASE(37C): 77 SGOT(37C): 28 SGPT(37C): 34 NON HDL CHOLESTEROL: 64 TRIG(NON FASTING): 240 H CREATININE EGFR (CKD-EPI): 48 L HGB A1C: 11.4 H WBC: 5.73 RBC: 4.37 L HGB: 13.1 L HCT: 39.2 L MCV: 89.7 MCH: 30.0 MCHC: 33.4 RDW: 13.4 PLT: 276 MPV: 10.1 Patient was informed of all the above labs during this visit. Assessment/Plan: DM- A1C 11.4% today labs to review and decide on starting insulin lantus pen 10 units hs started d/c glipizide sr - metformin decrease to 1000mg daild given elevated creat -repeat creat in 1 week at [facility] ordered given to pt son glucose meter given to pt and son in clinic -f/u with [facility] early Feb RLE edema- ultrasound negative during hospital stay continue apixaban hx RLE dvt elevated creat- repeat in 1 week at [facility]. metformin dose decrease until repeat lab total bili is elevated will repeat at [facility] in 1 week pt asymptomatic covid- given remdesivir completed CVA- hx L MCA stroke in 01/2019. Residual RUE/LUE weakness and expressive aphasia. - Electric w/c not working OT consult -requesting consult for manual w/c cosult placed mobility consult HFrEF/Cardiomyopathy- continue Furosemide, Metoprolol and Valsartan Afib- continue apixaban, metoprolol Followed by non-VA Cards at [facility]. - Metoprolol succ 100mg qday - Warfarin 10mg qday per non-VA [facility] clinic for CVA ppx HTN-continue amlodipine, metoprolol sr, valsartan hernia lower abdominal no pain binder ordered, advise pt and son on sign of hernia strangulation/incarcerati on. unable to reduce hernis right ear cerumen- debrox ordered f/u with pcp for further management and possible ent consult Hyperlipidemia- Atorvastatin f/u with pcp in 3 months More than 50% of this 30 min appt was spent counseling/coordinating care for the medical problems outlined above. /zeb/ TK CULLEN NURSE PRACTITIONER Signed: 02/12/2023 15:46 Receipt Acknowledged By: 02/12/2023 16:08 /zeb/ JONNIE ABRAHAM MD Staff Physician for MONI BROWN 02/12/2023 ADDENDUM STATUS: COMPLETED rn please infrom pt son Tung he can f/u with PT regarding manual w/c /zeb/ TK CULLEN NURSE PRACTITIONER Signed: 02/12/2023 15:49 Receipt Acknowledged By: 02/13/2023 09:47 /zeb/ CHASIDY GODINEZ RN RN, BSN 02/13/2023 ADDENDUM STATUS: COMPLETED Called and gave son PT phone # /inga GODINEZ RN RN, BSN Signed: 02/13/2023 09:48 02/13/2023 ADDENDUM STATUS: COMPLETED Faxed order for lab re-draw to [facility] at [phone] /inga GODINEZ RN RN, BSN Signed: 02/13/2023 09:49 02/13/2023 ADDENDUM STATUS: COMPLETED non va labs from 02/05 creat 0.8 total bili 0.5 alt 32 ast 44 /inga CULLEN NURSE PRACTITIONER Signed: 02/13/2023 12:48 TK CULLEN [facility] Feb 12, 2023 08:42 AM INTERNAL MEDICINE OUTPATIENT NOTE: LOCAL TITLE: MEDICINE CLINIC NURSING NOTE STANDARD TITLE: INTERNAL MEDICINE OUTPATIENT NOTE DATE OF NOTE: FEB 12, 2023@08:42 ENTRY DATE: FEB 12, 2023@08:42:19 AUTHOR: DINORA GARCIA EXP COSIGNER: URGENCY: STATUS: COMPLETED MEDICINE CLINIC NURSING NOTE Has ADDENDA TYPE OF VISIT: Appointment Check In Type of appointment: In-person appointment REASON FOR VISIT: Check-up ALLERGIES: LISINOPRIL (Nov 28, 2007) VITAL SIGNS: Blood Pressure: 104/71 (02/12/2023 08:39) Pulse: 80 (02/12/2023 08:39) Respiration: 16 (02/12/2023 08:39) Temperature: 97 F [36.1 C] (02/12/2023 08:39) Weight: Refused (02/12/2023 08:39) Height: Refused (02/12/2023 08:39) BMI: BMI not available without height O2 Sat: 99% (02/12/2023 08:39) Pain: 0 (02/12/2023 08:39) PAIN SCREEN: Patient is not having significant pain that they wish to discuss with their provider today. Toxic Exposure Screening: The [place]/caregiver was asked if they believe the [place] experienced any toxic exposure(s), such as Airborne Hazards and Open Burn Pit, [place] War related exposures, Agent Storey, Radiation, contaminated water at [place] or other such exposures, while serving in the Armed Forces. 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 The [place]/caregiver was informed that we will continue to ask this screening question every 5 years. They can contact their provider/healthcare team if they have concerns about exposures and would like to be screened sooner. Printed information was offered and provided if desired. Depression Screening: Perform PHQ-2 A PHQ-2 screen was performed. The score was 0 which is a negative screen for depression. Over the past two weeks, how often have you been bothered by the following problems? 1. Little interest or pleasure in doing things Not at all 2. Feeling down, depressed, or hopeless Not at all Suicide Screen: C-SSRS Screening [place] Suicide Severity Rating Scale (C-SSRS) screener 1. Over the past month, have you wished you were or wished you could go to sleep and not wake up? No 2. Over the past month, have you had any actual thoughts of killing yourself? No 3. Over the past month, have you been thinking about how you might do this? Response not required due to responses to other questions. 4. Over the past month, have you had these thoughts and had some intention of acting on them? Response not required due to responses to other questions. 5. Over the past month, have you started to work out or worked out the details of how to kill yourself? Response not required due to responses to other questions. 6. If yes, at any time in the past month did you intend to carry out this plan? Response not required due to responses to other questions. 7. In your lifetime, have you ever done anything, started to do anything, or prepared to do anything to end your life (for example, collected pills, obtained a gun, gave away valuables, went to the roof but didn't jump)? No 8. If YES, was this within the past 3 months? Response not required due to responses to other questions. Alcohol Use Screen (AUDIT-C): Alcohol Screen: SCREEN FOR ALCOHOL (AUDIT-C) An alcohol screening test (AUDIT-C) was negative (score=0). 1. How often did you have a drink containing alcohol in the past year? Never 2. How many drinks containing alcohol did you have on a typical day when you were drinking in the past year? Response not required due to responses to other questions. 3. How often did you have six or more drinks on one occasion in the past year? Response not required due to responses to other questions. PTSD Screening: PC-PTSD-5 A PTSD screening test (PC-PTSD-5) was negative (score=0). IN THE PAST MONTH, have you ever had any experience that was so frightening, horrible or traumatic. For example: A serious accident or fire a physical or sexual assault or abuse An earthquake or flood A war Seeing someone be killed or seriously injured Having a loved one through homicide or suicide Have you ever experienced this kind of event? NO 1. Had nightmares about the event(s) or thought about the event(s) when you did not want to? Response not required due to responses to other questions. 2. Tried hard not to think about the event(s) or went out of your way to avoid situations that reminded you of the event(s)? Response not required due to responses to other questions. 3. Been constantly on guard, watchful, or easily startled? Response not required due to responses to other questions. 4. [place] numb or detached from people, activities, or your surroundings? Response not required due to responses to other questions. 5. [place] guilty or unable to stop blaming yourself or others for the event(s) or any problems the event(s) may have caused? Response not required due to responses to other questions. Tobacco Use Screening: The patient has never used tobacco. Nursing Annual Screening: Fall History Screen During the past 12 months, have you had any falls? Patient reports one fall with injury requiring treatment in the past 12 months. MEDICATIONS: Patient is on one of the following medication classes: Antihypertensives, Antidepressants, Antipsychotics, Diuretics, or Controlled substance medication used for pain. FALL RISK ADVICE: Fall Risk Advice provided. Handout entitled Fall Prevention At Home reviewed and given to patient and/or significant other. Patient instructed to discuss fall risk with provider. Script Talk Screen Are you able to read your prescription bottles with your glasses, magnifiers or other aids? Yes or patient not taking any prescriptions. Skin Screen Patient reports any current pressure ulcers, a history of pressure ulcers, or a wound from a medical review specialist or Patient is bed-confined or a wheelchair-user or Patient requires assistance to transfer/change position No, Skin Screen is Negative Home Abuse/Violence Screen Is your home free of abuse and violence? Yes M[facility]! Program Screen Body Mass Index (BMI)= BMI not available without height Sellers: Collection DT Specimen Test Name Result Units Ref Range 09/23/2018 09:15 BLOOD HEMOGLOBIN A1C 10.4 H % 4.0 - 6.0 [place] Hgb A1C: No data available [place] Hgb A1C: No data available Point of Care Hgb A1C: POC HGB A1C____ [facility] Weight Management brochure given to [place] and discussed. The counseling includes discussion of the health effects of being overweight/obese, description of the [facility] Weight [facility] treatment program and contact number for [facility] Program. No Outpatient Nutrition Screen Body Mass Index (BMI)= BMI not available without height Sellers: Collection DT Specimen Test Name Result Units Ref Range 09/23/2018 09:15 BLOOD HEMOGLOBIN A1C 10.4 H % 4.0 - 6.0 [place] Hgb A1C: No data available [place] Hgb A1C: No data available Point of Care Hgb A1C: POC HGB A1C____ Is patient's BMI less than 18.5? No Does patient have swallowing, coughing, or chewing problems affecting oral intake? No Has patient experienced unplanned weight loss or gain greater than 10 pounds over the last 2 months? No Is patient's Hgb A1C (Glycosylated Hemoglobin) greater than 9.5? Yes Is patient receiving Total Parenteral Nutrition (TPN) or Tube Feedings? No Patient Health Education Screen BARRIERS/SPECIAL NEEDS: Physical limitations Hearing limitations Visual limitations Cognitive limitations PREFERRED STYLE OF LEARNING: No preference stated Client Assistive Service (BILLIE) Screen Does the patient require assistance with outpatient visit? No Homelessness/Food Insecurity Screen: In the past 2 months, have you been living in stable housing that you own, rent, or stay in as part of a household? Yes - Living in stable housing. Are you worried or concerned that in the next 2 months you may NOT have stable housing that you own, rent, or stay in as part of a household? No - Not worried about housing near future The reports the following: Within the past 12 months, you worried whether your food would run out before you got money to buy more. Never true Within the past 12 months, the food you bought just didn't last and you didn't have money to get more. Never true Food Insecurity Resources /zeb/ DINORA GARCIA LPN Signed: 02/12/2023 08:46 02/12/2023 ADDENDUM STATUS: COMPLETED EDUCATION: PARTICIPANT(s): Diabetes Education Equipment Glucose meter/lancet device: Medical Equipment/Supplies: Glucose meter / lancing device Devices provided to patient from [facility] supply. Written Materials: Display codes for glucose meter Glucose Meter User's Manual How to get a good drop of blood Lab tests for diabetes Hypoglycemia 15-15 rule Nutrition Fact Sheet day guide Instruction sheet for glucose meter Instruction sheet for lancing device Objectives/Content: Participant(s) will: State normal glucose range Demonstrate safe use of lancing device State appropriate method of lancet disposal State appropriate method of storage and use of strips Demonstrate correct meter technique, including battery change, coding, test memory, error codes, and cleaning State proper disposal of lancet State use of self-monitoring book Testing frequency: As prescribed by Provider FOLLOW-UP RECOMMENDED None needed /es/ DINORA GARICA LPN Signed: 02/12/2023 11:[address] [facility]
--- OUTSIDE RECORDS SUMMARY | 2023-03-31 09:48 | XMS_ITS | Encounter Summary ---
Author Name Department of Vetera Affairs Organization Department of Vetera ns Affairs Address [address] [place] [address] Support Name Relationship Address Phone FRANSISCOJULIET ROBERSON Next of Kin [address] [place] [address] SHENA PETERSEN Emergency Contact [address] [place] [address] SHENA PETERSEN Next of Kin [address] [place] [phone] Insurance Providers: All historical and current [...] PART A June 18, 2009 PART A [id number] [phone] Smiley MOODY PATIENT Selected Encounter This section includes the information on record at [place] for the Encounter. Date/Time Encounter Type Encounter Description Reason Pro vider Source Feb 13, 2023 02:45 PM Outpatient Encounter TELEPHONE PRIMARY CARE IHE Encounter Template Text not used by [place] Plan of Treatment: Future Appointments (+ 6 months) and Future Tests (+/- 45 days) The Plan of Treatment section includes future care activities for the patient from all [place] treatmentfacilities. This section includes future appointments and future orders which are active, pending or scheduled. Future Appointments This section includes appointments that were scheduled to occur 6 months from the date of the Encounter, up to a maximum of 20 appointments. The data comes from all [place] treatment facilities. Appointment Date/Time Appointment Type Appointme nt Facility Name Feb 27, 2023 05:00 PM AMBULATORY - REHAB MEDICIN E [facility] Mar 01, 2023 09:30 AM AMBULATORY - REHAB MEDICIN E [facility] Mar 15, 2023 05:00 PM AMBULATORY - REHAB MEDICIN E [facility] May 13, 2023 10:15 AM [facility] Lab Results: +/- 30 days of the encounter This section includes the Chemistry and Hematology Lab Results on record with [place] for the patient. Radiology Reports and Pathology Reports are provided separately, in subsequent sections. Lab Results This section contains the Chemistry/Hematology Results that were resulted 30 days before or 30 daysafter the date of the Encounter. Date/Time Source Result Type Result - Unit Interpretation Reference Range Comment Feb 12, 2023 09:32 AM [facility] HEMOGLOBIN A1C Specimen Type: BLOOD Comment: Values obtained from A1C measurements can vary. For typical A1C assays, a reported value of 7.0 could actually be between 6.7 and 7.3 if measured by a reference method. A reported value of 9.0 could actually be between 8.7 and 9.3. Ref: http://www.ngs p.org/CAPdata. asp Ordering Provider: MOIN BROWN Report Released Date/Time: Feb 08, 2023 11:20 AM Reporting Lab: [facility] [id number] Performing Lab: [facility] [id number] HEMOGLOBIN A1C 11.4 H 4.0-6.0 Feb 12, 2023 09:32 AM [facility] TSH W/REFLEX TO FREE T4 Specimen Type: PLASMA Comment: Elevated triglyceride result from a non-fasting specimen should be interpreted with caution. A fasting panel is recommended for accurate triglycerides when trigs are >200 from a non-fasting specimen. Ordering Provider: MONI BROWN Report Released Date/Time: Feb 08, 2023 11:20 AM Reporting Lab: [facility] [id number] Performing Lab: [facility] [id number] TSH 1.91 0.35-4.94 Feb 12, 2023 09:32 AM [facility] LIPID PANEL,NON-FASTING Specimen Type: PLASMA Comment: Elevated triglyceride result from a non-fasting specimen should be interpreted with caution. A fasting panel is recommended for accurate triglycerides when trigs are >200 from a non-fasting specimen. Ordering Provider: MONI BROWN Report Released Date/Time: Feb 08, 2023 11:20 AM Reporting Lab: [facility] [id number] Performing Lab: [facility] [id number] CHOLESTEROL 84 <199 .HDL 20 L >40 LDL CALCULATION 16 <99 VLDL CALCULATION 48 H <29 NON HDL CHOLESTEROL 64 <129 TRIG(NON FASTING) 240 H <149 Feb 12, 2023 09:32 AM [facility] CBC Specimen Type: BLOOD No comment entered. Ordering Provider: MONI BROWN Report Released Date/Time: Feb 08, 2023 11:20 AM Reporting Lab: [facility] [id number] Performing Lab: [facility] [id number] WBC 5.73 4.0-11.0 RBC 4.37 L 4.6-6.2 HGB 13.1 L 13.5-17.9 HCT 39.2 L 41-54 MCV 89.7 80-100 MCH 30.0 27-33 MCHC 33.4 32.0-37.5 PLT 276 150-400 MPV 10.1 7.4-10.4 RDW 13.4 11.5-14.5 Feb 12, 2023 09:32 AM [facility] COMPREHENSIVE METABOLIC PANEL+MG Specimen Type: PLASMA Comment: Elevated triglyceride result from a non-fasting specimen should be interpreted with caution. A fasting panel is recommended for accurate triglycerides when trigs are >200 from a non-fasting specimen. Ordering Provider: MONI BROWN Report Released Date/Time: Feb 08, 2023 11:20 AM Reporting Lab: [facility] [id number] Performing Lab: [facility] [id number] CREATININE 1.6 H 0.7-1.2 UREA NITROGEN 24 [...] and tobacco- related health factors from the [place] facility where the Encounter took place. Current Smoking Status This section includes the most current smoking, or tobacco-related health factor, from the [place] facility where the Encounter took place. Date/Time Current Smoking Status Comment Facil ity Feb 12, 2023 08:30 AM VA-TOBACCO NEVER USED [facility] Tobacco Use History This section includes a history of the smoking, or tobacco-related health factors, that were collected on or before the date of the Encounter. The data comes from the [place] facility where the Encounter took place. Date/Time Smoking Status/Tobacco Use Comment F acility Jun 14, 2021 08:15 AM VA-TOBACCO DOESNT USE WI 30 MIN WAKEUP [facility] Jun 14, 2021 08:15 AM VA-TOBACCO USE > 1 5 LESS THAN 30 YEARS [facility] Jun 14, 2021 08:15 AM VA-TOBACCO USE ADVICE [facility] Jun 14, 2021 08:15 AM VA-TOBACCO USE SCIENTIFIC ADVISOR NO [facility] Jun 14, 2021 08:15 AM VA-TOBACCO USE MED NO [facility] Jun 14, 2021 08:15 AM VA-TOBACCO USER SOME DAYS [facility] Jan 28, 2018 12:26 PM VA-TOBACCO NEVER USED [facility] July 05, 2011 09:38 AM LIFETIME NON-TOBACCO USER [facility] July 03, 2011 06:04 PM LIFETIME NON-TOBACCO USER [facility] Nov 20, 2007 08:19 AM LIFETIME NON-TOBACCO USER [facility] Advance Directives: All historical and current Section Date Range: From patient's date of to the date document was created. This section includes ALL of a patient's completed or amended [place] Advance and Rescinded Directives. The entries below indicate that a directive exists for the patient, but an actual copy is not included with this document. The data comes from all [place] facilities. Date Advance Directives Provider Source July 03, 2011 CLINICAL WARNING [facility] Encounter Notes: All associated encounter notes This section contains the clinical notes associated to the Encounter. Date/Time Encounter Note(s) Provider Source Feb 13, 2023 03:45 PM SOCIAL WORK CONSUL T: LOCAL TITLE: SOCIAL WORK CONSULT STANDARD TITLE: SOCIAL WORK CONSULT DATE OF NOTE: FEB 13, 2023@15:45 ENTRY DATE: FEB 13, 2023@15:45:12 AUTHOR: GRETEL CARLSON COSIGNER: URGENCY: STATUS: COMPLETED Orderable Item: SOCIAL WORK (MEDICINE/PRIMARY CARE) OUTPT Consult: Consult Request Provisional Diagnosis: Cerebral Infarction, unspecified(ICD-10-CM I63.9) Reason For Request: Are patient and/or family aware that social work consult is being sent? Yes Which alliance party identified the need(s) presented in this consult? 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 Narrow Gauge Brakeman called 's listed cell phone. 's son Tung answered (listed as NOK and has been contact for recent coordination or cares), introducing self and purpose of contact. Tung thanked typewriter ribbon winder for return call. Tung explains, 'Delphia's cares are increasing and they're doing everything they can to keep him as independent as they can for as long as they can. Tung reports issue with transportation to community care appointments stating there's a lack of transportation where Delphia lives and they're hoping to move him closer to the [facility] preferably on the metro mobility line in hopes can have better access to the community care needed appointments and or receive that care at the [facility]. Tung reported is currently in an Assisted Living Facility and is connected with the [facility] for waivers to assist with payment of his cares. Narrow Gauge Brakeman provided supportive listening and validation as appropriate. Narrow Gauge Brakeman spoke of [facility] Brandcast Guide, spoke of services offered, referred them to [facility] to evaluate if Delphia is eligible for any benefits. Narrow Gauge Brakeman spoke of completing [id number], if [place]phia is deemed low income he could be eligible for additional resources. Narrow Gauge Brakeman spoke of services [place] can offer and [place] [facility]. Tung/Delphia's son was respectful during today's interaction and appreciative of typewriter ribbon winder's assistance. Narrow Gauge Brakeman provided/sent following information to [facility] ([facility] address) per request: Benefit contact/[facility] [place] copay/eligibility information and form [id number] Types of Care Skilled Care offered through the [facility] Info on [place] [facility] Where to start looking (for new LATA within Metro Mobility catchment) [facility] Mobility Catchment and application PCSW to remain available. /zeb/ Gretel Carlson LCSW Primary Care Social Work Signed: 02/13/2023 16:10 GRETEL CARLSON [facility]
--- OUTSIDE RECORDS SUMMARY | 2023-03-31 09:49 | XMS_ITS | Encounter Summary ---
Author Name Department of Vetera Affairs Organization Department of Vetera ns Affairs Address [address] [place] [address] Support Name Relationship Address Phone FRANSISCORIA ROBERSONIS Next of Kin [address] [place] [address] SHENA PETERSEN Emergency Contact [address] [place] [address] SHENA PETERSEN Next of Kin [address] [place] [phone] Insurance Providers: All historical and current [...] PART A June 18, 2009 PART A [id number] [phone] Smiley MOODY PATIENT Selected Encounter This section includes the information on record at [place] for the Encounter. Date/Time Encounter Type Encounter Description Reason Pro vider Source Feb 28, 2023 09:04 AM Outpatient Encounter CLINICAL PHARMACY IHE Encounter Template Text not used by [...] [place] treatment facilities. Appointment Date/Time Appointment Type Appointme nt Facility Name Mar 01, 2023 09:30 AM AMBULATORY - REHAB MEDIC[facility] Mar 15, 2023 05:00 [facility] May 13, 2023 10:15 AM AMBULATORY - MEDICINE [facility] Lab Results: +/- 30 days of the encounter This section includes the Chemistry and Hematology Lab Results on record with [place] for the patient. Radiology Reports and Pathology Reports are provided separately, in subsequent sections. Lab Results This section contains the Chemistry/Hematology Results that were resulted 30 days before or 30 daysafter the date of the Encounter. Date/Time Source Result Type Result - Unit Interpretation Reference Range Comment Feb 12, 2023 09:32 AM [facility] HEMOGLOBIN A1C Specimen Type: BLOOD Comment: Values [...] Feb 08, 2023 11:20 AM Reporting Lab: [facility] [id number] Performing Lab: [facility] [id number] HEMOGLOBIN A1C 11.4 H 4.0-6.0 Feb 12, 2023 09:32 AM [facility] LIPID PANEL,NON-FASTING Specimen Type: PLASMA Comment: Elevated triglyceride result from a non-fasting specimen should be interpreted with caution. A fasting panel is recommended for accurate triglycerides when trigs are >200 from a non-fasting specimen. Ordering Provider: MONI BROWN Report Released Date/Time: Feb 08, 2023 11:20 AM Reporting Lab: [facility] [id number] Performing Lab: [facility] [id number] CHOLESTEROL 84 <199 .HDL 20 L >40 LDL CALCULATION 16 <99 VLDL CALCULATION 48 H <29 NON HDL CHOLESTEROL 64 <129 TRIG(NON FASTING) 240 H <149 Feb 12, 2023 09:32 AM [facility] CBC Specimen Type: BLOOD No comment entered. Ordering Provider: MONI BROWN Report Released Date/Time: Feb 08, 2023 11:20 AM Reporting Lab: [facility] [id number] Performing Lab: [facility] [id number] WBC 5.73 4.0-11.0 RBC 4.37 L 4.6-6.2 HGB 13.1 L 13.5-17.9 HCT 39.2 L 41-54 MCV 89.7 80-100 MCH 30.0 27-33 MCHC 33.4 32.0-37.5 PLT 276 150-400 MPV 10.1 7.4-10.4 RDW 13.4 11.5-14.5 Feb 12, 2023 09:32 AM [facility] TSH W/REFLEX TO FREE T4 Specimen Type: PLASMA Comment: Elevated triglyceride result from a non-fasting specimen should be interpreted with caution. A fasting panel is recommended for accurate triglycerides when trigs are >200 from a non-fasting specimen. Ordering Provider: MONI BROWN Report Released Date/Time: Feb 08, 2023 11:20 AM Reporting Lab: [facility] [id number] Performing Lab: [facility] [id number] TSH 1.91 0.35-4.94 Feb 12, 2023 09:32 AM [facility] COMPREHENSIVE METABOLIC PANEL+MG Specimen Type: PLASMA Comment: Elevated triglyceride result from a non-fasting specimen should be interpreted with caution. A fasting panel is recommended for accurate triglycerides when trigs are >200 from a non-fasting specimen. Ordering Provider: MONI BROWN Report Released Date/Time: Feb 08, 2023 11:20 AM Reporting Lab: [facility] [id number] Performing Lab: [facility] [id number] CREATININE 1.6 H 0.7-1.2 UREA NITROGEN 24 [...] and tobacco- related health factors from the [place] facility where the Encounter took place. Current Smoking Status This section includes the most current smoking, or tobacco-related health factor, from the [place] facility where the Encounter took place. Date/Time Current Smoking Status Comment Facil ity Feb 12, 2023 08:30 AM VA-TOBACCO NEVER USED [facility] Tobacco Use History This section includes a history of the smoking, or tobacco-related health factors, that were collected on or before the date of the Encounter. The data comes from the [place] facility where the Encounter took place. 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 The data comes from all [facility]. Date Advance Directives Provider Source July 03, 2011 CLINICAL WARNING RACHAEL KING [facility] Encounter Notes: All associated encounter notes This section contains the clinical notes associated to the Encounter. Date/Time Encounter Note(s) Provider Source Feb 28, 2023 09:04 AM REPORT OF CONTACT: LOCAL TITLE: APPOINTMENT SCHEDULING NOTE STANDARD TITLE: REPORT OF CONTACT DATE OF NOTE: FEB 28, 2023@09:04 ENTRY DATE: FEB 28, 2023@09:04:37 AUTHOR: NALLELY REDDY COSIGNER: URGENCY: STATUS: COMPLETED Attempted to schedule Return to clinic (RTC) Contact attempt made to 1st attempt Telephone Left message on voice mail to call back to this number [phone] If calls back, schedule appt for: msp pact 4d pharm purple/red f/u on DM /es/ NALLELY REDDY EXECUTIVE ACCOUNT MANAGER Signed: 02/28/2023 09:05 NALLELY REDDY [facility]
--- OUTSIDE RECORDS SUMMARY | 2023-03-31 09:49 | XMS_ITS | Encounter Summary ---
Author Name Department of Vetera Affairs Organization Department of Vetera ns Affairs Address [address] [place] [address] Support Name Relationship Address Phone FRANSISCOJULIET ROBERSON Next of Kin [address] [place] [address] SHENA PETERSEN Emergency Contact [address] [place] [address] SHENA PETERSEN Next of Kin [address] [place] [phone] Insurance Providers: All historical and current [...] PART A June 18, 2009 PART A [id number] [phone] Smiley MOODY PATIENT Selected Encounter This section includes the information on record at CT for the Encounter. Date/Time Encounter Type Encounter Description Reason Pro vider Source Mar 07, 2023 09:08 AM Outpatient Encounter TELEPHONE PRIMARY CARE IHE Encounter Template Text not used by CT Plan of Treatment: Future Appointments (+ 6 months) and Future Tests (+/- 45 days) The Plan of Treatment section includes future care activities for the patient from all CT treatmentfacilities. This section includes future appointments and future orders which are active, pending or scheduled. Future Appointments This section includes appointments that were scheduled to occur 6 months from the date of the Encounter, up to a maximum of 20 appointments. The data comes from all CT treatment facilities. Appointment Date/Time Appointment Type Appointme nt Facility Name Mar 15, 2023 05:00 PM AMBULATORY - REHAB MEDICIN E [facility] May 13, 2023 10:15 AM [facility] Lab Results: +/- 30 days of the encounter This section includes the Chemistry and Hematology Lab Results on record with CT for the patient. Radiology Reports and Pathology Reports are provided separately, in subsequent sections. Lab Results This section contains the Chemistry/Hematology Results that were resulted 30 days before or 30 daysafter the date of the Encounter. Date/Time Source Result Type Result - Unit Interpretation Reference Range Comment Feb 12, 2023 09:32 AM [facility] HEMOGLOBIN A1C Specimen Type: BLOOD Comment: [...] Reporting Lab: [facility] [id number] Performing Lab: [facility] [id number] HEMOGLOBIN A1C 11.4 H 4.0-6.0 Feb 12, 2023 09:32 AM [facility] TSH W/REFLEX TO FREE T4 Specimen Type: PLASMA Comment: Elevated triglyceride result from a non-fasting specimen should be interpreted with caution. A fasting panel is recommended for accurate triglycerides when trigs are >200 from a non-fasting specimen. Ordering Provider: MONI BROWN Report Released Date/Time: Feb 08, 2023 11:20 AM Reporting Lab: [facility] [id number] Performing Lab: [facility] [id number] TSH 1.91 0.35-4.94 Feb 12, 2023 09:32 AM [facility] LIPID PANEL,NON-FASTING Specimen Type: PLASMA Comment: Elevated triglyceride result from a non-fasting specimen should be interpreted with caution. A fasting panel is recommended for accurate triglycerides when trigs are >200 from a non-fasting specimen. Ordering Provider: MONI BROWN Report Released Date/Time: Feb 08, 2023 11:20 AM Reporting Lab: [facility] [id number] Performing Lab: [facility] [id number] CHOLESTEROL 84 <199 .HDL 20 L >40 LDL CALCULATION 16 <99 VLDL CALCULATION 48 H <29 NON HDL CHOLESTEROL 64 <129 TRIG(NON FASTING) 240 H <149 Feb 12, 2023 09:32 AM [facility] CBC Specimen Type: BLOOD No comment entered. Ordering Provider: MONI BROWN Report Released Date/Time: Feb 08, 2023 11:20 AM Reporting Lab: [facility] [id number] Performing Lab: [facility] [id number] WBC 5.73 4.0-11.0 RBC 4.37 L 4.6-6.2 HGB 13.1 L 13.5-17.9 HCT 39.2 L 41-54 MCV 89.7 80-100 MCH 30.0 27-33 MCHC 33.4 32.0-37.5 PLT 276 150-400 MPV 10.1 7.4-10.4 RDW 13.4 11.5-14.5 Feb 12, 2023 09:32 AM [facility] COMPREHENSIVE METABOLIC PANEL+MG Specimen Type: PLASMA Comment: Elevated triglyceride result from a non-fasting specimen should be interpreted with caution. A fasting panel is recommended for accurate triglycerides when trigs are >200 from a non-fasting specimen. Ordering Provider: MONI BROWN Report Released Date/Time: Feb 08, 2023 11:20 AM Reporting Lab: [facility] [id number] Performing Lab: [facility] [id number] CREATININE 1.6 H 0.7-1.2 UREA NITROGEN 24 [...] and tobacco- related health factors from the CT facility where the Encounter took place. Current Smoking Status This section includes the most current smoking, or tobacco-related health factor, from the CT facility where the Encounter took place. Date/Time Current Smoking Status Comment Facil ity Feb 12, 2023 08:30 AM VA-TOBACCO NEVER USED [facility] Tobacco Use History This section includes a history of the smoking, or tobacco-related health factors, that were collected on or before the date of the Encounter. The data comes from the [place] facility where the Encounter took place. 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 This section includes ALL of a patient's completed or amended CT Advance and Rescinded Directives. The entries below indicate that a directive exists for the patient, but an actual copy is not included with this document. The data comes from all [facility]. Date Advance Directives Provider Source July 03, 2011 CLINICAL WARNING RACHAEL KING [facility] Encounter Notes: All associated encounter notes This section contains the clinical notes associated to the Encounter. Date/Time Encounter Note(s) Provider Source Mar 07, 2023 09:08 AM REPORT OF CONTACT: LOCAL TITLE: APPOINTMENT SCHEDULING NOTE STANDARD TITLE: REPORT OF CONTACT DATE OF NOTE: MAR 07, 2023@09:08 ENTRY DATE: MAR 07, 2023@09:09:03 AUTHOR: BANDAR ABEBE EXP COSIGNER: URGENCY: STATUS: COMPLETED Attempted to schedule Return to clinic (RTC) Contact attempt made to [place] 1st attempt Telephone Called pt to schedule appt with #[id number] for diabetes. Left VM to call & schedule. /zeb/ BANDAR ABEBE [employer]ILER[employer]KER [employer] Signed: 03/07/2023 09:09 BANDAR ABEBE [facility]
--- OUTSIDE RECORDS SUMMARY | 2023-03-31 09:49 | XMS_ITS | Encounter Summary ---
Author Name Department of Vetera Affairs Organization Department of Vetera ns Affairs Address [address] [place] [address] Support Name Relationship Address Phone FRANSISCORIA ROBERSONIS Next of Kin [address] [place] [address] SHENA PETERSEN Emergency Contact [address] [place] [address] SHENA PETERSEN Next of Kin [address] [place] [phone] Insurance Providers: All historical and current [...] PART A June 18, 2009 PART A [id number] [phone] Smiley MOODY PATIENT Selected Encounter This section includes the information on record at [place] for the Encounter. Date/Time Encounter Type Encounter Description Reason Pro vider Source Mar 01, 2023 09:30 AM Outpatient Encounter [facility] [facility] IHE Encounter Template Text not used by [...] 05:00 PM AMBULATORY - REHAB MEDICIN E [facility] May 13, 2023 10:15 AM AMBULATORY - [facility]ICINE [facility] Lab Results: +/- 30 days of [...] Range Comment Feb 12, 2023 09:32 AM [facility] HEMOGLOBIN A1C Specimen Type: BLOOD [...] Feb 08, 2023 11:20 AM Reporting Lab: [facility] [id number] Performing Lab: [facility] [id number] HEMOGLOBIN A1C 11.4 H 4.0-6.0 Feb 12, 2023 09:32 AM [facility] TSH W/REFLEX TO FREE T4 Specimen Type: PLASMA Comment: Elevated triglyceride result from a non-fasting specimen should be interpreted with caution. A fasting panel is recommended for accurate triglycerides when trigs are >200 from a non-fasting specimen. Ordering Provider: MONI BROWN Report Released Date/Time: Feb 08, 2023 11:20 AM Reporting Lab: [facility] [id number] Performing Lab: [facility] [id number] TSH 1.91 0.35-4.94 Feb 12, 2023 09:32 AM [facility] LIPID PANEL,NON-FASTING Specimen Type: PLASMA Comment: Elevated triglyceride result from a non-fasting specimen should be interpreted with caution. A fasting panel is recommended for accurate triglycerides when trigs are >200 from a non-fasting specimen. Ordering Provider: MONI BROWN Report Released Date/Time: Feb 08, 2023 11:20 AM Reporting Lab: [facility] [id number] Performing Lab: [facility] [id number] CHOLESTEROL 84 <199 .HDL 20 L >40 LDL CALCULATION 16 <99 VLDL CALCULATION 48 H <29 NON HDL CHOLESTEROL 64 <129 TRIG(NON FASTING) 240 H <149 Feb 12, 2023 09:32 AM [facility] CBC Specimen Type: BLOOD No comment entered. Ordering Provider: MONI BROWN Report Released Date/Time: Feb 08, 2023 11:20 AM Reporting Lab: [facility] [id number] Performing Lab: [facility] [id number] WBC 5.73 4.0-11.0 RBC 4.37 L 4.6-6.2 HGB 13.1 L 13.5-17.9 HCT 39.2 L 41-54 MCV 89.7 80-100 MCH 30.0 27-33 MCHC 33.4 32.0-37.5 PLT 276 150-400 MPV 10.1 7.4-10.4 RDW 13.4 11.5-14.5 Feb 12, 2023 09:32 AM [facility] COMPREHENSIVE METABOLIC PANEL+MG Specimen Type: PLASMA Comment: Elevated triglyceride result from a non-fasting specimen should be interpreted with caution. A fasting panel is recommended for accurate triglycerides when trigs are >200 from a non-fasting specimen. Ordering Provider: MONI BROWN Report Released Date/Time: Feb 08, 2023 11:20 AM Reporting Lab: [facility] [phone] Performing Lab: [facility] [phone] CREATININE 1.6 H 0.7-1.2 UREA NITROGEN 24 [...] 12, 2023 08:30 AM VA-TOBACCO NEVER USED [facility] Tobacco Use History This section includes a history of the smoking, or tobacco-related health factors, that were collected on or before the date of the Encounter. The data comes from the [place] facility where the Encounter took place. 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. Date Advance Directives Provider Source July 03, 2011 CLINICAL WARNING RCAHAEL KING [facility] Encounter Notes: All associated encounter notes This section contains the clinical notes associated to the Encounter. Date/Time Encounter Note(s) Provider Source Mar 01, 2023 12:49 PM NO SHOW NOTE: LOCAL TITLE: NO SHOW/CANCELLATION CLINIC NOTE STANDARD TITLE: NO SHOW NOTE DATE OF NOTE: MAR 01, 2023@12:49 ENTRY DATE: MAR 01, 2023@12:49:47 AUTHOR: ROE MCKINLEY EXP COSIGNER: URGENCY: STATUS: COMPLETED [place] not seen for scheduled appointment due to: No Show Appointment Rescheduled: MSAs Alerted. Please review patient chart and medications for renewal needs (if appropriate). /zeb/ Roe Mckinley, OTR/L, ATP OCCUPATIONAL THERAPIST Signed: 03/01/2023 12:50 ROE MCKINLEY [facility]
--- OUTSIDE RECORDS SUMMARY | 2023-03-31 09:50 | XMS_ITS | Encounter Summary ---
Author Name Department of Vetera Affairs Organization Department of Vetera ns Affairs Address [address] [place] [address] Support Name Relationship Address Phone FRANSISCOJULIET ROBERSON Next of Kin [address] [place] [address] SHENA PETERSEN Emergency Contact [address] [place] [address] SHENA PETERSEN Next of Kin [address] [place] [phone] Insurance Providers: All historical and current [...] PART A June 18, 2009 PART A [id number] [phone] Smiley MOODY PATIENT Selected Encounter This section includes the information on record at [place] for the Encounter. Date/Time Encounter Type Encounter Description Reason Pro vider Source Mar 21, 2023 09:05 AM Outpatient Encounter TELEPHONE PRIMARY CARE IHE [...] Appointment Type Appointme nt Facility Name May 13, 2023 10:15 AM [facility]UL[facility] Social History: Smoking Status (Most current) [...] Date/Time Current Smoking Status Comment Jorge ity Feb 12, 2023 08:30 AM VA-TOBACCO NEVER USED [facility] Tobacco Use History This section includes a history of the smoking, or tobacco-related health factors, that were collected on or before the date of the Encounter. The data comes from the [place] facility where the Encounter took place. 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 [facility] Jun 14, 2021 08:15 AM VA-TOBACCO USE MED NO [facility] Jun 14, 2021 08:15 AM VA-TOBACCO USER SOME DAYS [facility] Jan 28, 2018 12:26 PM VA-TOBACCO NEVER USED [facility] July 05, 2011 09:38 AM LIFETIME NON-TOBACCO USER [facility] July 03, 2011 06:04 PM LIFETIME NON-TOBACCO USER [facility] Nov 20, 2007 08:19 AM LIFETIME NON-TOBACCO USER [facility] Advance Directives: All historical [...] Source July 03, 2011 CLINICAL WARNING FERNANDORACHAEL [facility] Encounter Notes: All associated encounter notes This section contains the clinical notes associated to the Encounter. Date/Time Encounter Note(s) Provider Source Mar 21, 2023 09:05 AM REPORT OF CONTACT: LOCAL TITLE: APPOINTMENT SCHEDULING NOTE STANDARD TITLE: REPORT OF CONTACT DATE OF NOTE: MAR 21, 2023@09:05 ENTRY DATE: MAR 21, 2023@09:05:43 AUTHOR: BANDAR ABEBE EXP COSIGNER: URGENCY: STATUS: COMPLETED Attempted to schedule Return to clinic (RTC) Contact attempt made to 2nd attempt Telephone Called pt to schedule appt with #[id number] for diabetes. Left VM to call & schedule. /zeb/ BANDAR ABEBE HOLLOW WARE MAKER Signed: 03/21/2023 09:06 BANDAR ABEBE [facility]
[2023-03-31 09:57] LABS: Basophils Absolute Auto 0.03 K/uL (0.00-0.30); Basophils Percent Auto 0.5 % (0.0-3.0); Eosinophils Percent Auto 1.7 % (0.0-7.0); Hematocrit 39.1 % (37.0-53.0); Hemoglobin* 12.9 gm/dL (13.5-17.5); Immature Granulocytes Abs Auto 0.02 K/uL (0.00-0.30); Immature Granulocytes Pct Auto 0.3 %; Lymphocytes Absolute Auto 1.22 K/uL (0.90-2.90); Lymphocytes Percent Auto 20.8 % (20-44); Mean Corpuscular HGB Conc 33 gm/dL (32-36); Mean Corpuscular Hemoglobin 30 pg (26-34); Mean Corpuscular Volume 90 fL (80-100); Monocytes Percent Auto 7.5 % (0.0-11.0); Neutrophils Absolute Auto 4.05 K/uL (1.7-7.0); Neutrophils Percent Auto 69.2 % (42.0-72.0); Platelet Count* 282 K/uL (140-440); Red Blood Count 4.33 m/uL (4.30-5.90); White Blood Count* 5.86 K/uL (4.50-11.00)
[2023-03-31 10:00] LABS: Slide Review Reflex No
[2023-03-31 10:17] LABS: Chloride* 96 mmol/L (96-114); Potassium* 4.4 mmol/L (3.6-5.1); Sodium* 136 mmol/L (135-149)
[2023-03-31 10:20] LABS: Anion Gap 10 mEq/L (7-15); Blood Urea Nitrogen* 20 mg/dL (7-30); Carbon Dioxide* 30 mmol/L (20-32); Est. Creatinine Clearance* 78.44; Estimated Glomerular Filt Rate 84 ml/min
[2023-03-31 10:21] LABS: Calcium* 9.4 mg/dL (8.4-10.6)
[2023-03-31 10:22] LABS: Glucose* 382 mg/dL (60-115)
== END 2023-03-31 12:44 | disposition home or self-care (01) ==
PROVIDERS: Emergency Provider Emergency Medicine Emergency Medical Services
DX: K42.9 Umbilical hernia without obstruction or gangrene (principal); R60.0 Localized edema; N50.89 Other specified disorders of the male genital organs
CPT/HCPCS: 36415; 74177; 80048; 85025; 99284; Q9967